=== PATIENT | female | born 1950 | race Caucasian/White ===

== ENCOUNTER 2022-02-25 18:58 | Emergency (ER) | payer OTHER, SELFPAY ==
[2022-02-25 19:16] VITALS: BP 139/72; PULSE 149; RESP 18; TEMP 38.4; O2SAT 94; BMI 23.4
--- NOTE | 2022-02-25 19:26 | ED.GENADULT ---
HPI - General Adult General Time Seen by Provider: 19:26 Date Seen: 02/25/22 Chief complaint: Unspecified Complaint, Adult Stated complaint: HIGH HEART RATE, COVID+ Time Seen by Provider: 02/25/22 19:17 Source: patient, RN notes reviewed and old records reviewed Mode of arrival: ambulatory Limitations: no limitations History of Present Illness HPI narrative: This 72-year-old [facility] rate in setting of COVID. She was essentially asymptomatic but her Apple watch alerted her to her elevated heart rate. She has a known history of atrial fibrillation and is anticoagulated with 20 mg daily of Xarelto. She did have a complex atrial ablation on 12/26/2019 per her records which I have reviewed. This was done at [facility]. Her current symptoms are in the setting of COVID. She really did not feel well on Monday thought maybe her allergy symptoms were starting. By she with is having more congestion and tested positive for COVID night. Today she started developing fevers. She has been coughing. She is getting sharp shooting head pains. She has not taken any recent Tylenol and she does have a notable fever of 101.1? F on arrival. She did call the clinic and speak to 1 of our clinic physicians, did get started on Paxlovid, took her 1st dose at 5:00 p.m. [facility]. She has no current kidney functions that I can see in the chart. She was reportedly told to take her Xarelto every other day while on this. Per [place] Covid interaction receiving checker, this is considered contraindicated in the elderly. There have been some model studies but nothing conclusive as for the potential for increased risk of bleeding while on this medicine. In the model study, they did talk about going down to 10 mg of Xarelto daily while on the antiviral and for 3 days after cessation of the antiviral in the nose with normal renal function. However, they do site that they still recommend to not coadminister these 2 medicines in the elderly. She is not short of breath, no loss of taste or smell, no chest pain. Her throat is a little sore from coughing. She has diminished appetite but no nausea vomiting, no diarrhea, no abdominal pain. Related Data Home Medications Medication Instructions Recorded Confirmed xocjmlcqmm-dtksxualxwual-zkhhpjrn 2 cap PO Q4-6H PRN 02/25/22 50 mg-300 mg-40 mg capsule (Fioricet) calcium carb,cit 300 mg-D3 200 tab PO DAILY 02/25/22 unit-min no.34-genistein 13.5 mg tablet (Citracal Plus Bone Density Builder) cyclobenzaprine 5 mg tablet 5 mg PO QHS PRN 02/25/22 fluticasone propionate 50 2 spray intranasal QDAY 02/25/22 02/25/22 mcg/actuation nasal spray,suspension lisinopril 5 mg tablet 5 mg PO QDAY 02/25/22 02/25/22 loratadine 10 mg tablet (Claritin) 10 mg PO QDAY 02/25/22 02/25/22 mesalamine 800 mg tablet,delayed 800 mg PO BID 02/25/22 02/25/22 release (Asacol HD) metoprolol tartrate 50 mg tablet 50 mg PO BID 02/25/22 02/25/22 multivitamin (Daily Multi-Vitamin 1 tab PO DAILY 02/25/22 02/25/22 tablet) omeprazole 20 mg capsule,delayed 20 mg PO QDAY 02/25/22 02/25/22 release pravastatin 10 mg tablet 10 mg PO QHS 02/25/22 02/25/22 risankizumab-rzaa 75 mg/0.83 mL 150 mg subcut Q12W 02/25/22 02/25/22 subcutaneous syringe (Skyrizi) rivaroxaban 20 mg tablet (Xarelto) 20 mg PO QDAY 02/25/22 02/25/22 Previous Rx's Medication Instructions Recorded nirmatrelvir 300 mg (150 mg See Rx Instructions PO .COMPLEX 02/25/22 x2)-ritonavir 100 mg tablet,dose #30 ea pack(EUA) (Paxlovid) Allergies Allergy/AdvReac Type Severity Reaction Status Date / Time Sulfa (Sulfonamide Allergy Severe larygnospas Verified 02/25/22 19:23 Antibiotics) m Quinolones Allergy Unknown Verified 02/25/22 19:23 simvastatin Allergy Unknown Verified 02/25/22 19:23 tolterodine Allergy Unknown Verified 02/25/22 19:23 atorvastatin AdvReac Unknown Verified 02/25/22 19:23 Review of Systems Status of ROS: Reports: 10 or more systems reviewed and unremarkable except as noted in History and below [facility] Medical History (Updated 02/25/22 @ 21:19 by Lorie Delcid MD) Chest pain, unspecified Diverticulitis Essential (primary) hypertension Hyperlipidemia, unspecified YOLI (obstructive sleep apnea) Paroxysmal atrial fibrillation Surgical History (Updated 02/25/22 @ 19:28 by Cinthya Garcias RN) H/O colectomy History of appendectomy Social History Smoking Status: Never smoker Do you use any of these nicotine containing products: None How often do you have a drink containing alcohol: never How often do you have six or more drinks on one occasion: Never AUDIT-C Alcohol total score: 0 Non-prescribed substance use: denies use Exam Const: Vital Signs, click to edit/add: Vital Signs - 24 hr 02/25/22 19:16 02/25/22 21:05 Temperature 101.1 F H 99.3 F Pulse Rate [Left P ulse Oximeter] 149 H 88 Respiratory Rate 18 22 Blood Pressure [Ri ght Upper Arm] 139/72 119/65 Pulse Oximetry 94 92 Oxygen Delivery Me thod Room Air Room Air Documenting provider has reviewed patient's vital signs: yes Common normals: no apparent distress, average body habitus, oriented x3, no limitations, healthy appearing and alert General appearance: other (Looks like she is not feeling the best but certainly not in any distress) Orientation/consciousness: Yes awake HENMT: Common normals: normocephalic, head/scalp atraumatic and hearing grossly normal bilaterally Head and scalp: normocephalic and atraumatic Eye: Common normals: PERRL, EOMs intact bilaterally, conjunctivae normal and no scleral icterus Conjunctiva: conjunctiva(e) normal Pupil: PERRL Neck & C-Spine: Common normals: full ROM, no lymphadenopathy, supple, no meningeal signs, no JVD and thyroid normal Thyroid: thyroid normal Resp: Common normals: normal respiratory effort, no retractions, no use of accessory muscles and clear to auscultation bilaterally Auscultation: clear to auscultation bilaterally Other: Reviewed pulse oximetry while I was in with her, not hypoxic. Cardio: Common normals: no JVD, S1 normal heart sound and S2 normal heart sound Rate: tachycardic Rhythm: other (She mostly sounds regular but she is tachycardic about 140s ) Heart sounds: S1 normal and S2 normal GI: Common normals: Normal to inspection, nondistended, normoactive bowel sounds present, soft to palpation, non-tender, no hepatosplenomegaly and no masses Palpation: soft and no hepatosplenomegaly Extremity: Common normals: no calf tenderness and no pedal edema Neuro: Common normals: oriented x3 Sensorium/orientation: awake and alert Meningeal signs: no meningeal signs Speech: speech normal Course Course Hospital Course: Patient has known atrial fibrillation and is on chronic anticoagulation. She baseline and is on metoprolol XL 25 mg daily. The COVID-19 and fever could be feeling her rhythm. She has bounced back into sinus rhythm in the upper 90s and have captured EKGs full doing this. She bounces back into atrial fibrillation with RVR. She is essentially asymptomatic and would not have known about this unless her watch alerted her. We are going to treat her fever with 1000 mg Tylenol she has not taken anything recently, give her 500 mL fluid bolus. We will check labs including a troponin and obtain portable chest x-ray. I have discussed with her that I do not think that she should take the antiviral for COVID (paxlovid). We did discuss alternate treatment with remdesivir. Unfortunately if she does go home this would be outpatient in outpatient treatment and she would have to clarify with her insurance whether it is covered. Seen that this is a weekend and she is Medicare, it has been my prior experience that this is been extremely difficult to wait through. Her symptoms probably started on Monday and she is only about 48 hours into her illness. If we cannot reasonably controller capture rate control of atrial fibrillation, we will need to consider hospitalization. I would talk to the hospitalists before starting remdesivir in that setting as well as she is not hypoxic. Reevaluation(s) Reevaluation #1: On telemetry, patient is in sinus rhythm in 90s right now. Time: 20:23 Reevaluation #2: On cardiac monitoring, patient is in sinus rhythm in the 80s right now. Have reviewed her labs, chest x-ray. We discussed further use of the Paxlovid, did review the 10 mg dosing in the model study. She at this time thinks she is going to stop it. It is a difficult situation as you really want to try to treat her so to minimize the complications of COVID but it may be in her best interest to stop this medicine. I did discuss with her remdesantonio but I have no way whatsoever to see if her insurance would cover this for early treatment. It is no longer EUA. Time: 21:12 Vital Signs Vital signs: Initial Vital Signs Temperature 101.1 F H 02/25/22 19:16 Temperature Source Temporal Artery Scan 02/25/22 19:16 Pulse Rate 149 H 02/25/22 19:16 Pulse Rhythm 02/25/22 19:16 Respiratory Rate 18 02/25/22 19:16 Blood Pressure 139/72 02/25/22 19:16 Blood Pressure Mean 94 02/25/22 19:16 Blood Pressure Position Sitting 02/25/22 19:16 Pulse Oximetry 94 02/25/22 19:16 Oxygen Delivery Method 02/25/22 19:16 Vital Signs Temperature 101.1 F H 02/25/22 19:16 Pulse Rate 149 H 02/25/22 19:16 Respiratory Rate 18 02/25/22 19:16 Blood Pressure 139/72 02/25/22 19:16 Pulse Oximetry 94 02/25/22 19:16 Oxygen Delivery Method 02/25/22 19:16 Temperature 99.3 F 02/25/22 21:05 Pulse Rate 88 02/25/22 21:05 Respiratory Rate 22 02/25/22 21:05 Blood Pressure 119/65 02/25/22 21:05 Pulse Oximetry 92 02/25/22 21:05 Oxygen Delivery Method 02/25/22 21:05 Medical Decision Making Lab Data Lab results reviewed: Yes I reviewed the patient's lab results Labs: Lab Results 02/25/22 02/25/22 Range/Units 19:30 19:30 WBC 6.83 (4.50-11.00) K/uL RBC 4.10 (4.00-5.20) m/uL Hgb 12.5 (12.0-16.0) gm/dL Hct 37.3 (33.0-51.0) % MCV 91 (80-100) fL MCH 31 (26-34) pg MCHC 34 (32-36) gm/dL RDW Coeff of Pan 12.1 (11.5-15.5) % Plt Count 213 (140-440) K/uL Neut % (Auto) 85.2 H (42.0-72.0) % Lymph % (Auto) 7.3 L (20-44) % [place] % (Auto) 7.0 (0.0-11.0) % Eos % (Auto) 0.1 (0.0-7.0) % Baso % (Auto) 0.3 (0.0-3.0) % Neut # (Auto) 5.80 (1.7-7.0) K/uL Lymph # (Auto) 0.50 L (0.90-2.90) K/uL [place] # (Auto) 0.50 (0.00-0.90) K/UL Eos # (Auto) 0.01 (0.00-0.50) K/uL Baso # (Auto) 0.02 (0.00-0.30) K/uL Abs Immat Gran (auto) 0.01 (0.00-0.30) K/uL Sodium 137 (135-149) mmol/L Potassium 3.6 (3.6-5.1) mmol/L Chloride 103 (96-114) mmol/L Carbon Dioxide 23 (20-32) mmol/L BUN 15 (7-30) mg/dL Creatinine 0.7 (0.5-1.5) mg/dL Estimated Creat Clear 46.90 Estimated GFR 91 ml/min Glucose 130 H (60-115) mg/dL Calcium 9.2 (8.4-10.6) mg/dL Total Bilirubin 0.4 (0.1-1.5) mg/dL AST 33 (12-35) U/L ALT 33 (4-35) U/L Alkaline Phosphatase 83 (40-150) U/L Troponin I < 0.01 L (0.01-0.04) ng/mL C-Reactive Protein 5.6 H (0.5-1.0) mg/dL Total Protein 7.7 (6.0-8.3) g/dL Albumin 4.6 (3.3-5.0) g/dL Imaging Data Chest x-ray: Attestation: I have reviewed the pertinent imaging results. My impression: No acute pathology on my preliminary read. Radiologist's impression: Patient: CELINE VALENZUELA Facility:[facility] Patient ID:?[id number] Site Patient ID:?[id number]. Site :?[id number] Study:?XRay Chest PORTABLE-02/25/2022 8:02:48 PM Ordering Physician:Sonya Melo Final Report: INDICATION: AFib with RVR, COVID.. TECHNIQUE: Chest 1 view. COMPARISON: February 28, 2020. FINDINGS: Cardiovascular and mediastinum: Cardiomediastinal silhouette is within normal limits. Lungs and pleural spaces: Lungs are clear. No evidence of pleural effusion. No pneumothorax identified. Bones and soft tissues: Unremarkable. IMPRESSION: No acute cardiopulmonary process identified. No significant interval change. Dictated by Anjelica Jeronimo MD @ 02/25/2022 8:08:59 PM (Electronic Signature) ECG Data Attestation: I personally reviewed and interpreted this ECG as follows: (Two EKGs done by nursing staff as they were capturing 2 different rhythms on arrival. First 1 showed sinus rhythm 99 beats per minute, no ischemic change, QT corrected 428 milliseconds. Subsequent EKG showed atrial fibrillation with rapid ventricular response, 138 beats per minute. ) Prior ECG tracings: not available for review Critical Care Time Critical Care Time Critical Care Time: No Discharge Plan Discharge Clinical Impression: COVID-19, Paroxysmal atrial fibrillation with rapid ventricular response Condition: Stable Instructions: A-fib (Atrial Fibrillation) (ED), COVID-19 (Coronavirus Disease 2019) (ED), COVID-19: Slow the Coronavirus Spread (ED) Additional Instructions: Alfredo current medications, do recommend cessation of the Paxlovid. You can try to contact your insurance company over the weekend and see if you have any success getting remdesivir for early treatment prior authorized. The dosing would be 200 mg day 1, 100 mg days 2 and 3. If you are successful in getting this done, can contact the ER and we can assist in getting this treatment arranged for you. We do not have any monoclonal antibody to treat this and unfortunately I have absolutely no idea where this can be obtained at this time. Should you develop increased heart rate due to atrial fibrillation again, have chest pain, have difficulty breathing or shortness of breath, return back to the ER for further evaluation. Otherwise, once you are feeling better and recovered from COVID, please schedule a follow-up clinic appointment with Dr. Gee. Make sure you are staying hydrated and drinking plenty of fluids through this illness. Tylenol 1000 mg up to 4 times a day for fever control is recommended through this illness. Staying hydrated, controlling her fever should help control recurrent atrial fibrillation. Activity Level: Activity as Tolerated Prescriptions: No Action multivitamin [Daily Multi-Vitamin] Tablet 1 tab PO DAILY Citracal Plus Bone Density 300-200-13.5 mg-unit-mg tablet PO DAILY mesalamine [Asacol HD] 800 mg tablet,delayed release (DR/EC) 800 mg PO BID omeprazole 20 mg capsule,delayed release(DR/EC) 20 mg PO QDAY pravastatin 10 mg tablet 10 mg PO QHS Xarelto 20 mg tablet 20 mg PO QDAY Rx Instructions: must administer with evening meal cyclobenzaprine 5 mg tablet 5 mg PO QHS PRN loratadine [Claritin] 10 mg tablet 10 mg PO QDAY fluticasone propionate 50 mcg/actuation spray,suspension 2 spray intranasal QDAY Rx Instructions: administer into each nostril auaudhkmzr-fzdodoywosmcg-jfkr [Fioricet] 50-300-40 mg capsule 2 cap PO Q4-6H PRN Rx Instructions: do not exceed 6 caps per day metoprolol tartrate 50 mg tablet 50 mg PO BID Skyrizi 75 mg/0.83 mL syringe 150 mg subcut Q12W lisinopril 5 mg tablet 5 mg PO QDAY Paxlovid (EUA) 300 mg (150 mg x 2)-100 mg tablets,dose pack See Rx Instructions PO .COMPLEX Qty: 30 0RF Rx Instructions: take TWO 150 mg tablets of nirmatrelvir with ONE 100 mg tablet of ritonavir twice daily for 5 days PO Follow Up/Referrals: Candy Gee MD [Primary Care Provider] - Stand Alone Forms: [facility] Info Instructions
--- NOTE | 2022-02-25 19:35 | CRLHL7_ITS ---
For Patients: As a result of the Cures Act, medical imaging exams and procedure reports are released immediately into your electronic medical record. You may view this report before your referring provider. If you have questions, please contact your health care provider. INDICATION: AFib with RVR, COVID.. TECHNIQUE: Chest 1 view. COMPARISON: February 28, 2020. FINDINGS: Cardiovascular and mediastinum: Cardiomediastinal silhouette is within normal limits. Lungs and pleural spaces: Lungs are clear. No evidence of pleural effusion. No pneumothorax identified. Bones and soft tissues: Unremarkable. IMPRESSION: No acute cardiopulmonary process identified. No significant interval change. Dictated by Anjelica Jeronimo MD @ 02/25/2022 8:08:59 PM (Electronically Signed)
--- OUTSIDE RECORDS SUMMARY | 2022-02-25 19:46 | XMS_ITS | Encounter Summary ---
:1950 Author Organization [facility] Address [address] [address] Care Team Providers Name Role Phone Candy Gee MD Primary Care Provider Encounter Details Date Type Department Care Team Description 04/08/2020 Orders Only [facility] [address] Evans MD Rheumatology [address] [place] [address] [place] [address] [phone] Social History Tobacco Use Types Packs/Day Years Used Date Smoking Tobacco: Former Sex Assigned at Date Recorded Not on file documented as of this encounter Plan of Treatment Upcoming Encounters Date Type Specialty Care Team Description 03/17/2022 Appointment Rheumatology Lemuel Evans MD [address] [facility] N [id number] (Wo rk) documented as of this encounter Visit Diagnoses Not on filedocumented in this encounter Care Teams Pulper Relationship Specialty Start Date End Date Candy Gee MD PCP - General Internal Medicine 03/05/[address] [place] [address] documented as of this encounter
--- OUTSIDE RECORDS SUMMARY | 2022-02-25 19:46 | XMS_ITS | Encounter Summary ---
:1950 Author [facility] [address] [address] Care Team Providers Name Role Phone Candy Gee MD Primary Care Provider Reason for Referral Procedure/Equipment (Routine) - Incomplete Specialty Diagnoses / Procedures Referred By Contact Refer red To Contact Diagnoses Arthralgia, unspecified joint Psoriasis Humaira Evans MD Procedures XR Feet 1 View Bilat Arthritis [address] [place], [place] [address] Referral ID Status Reason Start Date Expiration Date Visits V isits Requested Authorized [id number] Incomplete 03/25/2020 06/24/2021 1 1 Reason for Visit Reason Comments Follow-up Encounter Details Date Type Department Care Team Description 03/25/2020 Office Visit Humaira Zaragoza Arthralgi a, unspecified joint (Primary Dx); Rheumatology MD [place] Psoriasis [id number] [facility] [address] [place] [address] [facility] [phone] [place] [address] (Wo rk) Social History Tobacco Use Types Packs/Day Years Used Date Smoking Tobacco: Former Sex Assigned at Date Recorded Not on file documented as of this encounter Last Filed Vital Signs Vital Sign Reading Time Taken Comments Blood Pressure 145/49 03/25/2020 2:50 PM CDT Pulse 63 03/25/2020 2:50 PM CDT Temperature 36.1 ??C (97 ??F) 03/25/2020 2:50 PM CDT Respiratory Rate - - Oxygen Saturation - - Inhaled Oxygen Concentration - - Weight - - Height - - Body Mass Index - - documented in this encounter Patient Instructions Patient InstructionsHumaira Evans MD - 03/25/2020 3:00 PM CDT 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 staff Definition Psoriatic arthritis is a form of arthritis that affects some people who have psoriasis, a serious skin condition. Most people develop psoriasis first and are later diagnosed with psoriatic arthritis, but arthritis can sometimes develop before skin lesions appear. Joint pain, stiffness and swelling are the main symptoms of psoriatic arthritis. They can affect anypart of your body, including your fingertips and spine, and can range from relatively mild to severe. In both psoriasis and psoriatic arthritis, disease flares may alternate with periods of remission. No cure for psoriatic arthritis exists, so the focus is on controlling symptoms and preventing damage to your joints. Without treatment -- and regular exercise -- psoriatic arthritis may be disabling. Symptoms Both psoriatic arthritis and psoriasis are chronic diseases that get worse over time, but you may have periods when your symptoms improve or go into remission alternating with times when symptoms become worse. Often, skin and joint problems appear and disappear at the same time. General signs and symptoms of psoriatic arthritis include: ??? Pain in affected joints ??? Swollen joints ??? Joints that are warm to the touch Patterns of joint pain in psoriatic arthritis Doctors have identified five types of psoriatic arthritis, and you may experience several of them over time. They include: ??? Pain in joints on one side of your body. The mildest form of psoriatic arthritis, called asymmetric psoriatic arthritis, usually affects joints on only one side of your body or different joints on each side -- including those in your hip, knee, ankle or wrist. Fewer than five joints are generally involved, and they're often tender and red. When asymmetric arthritis occurs in your hands and feet, swelling and inflammation in the tendons can cause your fingers and toes to resemble small sausages (dactylitis). ??? Pain in joints on both sides of your body. Symmetric psoriatic arthritis usually affects five ormore of the same joints on both sides of your body. More women than men have symmetric psoriatic arthritis, and psoriasis associated with this condition tends to be severe. ??? Pain in your finger joints. Distal interphalangeal (DIP) joint predominant psoriatic arthritis is rare and occurs mostly in men. This type of arthritis affects the small joints closest to the nails(distal joints) in the fingers and toes. The nails, too, often show classic signs of psoriasis, including thickening, pitting and discoloration. ??? Pain in your spine. This form of psoriatic arthritis, called spondylitis, can cause inflammationin your spine as well as stiffness and inflammation in your neck, lower back or sacroiliac joints. Inflammation can also occur where ligaments and tendons attach to your spine. As the disease progresses, movement tends to become increasingly painful and difficult. ??? Destructive arthritis. A small percentage of people with psoriatic arthritis have arthritis mutilans -- a severe, painful and disabling form of the disease. Over time, arthritis mutilans destroys the small bones in your hands, especially the fingers, leading to permanent deformity and disability. When to see a doctor If you have psoriasis, be sure to tell your doctor if you develop joint pain. Psoriatic arthritis can come on suddenly or develop slowly, but in either case it can severely damage your joints if left untreated. Causes Psoriasis is a skin condition marked by a rapid buildup of rough, dry, skin cells that form thick scales. Arthritis causes pain and stiffness in your joints. Both are autoimmune problems -- disorders that occur when your body's immune system, which normally fights harmful organisms such as viruses and bacteria, begins to attack healthy cells and tissue. The abnormal immune response causes inflammation in your joints as well as the overproduction of skin cells. Genes and environment It's not entirely clear why the immune system turns on healthy tissue, but it seems likely that bothgenetic and environmental factors play a role. Many people with psoriatic arthritis have a close relative, such as a parent or sibling, with the disease, and researchers have discovered certain geneticmarkers that appear to be associated with psoriatic arthritis. Having a family member with psoriatic arthritis doesn't necessarily mean you'll develop the disease,but it does mean you have a greater tendency to do so. Physical trauma or something in the environment -- such as a viral or bacterial infection -- may trigger psoriatic arthritis in people with an inherited tendency. The role of TNF In addition, a substance called tumor necrosis factor (TNF), which causes inflammation in rheumatoidarthritis, appears to play a large role in psoriatic arthritis as well. People with psoriatic arthritis have high levels of TNF in both their joints and skin. Risk factors Several factors can increase your risk of psoriatic arthritis, including: ??? Psoriasis. Having psoriasis is the single greatest risk factor for psoriatic arthritis. People who have psoriasis lesions on their nails are especially likely to develop psoriatic arthritis. ??? Your family history. Many people with psoriatic arthritis have a close relative with the disease. ??? Your age. Although anyone can develop psoriatic arthritis, it occurs most often in adults between the ages of 30 and 50. ??? Your sex. In general, psoriatic arthritis affects men and women equally, but DIP arthritis and spondylitis are more likely to affect men, whereas symmetric arthritis occurs more often in women. Complications Psoriatic arthritis can be painful and debilitating, and can damage your joints, even with treatment. Some types of psoriatic arthritis can cause additional difficulties, including: ??? Swollen fingers and toes (dactylitis). Psoriatic arthritis can cause a painful, sausage-like swelling of your fingers and toes. Swollen toes are a particular problem because they can make it hard to find shoes that fit properly. A cipher expert -- a doctor who specializes in the feet -- may be able to provide help if you have psoriatic arthritis in your toes or ankles. You may also develop swelling in your hands and feet that isn't limited to your joints and that may develop before joint symptoms do. ??? Foot pain. Another condition associated with psoriatic arthritis is enthesopathy, which causes pain at the point where tendons and ligaments attach to your bones -- especially at the back of your heel (Achilles tendinitis) or in the sole of your foot (plantar fasciitis). ??? Back and neck pain. Some people develop a condition called spondylitis as a result of psoriatic arthritis. Spondylitis mainly causes inflammation of the joints between the vertebrae of your spine and the joints between your spine and pelvis. Tests and diagnosis No single test can confirm a diagnosis of psoriatic arthritis. Your doctor will assess your signs and symptoms and work to rule out other causes of joint pain, such as osteoarthritis and rheumatoid arthritis. Tests that help to distinguish psoriatic arthritis from other conditions include: ??? X-rays. These can help pinpoint changes in the joints that occur in psoriatic arthritis but not in other arthritic conditions. ??? Joint fluid test. In this test, your doctor removes a small sample of fluid from one of your joints -- often the knee -- for analysis in a laboratory. Uric acid crystals in your joint fluid may indicate that you have gout, rather than psoriatic arthritis. ??? Sed rate. This blood test checks your erythrocyte sedimentation rate (ESR), commonly known as the sed rate, by measuring how far from the top of a glass tube your red blood cells fall in a given time. Generally, the blood cells fall faster and farther -- that is, the sed rate increases -- when inflammation is present. But because many conditions can cause inflammation in the body, including many forms of arthritis and other rheumatic diseases, an elevated sed rate alone can't confirm the presence of psoriatic arthritis. ??? Rheumatoid factor (RF). RF is an antibody -- a protein made by the immune system -- that's oftenpresent in the blood of people with rheumatoid arthritis, but not in the blood of people with psoriatic arthritis. For that reason, this test can help your doctor distinguish between the two conditions. Treatments and drugs No cure exists for psoriatic arthritis, so treatment focuses on controlling inflammation in your affected joints to prevent joint pain and disability. Often, a multidisciplinary approach is used to treat both skin and joint symptoms. Medications Medications commonly used to treat psoriatic arthritis include: ??? Nonsteroidal anti-inflammatory drugs (NSAIDs). Drugs such as aspirin and ibuprofen (Advil, Motrin, others) may help control pain, swelling and morning stiffness, and they're usually the first treatment tried for psoriatic arthritis. Prescription NSAIDs provide higher potencies than do ejph-qgf-qwjubny drugs. But all NSAIDs can irritate your stomach and intestine, and long-term use can lead to ulcers and gastrointestinal bleeding. Other potential side effects include damage to your kidneys, fluid retention and heart failure. In addition, NSAIDs may worsen skin problems. Still, these medications may be a good option for people with minor joint pain and stiffness. ??? Corticosteroids. If you have mild psoriatic arthritis, your doctor might recommend corticosteroids to control infrequent joint pain flares. Corticosteroids can be taken orally, or they can be injected directly into aching joints. Corticosteroid injections provide almost immediate relief and improve range of motion -- sometimes for months. But because injected steroids can cause damage, their use is usually limited. ??? Disease-modifying antirheumatic drugs (DMARDs). Rather than just reducing pain and inflammation,this class of drugs helps limit the amount of joint damage that occurs in psoriatic arthritis. But because DMARDs act slowly, you may not notice the effects for weeks or even months. For that reason, your doctor may prescribe a pain reliever, such as aspirin, in addition to a DMARD. Examples of DMARDsinclude sulfasalazine (Azulfidine) and methotrexate. The latter, particularly, has potentially serious side effects, including lung disease and liver problems. Taking folic acid with methotrexate can relieve certain side effects such as a sore mouth and an upset stomach. ??? Immunosuppressant medications. These medications act to suppress your immune system, which normally protects your body from harmful organisms, but which attacks healthy tissue in people with psoriatic arthritis. Commonly used immunosuppressants include azathioprine (Imuran), cyclosporine (Sandimmune, Neoral) and leflunomide (Arava). Immunosuppressants can have potentially dangerous side effects and usually are used in only the mostsevere cases of psoriatic arthritis. Because they suppress the immune system, all such drugs can lead to anemia and an increased risk of serious infection. And many of them can cause liver and kidney problems. ??? TNF-alpha inhibitors. Your doctor may recommend tumor necrosis factor-alpha (TNF-alpha) inhibitors if you have severe psoriatic arthritis. These drugs block the protein that causes inflammation in some types of arthritis. Drugs in this category include etanercept (Enbrel), adalimumab (Humira) and infliximab (Remicade). TNF-alpha inhibitors can improve signs and symptoms of psoriasis, as well. Allcarry a risk of serious side effects, however, including some that can be life-threatening. Be sure to discuss with your doctor whether the benefits you'll receive from these medications outweigh the risks. Keep in mind that these treatments, which must be injected, are very expensive, often costing th ousands of dollars per treatment. If you and your doctor decide to use TNF inhibitors, check with your insurance company about coverage. Surgery Although surgery is rarely performed for psoriatic arthritis, your doctor may recommend some form ofjoint operation when other treatments fail to relieve your symptoms. Surgeons use various proceduresto ease pain and restore mobility. Because these operations pose some risks, be sure you thoroughly discuss your options with your doctor. documented in this encounter Progress Notes Humaira Evans MD - 03/25/2020 3:00 PM CDT RHEUMATOLOGY FOLLOW-UP CC: follow up positive MARLON, purpuric rash, palmar plantar psoriasis with arthralgias Encounter date: 03/25/2020 Date of last office visit: 03/11/2020, initial consultation Rheumatologic history: The patient is a 70 y.o. female with medical history of psoriasis, ulcerative colitis, migraine headache, osteoporosis, seasonal allergies, hyperlipidemia, obstructive sleep apnea, and atrial fibrillation on anticoagulation with recent ablation presenting to our clinic initially in February 2020 for evaluation of a positive MARLON in the setting of arthralgias, lymphadenopathy, and new rash. Work up doneincluding SUNSHINE panel, ANCA, cryoglobulin, complement, dsDNA, UA with urine protein:cr ratio, HLA B27,ASO, HIV, CBC, BMP, all of which were unremarkable. CT done of the nexk and chest due to complaints of neck and axillary lymphadenopathy which did not show concerning lymph nodes. X-ray of the hands done showing mild to moderate OA changes with bony demineralization. MARLON could be positive in the setting of her known inflammatory bowel disease. 1:10, speckled pattern. 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 Interim history: Ms. Maldonado states that she is actually doing better since our last visit. She notes improvement in theswelling in her axillary region and along her chest was bilaterally. From an arthritis standpoint, she continues to have stiffness in the hands for approximately 1 hour in the morning. She denies any overt swelling of the hands or feet joints. She has not noticed any worsening of her joint symptoms with the change in weather. No dactylitis. She reports improvement of her lower extremity rash when stopping clobetasol on her purpuric lesions. She reports that her plantar psoriasis has remained unchanged. She denies any new rashes or other new joint pain today. She does note that she had a recent follo w-up with dermatology and discussed our visit with them as well-they recommend starting Skyrizi for treatment of her psoriasis and the patient thinks they have started the process of prior authorization and pre biologic lab testing as well. ROS: Review of systems form filled out the the patient for today's visit was reviewed, and is as noted above. PMH: Updated in EMR Outpatient Encounter Medications as of 03/25/2020 Medication Sig Dispense Refill ??? artificial tears (HYPOTEARS) 1-1 % eye drop solution 4 times daily as needed. ??? Vqqqcrwaae-DOGI-Pkxevtwj 50-300-40 MG CAPS TK 1 TO 2 CS PO Q 4 H NEEDED. MAX 6 C PER DAY ??? Calcium Citrate-Vitamin D (CITRACAL + D OR) ??? clobetasol (TEMOVATE) 0.05 % ointment Apply topically two times a day. ??? cyclobenzaprine (FLEXERIL) 5 MG tablet TK 1 T PO TID PRF MUSCLE SPASM ??? erythromycin (ERYGEL) 2 % gel JONATHON EXT AA BID ??? fluocinonide (LIDEX) 0.05 % ointment Apply topically two times a day. ??? fluticasone propionate (FLONASE) 50 MCG/ACT nasal solution Place 2 Sprays into both nostrils daily. ??? ketoconazole (NIZORAL) 2 % cream Apply topically daily. ??? lisinopril (ZESTRIL) 5 MG tablet Take 5 mg by mouth daily. ??? MESALAMINE OR ??? metoprolol succinate (TOPROL XL) 50 MG 24 hour release tablet Take 50 mg by mouth daily. ??? Multiple Vitamin (MULTI-VITAMIN DAILY OR) ??? omeprazole (PRILOSEC) 20 MG capsule TK 1 C PO D ??? ondansetron (ZOFRAN) 4 MG tablet Take 4 mg by mouth every 8 hours as needed for Nausea. ??? pantoprazole (PROTONIX) 20 MG tablet Take 20 mg by mouth daily. ??? pravastatin (PRAVACHOL) 10 MG tablet TK 1 T PO HS ??? XARELTO 20 MG tablet TK 1 T PO D WITH MEAL No facility-administered encounter medications on file as of 03/25/2020. ALLERGIES: Updated in EMR Social History Tobacco Use Smoking Status Former Smoker Social History Substance and Sexual Activity Alcohol Use Not on file MEDS: Reviewed and updated in the computerized record. Physical exam: There were no vitals taken for this visit. General: Alert, no distress, appears comfortable Eyes: anicteric, no erythema, EOMI ENT: Mask in place today Resp: breathing comfortably on room air. CTAB, no wheezing or crackles. CV: RRR, no m/r/g Abd: soft, NT/ND, normal bowel sounds Skin: Postinflammatory hyperpigmentation of the dorsal aspect of the feet bilaterally extending up to the ankles though this is improved from previous exam, she continues to have significant erythema peeling, and scabbing of the sole of the feet bilaterally with pustular and hyperkeratotic regions. There are small erythematous plaques on the palms of the hands bilaterally with some overlying scale. These appear unchanged from her prior visit. She continues to have pitting and ridging of the nails bilaterally most notable of the left thumb as well as the right 4th digit Neuro: normal gait. Grossly normal strength. MSK: A focused joint exam was performed involving shoulders, elbows, hands, ankles, feet. 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 No evidence of synovitis on today's exam. She does have some posterior fullness of the heels and Achilles bilaterally though this could be secondary to her plantar rash as she denies tenderness to palpation of the Achilles tendon or of the heel. No pain on MTP squeeze bilaterally no evidence of synovitis of the feet Labs: Lab Results Component Value Date WBC 6.5 03/11/2020 RBC 4.37 03/11/2020 Hemoglobin 13.3 03/11/2020 HCT 41.6 03/11/2020 MCV 95.2 03/11/2020 RDW 13.1 03/11/2020 Platelets 318 03/11/2020 Lab Results Component Value Date AST (SGOT) 23 03/11/2020 , Lab Results Component Value Date ALT (SGPT) 37 03/11/2020 Lab Results Component Value Date Creatinine 0.70 03/11/2020 Lab Results Component Value Date Sedimentation Rate 10 03/11/2020 , Lab Results Component Value Date C-Reactive Protein <0.5 03/11/2020 [facility] MARLON: 1:80, speckled 02/2020: SUNSHINE panel negative dsDNA negative Complement normal Cryoglobulin negative HLA B27 negative HIV negative ANCA negative Imaging: CT chest 03/18/2020: IMPRESSION: 1. No thoracic adenopathy by size criteria. 2. A 4 mm nodule within the left lower lobe. See guidelines. ?? PN Consensus Recommendation for a single solid nodule less than 6 mm (excludes patients younger than35 years, immunocompromised patients and patients with cancer): ?? Low risk patients: No routine follow-up. ?? High risk patients (older age, smoking history, emphysema, fibrosis): Optional lung nodule CT at [address] neck soft tissue w/ IV contrast 03/18/2020: IMPRESSION: 1. No evidence of cervical lymphadenopathy. 2. 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 X-ray hands 03/11/2020: FINDINGS: Single PA arthritis view of the bilateral hands. No acute bony abnormalities are erosive changes throughout the hands. Mild to moderate osteoarthritis at the bilateral DIP joints, thumb IP joints, ST-T joints, and first CMC joints. Bones are mildly demineralized. ASSESSMENT/PLAN: # arthralgias # palmar plantar psorasis # history of IBD # low titer MARLON Ms. Matos is a very pleasant 70 y.o. female with medical history of psoriasis, ulcerative colitis, migraine headache, osteoporosis, seasonal allergies, hyperlipidemia, obstructive sleep apnea, and atrial fibrillation on anticoagulation with recent ablation presenting to our clinic for follow up. Additional autoimmune work up has been unrevealing, suspect MARLON low titer positive in the setting of her IBD history but also can be seen without underlying etiology in healthy females. Her additional work upfor underlying connective disease is unremarkable. Reassuringly her CT scan of the neck and axilla did not show any lymphadenopathy, so her symptoms may have been reactive 2/2 to her recent URI. Additionally her LE rash biopsy did not show evidence of vasculitis. Given her work up I think the main issue we can address now is her arthralgias in the setting of her palmar plantar psoriasis. Appreciate her evaluation by her Dermatology team. She just had a recent visit in notes they suggested scar your easy as treatment for her palmar plantar psoriasis. Though she does not have evidence of inflammatoryarthritis on today's visit there is the possibility that she has underlying psoriatic arthritis in the setting of her skin disease, so agree with recommendation to escalate her therapy. Agree with targeting IL-23 as this should not interfere with her known inflammatory bowel disease as well. 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 I will obtain imaging of the feet today for baseline x-rays. Patient is that she recently had testing do ne there Dermatology office as well that she thinks was pre biologic testing so will not repeat these today. Will plan on follow-up in 4 months or sooner if needed. Patient given handout on Skyrizi today as well as psoriatic arthritis. The him to PLAN: - xrays bilateral feet today - will touch base with patient's sawmill moulder operator regarding biologic plan - handout given on Skyrizi and PsA at today's visit - follow up in 4 months RTC in 4 months for follow-up. Patient advised to call clinic if symptoms change or worsen. All questions answered to the best of my ability. MD Darcy Eisenberg Rheumatology documented in this encounter Plan of Treatment Upcoming Encounters Date Type Specialty Care Team Description 03/17/2022 Appointment Rheumatology Lemuel Evans [facility] [address] [facility] [id number] (Wo rk) documented as of this encounter Results XR Feet 1 View Bilat Arthritis (03/25/2020 3:40 PM CDT) Anatomical Region Laterality Modality Lower Extremity, Foot Digital Radiograph y Specimen (Source) Anatomical Collection Method Collection Time Re ceived Time Location / / Volume Laterality 03/25/2020 3:34 PM CDT Impressions 03/25/2020 3:54 PM CDT COMPARISON: ??None. FINDINGS: ??There is mild degenerative a rthritis in the first MTP joints bilaterally. Remainder the visualized joints are unremarkable. No erosive change or periostitis. No fracture. Procedure Note Leon Salazar MD - 03/25/2020 IMPRESSION COMPARISON: None. FINDINGS: There is mild degenerative art hritis in the first MTP joints bilaterally. Remainder the visualized joints are unremarkable. No erosive change or periostitis. No fracture. Humaira Evans MD RAD GD documented in this encounter Visit Diagnoses Diagnosis Arthralgia, unspecified joint - Primary Psoriasis Other psoriasis Arthralgia, unspecified joint Psoriasis Other psoriasis documented in this encounter Care Teams Cis Coordinator Relationship Specialty Start Date End Date Candy Gee MD PCP - General Internal Medicine 03/05/201999 [place] [address] documented as of this encounter
--- OUTSIDE RECORDS SUMMARY | 2022-02-25 19:46 | XMS_ITS | Encounter Summary ---
:1950 [address] [address] Address [address] [place] [address] Care Team Providers Name Role Phone Candy Gee MD Primary Care Provider Encounter Details Date Type Department Care Team Description 07/29/2020 Lab Visit [facility]soriasis; [id number] [address] Arthralgia, unspecified join t [place], [place] [id number] Social History Tobacco Use Types Packs/Day Years Used Date Smoking Tobacco: Former Sex Assigned at Date Recorded Not on file documented as of this encounter Plan of Treatment Upcoming Encounters Date Type Specialty Care Team Description 03/17/2022 Appointment Rheumatology Lemuel Evans MD [address] [facility] [place] [id number] (Wo rk) documented as of this encounter Procedures Procedure Name Priority Date/Time Associated Diagnosis Comme nts C-REACTIVE PROTEIN Routine 07/29/2020 11:17 AM Psoriasis Results for this JEWELRY SALES COORDINATOR Arthralgia, procedure are i n unspecified joint the result s section. CK, TOTAL Routine 07/29/2020 11:17 AM Psoriasis Results for this JEWELRY SALES COORDINATOR Arthralgia, procedure are i n unspecified joint the result s section. ESR Routine 07/29/2020 11:17 AM Psoriasis Results for this JEWELRY SALES COORDINATOR Arthralgia, procedure are i n unspecified joint the result s section. documented in this encounter Results CPK - CK Total (07/29/2020 11:17 AM JEWELRY SALES COORDINATOR) P athologist Signature CK, Total 59 29 - 168 07/29/2020 [facility] U/L 12:33 PM JEWELRY SALES COORDINATOR LABORATORY Specimen Anatomical Collection Method / Collection Time Recei brittanie Time (Source) Location / Volume Laterality Blood Venipuncture / 07/29/2020 11:17 1 Unknown AM JEWELRY SALES COORDINATOR 11:17 AM JEWELRY SALES COORDINATOR Humaira Evans MD LAB_1 Performing Organization Address [facility] Phon e Number [facility] [address] [place] [address] CRP - C Reactive Protein (07/29/2020 11:17 AM JEWELRY SALES COORDINATOR) P athologist Signature C-Reactive 0.6 0.0 - 0.7 07/29/2020 [facility] Protein mg/dL 12:33 PM JEWELRY SALES COORDINATOR LABORATORY Specimen Anatomical Collection Method / Collection Time Recei brittanie Time (Source) Location / Volume Laterality Blood Venipuncture / 07/29/2020 11:17 1 Unknown AM JEWELRY SALES COORDINATOR 11:17 AM JEWELRY SALES COORDINATOR Humaira Evans MD LAB_1 Performing Organization Address [facility] Phon e Number [facility] [address] [place] [address] ESR - Sedimentation Rate (07/29/2020 11:17 AM JEWELRY SALES COORDINATOR) Patholo gist Method Time Signature Sedimentation Rate 11 0 - 20 07/29/2020 [facility] mm/hr 11:53 AM JEWELRY SALES COORDINATOR LABORATORY Specimen Anatomical Collection Method / Collection Time Recei brittanie Time (Source) Location / Volume Laterality Blood Venipuncture / 07/29/2020 11:17 1 Unknown AM JEWELRY SALES COORDINATOR 11:17 AM JEWELRY SALES COORDINATOR Humaira Evans MD LAB_1 Performing Organization Address [facility] Phon e Number [facility] [address] [place] [address] documented in this encounter Visit Diagnoses Diagnosis Psoriasis Other psoriasis Arthralgia, unspecified joint documented in this encounter Care Teams Enforcement Officer Relationship Specialty Start Date End Date Candy Gee MD PCP - General Internal Medicine 03/05/201999 [place] [address] (work) documented as of this encounter
--- OUTSIDE RECORDS SUMMARY | 2022-02-25 19:46 | XMS_ITS | Encounter Summary ---
:1950 Author Organization [facility] Address [address] [address] Care Team Providers Name Role Phone Candy Gee MD Primary Care Provider Reason for Visit Reason Comments Paperwork Encounter Details Date Type Department Care Team Description 03/10/2020 Notes/Orders [place] [address] [place] [address] [place] [address] [phone] (Wo rk) Social History Tobacco Use Types Packs/Day Years Used Date Smoking Tobacco: Never Assessed Sex Assigned at Date Recorded Not on file documented as of this encounter Progress Notes Marina Crowe LPN - 03/10/2020 9:47 AM CDT lft message for pt to please have outside records fax'd. Upon review of her demographics I found herprevious provider in [place] and will have them fax recent visit and lab notes documented in this encounter Plan of Treatment Upcoming Encounters Date Type Specialty Care Team Description 03/17/2022 Appointment Rheumatology Lemuel Evans MD [address] [facility] [address] [address] (Wo rk) documented as of this encounter Visit Diagnoses Not on filedocumented in this encounter Care Teams Composite Assembler Relationship Specialty Start Date End Date Candy Gee MD PCP - General Internal Medicine 03/05/201[address] [place] [address] documented as of this encounter
--- OUTSIDE RECORDS SUMMARY | 2022-02-25 19:46 | XMS_ITS | Encounter Summary ---
:1950 Author Organization [facility] Address [address], [place] [address] Care Team Providers Name Role Phone Candy Gee MD Primary Care Provider Reason for Visit Procedure/Equipment (Routine) - Closed Specialty Diagnoses / Procedures Referred By Contact Refer red To Contact Diagnoses Lymphadenopathy Positive MARLON (antinuclear antibody) Humaira Evans MD Procedures CT Neck Soft Tissue W IV Cont [address] [place], [place] [address] Referral ID Status Reason Start Date Expiration Date Visits Requ ested Visits Authorized [id number] Closed 03/18/2020 04/17/2020 1 1 Encounter Details Date Type Department Care Team Description 03/18/[address] [place] [address] Scan Humaira Evans Lymphadenopathy; Procedure [id number] Antonella Jamil MD Positive MARLON (antinuclear antibody) [facility] [address] [facility] [address] [place], [place] [phone] [id number] Social History Tobacco Use Types Packs/Day Years Used Date Smoking Tobacco: Former Sex Assigned at Date Recorded Not on file documented as of this encounter Plan of Treatment Upcoming Encounters Date Type Specialty Care Team Description 03/17/2022 Appointment [facility]umatology Lemuel Evans [facility] [address] [facility] [phone] (Wo rk) documented as of this encounter Procedures Procedure Name Priority Date/Time Associated Diagnosis Comme nts CT NECK SOFT TISSUE Routine 03/18/2020 10:07 AM Lymphade nopathy Results for this W IV CONT CDT Positive MARLON procedure are i n (antinuclear the results antibody) section. documented in this encounter Results CT Neck Soft Tissue W IV Cont (03/18/2020 10:07 AM CDT) Anatomical Region Laterality Modality Neck, C-Spine, Spine, Vascular Computed Tomography Specimen (Source) Anatomical Collection Method Collection Time Re ceived Time Location / / Volume Laterality 03/18/2020 9:32 AM CDT Impressions 03/18/2020 1:07 PM CDT INDICATION: Lymphadenopathy, neck TECHNIQUE: Axial CT of the neck with IV contrast with 2D coronal and sagittal reformatting,75 mL IOPAMIDOL 61 % IV SOLN. COMPARISON: ??None. FINDINGS: Orbits, paranasal sinuses, and skull bas e: Normal. Nasopharynx: Normal. Suprahyoid neck: Normal oropharynx, oral cavity, parapharyngeal space, and retropharyngeal space. Infrahyoid neck: Normal larynx, hypophar ynx, and supraglottis. Thyroid: Normal. Thoracic inlet: Normal lung apices and b rachial plexus. Lymph nodes: Normal. No lymphadenopathy. Vascular structures: Normal. Other findings: Disc degeneration with d isc space narrowing and osteophytic ridging at C5-6 and C6-7. IMPRESSION: ?? 1. No evidence of cervical lymphadenopat hy. 2. 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 Procedure Note Jason Beltre MD - 03/18/2020Format ting of this note might be different from the original. IMPRESSION INDICATION: Lymphadenopathy, neck TECHNIQUE: Axial CT of the neck with IV contrast with 2D coronal and sagittal reformatting,75 mL IOPAMIDOL 61 % IV SOLN. COMPARISON: None. FINDINGS: Orbits, paranasal sinuses, and skull bas e: Normal. Nasopharynx: Normal. Suprahyoid neck: Normal oropharynx, oral cavity, parapharyngeal space, and retropharyngeal space. Infrahyoid neck: Normal larynx, hypophar ynx, and supraglottis. Thyroid: Normal. Thoracic inlet: Normal lung apices and b rachial plexus. Lymph nodes: Normal. No lymphadenopathy. Vascular structures: Normal. Other findings: Disc degeneration with d isc space narrowing and osteophytic ridging at C5-6 and C6-7. IMPRESSION: 1. No evidence of cervical lymphadenopat hy. 2. 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 Humaira Evans MD RAD CT documented in this encounter Visit Diagnoses Diagnosis Lymphadenopathy Enlargement of lymph nodes Positive MARLON (antinuclear antibody) Other and unspecified nonspecific immuno logical findings documented in this encounter Administered Medications Inactive Administered Medications - up to 3 most recent administrations Medication Order MAR Action Action Date Dose Rate Site 0.9% sodium chloride bolus 100 mL Started 03/18/2020 10:06 AM CDT 100 mL 100 mL, Intravenous, Administer over 1 Hours, ONCE, On Mon03/18/20 at 1030, For 1 dose iopamidol (ISOVUE-300) 61 % injection 75 mL Given 03/18/2020 10:06 AM CDT 75 mL 75 mL, Intravenous, ONCE, On Mon03/18/20 at 1030, For 1 dose sodium chloride 0.9% injection 10 mL Given 03/18/2020 10:06 AM CDT 10 mL 10 mL, Intravenous, ONCE, On Mon03/18/20 at 1030, For 1 dose documented in this encounter Care Teams Console Assembler Relationship Specialty Start Date End Date Candy Gee MD PCP - General Internal Medicine 03/05/[address] [place] [address] documented as of this encounter
--- OUTSIDE RECORDS SUMMARY | 2022-02-25 19:46 | XMS_ITS | Encounter Summary ---
:1950 Author Organization [employer] Address [address] [address] Care Team Providers Name Role Phone Candy Gee MD Primary Care Provider Reason for Visit Reason Comments Follow-up Encounter Details Date Type Department Care Team Description 09/09/2021 Office Visit Humaira Zaragoza Osteoarth ritis of both hands, unspecified osteoarthritis type (Primary Dx); Rheumatology MD Loulou Myofascial muscle pain; [id number] [employer] [address] [facility] Psoriasis; [place] [address] Blvd High risk medication use; [phone] [place], [place] Plantar fa sciitis [id number] Social History Tobacco Use Types Packs/Day Years Used Date Smoking Tobacco: Former Smokeless Tobacco: Never Sex Assigned at Date Recorded Not on file documented as of this encounter Last Filed Vital Signs Vital Sign Reading Time Taken Comments Blood Pressure 126/68 09/09/2021 9:22 AM CDT Pulse 60 09/09/2021 9:22 AM CDT Temperature 35.2 ??C (95.3 ??F) 09/09/2021 9:22 AM CDT Respiratory Rate - - Oxygen Saturation - - Inhaled Oxygen Concentration - - Weight - - Height - - Body Mass Index - - documented in this encounter Patient Instructions Patient InstructionsHumaira Evans MD - 09/09/2021 9:40 AM CDT Images from the original note were not included. Prednisone taper on hand for the plantar fascitis symptoms Continue the rowing Stretches for plantar fascitis For muscle symptoms continue flexeril 1 tablet at bedtime if needed Continue tylenol as needed Follow up in 6 months or sooner if needed Plantar fasciitis By [facility] staff Definition Plantar fasciitis (PLAN-tur fas-e-I-tis) is one of the most common causes of heel pain. It involves pain and inflammation of a thick band of tissue, called the plantar fascia, which runs across the bottom of your foot -- connecting your heel bone to your toes. Plantar fasciitis causes stabbing pain that usually occurs with your very first steps in the morning. Once your foot limbers up, the pain of plantar fasciitis normally decreases, but it may return after long periods of standing or after getting up from a seated position. Plantar fasciitis is particularly common in runners. People who are overweight, women who are and those who wear shoes with inadequate support are at a higher risk of plantar fasciitis. Symptoms In most cases, the pain associated with plantar fasciitis: Develops gradually Affects just one foot, although it can occur in both feet simultaneously Is worst with the first few steps after awakening, although it also can be triggered by long periodsof standing or getting up from a seated position Feels like a sharp pain in the heel of your foot Causes Under normal circumstances, your plantar fascia acts like a shock-absorbing bowstring, supporting the arch in your foot. But, if tension on that bowstring becomes too great, it can create small tears in the fascia. Repetitive stretching and tearing can cause the fascia to become irritated or inflamed. Risk factors Factors that may increase your risk of developing plantar fasciitis include: Age. Plantar fasciitis is most common between the ages of 40 and 60. Sex. Women are more likely than men to develop plantar fasciitis. Certain types of exercise. Activities that place a lot of stress on your heel and attached tissue --such as long-distance running, ballet dancing and dance aerobics -- can contribute to an earlier onset of plantar fasciitis. Faulty foot mechanics. Being flat-footed, having a high arch or even having an abnormal pattern of walking can adversely affect the way weight is distributed when you're standing, putting added stress on the plantar fascia. Obesity. Excess pounds put extra stress on your plantar fascia. Occupations that keep you on your feet. People with occupations that require a lot of walking or standing on hard surfaces -- such as factory workers, teachers and waitresses -- can damage their plantar fascia. Improper shoes. Shoes that are thin soled, loose, or lack arch support or the ability to absorb shock don't protect your feet. If you regularly wear shoes with high heels, your Achilles tendon -- whichis attached to your heel -- can contract and shorten, causing strain on the tissue around your heel. Complications Ignoring plantar fasciitis may result in a chronic condition that hinders your regular activities. You may also develop foot, knee, hip or back problems because of the way plantar fasciitis changes your walking motion. Tests and diagnosis Your doctor may suggest an X-ray or magnetic resonance imaging (MRI) to make sure your pain isn't being caused by another problem, such as a stress fracture or pinched nerve. Sometimes, an X-ray shows a spur of bone projecting forward from the heel bone. In the past, these bone spurs were often blamed for heel pain and removed surgically. But many people who have bone spurson their heels have no heel pain. Treatments and drugs About 90 percent of the people who have plantar fasciitis recover with conservative treatments in just a few months. Medications Nonsteroidal anti-inflammatory drugs (NSAIDs). NSAIDs, such as ibuprofen (Advil, Motrin, others) andnaproxen (Aleve), may ease pain and inflammation, although they won't treat the underlying problem. Corticosteroids. This type of medication may be delivered through a process called iontophoresis, inwhich a corticosteroid solution is applied to the skin over the painful area and the medication is absorbed with the aid of a nonpainful electric current. Another delivery method is injection. Multiple injections aren't recommended because they can weaken your plantar fascia and possibly cause it to rupture, as well as shrink the fat pad covering your heel bone. Ultrasound guidance is sometimes used for more accurate placement of the corticosteroid injection. Therapies Physical therapy. A physical therapist can instruct you in a series of exercises to stretch the plantar fascia and Achilles tendon and to strengthen lower leg muscles, which stabilize your ankle and heel. A therapist may also teach you to apply athletic taping to support the bottom of your foot. Night splints. Your doctor may recommend wearing a splint fitted to your calf and foot while you sleep. This holds the plantar fascia and Achilles tendon in a lengthened position overnight so that theycan be stretched more effectively. Orthotics. Your doctor may prescribe nkx-eof-kysib or custom-fitted arch supports (orthotics) to help distribute pressure to your feet more evenly. Surgical or other procedures Extracorporeal shock wave therapy. In this procedure, sound waves are directed at the area of heel pain to stimulate healing. It's usually used for chronic plantar fasciitis that hasn't responded to more-conservative treatments. This procedure may cause bruises, swelling, pain, numbness or tingling, and has not been shown to be consistently effective. Surgery. Only a small percentage of people need surgery to detach the plantar fascia from the heel bone. It's generally an option only when the pain is severe and all else fails. Side effects include aweakening of the arch in your foot. Alternative medicine Although some lvxi-wss-stcjfti arch supports contain magnets, no reliable evidence indicates that arch supports with magnets relieve heel pain any better than arch supports without magnets. Lifestyle and home remedies Put your feet up. Stay off your feet for several days when the pain is severe. Apply ice. Hold a cloth-covered ice pack over the area of pain for 15 to 20 minutes three or four times a day or after activity. Or try ice massage. Freeze a water-filled paper cup and roll it over thesite of discomfort for about five to seven minutes. Regular ice massage can help reduce pain and inflammation. Decrease your miles. You probably won't have to permanently retire your running or walking shoes, but it's a good idea to cover shorter distances until pain subsides. Take up a no- or low-impact exercise. Swap swimming or bicycling in place of walking or jogging. You'll likely be able to return to your regular activities as heel pain gradually improves or disappears. However, some people find that the only way to avoid a recurring problem is to permanently modify their aerobic activities. Add arch supports to your shoes. Inexpensive ixvy-ewi-snmkfec arch supports take the tension off theplantar fascia and help absorb shock. Stretch your arches. Simple exercises using household objects can stretch your plantar fascia, Achilles tendon and calf muscles. Prevention You can take some simple steps now to prevent painful steps later: Maintain a healthy weight. This minimizes the stress on your plantar fascia. Choose supportive shoes. Avoid high heels. Buy shoes with a low to moderate heel, good arch support and shock absorbency. Don't go barefoot, especially on hard surfaces. Don't wear worn-out athletic shoes. Replace your old athletic shoes before they stop supporting and cushioning your feet. If you're a runner, buy new shoes after about 500 miles of use. documented in this encounter Progress Notes Humaira Evans MD - 09/09/2021 9:30 AM CDT RHEUMATOLOGY FOLLOW-UP CC: follow up positive MARLON, palmar plantar psoriasis with arthralgias, osteoarthritis, myofascial pain Encounter date: 09/09/2021 Date of last office visit: 06/10/2021 Rheumatologic history: The patient is a 71 y.o. female with medical history of psoriasis, [...] which were unremarkable. CT done of the neck and chest due to complaints of neck and axillary lymphadenopathy which did not show concerning lymph nodes. X-ray of the hands done showing mild to moderate OA changes with bony demineralization. MARLON could be positive in the setting of her known inflammatory bowel disease. 1:80, speckled pattern. 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 HLA B27 negative. She was started on Skirizi in April 2020 by dermatology. Interim history: She had a horrible winter. Her has pulmonary fibrosis and has not been doing well. Because this inability to travel they had to sell their house in [place] this was very stressful because she had to do a lot of the moving herself. Her mother also . Overall this winter has been very hard on her. She has had to be much more active than she usually would with a lot of heavy lifting and packing. She thinks that this has affected her joints. She has been doing so much and lifting and putting boxes from their move. She feels sore for at least an hour. She feels like she has some swelling in the leg and hands. She is not having to take tylenol every day. She feels like her skin has been doing very well. She is using topicals for dryness. Noopen lesions. No new lesions. No other new rashes. No recent illness. No cough or shortness of breath. She takes the muscle relaxant and finds this helpful. She saw her PCP for her plantar fascitis and she was referred to physical therapy and she feels likethis has been helpful. She feels the prednisone taper was beneficial for the muscle pain and her plantar fascitis. ROS: Review of systems today's visit was reviewed, and is as noted above. PMH: Updated in EMR Outpatient Encounter Medications as of 09/09/2021 Medication Sig Dispense Refill ??? artificial tears (HYPOTEARS) 1-1 % eye drop solution 4 times daily as needed. ??? Wxckenvhky-EDLR-Aeeafvre 50-300-40 MG CAPS TK 1 TO 2 CS PO Q 4 H NEEDED. MAX 6 C PER DAY ??? Calcium Citrate-Vitamin D (CITRACAL + D OR) ??? erythromycin (ERYGEL) 2 % gel JONATHON EXT AA BID ??? fluocinonide (LIDEX) 0.05 % ointment Apply topically two times a day. ??? fluticasone propionate (FLONASE) 50 MCG/ACT nasal solution Place 2 Sprays into both nostrils daily. ??? lisinopril (ZESTRIL) 5 MG tablet Take 5 mg by mouth daily. ??? MESALAMINE OR ??? methylPREDNISolone (MEDROL 21 TABLET DOSEPACK) 4 MG tablet Follow package directions (Patient not taking: Reported on 09/09/2021) 21 Tablet 0 ??? metoprolol tartrate (LOPRESSOR) 25 MG tablet ??? Multiple Vitamin (MULTI-VITAMIN DAILY OR) ??? omeprazole (PRILOSEC) 20 MG capsule TK 1 C PO D ??? pravastatin (PRAVACHOL) 10 MG tablet TK 1 T PO HS ??? Risankizumab-rzaa (SKYRIZI TN) ??? XARELTO 20 MG tablet TK 1 T PO D WITH MEAL No facility-administered encounter medications on file as of 09/09/2021. ALLERGIES: Updated in EMR Social History Tobacco Use Smoking Status Former Smoker Smokeless Tobacco Never Used Social History Substance and Sexual Activity Alcohol Use None MEDS: Reviewed and updated in the computerized record. Physical exam: Blood pressure 126/68, pulse 60, temperature (!) 95.3 ??F (35.2 ??C), temperature source Skin. General: Alert, no distress, appears comfortable Eyes: anicteric, no erythema, EOMI ENT: Mask in place today Resp: breathing comfortably on room air. CV: Not examined Abd: Not examined Skin: significant improvement in erythema and peeling of the soles of the feet b/l with basically complete resolution of previously noted scabbing and erythema of the bilateral soles of the feet. She does have some xerosis of the skin with some skin peeling. No evidence other erythematous plaques on the palms or other visible skin. Continues to have ridging of the nails which is unchanged Neuro: normal gait. Grossly normal strength. MSK: A focused joint exam was performed involving shoulders, elbows, hands, ankles, feet. 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 No evidence of synovitis on today's exam. She is not tender today on palpation of the hand joints, wrists. She has had improvement in previously noted soft tissue tender points. There is no evidence of synovitis of the MTP joints with no tenderness to palpation of the feet on today's exam. No tenderness to palpation of the plantar fascia or heels at today's visit. No evidence of swelling or fullness of the Achilles. Labs: Lab Results Component Value Date WBC 5.3 06/10/2021 RBC 4.49 06/10/2021 Hemoglobin 13.5 06/10/2021 HCT 42.1 06/10/2021 MCV 93.8 06/10/2021 RDW 12.5 06/10/2021 Platelets 311 06/10/2021 Lab Results Component Value Date AST (SGOT) 20 06/10/2021 , Lab Results Component Value Date ALT (SGPT) 28 06/10/2021 Lab Results Component Value Date Creatinine 0.70 06/10/2021 Lab Results Component Value Date Sedimentation Rate 10 06/10/2021 , Lab Results Component Value Date C-Reactive Protein 0.5 06/10/2021 [facility] MARLON: 1:80, speckled 02/2020: SUNSHINE panel negative [...] joints. Bones are mildly demineralized. ASSESSMENT/PLAN: # arthralgia/myalgia, likely OA and myofascial pain, improving # palmar plantar psoriasis # osteoarthritis of the hands # high risk medication use # history of IBD # low titer MARLON Ms. Matos is a very pleasant 71 y.o. female with medical history of psoriasis, ulcerative colitis, migraine headache, osteoporosis, seasonal allergies, hyperlipidemia, obstructive sleep apnea, and atrial fibrillation on anticoagulation with ablation presenting to our clinic for follow up in regards to her arthralgias in the setting of her palmar plantar psoriasis. No overt signs of psoriatic arthritison today's exam. She has had significant improvement in her palmar plantar psoriasis since starting Skyrizi. She continues to be doing well from a cutaneous standpoint. Currently her clinical picture appears most consistent with osteoarthritis of multiple sites. No evidence of active dactylitis, swelling, tender joints on today's exam. We reviewed the use of Tylenol Arthritis as needed for joint symptoms as well as the importance of gentle exercise and range of motion stretches. Advised to continue scab greasy as per Dermatology. She notes that she is going to have monitoring blood work done by herdermatologist in January 2022. For her myofascial pain, this appears significantly improved on today's exam. She notes that overall she is feeling much better. She has found Flexeril as needed very helpful so I refilled this today. We reviewed inflammatory arthritis symptoms to watch for. Encouraged to continue physical therapy for her plantar fasciitis and consider injections in the future she continues to have symptoms. We reviewed that podiatry would be a specialty that would do plantar fascia injections. Will plan on follow-up in 6 months or sooner if needed should symptoms flare worsen. PLAN: - prednisone taper on hand for plantar fasciitis symptoms, given by [employer] consultant - continue Tylenol as needed - continue current exercise routine - continue Flexeril 5 mg q.h.s. as needed, refilled today - stretches and exercises for plantar fasciitis, continue physical therapy, consider injections in the future if needed - continue Skyrizi as per dermatology - follow up in 6 months or sooner if needed Patient advised to call clinic if symptoms change or worsen. All questions answered to the best of my ability. Billing based on: Complexity MD Darcy Eisenberg Rheumatology documented in this encounter Plan of Treatment Upcoming Encounters Date Type Specialty Care Team Description 03/17/2022 Appointment Rheumatology Lemuel Evans MD [address] [facility] [address] [id number] (Wo rk) documented as of this encounter Visit Diagnoses Diagnosis Osteoarthritis of both hands, unspecifie d osteoarthritis type - Primary Myofascial muscle pain Mylagia and myositis, unspecified Psoriasis Other psoriasis High risk medication use Encounter for long-term (current) use of other medications Plantar fasciitis Plantar fascial fibromatosis documented in this encounter Care Teams Batchmaker Relationship Specialty Start Date End Date Candy Gee MD PCP - General Internal Medicine 03/05/[address] [place] [address] documented as of this encounter
--- OUTSIDE RECORDS SUMMARY | 2022-02-25 19:46 | XMS_ITS | Clinical Summary ---
:1950 Author Organization [facility] Address [address] [place] [address] Care Team Providers Name Role Phone Candy Gee MD Primary Care Provider Source Comments You are receiving this document as you are listed as the primary care provider,follow-up provider, or the patient has been referred to you for consultation.This is in compliance with the Medicare and Medicaid EHR Incentive Program,which states Providers who transition their patient to another setting of careor provider of care or refers their patient to another provider of care shouldprovide summarycare record for each transition of care or referral. [employer] Allergies Active Allergy Reactions Severity Noted Date Comments Atorvastatin Medium 03/10/2020 Quinolones Medium 03/10/2020 Simvastatin Low 03/10/2020 Sulfa Antibiotics High 03/10/2020 Tolterodine Medium 03/10/2020 Medications Medication Sig Dispensed Refills Start Date End Date Status omeprazole (PRILOSEC) 20 TK 1 C PO D 0 02/04/2020 Active MG capsule erythromycin (ERYGEL) 2 JONATHON EXT AA BID 0 01/09/2020 Active % gel pravastatin (PRAVACHOL) TK 1 T PO HS 0 02/06/2020 Active 10 MG tablet fluticasone propionate Place 2 Sprays 0 Active (FLONASE) 50 MCG/ACT into both nasal solution nostrils daily. lisinopril (ZESTRIL) 5 Take 5 mg by 0 Active MG tablet mouth daily. MESALAMINE OR 0 Active XARELTO 20 MG tablet TK 1 T PO D WITH 0 02/14/2020 Active MEAL Avwhjrnuvw-PGRS-Abxjkysh TK 1 TO 2 CS PO 0 0 Active 50-300-40 MG CAPS Q 4 H NEEDED. MAX 6 C PER DAY fluocinonide (LIDEX) Apply topically 0 Active 0.05 % ointment two times a day. Calcium Citrate-Vitamin 0 Active D (CITRACAL + D OR) artificial tears 4 times daily as 0 Active (HYPOTEARS) 1-1 % eye needed. drop solution Multiple Vitamin 0 Act daniele (MULTI-VITAMIN DAILY OR) metoprolol tartrate 0 02/21/2021 Active (LOPRESSOR) 25 MG tablet Risankizumab-rzaa 0 Ac tive (SKYRIZI SC) methylPREDNISolone Follow package 21 Tablet 0 03/10/2021 Active (MEDROL 21 TABLET directions DOSEPACK) 4 MG tablet Additional Information Patient not taking. Reported on 09/09/2021 Immunizations Name Administration Dates Next Due Flu Vac (3+ yrs) 03/19/2014, 02/18/2009 Flu Vac Preserv Free (3+yrs) 03/15/2010 Influenza (Fluad) 03/05/2019 Influenza [id number] 04/21/2009 Influenza IIV3 (Trivalent) Fluzone 01/18/2020, 04/29/2016, 1 06/10/2014 Highdose, 65+ Yrs (13115) Influenza IIV4 (Quadrivalent) 0.5mL 03/12/2018 (50753) Influenza IIV4 (Quadrivalent) Fluzone, 01/18/2020 65+ Yrs Influenza, Unspecified Formulation 01/18/2020 Influenza, Whole 04/17/2011 Moderna (Spikevax) COVID-19, 12+ Yrs 02/11/2021, 08/12/2020, 07/15/2020 PCV13 (Prevnar) 01/19/2016 PPSV23 (Pneumovax) 11/18/2009 Tdap 01/19/2016, 12/10/2004 Zoster (Zostavax) 11/18/2009 Zoster RZV (Shingrix) 06/18/2020, 01/18/2020 Social History Tobacco Use Types Packs/Day Years Used Date Smoking Tobacco: Former Smokeless Tobacco: Never Sex Assigned at Date Recorded Not on file Last Filed Vital Signs Vital Sign Reading Time Taken Comments Blood Pressure 126/68 09/09/2021 9:22 AM CDT Pulse 60 09/09/2021 9:22 AM CDT Temperature 35.2 ??C (95.3 ??F) 09/09/2021 9:22 AM CDT Respiratory Rate - - Oxygen Saturation - - Inhaled Oxygen Concentration - - Weight 68 kg (150 lb) 06/10/2021 9:31 AM TRAY FILLER Height 167.6 cm (5' 6) 03/11/2020 8:52 AM CDT Body Mass Index 24.21 03/11/2020 8:52 AM CDT Plan of Treatment Upcoming Encounters Date Type Specialty Care Team Description 03/17/2022 Appointment Rheumatology Lemuel Evans MD [address] [facility] [address] [id number] (Wo rk) Health Maintenance Due Date Last Done Comments Colon Cancer Screening Plan 1950 Due Hep C Screening (Preventive 1950 Services) Medicare Welcome Visit 1950 Mammogram 1950 Cholesterol 1994 Dexa 2014 Pneumococcal 65+ Yrs (3) 01/18/2017 01/19/2016, 11/18/2009 COVID-19 Vaccine (4 - 04/08/2021 02/11/2021, 08/12/2020, Booster for Moderna series) 07/15/2020 Influenza (#1) 2022 02/11/2021, 01/18/2020, 01/18/2020, Additional history exists DTaP/Tdap/Td (3 - Tdap) 01/18/2026 01/19/2016, 12/10/2004 Zoster/Shingles Completed 06/18/2020, 01/18/2020, 11/18/2009 HepA Aged Out No longer eligib le based on patient 's age to complete this topic HepB Aged Out No longer eligib le based on patient 's age to complete this topic Hib Aged Out No longer eligib le based on patient 's age to complete this topic IPV (Polio) Aged Out No longer eligib le based on patient 's age to complete this topic MCV4 Aged Out No longer eligib le based on patient 's age to complete this topic Insurance Payer Benefit Plan / Subscriber ID Effective Phone Address T ype Group Dates [employer] [id number] 2021-Prese [phone] Medicare ADVANTAGE nt 79 Care Teams Head Of Science Relationship Specialty Start Date End Date Candy Gee MD PCP - General Internal Medicine 03/05/201999 [place] [address]
--- OUTSIDE RECORDS SUMMARY | 2022-02-25 19:46 | XMS_ITS | Encounter Summary ---
:1950 Author Organization [employer] Address [address], [place] [address] Care Team Providers Name Role Phone Candy Gee MD Primary Care Provider Reason for Visit Reason Comments Prior Authorization For Imaging Encounter Details Date Type Department Care Team Description 03/20/2020 Telephone Humaira Zaragoza Prior Aut horization For Rheumatology MD [facility] [address] [place] [address] [address] [phone] [place], [place] [phone] (Wo rk) Social History Tobacco Use Types Packs/Day Years Used Date Smoking Tobacco: Former Sex Assigned at Date Recorded Not on file documented as of this encounter Nursing Notes Edita Estrada LPN - 04/01/2020 3:12 PM CST Form arrived. In your in box at [facility]. 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 Humaira Evans MD You 3 hours ago (12:25 PM) Contacted to set up [id number]. Is there anything else to do? Patient already has had these scans done. Humaira Evans MD Message text Raina Galindo 03/20/2020 9:46 AM CDT The prior authorization was denied for [address] CT SOFT TISSUE NECK W/DYE scheduled on 03/18/20 due to DUE TO NO ULTRASOUND OR CHEST XRAY. If this service is medically necessary, a ysvw-gz-uukb needs to be completed. Action needed if completing the wkgo-eq-skja: 1. Call insurance Payor/Insurance:[employer] Phone #:[phone] Reference/Denial #:[id number] 2. If authorization is obtained: 1. Document authorization # 2. Obtain Effective Dates (mm/dd/yyyy-mm/dd/yyyy) 3. Route back to Authorization Cert Team ([id number]) pool 3. If peer to peer or written appeal is denied: 1. Determine appropriate next steps and communicate to patient 2. Routing back to ACT Team is not needed Raina Galindo - 03/20/2020 9:35 AM CDT The prior authorization was denied [place] [address] CT THORAX W/DYE scheduled on 03/18/20 due to DUE TO NO ULTRASOUND OR CHEST XRAY. If this service is medically necessary, a errt-wv-xrov needs to be completed. Action needed if completing the vmfu-ka-rfjb: 1. Call insurance Payor/Insurance: [employer] Phone #:[phone] Reference/Denial #:[id number] 2. If authorization is obtained: 1. Document authorization # 2. Obtain Effective Dates (mm/dd/yyyy-mm/dd/yyyy) 3. Route back to Authorization Cert Team ([id number]) pool 3. If peer to peer or written appeal is denied: 1. Determine appropriate next steps and communicate to patient 2. Routing back to ACT Team is not needed documented in this encounter Plan of Treatment Upcoming Encounters Date Type Specialty Care Team Description 03/17/2022 Appointment Rheumatology Lemuel Evans MD [address] [facility] [place] [address] [id number] (Wo rk) documented as of this encounter Visit Diagnoses Not on filedocumented in this encounter Care Teams Liquor Inspector Relationship Specialty Start Date End Date Candy Gee MD PCP - General Internal Medicine [address] [place] [address] documented as of this encounter
--- OUTSIDE RECORDS SUMMARY | 2022-02-25 19:46 | XMS_ITS | Encounter Summary ---
:1950 [facility] Address [address] [address] Care Team Providers Name Role Phone Candy Gee MD Primary Care Provider Reason for Visit Procedure/Equipment (Routine) - Incomplete Specialty Diagnoses / Procedures Referred By Contact Refer red To Contact Diagnoses Arthralgia, unspecified joint Psoriasis Humaira Evans MD Procedures XR Feet 1 View Bilat Arthritis [address] [place], [place] [address] Referral ID Status Reason Start Date Expiration Date Visits V isits Requested Authorized [id number] Incomplete 03/25/2020 06/24/2021 1 1 Encounter Details Date Type Department Care Team Description 03/25/2020 Ancillary [place] Humaira Evans Arthralgi a, unspecified joint; Procedure Radiology MD [facility] [address] [place] [id number] Social History Tobacco Use Types Packs/Day Years Used Date Smoking Tobacco: Former Sex Assigned at Date Recorded Not on file documented as of this encounter Plan of Treatment Upcoming Encounters Date Type Specialty Care Team Description 03/17/2022 Appointment Rheumatology Lemuel Evans MD [address] [facility] N [phone] (Wo rk) documented as of this encounter Procedures Procedure Name Priority Date/Time Associated Diagnosis Comme nts XR FEET 1 VIEW Routine 03/25/2020 3:40 PM Arthralgia, Results for this BILAT ARTHRITIS CDT unspecified join t procedure are in Psoriasis the results section. documented in this encounter Results XR Feet 1 View [...] encounter Visit Diagnoses Diagnosis Arthralgia, unspecified joint Psoriasis Other psoriasis documented in this encounter Care Teams Planer Setter Relationship Specialty Start Date End Date Candy Gee MD PCP - General Internal Medicine [address] [place] [address] documented as of this encounter
--- OUTSIDE RECORDS SUMMARY | 2022-02-25 19:46 | XMS_ITS | Encounter Summary ---
:1950 Author Organization [employer] Address [address] [address] Care Team Providers Name Role Phone Candy Gee MD Primary Care Provider Reason for Visit Reason Comments Follow-up Encounter Details Date Type Department Care Team Description 03/10/2021 Office Visit Humaira Zaragoza Arthralgi a, unspecified joint (Primary Dx); Rheumatology MD [facility]; [address] [place] [address] Osteoarthritis of both hands , unspecified osteoarthritis type; [place] [address] Blvd Positive MARLON (antinuclear antibody); [phone] [place], [place] High risk medication use [id number] Social History Tobacco Use Types Packs/Day Years Used Date Smoking Tobacco: Former Sex Assigned at Date Recorded Not on file documented as of this encounter Last Filed Vital Signs Vital Sign Reading Time Taken Comments Blood Pressure 136/75 03/10/2021 3:35 PM CDT Pulse 65 03/10/2021 3:35 PM CDT Temperature 36.6 ??C (97.8 ??F) 03/10/2021 3:35 PM CDT Respiratory Rate - - Oxygen Saturation - - Inhaled Oxygen Concentration - - Weight 65.3 kg (144 lb) 03/10/2021 3:35 PM CDT Height - - Body Mass Index 23.24 03/11/2020 8:52 AM CDT documented in this encounter Patient Instructions Patient InstructionsHumaira Evans MD - 03/10/2021 3:30 PM CDT Try medrol dospak Tylenol 1000 mg twice a day for a week after the medrol dospak Continue follow up with with dermatology Renetta Bill Blood work today Follow up in 3 months If you are doing well can follow up as needed documented in this encounter Progress Notes Humaira Evans MD - 03/10/2021 3:30 PM CDT RHEUMATOLOGY FOLLOW-UP CC: follow up positive MARLON, palmar plantar psoriasis with arthralgias, osteoarthritis Encounter date: 03/10/2021 Date of last office visit: 07/29/2020 Rheumatologic history: The patient is a 71 [...] in April 2020 by dermatology. Interim history: Patient notes that she is doing quite well. She is extremely happy with scattered greasy and notes her palmar plantar psoriasis has significantly improved since our last visit in July. She has been having some pain in her hands up into her shoulders. Describes it as very achy. It is also from the knees down. This started around November 2020. It takes about 1-1.5 hours to go away. She notes that Once she gets doing things she feels better. Comes back at night but only in the legs and hands. She has some swelling of the hands and feet. They feel cold. Not warm or red. She tried voltarengel but this only helps a bit. Tylenol is helpful. She has been taking this at night. She had a zio patch for her heart rate and was told she has tachycardia and atrial fibrillation but she had a ablation for this. She had gallbladder removal in September 2020. ROS: Review of systems today's visit was reviewed, and is as noted above. PMH: Updated in EMR Outpatient Encounter Medications as of 03/10/2021 Medication Sig Dispense Refill ??? artificial tears (HYPOTEARS) 1-1 % eye drop solution 4 times daily as needed. ??? Csewtzqjpx-DZJG-Brkeutnj 50-300-40 MG CAPS TK 1 TO 2 [...] DOSEPACK) 4 MG tablet Follow package directions 21 Tablet 0 ??? metoprolol tartrate (LOPRESSOR) 25 MG tablet ??? Multiple Vitamin (MULTI-VITAMIN DAILY OR) ??? omeprazole (PRILOSEC) 20 MG capsule TK 1 C PO D ??? ondansetron (ZOFRAN) 4 MG tablet Take 4 mg by mouth every 8 hours as needed for Nausea. ??? pravastatin (PRAVACHOL) 10 MG tablet TK 1 T PO HS ??? Risankizumab-rzaa (SKYRIZI SC) ??? XARELTO 20 MG tablet TK 1 T PO D WITH MEAL No facility-administered encounter medications on file as of 03/10/2021. ALLERGIES: Updated in EMR Social History Tobacco Use Smoking Status Former Smoker Smokeless Tobacco Not on file Social History Substance and Sexual Activity Alcohol Use Not on file MEDS: Reviewed and updated in the computerized record. Physical exam: Blood pressure 136/75, pulse 65, temperature 97.8 ??F (36.6 ??C), temperature source Skin, weight 144 lb (65.3 kg). General: Alert, no distress, appears comfortable Eyes: anicteric, no erythema, EOMI ENT: Mask in place today Resp: breathing comfortably on room air. CV: Not examined Abd: Not examined Skin: significant improvement in erythema and peeling of the soles of the feet b/l with almost complete resolution of previously noted scabbing, cirrhosis, thickening of the skin. The skin is now soft.Does not appear as acutely red as prior. Hand lesions appear to have resolved. Neuro: normal gait. Grossly normal strength. MSK: [...] on palpation of the hand joints, wrists. No soft tissue tender points today. There is no evidence of synovitis of the MTP joints with no tenderness to palpation of the feet on today's exam. Labs: Lab Results Component Value Date WBC 6.5 03/11/2020 RBC 4.37 03/11/2020 Hemoglobin 13.3 03/11/2020 HCT 41.6 03/11/2020 MCV 95.2 03/11/2020 RDW 13.1 03/11/2020 Platelets 318 03/11/2020 Lab Results Component Value Date AST (SGOT) 23 03/11/2020 , Lab Results Component Value Date ALT (SGPT) 37 03/11/2020 Lab Results Component Value Date Creatinine 0.70 03/11/2020 Lab Results Component Value Date Sedimentation Rate 11 07/29/2020 , Lab Results Component Value Date C-Reactive Protein 0.6 07/29/2020 [facility] MARLON: 1:80, speckled 02/2020: SUNSHINE panel [...] Bones are mildly demineralized. ASSESSMENT/PLAN: # arthralgia/myalgia, unclear etiology # palmar plantar psoriasis # osteoarthritis of [...] palmar plantar psoriasis since starting Skyrizi. She notes today that overall she is feeling quite well. Biggest complaint is that since November2020 she started getting more stiffness in her arms and legs when she gets up in the morning. She describes this as a soreness that last for about an hour to an hour and half in the morning involving the hands, arms, feet, legs improves throughout the day. She notes that when she gets ready to go to bed at night these symptoms come back. She endorses some tightness feeling in the hands in the morningthough on today's exam I do not see any evidence of peripheral inflammatory arthritis. She denies any tenderness to palpation of soft tissue tender points today or the shoulders, elbows, hands, knees, ankles, feet. We discussed today that her symptoms do not appear overtly inflammatory in nature though I am unsure of the etiology of her symptoms. Possible muscle cramping versus myofascial pain. Will check some additional blood work today. I do think it is reassuring that she does not have evidence of peripheral synovitis on her exam. Recommend trial of a medrol dospak to see if this helps her symptoms should this be a postviral reaction. If this is not helpful, I recommend that she try addition ofa magnesium supplement to see if this helps with her symptoms. She did additionally try taking Tylenol extra-strength 2 tablets twice daily for her symptoms. We discussed that we will schedule follow-up for 3 months though if her symptoms improved and she is doing well we can plan on follow-up as needed. Patient is agreeable with this plan. Advised to continue scheduled follow-up with Dermatology. PLAN: - blood work today - trial of medrol dospak - if dospak does not work try tylenol ES 1000 mg BID - can also try addition of a magnesium supplement - continue Skyrizi as per dermatology - follow up in 3 months if needed Patient advised to call clinic if symptoms change or worsen. All questions answered to the best of my ability. TT spent 30 minutes. MD Jemal Eisenberg Rheumatology documented in this encounter Plan of Treatment Upcoming Encounters Date Type Specialty Care Team Description 03/17/2022 Appointment Rheumatology Lemuel Evans MD [address] [facility] JEMAL N [address] (Wo rk) documented as of this encounter Results CPK - CK Total (03/10/2021 4:22 PM CDT) athologist Signature CK, Total 82 29 - 168 03/10/2021 [facility] U/L 5:03 PM CDT LABORATORY Specimen Anatomical Collection Method / Collection Time Recei brittanie Time (Source) Location / Volume Laterality Blood Venipuncture / 03/10/2021 4:22 03/10/2021 4:22 Unknown PM CDT PM CDT Humaira Evans MD LAB_1 Performing Organization Address City/State/ZIP Code Phon e Number [facility] [address] [place] [address] ESR - Sedimentation Rate (03/10/2021 4:22 PM CDT) Patholo gist Method Time Signature Sedimentation Rate 11 0 - 20 03/10/2021 [facility] mm/hr 5:01 PM CDT LABORATORY Specimen Anatomical Collection Method / Collection Time Recei brittanie Time (Source) Location / Volume Laterality Blood Venipuncture / 03/10/2021 4:22 03/10/2021 4:22 Unknown PM CDT PM CDT Humaira Evans MD LAB_1 Performing Organization Address City/[facility]/ZIP Code Phon e Number [facility] [address] [place], [place] [phone] CRP - C Reactive Protein (03/10/2021 4:22 PM CDT) P athologist Signature C-Reactive 0.5 0.0 - 0.7 03/10/2021 [place] Protein mg/dL 5:03 PM CDT LABORATORY Specimen Anatomical Collection Method / Collection Time Recei brittanie Time (Source) Location / Volume Laterality Blood Venipuncture / 03/10/2021 4:22 03/10/2021 4:22 Unknown PM CDT PM CDT Humaira Evans MD LAB_1 Performing Organization Address [facility]/ZIP Code Phon e Number [facility] [address] [place] [address] RHF - Rheumatoid Factor (03/10/2021 4:22 PM CDT) Analysis Performed At Patho logist Time Signature Rheumatoid <15 <=30 IU/mL 03/10/2021 [facility], 9:31 PM CDT LABORATORY Quantitative Specimen Anatomical Collection Method / Collection Time Recei brittanie Time (Source) Location / Volume Laterality Blood Venipuncture / 03/10/2021 4:22 03/10/2021 4:22 Unknown PM CDT PM CDT Humaira Evans MD LAB_1 Performing Organization Address City/[facility]/ZIP Code Phon e Number [facility] [address] [place] [address] CCPIG - Cyclic Citrullinated Peptide AB (03/10/2021 4:22 PM CDT) [facility] gist Method Time Signature Anti-CCP Antibody <1 <7 U/mL 03/11/2021 [facility] ERS 1:24 PM CDT CENTRAL LAB Anti-CCP Antibody Negative Negative 03/11/2021 [facility] ERS Interpretation 1:24 PM CDT CENTRAL LAB Specimen Anatomical Collection Method / Collection Time Recei brittanie Time (Source) Location / Volume Laterality Blood Venipuncture / 03/10/2021 4:22 03/10/2021 4:22 Unknown PM CDT PM CDT Humaira Evans MD LAB_1 Performing Organization Address City/State/ZIP Code Phon e Number [facility] [address] [address] documented in this encounter Visit Diagnoses Diagnosis Arthralgia, unspecified joint - Primary Psoriasis Other psoriasis Osteoarthritis of both hands, unspecifie d osteoarthritis type Positive MARLON (antinuclear antibody) Other and unspecified nonspecific immuno logical findings High risk medication use Encounter for long-term (current) use of other medications documented in this encounter Care Teams Milk Pickup Truck Driver Relationship Specialty Start Date End Date Candy Gee MD PCP - General Internal Medicine [address] [place] [address] documented as of this encounter
--- OUTSIDE RECORDS SUMMARY | 2022-02-25 19:46 | XMS_ITS | Encounter Summary ---
:1950 Author [facility] Address [address], [place] [address] Care Team Providers Name Role Phone Candy Gee MD Primary Care Provider Reason for Visit Reason Comments APPOINTMENT REQUEST Encounter Details Date Type Department Care Team Description 03/16/2020 Telephone [facility] [address] Humaira Evans, APPOINTMENT REQUEST Rheumatology [address] [facility] [place] [phone] (Wo rk) Social History Tobacco Use Types Packs/Day Years Used Date Smoking Tobacco: Former Sex Assigned at Date Recorded Not on file documented as of this encounter Nursing Notes Breanna Walters LPN - 03/16/2020 9:49 AM CDT Contacted pt. Gave radiology scheduling number, Know your cost number, CPT code and ICD-10 code and encourage pt to contact her insurance to check on coverage. Pt will contact radiology to schedule tomorrow. Breanna Walters LPN - 03/16/2020 9:45 AM CDT ----- Message from Humaira Evans MD sent at 03/16/2020 9:37 AM CDT ----- Regarding: CT needs scheduled Hi! This pt has CT orders that need scheduled-thank you Humaira Evans MD documented in this encounter Plan of Treatment Upcoming Encounters Date Type Specialty Care Team Description 03/17/2022 Appointment Rheumatology Lemuel Evans MD [address] [facility] [address] [place]QU[place] N [address] (Wo rk) documented as of this encounter Visit Diagnoses Not on filedocumented in this encounter Care Teams Assembler For Puller Over Machine Relationship Specialty Start Date End Date Candy Gee MD PCP - General Internal Medicine [address] [place] [address] documented as of this encounter
--- OUTSIDE RECORDS SUMMARY | 2022-02-25 19:46 | XMS_ITS | Encounter Summary ---
:1950 Author Organization [employer] Address [address], [place] [address] Care Team Providers Name Role Phone Candy Gee MD Primary Care Provider Reason for Visit Reason Comments Follow-up Encounter Details Date Type Department Care Team Description 06/10/2021 Office Visit Humaira Zaragoza Myofascia l muscle pain (Primary Dx); Rheumatology MD [place] High risk medication use; [address] [place] [address] Psoriasis; [place] [address] [address]vd Osteoarthritis of both hands, unspecifie d osteoarthritis type; [phone] [place], [place] Positive A NA (antinuclear antibody) [address] Social History Tobacco Use Types Packs/Day Years Used Date Smoking Tobacco: Former Smokeless Tobacco: Never Sex Assigned at Date Recorded Not on file documented as of this encounter Last Filed Vital Signs Vital Sign Reading Time Taken Comments Blood Pressure 129/74 06/10/2021 9:31 AM CHEMICAL TECHNICIAN Pulse 72 06/10/2021 9:31 AM CHEMICAL TECHNICIAN Temperature 36.7 ??C (98 ??F) 06/10/2021 9:31 AM CHEMICAL TECHNICIAN Respiratory Rate - - Oxygen Saturation - - Inhaled Oxygen Concentration - - Weight 68 kg (150 lb) 06/10/2021 9:31 AM CHEMICAL TECHNICIAN Height - - Body Mass Index 24.21 03/11/2020 8:52 AM CDT documented in this encounter Patient Instructions Patient InstructionsHumaira Evans MD - 06/10/2021 9:30 AM CST Images from the original note were not included. Prednisone taper for the plantar fascitis symptoms Increase gentle exercise, start 5 minutes daily Stretches for plantar fascitis, try rolling a frozen water bottle For muscle symptoms try flexeril 1 tablet at bedtime if needed Continue tylenol as needed Blood work today Follow up in 12 weeks Plantar fasciitis By [facility] staff Definition Plantar fasciitis (PLAN-tur fas-e-I-tis) is [...] cases, the pain associated with plantar fasciitis: ??? Develops gradually ??? Affects just one foot, although it can occur in both feet simultaneously ??? Is worst with the first few steps after awakening, although it also can be triggered by long periods of standing or getting up from a seated position ??? Feels like a sharp pain in the [...] your risk of developing plantar fasciitis include: ??? Age. Plantar fasciitis is most common between the ages of 40 and 60. ??? Sex. Women are more likely than men to develop plantar fasciitis. ??? Certain types of exercise. Activities that place a lot of stress on your heel and attached tissue -- such as long-distance running, ballet dancing and dance aerobics -- can contribute to an earlieronset of plantar fasciitis. ??? Faulty foot mechanics. Being flat-footed, having a high arch or even having an abnormal pattern of walking can adversely affect the way weight is distributed when you're standing, putting added stress on the plantar fascia. ??? Obesity. Excess pounds put extra stress on your plantar fascia. ??? Occupations that keep you on your feet. People with occupations that require a lot of walking orstanding on hard surfaces -- such as factory workers, teachers and waitresses -- can damage their plantar fascia. ??? Improper shoes. Shoes that are thin soled, loose, or lack arch support or the ability to absorb shock don't protect your feet. If you regularly wear shoes with high heels, your Achilles tendon -- which is attached to your heel -- can contract [...] treatments in just a few months. Medications ??? Nonsteroidal anti-inflammatory drugs (NSAIDs). NSAIDs, such as ibuprofen (Advil, Motrin, others)and naproxen (Aleve), may ease pain and inflammation, although they won't treat the underlying problem. ??? Corticosteroids. This type of medication may be delivered through a process called iontophoresis, in which a corticosteroid solution is applied to the [...] accurate placement of the corticosteroid injection. Therapies ??? Physical therapy. A physical therapist can instruct you in a series of exercises to stretch the plantar fascia and Achilles tendon and to strengthen lower leg muscles, which stabilize your ankle and heel. A therapist may also teach you to apply athletic taping to support the bottom of your foot. ??? Night splints. Your doctor may recommend wearing a splint fitted to your calf and foot while yousleep. This holds the plantar fascia and Achilles tendon in a lengthened position overnight so that they can be stretched more effectively. ??? Orthotics. Your doctor may prescribe acr-bjk-zutvt or custom-fitted arch supports (orthotics) tohelp distribute pressure to your feet more evenly. Surgical or other procedures ??? Extracorporeal shock wave therapy. In this procedure, sound waves are directed at the area of heel pain to stimulate healing. It's usually used for chronic plantar fasciitis that hasn't responded to more-conservative treatments. This procedure may cause bruises, swelling, pain, numbness or tingling, and has not been shown to be consistently effective. ??? Surgery. Only a small percentage of people need surgery to detach the plantar fascia from the heel bone. It's generally an option only when the pain is severe and all else fails. Side effects include a weakening of the arch in your foot. Alternative medicine Although some vunn-arm-xadzpfv arch supports contain magnets, no reliable evidence indicates that arch supports with magnets relieve heel pain any better than arch supports without magnets. Lifestyle and home remedies ??? Put your feet up. Stay off your feet for several days when the pain is severe. ??? Apply ice. Hold a cloth-covered ice pack over the area of pain for 15 to 20 minutes three or four times a day or after activity. Or try ice massage. Freeze a water-filled paper cup and roll it overthe site of discomfort for about five to seven minutes. Regular ice massage can help reduce pain andinflammation. ??? Decrease your miles. You probably won't have to permanently retire your running or walking shoes, but it's a good idea to cover shorter distances until pain subsides. ??? Take up a no- or low-impact exercise. Swap swimming or bicycling in place of walking or jogging.You'll likely be able to return to your regular activities as heel pain gradually improves or disappears. However, some people find that the only way to avoid a recurring problem is to permanently modify their aerobic activities. ??? Add arch supports to your shoes. Inexpensive ziup-ocy-ioaqsyw arch supports take the tension offthe plantar fascia and help absorb shock. ??? Stretch your arches. Simple exercises using household objects can stretch your plantar fascia, Achilles tendon and calf muscles. Prevention You can take some simple steps now to prevent painful steps later: ??? Maintain a healthy weight. This minimizes the stress on your plantar fascia. ??? Choose supportive shoes. Avoid high heels. Buy shoes with a low to moderate heel, good arch support and shock absorbency. Don't go barefoot, especially on hard surfaces. ??? Don't wear worn-out athletic shoes. Replace your old athletic shoes before they stop supporting and cushioning your feet. If you're a runner, buy new shoes after about 500 miles of use. ICAL TECHNICIAN documented in this encounter Progress Notes Humaira Evans MD - 06/10/2021 9:30 AM CST RHEUMATOLOGY FOLLOW-UP CC: follow up positive MARLON, palmar plantar psoriasis with arthralgias, osteoarthritis Encounter date: 06/10/2021 Date of last office visit: 03/10/2021 Rheumatologic history: The patient is a 71 [...] history: Patient notes that she is doing well. She used the prednisone taper and this was very helpful. She notes that the pain significantly improved up until about 3-4 weeks ago. She endorses pain in the AM when she gets up in the joints. She notes about 1 hour of stiffness in the morning. Today is a good day for her. The heels have been very painful for her and has pain and stiffness all day. She is taking tylenol daily. She notes that her skin has been great on the Skyrizi but she does have some dry skin. She denies recent illness or other rashes. She is tolerating the Skyrizi well. ROS: Review of systems today's visit was reviewed, and is as noted above. PMH: Updated in EMR Outpatient Encounter Medications as of 06/10/2021 Medication Sig Dispense Refill ??? artificial tears (HYPOTEARS) 1-1 % eye drop solution 4 times daily as needed. ??? Mqyymvufyq-CPIA-Zyppghor 50-300-40 MG CAPS TK 1 TO 2 [...] TK 1 T PO D WITH MEAL ??? [DISCONTINUED] ondansetron (ZOFRAN) 4 MG tablet Take 4 mg by mouth every 8 hours as needed for Nausea. (Patient not taking: Reported on 06/10/2021) No facility-administered encounter medications on file as of 06/10/2021. ALLERGIES: Updated in EMR Social History Tobacco Use Smoking Status Former Smoker Smokeless Tobacco Never Used Social History Substance and Sexual Activity Alcohol Use None MEDS: Reviewed and updated in the computerized record. Physical exam: Blood pressure 129/74, pulse 72, temperature 98 ??F (36.7 ??C), temperature source Skin, weight 150 lb (68 kg). General: Alert, no distress, appears comfortable Eyes: anicteric, no erythema, EOMI ENT: Mask in place today Resp: breathing comfortably on room air. No exercise noted CV: Regular rate and rhythm Abd: Normal bowel Skin: significant improvement in erythema and peeling of the soles of the feet b/l with almost complete resolution of previously noted scabbing, xerosis, thickening of the skin. She does continue to have some flaking on today's exam. No evidence of new skin involvement Neuro: normal gait. Grossly normal strength. MSK: [...] on palpation of the hand joints, wrists. Mild soft tissue tender points today of the upper back/trapezius region hand the anterior thighs with straight leg raise. There is no evidence of synovitis of the MTP joints withno tenderness to palpation of the feet on [...] Results Component Value Date Sedimentation Rate 11 03/10/2021 , Lab Results Component Value Date C-Reactive Protein 0.5 03/10/2021 [facility] MARLON: 1:80, speckled 02/2020: SUNSHINE panel [...] her palmar plantar psoriasis since starting Skyrizi. At our last visit in February I did give her a trial of a prednisone taper which she noted was very helpful for her overall joint symptoms. She has significant benefit for approximately 2 monthsafter completing the Medrol Dosepak. She notes that over the past 3-4 weeks she has had return of stiffness and aching in multiple areas most notable of the upper back and shoulders, bilateral upper legs. On today's exam she does not have any evidence suggestive of an active inflammatory arthritis/dactylitis. She does have some soft tissue tender points of the upper back and thighs. Reviewed today that the majority of her symptoms seem related to osteoarthritis/myofascial pain. She has not been exercising so I do recommend she reintroduced gentle exercise into her daily routine and will also do a tr ial of Flexeril 5 mg q.h.s. as needed for muscle pain. Can continue Tylenol as needed. In addition to her myalgias, she has evidence of plantar fasciitis of the bilateral heels. We reviewed this likelyetiology today and will give a short prednisone taper to help with the symptoms. We reviewed stretches and exercises to help prevent this from returning. If no improvement will consider referral to Podiatry for possible injections. 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 PLAN: - blood work today - prednisone taper for plantar fasciitis symptoms - continue Tylenol as needed - increase exercise for myofascial pain symptoms - trial of Flexeril 5 mg q.h.s. as needed - stretches and exercises for plantar fasciitis reviewed at today's visit, handout given as well - continue Skyrizi as per dermatology - follow up in 3 months Patient advised to call clinic if symptoms change or worsen. All questions answered to the best of my ability. Billing based on: time Total time for the visit was 30 minutes including, but not limited to, kwn-orbo-uk-face time spent reviewing records, counseling, and coordination of care. MD Jemal Eisenberget Rheumatology ICAL TECHNICIAN documented in this encounter Plan of Treatment Upcoming Encounters Date Type Specialty Care Team Description 03/17/2022 Appointment Rheumatology Lemuel Evans MD [address] [facility] [place] [id number] (Wo rk) documented as of this encounter Results ESR - Sedimentation Rate (06/10/2021 10:09 AM CHEMICAL TECHNICIAN) [facility] Method Time Signature Sedimentation Rate 10 0 - 20 06/10/2021 [place] mm/hr 11:28 AM CHEMICAL TECHNICIAN LABORATORY Specimen Anatomical Collection Method / Collection Time Recei brittanie Time (Source) Location / Volume Laterality Blood Venipuncture / 06/10/2021 10:09 2 Unknown AM CHEMICAL TECHNICIAN 10:09 AM CHEMICAL TECHNICIAN Humaira Evans MD LAB_1 Performing Organization Address [facility]/ZIP Code Phon e An [facility] [address] [place] [address] [id number] CRP - C Reactive Protein (06/10/2021 10:09 AM CHEMICAL TECHNICIAN) P athologist Signature C-Reactive 0.5 0.0 - 0.7 06/10/2021 [employer] Protein mg/dL 11:25 AM CHEMICAL TECHNICIAN LABORATORY Specimen Anatomical Collection Method / Collection Time Recei brittanie Time (Source) Location / Volume Laterality Blood Venipuncture / 06/10/2021 10:09 2 Unknown AM CHEMICAL TECHNICIAN 10:09 AM CHEMICAL TECHNICIAN Humaira Evans MD LAB_1 Performing Organization Address City/[facility] e Number [facility] [address] [place] [address] 5713 Basic Metabolic Panel (06/10/2021 10:09 AM CHEMICAL TECHNICIAN) athologist Signature Sodium 141 136 - 145 06/10/2021 [employer] mmol/L 11:25 AM CHEMICAL TECHNICIAN LABORATORY Potassium 4.5 3.5 - 5.1 06/10/2021 [employer] mmol/L 11:25 AM CHEMICAL TECHNICIAN LABORATORY Chloride 106 98 - 109 06/10/2021 [employer] mmol/L 11:25 AM CHEMICAL TECHNICIAN LABORATORY CO2 27 20 - 29 06/10/2021 [employer] mmol/L 11:25 AM CHEMICAL TECHNICIAN LABORATORY Anion Gap 8 7 - 16 06/10/2021 [employer] mmol/L 11:25 AM CHEMICAL TECHNICIAN LABORATORY Calcium 9.6 8.4 - 10.4 06/10/2021 [employer] mg/dL 11:25 AM CHEMICAL TECHNICIAN LABORATORY BUN 22 7 - 26 06/10/2021 [employer] mg/dL 11:25 AM CHEMICAL TECHNICIAN LABORATORY Creatinine 0.70 0.55 - 06/10/2021 [employer] 1.02 mg/dL 11:25 AM CHEMICAL TECHNICIAN LABORATORY GFR, Estimated >60 >60 06/10/2021 [employer] mL/min/1.7 11:25 AM CHEMICAL TECHNICIAN LABORATORY 3m2 Glucose 96 70 - 100 06/10/2021 [employer] mg/dL 11:25 AM CHEMICAL TECHNICIAN LABORATORY Comment: The given reference range is fo r the fasting state. Non-fasting reference range for glucose is 70 - 180 mg/dL. Hours Fasting 15 06/10/2021 11:25 AM CHEMICAL TECHNICIAN [facility] Specimen Anatomical Collection Method / Collection Time Recei brittanie Time (Source) Location / Volume Laterality Blood Venipuncture / 06/10/2021 10:09 2 Unknown AM CHEMICAL TECHNICIAN 10:09 AM CHEMICAL TECHNICIAN Humaira Evans MD LAB_1 Performing Organization Address [facility] Code Phon e Number [facility] [employer] [facility] [address] [place] [address] Liver Panel(Hepatic Function Panel) (06/10/2021 10:09 AM CHEMICAL TECHNICIAN) athologist Signature Alkaline 78 40 - 150 06/10/2021 [employer] Phosphatase U/L 11:25 AM CHEMICAL TECHNICIAN LABORATORY Bilirubin, Total 0.5 0.2 - 1.2 06/10/2021 [employer] mg/dL 11:25 AM CHEMICAL TECHNICIAN LABORATORY Bilirubin, 0.2 0.0 - 0.5 06/10/2021 [employer] Direct mg/dL 11:25 AM CHEMICAL TECHNICIAN LABORATORY AST (SGOT) 20 10 - 40 06/10/2021 [employer] U/L 11:25 AM CHEMICAL TECHNICIAN LABORATORY ALT (SGPT) 28 0 - 55 U/L 06/10/2021 [employer] 11:25 AM CHEMICAL TECHNICIAN LABORATORY Protein, Total 7.7 6.4 - 8.3 06/10/2021 [employer] g/dL 11:25 AM CHEMICAL TECHNICIAN LABORATORY Albumin 4.4 3.5 - 5.0 06/10/2021 [employer] g/dL 11:25 AM CHEMICAL TECHNICIAN LABORATORY Specimen Anatomical Collection Method / Collection Time Recei brittanie Time (Source) Location / Volume Laterality Blood Venipuncture / 06/10/2021 10:09 2 Unknown AM CHEMICAL TECHNICIAN 10:09 AM CHEMICAL TECHNICIAN Humaira Evans MD LAB_1 Performing Organization Address City/[facility]/ZIP Code Phon e Number [facility] [employer] [facility] [address] [place] [address] documented in this encounter Visit Diagnoses Diagnosis Myofascial muscle pain - Primary Mylagia and myositis, unspecified High risk medication use Encounter for long-term (current) use of other medications Psoriasis Other psoriasis Osteoarthritis of both hands, unspecifie d osteoarthritis type Positive MARLON (antinuclear antibody) Other and unspecified nonspecific immuno logical findings documented in this encounter Care Teams Hand Plate Stacker Relationship Specialty Start Date End Date Candy Gee MD PCP - General Internal Medicine 03/05/[address] [place] [address] documented as of this encounter
--- OUTSIDE RECORDS SUMMARY | 2022-02-25 19:46 | XMS_ITS | Encounter Summary ---
:1950 Author Organization [facility] Address [address], [place] [address] Care Team Providers Name Role Phone Candy Gee MD Primary Care Provider Reason for Visit Reason Comments Follow-up Encounter Details Date Type Department Care Team Description 07/29/2020 Office Visit Humaira Zaragoza Psoriasis (Primary Dx); Rheumatology MD Leanna Arthralgia, unspecified joint; [address] [facility] Myofascial muscle pain; [place] [address] Blvd Osteoarthritis of both hands, unspecifie d osteoarthritis type [phone] [place] [address] Social History Tobacco Use Types Packs/Day Years Used Date Smoking Tobacco: Former Sex Assigned at Date Recorded Not on file documented as of this encounter Last Filed Vital Signs Vital Sign Reading Time Taken Comments Blood Pressure 147/65 07/29/2020 10:30 AM [employer] Pulse 65 07/29/2020 10:30 AM [employer] Temperature 37.1 ??C (98.8 ??F) 07/29/2020 10:30 AM [employer] Respiratory Rate - - Oxygen Saturation - - Inhaled Oxygen Concentration - - Weight 67.1 kg (148 lb) 07/29/2020 10:30 AM [employer] Height - - Body Mass Index 23.89 03/11/2020 8:52 AM CDT documented in this encounter Patient Instructions Patient InstructionsHumaira Evans MD - 07/29/2020 10:30 AM CST Images from the original note were not included. ANUP gel as needed for the hand pain ANNAMARIA RAMOS to the left armpit area Talk with cardiology about cyclobenzaprine as we could consider trying this follow up in 6 months OSTEOARTHRITIS Causes Osteoarthritis is the most common type of arthritis. If we live long enough, all of us develop osteoarthritis to some degree. It is commonly referred to as ???wear and tear?? arthritis or degenerativearthritis. In reality, it is caused by changes within the joint that lead to cartilage breakdown. Cartilage is the smooth, shock-absorbing surface of bones. In addition, extra bone production occurs usually about the margins of the joint, causing spurs and bony enlargement. With time, the joint surface roughens. In more advanced situations, the cartilage completely thins out and bone may rub against bone as movement occurs at the joint. There is often a genetic component to osteoarthritis, particularly hand osteoarthritis. Other factors, such as being overweight and female can predispose to osteoarthritis in the weight-bearing joints such as the hips, knees, ankles, and feet. One of the most important aspects of osteoarthritis is that it is NOT caused by inflammation. In contrast to many other forms of arthritis, there is little in the way of redness or warmth, but swellingmay still occur. These features serve as the hallmarks of an inflammatory joint process. Clinical signs of inflammation often are associated with specific abnormalities in blood samples, x-rays, or biopsy specimens. In osteoarthritis, the clinical and laboratory findings of inflammation are absent. There may be visible swelling for osteoarthritis, however, but this is from bony enlargement at the joint, not from fluid in the joint. Non-medication based therapies Unfortunately, there is currently no cure for osteoarthritis. The main emphasis of treatment, therefore, is on pain reduction and maximizing function. Our first goal is to address any factors that might be contributing to continued stresses in the joint. Weight loss, even modest amounts, may spare weight- bearing joints like the knees and hips from significant damage. Exercises may be very helpful in improving the mechanics of motion and strengthening muscles and tendons that support the joint. Particularly for knee osteoarthritis, strengthening of the quadriceps musculature and also muscles around the hips helps decrease knee pain and decrease the likelihood of the knee ???buckling?? under pressure. Another treatment for knee osteoarthritis is putting a ???wedge?? in shoes at the heel that can help correct some of the mechanical factors increasing pain. Frequently, a physical therapist can help with fitting and obtaining a wedge. For hand osteoarthritis, contrast baths can decrease stiffness in the morning. Fill up two buckets, one with warm tap water and one with cold tap water. Dip your hands into the hot water for 2 minutes,then the cold for 1 minute and repeat for about 15 minutes. Another treatment is using paraffin baths. Paraffin has a high heat capacity and can deliver heat directly to sore hand joints. Paraffin baths can be purchased at a modest guzman ($50-250) and you can try them out at our hand physical therapy center in the [facility]. There are some hand braces that can be fabricated by a hand therapist or purchased over the counter that can help with base of the thumb arthritis. For certain types of knee osteoarthritis, an unloaderknee brace may be used. Traditional Korean acupuncture has been shown in some studies to decrease pain from osteoarthritis of the knee. If you have osteoarthritis of the big toe or foot, you might benefit from a Spring Plate insert available from [employer] or purchasing a shoe with a rocker bottom type sole. If you have osteoarthritis of the ankle, you might benefit from purchasing an Lashae brace. Neutraceuticals Some supplements such as glucosamine/chondroitin (500 mg/400 mg) taken 3 times a day or extra strength (750 mg/600mg) 2 times daily or super-strength 1500 mg/1200 mg once daily may help with osteoarthritis of the knees, hips, and less so with the hands and spine. Generally, it is worth trying these unless you have a severe shellfish allergy. If after 2-3 months of taking the supplement you have seen no improvement, it probably is not worth continuing. It should be pointed out that several large trials have suggested no definite benefit from glucosamine/chondroitin, while other smaller trials have shown benefit. This has made glucosamine controversial, but given its relative lack of side effects, it still may be worth a try. Other supplements including MSM and S-adenosyl methionine (600 mg twice a day) may also be helpful. One study showed that S-adenosyl methionine (SAMe) was as effective for relieving knee pain as Celebrex after 2 months. Another agent is diacerin, which seems to reduce cartilage degradation at a dose of 50 mg twice daily and may reduce pain levels about 1 point on a 10 point pain scale. Curcumin (partof Tumeric), Boswellia, and maco may have some benefits on pain and inflammation in osteoarthritis. The combination of curcumin with boswellia and maco can be purchased online and should contain 500 mg of curcumin. Curcumin may have mild blood thinning effects. Drugs that slow osteoarthritis We wish this section were longer. Glucosamine/chondroitin may slow the progression of osteoarthritisand help with pain, particularly in the knees and hips. One study has shown that taking glucosamine/chondroitin decreased the need to replacing hip and knee joints. An antibiotic called doxycycline mayhelp slow progression in knee osteoarthritis and is under further study. Medications Medications play an important role in lessening the pain. Tylenol (acetaminophen) is the initial recommended medication for osteoarthritis pain. Tylenol extra strength (500 mg tabs) or Tylenol arthritis (650 mg tabs) or generic equivalent are usually recommended for arthritis pain. Take 2 tabs up to 3times per day. When this is not adequate, anti-inflammatory medications (NSAIDs) like ibuprofen (or numerous other prescription cousins including but no limited to meloxicam, piroxicam, sulindac, naproxen, diclofenac, nabutetone, etc) can be added. These medications carry a low but definite risk of stomach irritation or kidney problems. These risks are small in young people, but increase in patients over age 65. Another potential treatment to consider is a gel that contains a medication like ibuprofen, called diclofenac (Voltaren gel 1%) or ketoprofen gel 20%. Such topicals are sometimes prescribed when takingthe anti-inflammatories by mouth is not tolerated. They are made by a compounding pharmacist and require prescription. Aspercreme is a similar over the counter product in which a topical version of aspirin is applied. Another cream is Capsaicin (Zostrix). Capsaicin cream is a rubbed on the skin of an affected joint to relieve the pain of osteoarthritis. It works by depleting nerves of the substances they use to trigger a pain response. Capsaicin cream is made from the active ingredient of hot chile peppers. Some people prefer to wear rubber gloves while applying the cream. If you don???t, be sure to wash your hands very thoroughly with soap and water after using the cream. Be very careful not to get the cream near your eyes, as it will burn and sting. If you do get some in your eyes, flush them thoroughly with cool water. In general, few people tolerate this well enough for it to be a useful treatment. Cymbalta is an antidepressant with increases serotonin and norepinephrine, two transmitters in the brain, and can reduce pain for some patients. Its expensive, but may be covered after a few generic options have been tried. In more severe cases, stronger analgesics like tramadol (ultram), or tramadol plus Tylenol (Ultracet), or low dose narcotic pain medications can be helpful (i.e., Tylenol with codeine, hydrocodone (vicodin), etc). Sometimes using lower doses of several medications can be effective. For example, there are no interactions between Tylenol, ibuprofen, and ultram, and all 3 can be taken together if necessary. Injections At times, corticosteroid joint injections may be helpful. Corticosteroids decrease pain and act as anti-inflammatory agents. Injections pose very little risk and may provide good relief for up to several months. They may be repeated up to every 3 months if necessary. While almost any joint can have a cortisone injection, these are most commonly performed for the knees. Another type of injection available for osteoarthritis of the knee is viscosupplements. These usually require a series of 3-5 injections (once weekly) and replace some of the lubricating type fluid in the joint. Viscosupplementation is used to postpone the need for total knee replacement or in patients who are not deemed good candidates for surgery. Several brand names of this material include Synvisc, Hyalgan, Supartz, Orthovisc, Euflexxa. No brand is definitely superior. SyniviscOne is a preparation in which the equivalent of 3 doses of Synvisc can be given in one injection, preventing the need to come back for 3 injections. Surgery In some situations, the osteoarthritis process progresses to the point where the joint has completely deteriorated. Medical treatments may not be able to control the pain. When it does occur, however, total or partial joint replacement surgery may be a desirable option. Surgery frequently reduces painsignificantly and can improve function, if function has been limited by pain. There are obvious drawbacks to surgery, including the need for hospitalization, the associated risks, and the post surgicalrehabilitation that is required. Even still, it may prove to be a very reasonable choice if other treatments fail. Surgery provides a good option for end stage osteoarthritis of the hip, shoulder, knee, and base of the thumb. [employer] documented in this encounter Progress Notes Humaira Evans MD - 07/29/2020 10:30 AM CST RHEUMATOLOGY FOLLOW-UP CC: follow up positive MARLON, purpuric rash, palmar plantar psoriasis with arthralgias Encounter date: 07/29/2020 Date of last office visit: 03/25/2020 Rheumatologic history: The patient is a 70 [...] in April 2020 by dermatology. Interim history: Ms. Matos states she is doing okay. She describes a swelling/aching pain in the armpits and chest wall that goes into the hands. It takes her about an hour to 1.5 hours Tylenol is helpful for the pain. She takes 2 extra strength tablets before bed. Has not tried topicals. Her psoriasis has gotten much better. She is very happy with how it is currently doing. Pain in the feet has improved significantly. She states she can walk without pain now. She states she has been gaining weight since February. Thinks it is due to increased appetite and portion sizes. She is baking more in quarantine. No fevers. Chills, night sweats. No new rashes. No issues with her Skyrizi. She has follow up with dermatology in 2 weeks. ROS: Review of systems form filled out the the patient for today's visit was reviewed, and is as noted above. PMH: Updated in EMR Outpatient Encounter Medications as of 07/29/2020 Medication Sig Dispense Refill ??? artificial tears (HYPOTEARS) 1-1 % eye drop solution 4 times daily as needed. ??? Nnhdfgbmip-HKJE-Lqmajhng 50-300-40 MG CAPS TK 1 TO 2 [...] facility-administered encounter medications on file as of 07/29/2020. ALLERGIES: Updated in EMR Social History Tobacco Use Smoking Status Former Smoker Social History Substance and Sexual Activity Alcohol Use Not on file MEDS: Reviewed and updated in the computerized record. Physical exam: Blood pressure (!) 147/65, pulse 65, temperature 98.8 ??F (37.1 ??C), temperature source Temporal Artery, weight 148 lb (67.1 kg). General: Alert, no distress, appears comfortable Eyes: anicteric, no erythema, EOMI ENT: Mask in place today Resp: breathing comfortably on room air. CTAB, no wheezing or crackles. CV: RRR, no m/r/g Abd: soft, NT/ND, normal bowel sounds Skin: significant improvement in erythema and peeling of the soles of the feet b/l, less pain with palpation and less scab. Does not appear as acutely red as prior. Hand lesions have improved significantly. Neuro: normal gait. Grossly normal strength. MSK: A focused joint exam was performed involving shoulders, elbows, hands, ankles, feet. 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 No evidence of synovitis on today's exam. She has muscular pain on palpation of theside of her left chest wall. She feels her hands are swollen today but do not appear puffy or withsynovitis. No TTP of the hand joints. Labs: Lab Results Component Value Date WBC [...] Component Value Date C-Reactive Protein <0.5 03/11/2020 [facility] MARLON: 1:80, speckled 02/2020: SUNSHINE panel [...] Bones are mildly demineralized. ASSESSMENT/PLAN: # arthralgia/myalgia, possible muscle strain of left chest wall # palmar plantar psoriasis # high risk medication use # history [...] overt signs of psoriatic arthritison today's exam. Currently her left muscle/chest wall pain when she sleeps at night appears to be more muscular in nature rather than truly articular. She is unable to take NSAIDs. 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 We also discussed some topical therapies totry for her chest wall including tiger balm. She does have OA changes of her hands and suspect her current hand symptoms are more consistent with degenerative arthritis rather than active inflammatory arthritis in relation to her psoriasis. We discussed that Skyrizi is used for both psoriasis and PsA so this should benefit her joint symptoms if this was 2/2 to inflammatory arthritis. Given her symptoms have not improved, that is why I feel the etiology may be more degenerative in nature versus myofas cial. Recommend trial of topical voltaren gel to the hands as needed. Hand out given on OA. Will plan on repeating inflammation markers and CK today. Follow up in 6 months or sooner if needed. PLAN: - blood work today - trial of topical diclofenac for hands - trial of tiger balm to chest wall - discuss cyclobenzaprine with cardiology - okay to continue tylenol as needed for pain - hand out on OA given today - continue Skyrizi as per dermatology - follow up in 6 months Patient advised to call clinic if symptoms change or worsen. All questions answered to the best of my ability. MD Jemal Eisenberg Rheumatology [employer] documented in this encounter Plan of Treatment Upcoming Encounters Date Type Specialty Care Team Description 03/17/2022 Appointment Rheumatology Lemuel Evans MD [address] [facility] [address] [id number] (Wo rk) documented as of this encounter Results CPK - CK Total (07/29/2020 11:17 AM [employer]YOR) athologist Signature CK, Total 59 29 - 168 07/29/2020 [place] U/L 12:33 PM [facility] [employer] [facility] LABORATORY Specimen Anatomical Collection Method / Collection Time Recei brittanie Time (Source) Location / Volume Laterality Blood Venipuncture / 07/29/2020 11:17 1 Unknown AM [employer]YOR 11:17 AM [employer] SUR[employer]YOR Humaira Evans MD LAB_1 Performing Organization Address City/State/[facility] Phon e Number [facility] [address] [place] [phone] CRP - C Reactive Protein (07/29/2020 11:17 AM [employer] SURVEYOR) athologist Signature C-Reactive 0.6 0.0 - 0.7 07/29/2020 [place] Protein mg/dL 12:33 PM [facility] [employer] [facility] LABORATORY Specimen Anatomical Collection Method / Collection Time Recei brittanie Time (Source) Location / Volume Laterality Blood Venipuncture / 07/29/2020 11:17 1 Unknown AM [employer] SUR[employer]YOR 11:17 AM [employer]INE [employer] SURVEYOR Humaira Evans MD LAB_1 Performing Organization Address City/State/ZIP Code Phon leanna Nolan [facility] [address] [place] [address] ESR - Sedimentation Rate (07/29/2020 11:17 AM [employer] SURVEYOR) [facility] gist Method Time Signature Sedimentation Rate 11 0 - 20 07/29/2020 [place] mm/hr 11:53 AM [facility] [employer] [facility] LABORATORY Specimen Anatomical Collection Method / Collection Time Recei brittanie Time (Source) Location / Volume Laterality Blood Venipuncture / 07/29/2020 11:17 Unknown AM [employer]YOR 11:17 AM [employer] SURVEYOR Humaira Evans MD LAB_1 Performing Organization Address [facility]/ZIP Code Miriam Nolan [facility] [address] [place] [address] documented in this encounter Visit Diagnoses Diagnosis Psoriasis - Primary Other psoriasis Arthralgia, unspecified joint Myofascial muscle pain Mylagia and myositis, unspecified Osteoarthritis of both hands, unspecifie d osteoarthritis type documented in this encounter Care Teams General Assembler Relationship Specialty Start Date End Date Candy Gee MD PCP - General Internal Medicine 03/05/201999 [place] [address] documented as of this encounter
--- OUTSIDE RECORDS SUMMARY | 2022-02-25 19:46 | XMS_ITS | Encounter Summary ---
:1950 [facility] [address] [address] Care Team Providers Name Role Phone Candy Gee MD Primary Care Provider Reason for Referral Procedure/Equipment (Routine) - Closed Specialty Diagnoses / Procedures Referred By Contact Refer red To Contact Diagnoses Lymphadenopathy Positive MARLON (antinuclear antibody) Humaira Evans MD Procedures CT Neck Soft Tissue W IV Cont [address] [place], [place] [address] Referral ID Status Reason Start Date Expiration Date Visits Requ ested Visits Authorized [id number] Closed 03/18/2020 04/17/2020 1 1 Procedure/Equipment (Routine) - Closed Specialty Diagnoses / Procedures Referred By Contact Refer red To Contact Diagnoses Lymphadenopathy Positive MARLON (antinuclear antibody) Humaira Evans MD Procedures CT Chest W IV Cont [address] [place], [place] [address] Referral ID Status Reason Start Date Expiration Date Visits Requ ested Visits Authorized Closed 03/18/2020 04/17/2020 1 1 Procedure/Equipment (Routine) - Incomplete Specialty Diagnoses / Procedures Referred By Contact Refer red To Contact Diagnoses Arthralgia, unspecified joint Lymphadenopathy Humaira Evans MD Procedures XR Hands 1 View Bilat Arthritis [address] [facility], [place] [address] Referral ID Status Reason Start Date Expiration Date Visits V isits Requested Authorized [id number] Incomplete 03/11/2020 06/10/2021 1 1 Reason for Visit Reason Comments CONSULT Encounter Details Date Type Department Care Team Description 03/11/2020 Office Visit Humaira Zaragoza Lymphaden opathy (Primary Dx); Rheumatology MD [place] Psoriasis; [address] [place] [address] Arthral david, unspecified joint; [address] Palpable purpura ([facility]); [place], [place] Positive MARLON (antinuclear antibody); [id number] Pruritus, unspecified [phone] Social History Tobacco Use Types Packs/Day Years Used Date Smoking Tobacco: Former Sex Assigned at Date Recorded Not on file documented as of this encounter Last Filed Vital Signs Vital Sign Reading Time Taken Comments Blood Pressure 151/70 03/11/2020 8:52 AM CDT Pulse 58 03/11/2020 8:52 AM CDT Temperature 36.7 ??C (98 ??F) 03/11/2020 8:52 AM CDT Respiratory Rate - - Oxygen Saturation - - Inhaled Oxygen Concentration - - Weight 61.7 kg (136 lb) 03/11/2020 8:52 AM CDT Height 167.6 cm (5' 6) 03/11/2020 8:52 AM CDT Body Mass Index 21.95 03/11/2020 8:52 AM CDT documented in this encounter Patient Instructions Patient InstructionsHumaira Evans MD - 03/11/2020 9:00 AM CDT Will check additional blood work today to look for causes of your positive MARLON test as well as the other issues including the swelling of your lymph nodes and your rash on your legs Please call me if the rash worsens on your legs and please let me know what the biopsy shows Will call the radiologist to see what type of imaging would be best to look at your lymph nodes Return to clinic in 2 weeks for follow up MARLON = Antinuclear antibody This is an antibody in the blood which tends to bind proteins within the nucleus of cells. It is often referred to as the ???Lupus Test?? because 99% of people with lupus do have a positive test. However, perhaps only 1/10 to 1/50 of people randomly screened and found to have a positive MARLON actually have lupus. In other words, all people with lupus have a positive MARLON but not all people with a positive MARLON have lupus. It is therefore a sensitive test, but not a specific one. In practice, it often has greater utility if it is negative, since a negative test almost always (99% of the time) rules out Lupus as the causeof the underlying symptoms. The MARLON may be positive in with lots of conditions besides Lupus. Other autoimmune diseases like rheumatoid arthritis, Sjogren???s Syndrome, scleroderma can cause a positive. Autoimmune disease which don???t fall into the Rheumatology category like thyroid disease and liver disease can cause a positive MARLON. Other reasons for a positive MARLON include some kinds of infections (even viral infections like colds) and certain medications (minocycline, procainamide, hydralazine, some antiseizure drugs). Up to 1 in 20 normal people can have a positive MARLON (usually low positive) which has no consequence at all. The stronger positive the MARLON, the more likely it is to mean something significant. MARLON is reported in a titer, with higher numbers being a stronger positive: Negative 1:40 (weak positive) 1:80 1:160 1:320 1:640 1:1280 1:2560 (strong positive) Often value above 1:320 are significant. Thankfully, there are some additional blood tests which can help determine if a positive MARLON is a ???true positive?? or ???false positive?? , so these may be ordered. The most important thing, however, is what symptoms the patient has. A positive MARLON is just one piece of information used to diagnose disease like lupus. Diagnosing diseases like lupus requires the presence of certain signs and symptoms. documented in this encounter Progress Notes Humaira Evans MD - 03/11/2020 9:00 AM CDT Rheumatology New Patient/Consult Note Encounter Date: 03/11/2020 Referral: Candy Gee MD [address] [place] [address] Reason for consult: Positive MARLON HPI: The patient is a 70 y.o. female with medical history of psoriasis, ulcerative colitis, migraineheadache, osteoporosis, seasonal allergies, hyperlipidemia, obstructive sleep apnea, and atrial fibrillation on anticoagulation with recent ablation presenting to our clinic today for evaluation of positive MARLON. Outside records reviewed. She was recently seen in the [place] urgent care in January 2020 with possible upper respiratory infection in lymphadenopathy she was treated as acute bacterial rhinosinusitis with amoxicillin-patient was offered COVID testing at that time but declined. Recent labs done on 02/20/2020 shows a normal CBC with differential, negative hepatitis-C antibody, negative hep B surface antigen, normal BMP with normal renal function, normal albumin, normal AST andALT, negative QuantiFERON gold, negative hep B core total. She had a MARLON hep-2 IgG done which was detected, speckled pattern. Titer noted to be 1:80. Appears these labs were done after visit with Dermatology for evaluation of hair loss and psoriasis. Ms. Matos states that she has had multiple new issues over the past couple months. What is most concerning to her is that since her upper respiratory tract infection in January, she has had pain in swelling in bilateral axillary regions. She has never had similar swelling in this area in the past. Has not noticed any swelling of her neck. She did have a mammogram done yesterday but does not have theresults of this yet. She denies fevers, chills, night sweats, weight loss or weight gain. She personally has no known history of malignancy and denies any history of malignancy in her family. The next issue she has been dealing with is worsening of her palmar plantar psoriasis. She states she has had this since she was 34 years old, but has always been managed with topical steroids. She hasbeen following with a new bowling ball patcher over the past 4 months but notes that her psoriasis has continued to worsen, endorses pain in burning in the bottom of her feet or her rash is at its worse. She notes she has only had her psoriasis on the palms of her hands and on the soles of her feet, does notget psoriatic plaques elsewhere. She does have ridging in some pitting in her nails. During her visit with Dermatology in December 2019 she endorsed new hair loss as she was having larger clumps of hair f alling out in the shower and with brushing. She has not noticed any large patchy areas of hair loss or rashes. She was given clobetasol and ketoconazole shampoo for treatment. Another new issue is that a couple weeks ago she developed a raised red rash on her ankles and dorsum of the feet bilaterally. This is after her upper respiratory infection in treatment with amoxicillin in January 2020. The rash is not itchy or painful, though it was biopsied by Dermatology couple days ago and we have not yet received those results. She denies any abdominal pain or cramping, any blood in the stool or dark stools, blood in the urine or pain with urination, other recent GI or illnesses besides her URI in January. She has never had a similar rash in the past. Additionally, she has developed new joint pain over the past couple weeks. She endorses pain in her neck, as well as the wrists bilaterally, and sometimes in the ankles. She has not noticed any overt swelling of the joints. She does feel stiff in these areas but this only lasts for a couple minutes inthe morning and improves throughout the day. She has not had issues with joint pain or swelling in the past. She denies any known family history of autoimmune diseases. She herself does have a history of ulcerative colitis, though has not had any recent change in her therapy or in her GI symptoms. Sheis currently on mesalamine and feels that she has been well controlled on this. She gets colonoscopies once every 2 years. In regards to additional rheumatologic review of systems, she denies sicca symptoms, denies Raynaud's, no history of serositis, no new chest pain shortness of breath or cough, no photosensitivity. No history of oral, nasal, genital ulcers. 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 She has been blind in the right eye since , but denies any history of eye inflammation in the past, in no recent changes in her vision or hearing. She denies overt muscle weakness. She denies any numbness or tingling in any extremity. No history of blood clots. Had 1 though no other issues. No history of miscarriages. ROS: Comprehensive review of systems form filled out by the patient for today's visit was reviewed, sent to [place], and is as noted above. Past Medical History: No past medical history on file. There are no active problems to display for this patient. Paroxysmal atrial fibrillation Psoriasis Osteoporosis, not on treatment Recurring sinusitis Ulcerative colitis Diverticulitis Acid reflux Past Surgical History: No past surgical history on file. Appendectomy 07/2004 Finger surgery 11/2004 Cataract removal 2013 Sigmoid colectomy 2019 Cardiac ablation December 2019 Family and Social History: No family history on file. Social History Substance and Sexual Activity Alcohol Use Not on file Social History Tobacco Use Smoking Status Not on file Lives at home with her . She has 4 children. Current Medications: Outpatient Medications Prior to Visit Medication Sig ??? artificial tears (HYPOTEARS) 1-1 % eye drop solution 4 times daily as needed. ??? Bjmytwkkwm-BXZY-Npvcxrac 50-300-40 MG CAPS TK 1 TO 2 [...] T PO D WITH MEAL No facility-administered medications prior to visit. Please see most updated medications in EMR. These have been reviewed. Adverse Drug Reactions: Sulfa antibiotics, Atorvastatin, Quinolones, Tolterodine, and Simvastatin Physical Examination: There were no vitals taken for this visit. General: Comfortable appearing, well developed, well nourished. HEENT: anicteric, noninjected sclerae, EOMI, she does have a slight lateral deviation the right eye;no oral ulcers, erythema or exudates. Normal salivary pool. Lymph: Fullness noted of the axillary region bilaterally with tenderness to palpation, right greaterthan left. She does have a small supraclavicular lymph node on the right side which is nontender to palpation CV: regular rate and rhythm today; normal heart sounds; no murmur, rubs, gallops. Resp: clear to auscultation bilaterally; no wheezing, rales, or rhonchi Abd: soft, non-tender, non-distended, normal bowel sounds Skin: Erythematous plaques noted on the palms of the hands bilaterally largest being on the right radial aspect of palm with overlying scale. She has significant erythema, peeling, scabbing of the soles of the feet bilaterally with some regions that look pustular and hyperkeratotic. She has diffuse nail ridging with some pitting of the hands bilaterally. Yellowing of the toenails bilaterally. She hassmall punctate palpable purpura of the bilateral anterior ankles and dorsum of the feet that are nontender, non ulcerating. Do not extend up the legs or into the abdomen. No perigungual erythema, digital ulcerations. Neuro: alert, normal muscle bulk and tone, normal gait. Muscle strength 5/5 proximal and distal, upper and lower extremities. Outpatient Interviewing Clerk 5/5. Psych: Normal affect, normal speech. MSK: A full joint exam was performed. 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, no synovitis bilat, does have tenderness to palpation the left 5th digit which is the digit that was reattached the past, evidence Herderns nodes, noother bony deformity Hip: FROM bilat, neg VIJAY Back: neg percussion pain, no pain on palpation SI joints Knees: FROM bilat, no synovitis bilat Ankles: FROM, no synovitis bilat Feet: FROM, no synovitis bilat, negative MTP squeeze go feet are painful due to extensive rash Other: no obvious tender points suggestive of FMS Prior Labs and/or Imaging Reviewed: As above in HPI[facility] notable for a positive MARLON titer 1:80, speckled pattern LFTs, CBC, BMP unremarkable No additional labs within our system Report of a chest x-ray from February 2020 showing an enlarged cardiac silhouette, mild vascular calcifications, no infiltrate or edema, no effusion or pneumothorax, discogenic spurring. Today's Labs and/or Imaging pending: Please see attached labs and imaging Assessment: #lymphadenopathy #positive MARLON #palpable purpura #psorasis #arthralgia Ms. Maldonado is a very pleasant 70-year-old female with medical history of psoriasis, ulcerative colitis, migraine headache, osteoporosis, seasonal allergies, hyperlipidemia, obstructive sleep apnea, and atrial fibrillation on anticoagulation with recent ablation presenting to our clinic today for evaluati on of positive MARLON. At today's visit she has multiple issues to address: First would be the reason for her referral-positive MARLON. She has additional signs and symptoms suggestive of possible underlying connective tissue disease versus lymphoproliferative disorder/malignancy. Most concerning is persistent lymphadenopathy of the axilla as well as the right supraclavicular region 1st noticed in January 2020. She has also had recent complaints of hair loss, arthralgias, newrashes which I will discuss below. She has no previously known history of serositis, Raynaud's, sicca, clotting disorders. We did discuss her positive MARLON and that will obtain further workup for her constellation of symptoms, though MARLON may be positive in the setting of her known history of inflammatory bowel disease as well as psoriasis. Next issue, is her new rash on her ankles and dorsum of her feet bilaterally. This rash appears consistent with palpable purpura. It does not extend beyond the ankle joint. She denies any GI symptoms including cramping, blood in the stool, dark stools. No urinary symptoms. This was recently biopsied by Dermatology, awaiting these results. Unclear if this rash is related to her additional symptoms versus her recent upper respiratory infection versus drug. Given the rash is mild and limited to the ankles and dorsum of the feet will avoid systemic glucocorticoids for now given her active psoriasis, though will adjust plan as needed if symptoms change or worsen or if pending workup is suggestive of anautoimmune cause beyond LCV from possible infection or drug. Another issue to discuss is her worsening psoriasis in the setting of new joint pain. As discussed above is unclear if her symptoms are related to a more systemic connective tissue disease versus a possible lymphoproliferative disorder in the setting of her lymphadenopathy versus her having a separateissue of possible psoriatic arthritis. We did discuss that based on the pending workup and imaging if this is largely negative we could consider escalating her treatment of her psoriasis which may helpwith her IBD and joint pain with a biologic therapy such as anti TNF inhibitors. Will plan on discussing this further based on her pending workup the do feel that the etiology of her symptoms remains unknown at this time. Plan: -additional labs and imaging to be done for further evaluation including CT neck and chest an x-ray of the hands -advised to call clinic the rash on her lower extremities changes or worsens or if she develops any GI symptoms or changes in her urine, additionally she will contact us when she gets the results from her skin biopsy -will plan on close follow-up in 2 weeks to review pending labs and imaging as well as treatment plan moving forward Advised to call if symptoms worsen or fail to improve or if new concerns arise. Plan discussed with the patient in detail. Verbalized understanding and agreement with plan. All questions answered. Humaira Evans MD Rheumatology [facility] TT 60 minutes, with more than 50% spent of time spent in education and counseling. This note was dictated using voice recognition software. There may be sound- alike and/or punctuationerrors. Copy to Candy Gee MD [address] [place] [address] documented in this encounter Plan of Treatment Upcoming Encounters Date Type Specialty Care Team Description 03/17/2022 Appointment Rheumatology Lemuel Evans MD [address] [facility] [address] [id number] (Wo rk) documented as of this encounter Results CT Chest W IV Cont (03/18/2020 10:07 AM CDT) Anatomical Region Laterality Modality Chest, Lung Computed Tomography Specimen (Source) Anatomical Collection Method Collection Time Re ceived Time Location / / Volume Laterality 03/18/2020 9:32 AM CDT Impressions 03/18/2020 12:28 PM CDT COMPARISON: None. TECHNIQUE: Images were obtained through the chest following the administration of ??75 mL IOPAMIDOL 61 % IV SOLN contrast. FINDINGS: CHEST WALL AND LOWER NECK: Unremarkable. LYMPHADENOPATHY: No mediastinal, hilar o r axillary adenopathy by size criteria. Specifically, visualized axillary lymph nodes are subcentimeter short axis with thin cortex and preserved fatty hilum. No enlarged supraventricular lymph nodes wh ere seen. CARDIOMEDIASTINUM: Unremarkable. VISUALIZED UPPER ABDOMEN: Small splenule . Otherwise unremarkable where seen. PLEURA/ PLEURAL EFFUSION: Unremarkable. No pleural effusion. BONES: Unremarkable. LUNG AND LARGE AIRWAYS: A 4 mm solid nod ule within the left lower lobe laterally (series 3 image 67). Lungs otherwise clear. Large airways are patent. IMPRESSION: 1. No thoracic adenopathy by size criter ia. 2. A 4 mm nodule within the left lower l obe. See guidelines. PN Consensus Recommendation for a single solid nodule less than 6 mm (excludes patients younger than 35 years, immunocompromised patients and patients with cancer): Low risk patients: No routine follow-up. High risk patients (older age, smoking h istory, emphysema, fibrosis): Optional lung nodule CT at 12 months. Procedure Note Jason Temple MD - 03/18/2020Formatt ing of this note might be different from the original. IMPRESSION COMPARISON: None. TECHNIQUE: Images were obtained through the chest following the administration of 75 mL IOPAMIDOL 61 % IV SOLN contrast. FINDINGS: CHEST WALL AND LOWER NECK: Unremarkable. LYMPHADENOPATHY: No mediastinal, hilar o r axillary adenopathy by size criteria. Specifically, visualized axillary lymph nodes are subcentimeter short axis with thin cortex and preserved fatty hilum. No enlarged supraventricular lymph nodes where seen. CARDIOMEDIASTINUM: Unremarkable. VISUALIZED UPPER ABDOMEN: Small splenule . Otherwise unremarkable where seen. PLEURA/ PLEURAL EFFUSION: Unremarkable. No pleural effusion. BONES: Unremarkable. LUNG AND LARGE AIRWAYS: A 4 mm solid nod ule within the left lower lobe laterally (series 3 image 67). Lungs otherwise clear. Large airways are patent. IMPRESSION: 1. No thoracic adenopathy by size criter ia. 2. A 4 mm nodule within the left lower l obe. See guidelines. PN Consensus Recommendation for a single solid nodule less than 6 mm (excludes patients younger than 35 years, immunocompromised patients and patients with cancer): Low risk patients: No routine follow-up. High risk patients (older age, smoking h istory, emphysema, fibrosis): Optional lung nodule CT at 12 months. Humaira Evans MD RAD CT CT Neck Soft Tissue W IV Cont [...] and C6-7. Humaira Evans MD RAD CT XR Hands 1 View Bilat Arthritis (03/11/2020 10:40 AM CDT) Anatomical Region Laterality Modality Upper Extremity, Hand Digital Radiograph y Specimen (Source) Anatomical Collection Method Collection Time Re ceived Time Location / / Volume Laterality 03/11/2020 10:35 AM CDT Impressions 03/11/2020 12:23 PM CDT COMPARISON: ??None. FINDINGS: Single PA arthritis view of th e bilateral hands. No acute bony abnormalities are erosive changes throughout the hands. Mild to moderate osteoarthritis at the bilateral DIP joints, thumb IP dg nts, ST-T joints, and first CMC joints. Bones are mildly demineralized. Procedure Note Konrad Morse MD - 03/11/2020 IMPRESSION COMPARISON: None. FINDINGS: Single PA arthritis view of th e bilateral hands. No acute bony abnormalities are erosive changes throughout the hands. Mild to moderate osteoarthritis at the bilateral DIP joints, thumb IP joints, ST-T joints, and first CMC joints. Bones are mildly d emineralized. Humaira Evans MD RAD GD FRT4 - Free T4 (03/11/2020 10:22 AM CDT) P athologist Signature T4, Free 0.9 0.7 - 1.5 03/11/2020 [facility] ng/dL 4:53 PM CDT LABORATORY Specimen Anatomical Collection Method / Collection Time Recei brittanie Time (Source) Location / Volume Laterality Blood Venipuncture / 03/11/2020 10:22 0 Unknown AM CDT 10:22 AM CDT Humaira Evans MD LAB_1 Performing Organization Address [facility] Phon e Number [facility] [address] [place] [address] TSH (03/11/2020 10:22 AM CDT) athologist Signature TSH, Sensitive 1.17 0.30 - 03/11/2020 [facility] 4.50 4:53 PM CDT LABORATORY uIU/mL Specimen Anatomical Collection Method / Collection Time Recei brittanie Time (Source) Location / Volume Laterality Blood Venipuncture / 03/11/2020 10:22 0 Unknown AM CDT 10:22 AM CDT Humaira Evans MD LAB_1 Performing Organization Address [facility] Phon e Number [facility] [address] [place] [address] Immunoglobulins (G,A,M) (03/11/2020 10:22 AM CDT) athologist Signature IgA, Serum 253 69 - 517 03/11/2020 [facility] mg/dL 4:35 PM CDT LABORATORY IgG, Serum 1,127 552-1,631 03/11/2020 [facility] mg/dL 4:35 PM CDT LABORATORY IgM, Serum 192 33 - 293 03/11/2020 [facility] mg/dL 4:35 PM CDT LABORATORY Specimen Anatomical Collection Method / Collection Time Recei brittanie Time (Source) Location / Volume Laterality Blood Venipuncture / 03/11/2020 10:22 0 Unknown AM CDT 10:22 AM CDT Humaira Evans MD LAB_1 Performing Organization Address [facility] Phon e Number [facility] [address] [place] [id number] CRYGB - Cryoglobulin, Qualitative (03/11/2020 10:22 AM CDT) [facility] gist Method Time Signature Cryoglobulin NEG NEG 03/17/2020 [facility] Qual 72Hour 72Hour 6:15 PM CDT LABORATORIES Comment: Test developed and characteristics deter mined by [facility]. See Compliance Statement B : [employer] Performed By: [facility] [address] [place] [address] Rubbing Bed Operator: Alicia Solo MD Specimen Anatomical Collection Method / Collection Time Recei brittanie Time (Source) Location / Volume Laterality Blood Venipuncture / 03/11/2020 10:22 0 Unknown AM CDT 10:22 AM CDT Humaira Evans MD LAB_1 Performing Organization Address City/[facility] Phon e Number [facility] [address] [place], [place] [phone] [id number] by Maxx Assay (03/11/2020 10:22 AM CDT) P athologist Signature Anti-dsDNA Ab <8.0 <8.0 IU/mL 03/16/2020 [facility] (Maxx Assay) 11:06 PM CDT INTERFACED Specimen Anatomical Collection Method / Collection Time Recei brittanie Time (Source) Location / Volume Laterality Blood Venipuncture / 03/11/2020 10:22 0 Unknown AM CDT 10:22 AM CDT Narrative [facility] INTERFACED - 03/16/2020 11:06 PM CDT Test(s) [id number] Ab by Maxx(RDL) was developed and its performance charac teristics determined by [facility]. It has not been cleared or a pproved by the Food and Drug Administration. Performed at: ??01 - [facility] [address] [place] [address], A ??[phone] Welder Operator: Anmol Ascencio MD, Phone : ??[phone] Humaira Evans MD LAB_1 Performing Organization Address City/[facility] Code Phon e Number [facility] INTERFACED [address] [address] [place] [address] Basic Metabolic Panel (03/11/2020 10:22 AM CDT) P athologist Signature Sodium 139 136 - 145 03/11/2020 [place] mmol/L 11:32 AM CDT LABORATORY Potassium 4.2 3.5 - 5.1 03/11/2020 [facility] mmol/L 11:32 AM CDT LABORATORY Chloride 103 98 - 109 03/11/2020 [facility] mmol/L 11:32 AM CDT LABORATORY CO2 28 20 - 29 03/11/2020 [facility] mmol/L 11:32 AM CDT LABORATORY Anion Gap 8 7 - 16 03/11/2020 [facility] mmol/L 11:32 AM CDT LABORATORY Calcium 9.2 8.4 - 10.4 03/11/2020 [facility] mg/dL 11:32 AM CDT LABORATORY BUN 11 7 - 26 03/11/2020 [facility] mg/dL 11:32 AM CDT LABORATORY Creatinine 0.70 0.55 - 03/11/2020 [facility] 1.02 mg/dL 11:32 AM CDT LABORATORY GFR, Estimated >60 >60 03/11/2020 [facility] mL/min/1.7 11:32 AM CDT LABORATORY 3m2 Glucose 97 70 - 100 03/11/2020 [facility] mg/dL 11:32 AM CDT LABORATORY Comment: The given reference range is fo r the fasting state. Non-fasting reference range for glucose is 70 - 180 mg/dL. Hours Fasting 12 03/11/2020 11:32 AM CDT [facility] LABORATORY Specimen Anatomical Collection Method / Collection Time Recei brittanie Time (Source) Location / Volume Laterality Blood Venipuncture / 03/11/2020 10:22 0 Unknown AM CDT 10:22 AM CDT Humaira Evans MD LAB_1 Performing Organization Address City/State/ZIP Code Phon e Number [facility] [address] [place] [address] Liver Panel(Hepatic Function Panel) (03/11/2020 10:22 AM CDT) P athologist Signature Alkaline 78 40 - 150 03/11/2020 [facility] Phosphatase U/L 11:32 AM CDT LABORATORY Bilirubin, Total 0.4 0.2 - 1.2 03/11/2020 [facility] mg/dL 11:32 AM CDT LABORATORY Bilirubin, 0.2 0.0 - 0.5 03/11/2020 [facility] Direct mg/dL 11:32 AM CDT LABORATORY AST (SGOT) 23 10 - 40 03/11/2020 [facility] U/L 11:32 AM CDT LABORATORY ALT (SGPT) 37 0 - 55 U/L 03/11/2020 [facility] 11:32 AM CDT LABORATORY Protein, Total 7.9 6.4 - 8.3 03/11/2020 [facility] g/dL 11:32 AM CDT LABORATORY Albumin 4.6 3.5 - 5.0 03/11/2020 [facility] g/dL 11:32 AM CDT LABORATORY Specimen Anatomical Collection Method / Collection Time Recei brittanie Time (Source) Location / Volume Laterality Blood Venipuncture / 03/11/2020 10:22 0 Unknown AM CDT 10:22 AM CDT Humaira Evans MD LAB_1 Performing Organization Address City/[facility] Phon e Number [facility] [address] [place] [address] - Complement, Total Activity (03/11/2020 10:22 AM CDT) [facility] Method Time Signature Complement 72.1 38.7 - 03/13/2020 [facility] Activity, Total 89.9 U/mL 3:37 PM CDT LABORATORIES Turbidimetric Comment: REFERENCE INTERVAL: Complement Activity Total, (CH50) ? 38.6 U/mL or less ..........Low ? 38.7-89.9 U/mL .............Genesis l ? 90.0 U/mL or greater .......High Performed By: [facility] [address] [place] [address] Rubbing Bed Operator: Alicia Solo MD Specimen Anatomical Collection Method / Collection Time Recei brittanie Time (Source) Location / Volume Laterality Blood Venipuncture / 03/11/2020 10:22 0 Unknown AM CDT 10:22 AM CDT Humaira Evans MD LAB_1 Performing Organization Address City/[facility] Phon e Number [facility] [address] [place], [place] [phone] MPO/CA-3 (ANCA) Antibodies (03/11/2020 10:22 AM CDT) [facility] Method Time Signature Neutrophilic <1:20 <1:20 03/14/2020 [facility] Cytoplasmic Ab 6:08 PM CDT LABORATORIES IgG Comment: The ANCA IFA is <1:20; therefore, no fur ther testing will be performed. INTERPRETIVE INFORMATION: Anti-Neutrophi l Cyto Ab, IgG Neutrophil Cytoplasmic Antibodies (C-ANC A = granular cytoplasmic staining, P-ANCA = perinuclear staining) are found in the serum of over 90 percent of patients with certain necrotizing systemic vasculitides, and usually in less than 5 percent of patients with collagen vascular disease or arthritis. Performed By: [facility] [address] [place] [address] Rubbing Bed Operator: Alicia Solo MD Specimen Anatomical Collection Method / Collection Time Recei brittanie Time (Source) Location / Volume Laterality Blood Venipuncture / 03/11/2020 10:22 0 Unknown AM CDT 10:22 AM CDT Humaira Evans MD LAB_1 Performing Organization Address [facility] Phon e Number [facility] [address] [place] [phone] ASO - Antistreptolysin Screen (03/11/2020 10:22 AM CDT) [facility] Method Time Signature Streptolysin O 72 0 - 330 03/13/2020 [facility] Antibody (ASO) IU/mL 5:34 AM CDT LABORATORIES Comment: REFERENCE INTERVAL: Streptolysin O Antib keyon Access complete set of age- and/or gende r-specific reference intervals for this test in the [facility] Labo ratory Test Directory ([employer]). Performed By: [facility] [address] [place] [address] Rubbing Bed Operator: Alicia Solo MD Specimen Anatomical Collection Method / Collection Time Recei brittanie Time (Source) Location / Volume Laterality Blood Venipuncture / 03/11/2020 10:22 0 Unknown AM CDT 10:22 AM CDT Humaira Evans MD LAB_1 Performing Organization Address [facility] Phon e Number [facility] [address] [place] [phone] TP/Crea Ratio, Urine (03/11/2020 10:22 AM CDT) P athologist Signature Total Protein, 6 0 - 14 03/11/2020 [facility] Urine, Random mg/dL 4:15 PM CDT LABORATORY Creatinine, 65 >20 mg/dL 03/11/2020 [facility] Urine, Random 4:15 PM CDT LABORATORY TP/Creat 0.09 0.00 - 03/11/2020 [facility] Ratio, Urine 0.20 4:15 PM CDT LABORATORY Random Specimen Anatomical Collection Method Collection Time Receive d Time (Source) Location / / Volume Laterality Urine Non-blood 03/11/2020 10:22 03/11/2020 Collection / AM CDT 10:22 AM CDT Unknown Narrative [facility] - 03/11/2020 4:15 P M CDT Low urine creatinine values coupled with low urine protein values can artifactually increase the urine protein/creatinine re sults. Correlate results of ratio with creatinine results. Humaira Evans MD LAB_1 Performing Organization Address City/State/ZIP Code Phon e Number [facility] [address] [place] [address] UR - Urinalysis Routine(Micro If Pos) (03/11/2020 10:22 AM CDT) [facility] gist Method Time Signature Urine Color Straw Straw-Yellow 03/11/2020 [facility] 11:32 AM LABORATORY CDT Urine Clarity Clear Clear 03/11/2020 [facility] 11:32 AM LABORATORY CDT Specific 1.015 1.005 - 03/11/2020 [facility] [place]tt, 1.030 11:32 AM LABORATORY Urine CDT PH Urine 6.0 5.0 - 8.0 03/11/2020 [facility] 11:32 AM LABORATORY CDT Protein, Negative Neg/Trace 03/11/2020 [facility] Urine Qual 11:32 AM LABORATORY (mg/dL) CDT Glucose Urine Negative Negative 03/11/2020 [facility] Qual (mg/dL) 11:32 AM LABORATORY CDT Ketones, Negative Negative 03/11/2020 [facility] Urine (mg/dL) 11:32 AM LABORATORY CDT Urobilinogen, 0.2 <2.0 03/11/2020 [facility] Urine (EU/dL) 11:32 AM LABORATORY CDT Bilirubin Negative Negative 03/11/2020 [facility] Urine 11:32 AM LABORATORY CDT Blood, Urine Trace Neg/Trace 03/11/2020 [facility] 11:32 AM LABORATORY CDT Nitrite Urine Negative Negative 03/11/2020 [facility] 11:32 AM LABORATORY CDT Leukocyte Negative Negative 03/11/2020 [facility] Est. 11:32 AM LABORATORY CDT Urine Source Clean Catch 03/11/2020 [facility] 11:32 AM LABORATORY CDT Specimen Anatomical Collection Method Collection Time Receive d Time (Source) Location / / Volume Laterality Urine URINE SPECIMEN Non-blood 03/11/2020 10:22 0 COLLECTION, CLEAN Collection / AM CDT 10:22 AM C DT CATCH / Unknown Unknown Humaira Evans MD LAB_1 Performing Organization Address City/[facility]/ZIP Code Phon e Number [facility] [address] [place], [place] [phone] HIV 1/2 Ag/Ab 4th Generation (03/11/2020 10:22 AM CDT) [facility] [employer] [facility] Method Time Signature HIV 1/2 Negative Negative 03/11/2020 [facility] Antigen/Antib (Non (Non 4:39 PM CDT LABORATORY keyon (4th Reactive) Reactive) generation) Comment: HIV-1 p24 Antigen and HIV-1/HIV -2 Antibody not detected Specimen Anatomical Collection Method / Collection Time Recei brittanie Time (Source) Location / Volume Laterality Blood Venipuncture / 03/11/2020 10:22 0 Unknown AM CDT 10:22 AM CDT Humaira Evans MD LAB_1 Performing Organization Address City/State/ZIP Code Phon e Number [facility] [address] [place] [address] ESR - Sedimentation Rate (03/11/2020 10:22 AM CDT) [facility] [employer] [facility] Method Time Signature Sedimentation Rate 10 0 - 20 03/11/2020 [facility] mm/hr 12:07 PM CDT LABORATORY Specimen Anatomical Collection Method / Collection Time Recei brittanie Time (Source) Location / Volume Laterality Blood Venipuncture / 03/11/2020 10:22 0 Unknown AM CDT 10:22 AM CDT Humaira Evans MD LAB_1 Performing Organization Address City/State/ZIP Code Phon e Number [facility] [address] [place] [address] ELCP - Electrophoresis Gaston To GENIE,Serum (03/11/2020 10:22 AM CDT) Component Value Ref Test Analysis Performed At [facility] gist Range Method Time Signature Total Protein 7.6 6.4 - 03/12/2020 [facility] 8.3 3:16 PM CENTRAL LAB g/dL CDT Albumin 4.7 3.4 - 03/12/2020 [facility] 4.8 3:16 PM CENTRAL LAB g/dL CDT Alpha 1 0.3 0.2 - 03/12/2020 [facility] 0.5 3:16 PM CENTRAL LAB g/dL CDT Alpha 2 0.7 0.5 - 03/12/2020 [facility] 1.1 3:16 PM CENTRAL LAB g/dL CDT Beta 0.8 0.6 - 03/12/2020 [facility] 1.1 3:16 PM CENTRAL LAB g/dL CDT Gamma 1.1 0.7 - 03/12/2020 [facility] 1.6 3:16 PM CENTRAL LAB g/dL CDT Monoclonal Ho 0.0 <=0.0 03/12/2020 [facility] g/dL 3:16 PM CENTRAL LAB CDT Interpretation No monoclonal 03/12/2020 [facility] protein is 3:16 PM CENTRAL LAB detected in the CDT serum. Additional Not indicated. 03[facility]2020 [facility] 3[facility]16 PM [facility] LAB CDT Signed Out By Critical access hospital 03/12/2020 [facility] Central 3:16 PM CENTRAL LAB Laboratory CDT Specimen Anatomical Collection Method / Collection Time Recei brittanie Time (Source) Location / Volume Laterality Blood Venipuncture / 03/11/2020 10:22 0 Unknown AM CDT 10:22 AM CDT Humaira Evans MD LAB_1 Performing Organization Address City/State/ZIP Code Phon e Number [facility] CENTRAL LAB [address] [address] CRP - C Reactive Protein (03/11/2020 10:22 AM CDT) athologist Signature C-Reactive <0.5 0.0 - 0.7 03/11/2020 [facility] Protein mg/dL 11:32 AM CDT LABORATORY Specimen Anatomical Collection Method / Collection Time Recei brittanie Time (Source) Location / Volume Laterality Blood Venipuncture / 03/11/2020 10:22 0 Unknown AM CDT 10:22 AM CDT Humaira Evans MD LAB_1 Performing Organization Address [facility] Phon e Number [facility] [address] [place], [place] [address] C3 - C3 Complement (03/11/2020 10:22 AM CDT) athologist Signature C3 Complement 142 83 - 193 03/11/2020 [facility] mg/dL 4:35 PM CDT LABORATORY Specimen Anatomical Collection Method / Collection Time Recei brittanie Time (Source) Location / Volume Laterality Blood Venipuncture / 03/11/2020 10:22 0 Unknown AM CDT 10:22 AM CDT Humaiar Evans MD LAB_1 Performing Organization Address [facility] Phon e Number [facility] [address] [place] [address] C4 - C4 Complement (03/11/2020 10:22 AM CDT) athologist Signature C4 Complement 27.0 15.0 - 03/11/2020 [facility] 57.0 mg/dL 4:35 PM CDT LABORATORY Specimen Anatomical Collection Method / Collection Time Recei brittanie Time (Source) Location / Volume Laterality Blood Venipuncture / 03/11/2020 10:22 0 Unknown AM CDT 10:22 AM CDT Humaira Evans MD LAB_1 Performing Organization Address [facility] Phon e Number [facility] [address] [place] [address] Extractable Nuclear Antigen Antibodies (03/11/2020 10:22 AM CDT) athologist Signature GARCIAS/SENIOR ELECTRICAL CONTROLS ENGINEER 3 0 - 40 03/13/2020 [facility] ([place]) Ab, IGG AU/mL 6:06 AM CDT LABORATORIES Comment: INTERPRETIVE INFORMATION: Garcias/SENIOR ELECTRICAL CONTROLS ENGINEER (S[place]INE ) Antibody, IgG ??29 AU/mL or Less ............. Negati ve ??30 - 40 AU/mL ................ Equivo penny ??41 AU/mL or Greater .......... Positi ve Garcias/SENIOR ELECTRICAL CONTROLS ENGINEER antibodies are frequently seen in patients with mixed connective tissue disease (MCTD) and are also associated with other systemic autoimmune rheumatic dise ases (SARDs) such as systemic lupus erythematosus (SLE), syst emic sclerosis, and myositis. Antibodies targeting the Garcias /SENIOR ELECTRICAL CONTROLS ENGINEER antigenic complex also recognize Garcias antigens, therefore , the Garcias antibody response must be considered when interpr eting these results. Performed By: [facility] [address] [place] [id number] Rubbing Bed Operator: Alicia Solo MD SUNSHINE To Garcias (Sm) 1 0 - 40 AU/mL 03/13/2020 6:06 AM CDT [facility] Antibody Comment: INTERPRETIVE INFORMATION: Garcias ([place]) An tibody, IgG ??29 AU/mL or Less ............. Negati ve ??30 - 40 AU/mL ................ Equivo penny ??41 AU/mL or Greater .......... Positi ve Garcias antibody is highly specific (great er than 90 percent) for systemic lupus erythematosus (SLE) but o nly occurs in 30-35 percent of SLE cases. The presence of an tibodies to Garcias has variable associations with SLE clinical manifestations. SSA -52 (RO52) ANTIBODY, 1 0 - 40 AU/mL 0 6:06 AM T [facility] ([place]) Comment: INTERPRETIVE INFORMATION: SSA-52 (Ro52) (S[place]) Antibody, IgG ??29 AU/mL or Less ............. Negati ve ??30 - 40 AU/mL ................ Equivo penny ??41 AU/mL or Greater .......... Positi ve SSA-52 (Ro52) and/or SSA-60 (Ro60) antib odies are associated with a diagnosis of Sjogren syndrome, systemi c lupus erythematosus (SLE), and systemic sclerosis. SSA-52 an tibody overlaps significantly with the major SSc-related antibodies. SSA-52 (Ro52) antibody occurs frequently in patients w ith inflammatory myopathies, often in the presence of int erstitial lung disease. SSB ([place]) Antibody, IgG 0 0 - 40 AU/mL 03/13/2020 6:0 6 AM CDT [facility] ([place]) Comment: INTERPRETIVE INFORMATION: SSB ([place]) (S[facility]INE) Ab, IgG ??29 AU/mL or Less ............. Negati ve ??30 - 40 AU/mL ................ Equivo penny ??41 AU/mL or Greater .......... Positi ve SSB ([place]) antibody is seen in 50-60% of S jogren syndrome cases and is specific if it is the only SUNSHINE antibo dy present. 15-25% of patients with systemic lupus erythematos us (SLE) and 5-10% of patients with progressive systemic scler osis (PSS) also have this antibody. SSA-60 (RO60) ANTIBODY, 0 0 - 40 AU/mL 03/13/2020 6:06 AM CDT [facility] ([place]) Comment: REFERENCE INTERVAL: SSA-60 (Ro60) ([facility]) Antibody, IgG ??29 AU/mL or Less ............. Negati ve ??30 - 40 AU/mL ................ Equivo penny ??41 AU/mL or Greater .......... Positi ve Specimen Anatomical Collection Method / Collection Time Recei brittanie Time (Source) Location / Volume Laterality Blood Venipuncture / 03/11/2020 10:22 0 Unknown AM CDT 10:22 AM CDT Humaira Evans MD LAB_1 Performing Organization Address City/State/ZIP Code Phon e Number [facility] [address] [place] [phone] HLA B27 (03/11/2020 10:22 AM CDT) P athologist Signature HLA B27 Negative Negative 03/12/2020 [facility] 3:25 PM CDT HOSPITAL Specimen Anatomical Collection Method / Collection Time Recei brittanie Time (Source) Location / Volume Laterality Blood Venipuncture / 03/11/2020 10:22 0 Unknown AM CDT 10:22 AM CDT Narrative [facility] - 03/12/2020 3:25 PM CD T This test was developed and the performance characteristics were determined by [facility]. It has not been cleared or approved by dago montez [place]. Food and Drug Administration. The FDA vargas s determined that such clearance or approv al is not necessary. Humaira Evans MD LAB_1 Performing Organization Address City/State/ZIP Code Phon e Number [facility] [address] [place] [address] documented in this encounter Visit Diagnoses Diagnosis Lymphadenopathy - Primary Enlargement of lymph nodes Psoriasis Other psoriasis Arthralgia, unspecified joint Palpable purpura (HRC) Positive MARLON (antinuclear antibody) Other and unspecified nonspecific immuno logical findings Pruritus, unspecified Arthralgia, unspecified joint Lymphadenopathy Enlargement of lymph nodes Lymphadenopathy Enlargement of lymph nodes Positive MARLON (antinuclear antibody) Other and unspecified nonspecific immuno logical findings Lymphadenopathy Enlargement of lymph nodes Positive MARLON (antinuclear antibody) Other and unspecified nonspecific immuno logical findings documented in this encounter Care Teams Desizing Machine Operator Relationship Specialty Start Date End Date Candy Gee MD PCP - General Internal Medicine 03/05/[address] [place] [address] documented as of this encounter
--- OUTSIDE RECORDS SUMMARY | 2022-02-25 19:46 | XMS_ITS | Encounter Summary ---
:1950 Author Organization [facility] Address [address] [place] [address] Care Team Providers Name Role Phone Candy Gee MD Primary Care Provider Encounter Details Date Type Department Care Team Description 03/11/2020 Lab Visit [facility] P[facility]iasis; [id number] [address] [employer] Arthralgia, unspecified join t; [place] [address] Palpable purpura (HRC); [phone] Lymphadenopathy ; Positive MARLON (a ntinuclear antibody); Pruritus, unspe cified Social History Tobacco Use Types Packs/Day Years Used Date Smoking Tobacco: Former Sex Assigned at Date Recorded Not on file documented as of this encounter Plan of Treatment Upcoming Encounters Date Type Specialty Care Team Description 03/17/2022 Appointment Rheumatology Lemuel Evans MD [address] [facility] N [id number] (Wo rk) documented as of this encounter Procedures Procedure Name Priority Date/Time Associated Comments Diagnosis EXTRACTABLE NUCLEAR Routine 03/11/2020 10:22 Psoriasis Results for this ANTIGEN ANTIBODIES AM CDT Arthralgia, procedure are in unspecified join t the results Palpable purpura section. (HRC) Lymphadenopathy Positive MARLON (antinuclear antibody) CBC AND DIFFERENTIAL Routine 03/11/2020 10:22 Psoriasis Results for this PANEL AM CDT Arthralgia, procedure are i n unspecified join t the results Palpable purpura section. (HRC) Lymphadenopathy Positive MARLON (antinuclear antibody) NEUTROPHIL CYTOPLASM AB Routine 03/11/2020 10:22 Psorias is Results for this W/REFLEX AM CDT Arthralgia, procedure are i n unspecified join t the results Palpable purpura section. (HRC) Lymphadenopathy Positive MARLON (antinuclear antibody) CRYOGLOBULIN, Routine 03/11/2020 10:22 Psoriasis Results for this QUALITATIVE (12 HOUR AM CDT Arthralgia, procedu re are in FAST REQUIRED) unspecified join t the results Palpable purpura section. (HRC) Lymphadenopathy Positive MARLON (antinuclear antibody) COMPLEMENT, TOTAL Routine 03/11/2020 10:22 Psoriasis Results for this ACTIVITY AM CDT Arthralgia, procedure are i n unspecified join t the results Palpable purpura section. (HRC) Lymphadenopathy Positive MARLON (antinuclear antibody) HIV 1/2 AG/AB 4TH GEN Routine 03/11/2020 10:22 Psoriasis Results for this AM CDT Arthralgia, procedure are i n unspecified join t the results Palpable purpura section. (HRC) Lymphadenopathy Positive MARLON (antinuclear antibody) ANTI-DS DNA ANTIBODY Routine 03/11/2020 10:22 Psoriasis Results for this (MICHAEL ASSAY) AM CDT Arthralgia, procedure are i n unspecified join t the results Palpable purpura section. (HRC) Lymphadenopathy Positive MARLON (antinuclear antibody) COMPLETE BLOOD Routine 03/11/2020 10:22 Psoriasis Results for this COUNT-W/DIFF AM CDT Arthralgia, procedure are i n unspecified join t the results Palpable purpura section. (HRC) Lymphadenopathy Positive MARLON (antinuclear antibody) LIVER PANEL(HEPATIC Routine 03/11/2020 10:22 Psoriasis Results for this FUNCTION PANEL) AM CDT Arthralgia, procedure ar e in unspecified join t the results Palpable purpura section. (HRC) Lymphadenopathy Positive MARLON (antinuclear antibody) TSH, SENSITIVE Routine 03/11/2020 10:22 Pruritus, Results f or this AM CDT unspecified procedure are in Arthralgia, the results unspecified join t section. Lymphadenopathy ELP, CASCADE, SERUM Routine 03/11/2020 10:22 Psoriasis Results for this AM CDT Arthralgia, procedure are i n unspecified join t the results Palpable purpura section. (HRC) Lymphadenopathy Positive MARLON (antinuclear antibody) BASIC METABOLIC PANEL Routine 03/11/2020 10:22 Psoriasis Results for this AM CDT Arthralgia, procedure are i n unspecified join t the results Palpable purpura section. (HRC) Lymphadenopathy Positive MARLON (antinuclear antibody) FREE T4 Routine 03/11/2020 10:22 Arthralgia, Results for this AM CDT unspecified join t procedure are in Lymphadenopathy the results section. UA MICRO IF Routine 03/11/2020 10:22 Psoriasis Results for this AM CDT Arthralgia, procedure are i n unspecified join t the results Palpable purpura section. (HRC) Lymphadenopathy Positive MARLON (antinuclear antibody) TP/CREA RATIO, URINE Routine 03/11/2020 10:22 Psoriasis Results for this AM CDT Arthralgia, procedure are i n unspecified join t the results Palpable purpura section. (HRC) Lymphadenopathy Positive MARLON (antinuclear antibody) IMMUNOGLOBULINS (G,A,M) Routine 03/11/2020 10:22 Psorias is Results for this AM CDT Arthralgia, procedure are i n unspecified join t the results Palpable purpura section. (HRC) Lymphadenopathy Positive MARLON (antinuclear antibody) HLA B27 Routine 03/11/2020 10:22 Psoriasis Results for this AM CDT Arthralgia, procedure are i n unspecified join t the results Palpable purpura section. (HRC) Lymphadenopathy Positive MARLON (antinuclear antibody) C4 COMPLEMENT Routine 03/11/2020 10:22 Psoriasis Results for this AM CDT Arthralgia, procedure are i n unspecified join t the results Palpable purpura section. (HRC) Lymphadenopathy Positive MARLON (antinuclear antibody) C3 COMPLEMENT Routine 03/11/2020 10:22 Psoriasis Results for this AM CDT Arthralgia, procedure are i n unspecified join t the results Palpable purpura section. (HRC) Lymphadenopathy Positive MARLON (antinuclear antibody) C-REACTIVE PROTEIN Routine 03/11/2020 10:22 Psoriasis Results for this AM CDT Arthralgia, procedure are i n unspecified join t the results Palpable purpura section. (HRC) Lymphadenopathy Positive MARLON (antinuclear antibody) ANTI-STREPTOLYSIN O Routine 03/11/2020 10:22 Psoriasis Results for this AM CDT Arthralgia, procedure are i n unspecified join t the results Palpable purpura section. (HRC) Lymphadenopathy Positive MARLON (antinuclear antibody) ESR Routine 03/11/2020 10:22 Psoriasis Results for this AM CDT Arthralgia, procedure are i n unspecified join t the results Palpable purpura section. (HRC) Lymphadenopathy Positive MARLON (antinuclear antibody) documented in this encounter Results Complete Blood Count-W/Diff (03/11/2020 10:22 AM CDT) P athologist Signature WBC 6.5 3.5 - 10.5 03/11/2020 [facility] x10(9)/L 10:58 AM CDT LABORATORY RBC 4.37 3.90 - 03/11/2020 [facility] 5.03 10:58 AM CDT LABORATORY x10(12)/L Hemoglobin 13.3 12.0 - 03/11/2020 [facility] 15.5 g/dL 10:58 AM CDT LABORATORY HCT 41.6 34.9 - 03/11/2020 [facility] 44.5 % 10:58 AM CDT LABORATORY MCV 95.2 80.0 - 03/11/2020 [facility] 100.0 fL 10:58 AM CDT LABORATORY MCH 30.4 27.6 - 03/11/2020 [facility] 33.3 pg 10:58 AM CDT LABORATORY MCHC 32.0 31.5 - 03/11/2020 [facility] 35.2 g/dL 10:58 AM CDT LABORATORY RDW 13.1 11.9 - 03/11/2020 [facility] 15.5 % 10:58 AM CDT LABORATORY Platelets 318 150 - 450 03/11/2020 [facility] x10(9)/L 10:58 AM CDT LABORATORY Automated NRBC 0 <=0 /100 03/11/2020 [facility] WBC 10:58 AM CDT LABORATORY Neutrophil 4.0 1.7 - 7.0 03/11/2020 [facility] Absolute 10(9)/L 10:58 AM CDT LABORATORY Lymphocyte 2.0 1.0 - 4.8 03/11/2020 [facility] Absolute 10(9)/L 10:58 AM CDT LABORATORY Monocytes 0.4 0.2 - 0.9 03/11/2020 [facility] Absolute 10(9)/L 10:58 AM CDT LABORATORY Eosinophil 0.1 0.0 - 0.5 03/11/2020 [facility] Absolute 10(9)/L 10:58 AM CDT LABORATORY Basophil 0.0 0.0 - 0.3 03/11/2020 [facility] Absolute 10(9)/L 10:58 AM CDT LABORATORY Immature Gran % 0.2 0.0 - 0.5 03/11/2020 [facility] % 10:58 AM CDT LABORATORY Specimen Anatomical Collection Method / Collection Time Recei brittanie Time (Source) Location / Volume Laterality Blood Venipuncture / 03/11/2020 10:22 0 Unknown AM CDT 10:22 AM CDT Humaira Evans MD LAB_1 Performing Organization Address [facility] Code Phon e Number [facility] [address] [place] [address] FRT4 - Free T4 (03/11/2020 10:22 AM CDT) athologist Signature T4, Free 0.9 0.7 - 1.5 03/11/2020 [facility] ng/dL 4:53 PM CDT LABORATORY Specimen Anatomical Collection Method / Collection Time Recei brittanie Time (Source) Location / Volume Laterality Blood Venipuncture / 03/11/2020 10:22 0 Unknown AM CDT 10:22 AM CDT Humaira Evans MD LAB_1 Performing Organization Address [facility] Phon e Number [facility] [address] [place] [address] TSH (03/11/2020 10:22 AM CDT) athologist Signature TSH, Sensitive 1.17 0.30 - 03/11/2020 [facility] 4.50 4:53 PM CDT LABORATORY uIU/mL Specimen Anatomical Collection Method / Collection Time Recei brittanie Time (Source) Location / Volume Laterality Blood Venipuncture / 03/11/2020 10:22 0 Unknown AM CDT 10:22 AM CDT Humaira Evans MD LAB_1 Performing Organization Address [facility] Phon e Number [facility] [address] [place] [address] Immunoglobulins (G,A,M) (03/11/2020 10:22 AM CDT) athologist Signature IgA, Serum 253 69 - 517 03/11/2020 [facility] mg/dL 4:35 PM CDT LABORATORY IgG, Serum 1,127 552-1,631 03/11/2020 [facility] mg/dL 4:35 PM CDT LABORATORY IgM, Serum 192 33 - 293 03/11/2020 [facility] mg/dL 4:35 PM CDT LABORATORY Specimen Anatomical Collection Method / Collection Time Recei brittanie Time (Source) Location / Volume Laterality Blood Venipuncture / 03/11/2020 10:22 0 Unknown AM CDT 10:22 AM CDT Humaira Evans MD LAB_1 Performing Organization Address City/[facility]/ZIP Code Phon e Number [facility] [address] [place] [address] CRYGB - Cryoglobulin, Qualitative (03/11/2020 10:22 AM CDT) Patholo gist Method Time Signature Cryoglobulin NEG NEG 03/17/2020 [facility] Qual 72Hour 72Hour 6:15 PM CDT LABORATORIES Comment: Test developed and characteristics deter mined by [employer]. See Compliance Statement B : [employer]Nu[employer]/CS Performed By: [employer] [address] [place] [address] Cloth Colorer: Alicia Solo MD Specimen Anatomical Collection Method / Collection Time Recei brittanie Time (Source) Location / Volume Laterality Blood Venipuncture / 03/11/2020 10:22 0 Unknown AM CDT 10:22 AM CDT Humaira Evans MD LAB_1 Performing Organization Address [facility] Phon e Number [facility] [address] [place] [address] [phone] [id number] by Michael Assay (03/11/2020 10:22 AM CDT) P athologist Signature Anti-dsDNA Ab <8.0 <8.0 IU/mL 03/16/2020 [facility] (Michael Assay) 11:06 PM CDT INTERFACED Specimen Anatomical Collection Method / Collection Time Recei brittanie Time (Source) Location / Volume Laterality Blood Venipuncture / 03/11/2020 10:22 0 Unknown AM CDT 10:22 AM CDT Narrative [facility] INTERFACED - 03/16/2020 11:06 PM CDT Test(s) [id number] Ab by Michael(RDL) was developed and its performance charac teristics determined by [facility]. It has not been cleared or a pproved by the Food and Drug Administration. Performed at: ??01 - [employer] [address] [place] [address], A ??[id number] Application Penetration Tester: Anmol Ascencio MD, Phone : ??[phone] Humaira Evans MD LAB_1 Performing Organization Address City/[facility]/ZIP [facility] Phon e Number [facility] INTERFACED [address] [address] [place] [address] Basic Metabolic Panel (03/11/2020 10:22 AM CDT) P athologist Signature Sodium 139 136 - 145 03/11/2020 [facility] mmol/L 11:32 AM CDT LABORATORY Potassium 4.2 3.5 - 5.1 03/11/2020 [facility] mmol/L 11:32 AM CDT LABORATORY Chloride 103 98 - 109 03/11/2020 [facility] mmol/L 11:32 AM CDT LABORATORY CO2 28 20 - 29 03/11/2020 [facility] mmol/L 11:32 AM CDT LABORATORY Anion Gap 8 7 - 16 03/11/2020 [facility] mmol/L 11:32 AM CDT LABORATORY Calcium 9.2 8.4 - 10.4 03/11/2020 [facility] mg/dL 11:32 AM CDT LABORATORY BUN 11 7 - 26 03/11/2020 [facility] mg/dL 11:32 AM CDT LABORATORY Creatinine 0.70 0.55 - 03/11/2020 [facility] 1.02 mg/dL 11:32 AM CDT LABORATORY GFR, Estimated >60 >60 03/11/2020 [facility] mL/min/1.7 11:32 AM CDT LABORATORY 3m2 Glucose 97 70 - 100 03/11/2020 [facility] mg/dL 11:32 AM CDT LABORATORY Comment: The given reference range is fo r the fasting state. Non-fasting reference range for glucose is 70 - 180 mg/dL. Hours Fasting 12 03/11/2020 11:32 AM CDT [facility] Specimen Anatomical Collection Method / Collection Time Recei brittanie Time (Source) Location / Volume Laterality Blood Venipuncture / 03/11/2020 10:22 0 Unknown AM CDT 10:22 AM CDT Humaira Evans MD LAB_1 Performing Organization Address City/State/ZIP Code Phon e Number [facility] [address] [place], [place] [phone] Liver Panel(Hepatic Function Panel) (03/11/2020 10:22 AM CDT) P athologist Signature Alkaline 78 40 - 150 03/11/2020 [facility] Phosphatase U/L 11:32 AM CDT LABORATORY Bilirubin, Total 0.4 0.2 - 1.2 03/11/2020 [facility] mg/dL 11:32 AM CDT LABORATORY Bilirubin, 0.2 0.0 - 0.5 03/11/2020 [facility] Direct mg/dL 11:32 AM CDT LABORATORY AST (SGOT) 23 10 - 40 03/11/2020 [facility] U/L 11:32 AM CDT LABORATORY ALT (SGPT) 37 0 - 55 U/L 03/11/2020 [facility] 11:32 AM CDT LABORATORY Protein, Total 7.9 6.4 - 8.3 03/11/2020 [facility] g/dL 11:32 AM CDT LABORATORY Albumin 4.6 3.5 - 5.0 03/11/2020 [facility] g/dL 11:32 AM CDT LABORATORY Specimen Anatomical Collection Method / Collection Time Recei brittanie Time (Source) Location / Volume Laterality Blood Venipuncture / 03/11/2020 10:22 0 Unknown AM CDT 10:22 AM CDT Humaira Evans MD LAB_1 Performing Organization Address [facility]/ZIP Code Phon e Number [facility] [address] [place], [place] [phone] - Complement, Total Activity (03/11/2020 10:22 AM CDT) Patholo gist Method Time Signature Complement 72.1 38.7 - 03/13/2020 [facility] Activity, Total 89.9 U/mL 3:37 PM CDT LABORATORIES Turbidimetric Comment: REFERENCE INTERVAL: Complement Activity Total, (CH50) ? 38.6 U/mL or less ..........Low ? 38.7-89.9 U/mL .............Genesis l ? 90.0 U/mL or greater .......High Performed By: [employer] [address] [place] [id number] Cloth Colorer: Alicia Solo MD Specimen Anatomical Collection Method / Collection Time Recei brittanie Time (Source) Location / Volume Laterality Blood Venipuncture / 03/11/2020 10:22 0 Unknown AM CDT 10:22 AM CDT Humaira Evans MD LAB_1 Performing Organization Address [facility] e Number [address] [address] MPO/OK-3 (ANCA) Antibodies (03/11/2020 10:22 AM CDT) [facility] Method Time Signature Neutrophilic <1:20 <1:20 [...] collagen vascular disease or arthritis. Performed By: [employer] [address] [place] [address] Cloth Colorer: Alicia Solo MD Specimen Anatomical Collection Method / Collection Time Recei brittanie Time (Source) Location / Volume Laterality Blood Venipuncture / 03/11/2020 10:22 0 Unknown AM CDT 10:22 AM CDT Humaira Evans MD LAB_1 Performing Organization Address [facility] Phon e Number [address] [phone] ASO - Antistreptolysin Screen (03/11/2020 10:22 AM CDT) [facility] Method Time Signature Streptolysin O 72 0 - 330 03/13/2020 [facility] Antibody (ASO) IU/mL 5:34 AM CDT LABORATORIES Comment: REFERENCE INTERVAL: Streptolysin O Antib keyon Access complete set of age- and/or gende r-specific reference intervals for this test in the [employer] Test Directory ([employer]). Performed By: [employer] [address] [place] [address] Cloth Colorer: Alicia Solo MD Specimen Anatomical Collection Method / Collection Time Recei brittanie Time (Source) Location / Volume Laterality Blood Venipuncture / 03/11/2020 10:22 0 Unknown AM CDT 10:22 AM CDT Humaira Evans MD LAB_1 Performing Organization Address [facility] Phon e Number [facility] [address] [place], [place] [phone] TP/Crea Ratio, Urine (03/11/2020 10:22 AM CDT) athologist Signature Total Protein, 6 0 - 14 03/11/2020 [facility] Urine, Random mg/dL 4:15 PM CDT LABORATORY Creatinine, 65 >20 mg/dL 03/11/2020 [facility] Urine, Random 4:15 PM CDT LABORATORY TP/Creat 0.09 0.00 - 03/11/2020 [facility] Ratio, Urine 0.20 4:15 PM CDT LABORATORY Random Specimen Anatomical Collection Method Collection Time Receive d Time (Source) Location / / Volume Laterality Urine Non-blood 03/11/2020 10:22 03/11/2020 Collection / AM CDT 10:22 AM CDT Unknown Narrative [facility] - 03/11/2020 4:15 P M CDT Low urine creatinine values coupled with low urine protein values can artifactually increase the urine protein/creatinine re sults. Correlate results of ratio with creatinine results. Humaira Evans MD LAB_1 Performing Organization Address City/[facility] Phon e Number [facility] [address] [place] [address] UR - Urinalysis Routine(Micro If Pos) (03/11/2020 10:22 AM CDT) [facility] Method Time Signature Urine Color Straw Straw-Yellow 03/11/2020 [place] 11:32 AM LABORATORY CDT Urine Clarity Clear Clear 03/11/2020 [facility] 11:32 AM LABORATORY CDT Specific 1.015 1.005 - 03/11/2020 [facility] [place], 1.030 11:32 AM LABORATORY Urine CDT PH Urine 6.0 5.0 - 8.0 03/11/2020 [facility] 11:32 AM LABORATORY CDT Protein, Negative Neg/Trace 03/11/2020 [facility] Urine Qual 11:32 AM LABORATORY (mg/dL) CDT Glucose Urine Negative Negative 03/11/2020 [facility] Qual (mg/dL) 11:32 AM LABORATORY CDT Ketones, Negative Negative 03/11/2020 [facility] Urine (mg/dL) 11:32 AM LABORATORY CDT Urobilinogen, 0.2 <2.0 03/11/2020 [facility] Urine (EU/dL) 11:32 AM LABORATORY CDT Bilirubin Negative Negative 03/11/2020 [facility] Urine 11:32 AM LABORATORY CDT Blood, Urine Trace Neg/Trace 03/11/2020 [facility] 11:32 AM LABORATORY CDT Nitrite Urine Negative Negative 03/11/2020 [facility] 11:32 AM LABORATORY CDT Leukocyte Negative Negative 03/11/2020 [facility] Est. 11:32 AM LABORATORY CDT Urine Source Clean Catch 03/11/2020 [facility] 11:32 AM LABORATORY CDT Specimen Anatomical Collection Method Collection Time Receive d Time (Source) Location / / Volume Laterality Urine URINE SPECIMEN Non-blood 03/11/2020 10:22 0 COLLECTION, CLEAN Collection / AM CDT 10:22 AM C DT CATCH / Unknown Unknown Humaira Evans MD LAB_1 Performing Organization Address City/State/ZIP Code Phon e Number [facility] [address] [place] [phone] HIV 1/2 Ag/Ab 4th Generation (03/11/2020 10:22 AM CDT) [facility] gist Method Time Signature HIV 1/2 Negative Negative 03/11/2020 [facility] Antigen/Antib (Non (Non 4:39 PM CDT LABORATORY keyon (4th Reactive) Reactive) generation) Comment: HIV-1 p24 Antigen and HIV-1/HIV -2 Antibody not detected Specimen Anatomical Collection Method / Collection Time Recei brittanie Time (Source) Location / Volume Laterality Blood Venipuncture / 03/11/2020 10:22 10/14/202 0 Unknown AM CDT 10:22 AM CDT Humaira Evans MD LAB_1 Performing Organization Address City/State/ZIP Code Phon e Number [facility] [address] [place] [address] ESR - Sedimentation Rate (03/11/2020 10:22 AM CDT) [facility] Method Time Signature Sedimentation Rate 10 0 - 20 03/11/2020 [facility] mm/hr 12:07 PM CDT LABORATORY Specimen Anatomical Collection Method / Collection Time Recei brittanie Time (Source) Location / Volume Laterality Blood Venipuncture / 03/11/2020 10:22 0 Unknown AM CDT 10:22 AM CDT Humaira Evans MD LAB_1 Performing Organization Address City/[facility]/ZIP Code Phon e Number [facility] [address] [place] [address] ELCP - Electrophoresis [place] To GENIE,Serum (03/11/2020 10:22 AM CDT) Component Value Ref Test Analysis Performed At [facility] Range Method Time Signature Total Protein 7.6 6.4 - 03/12/2020 [facility] 8.3 3:16 PM CENTRAL LAB g/dL CDT Albumin 4.7 3.4 - 03/12/2020 [facility] 4.8 3:16 PM [facility]ENTRAL LAB g/dL CDT Alpha 1 0.3 0.2 - 03/12/2020 [facility] 0.5 3:16 PM [facility]ENTRAL LAB g/dL CDT Alpha 2 0.7 0.5 - 03/12/2020 [facility] 1.1 3:16 PM [facility]ENTRAL LAB g/dL CDT Beta 0.8 0.6 - 03/12/2020 [facility] 1.1 3:16 PM [facility]ENTRAL LAB g/dL CDT Gamma 1.1 0.7 - 03/12/2020 [facility] 1.6 3:16 PM [facility]AL LAB g/dL CDT Monoclonal Ho 0.0 <=0.0 03/12/2020 [facility] g/dL 3:16 PM [facility] LAB CDT Interpretation No monoclonal 03/12/2020 [facility] protein is 3:16 PM CENTRAL LAB detected in the CDT serum. Additional Not indicated. 03/12/2020 [facility] Testing 3:16 PM [facility]ENTRAL LAB CDT Signed Out By [facility] 03/12/2020 [facility] Central 3:16 PM CENTRAL LAB Laboratory CDT Specimen Anatomical Collection Method / Collection Time Recei brittanie Time (Source) Location / Volume Laterality Blood Venipuncture / 03/11/2020 10:22 0 Unknown AM CDT 10:22 AM CDT Humaira Evans MD LAB_1 Performing Organization Address City/[facility]/ZIP Code Phon e Number [facility] [address] [address] CRP - C Reactive Protein (03/11/2020 10:22 AM CDT) athologist Signature C-Reactive <0.5 0.0 - 0.7 03/11/2020 [facility] Protein mg/dL 11:32 AM CDT LABORATORY Specimen Anatomical Collection Method / Collection Time Recei brittanie Time (Source) Location / Volume Laterality Blood Venipuncture / 03/11/2020 10:22 0 Unknown AM CDT 10:22 AM CDT Humaira Evans MD LAB_1 Performing Organization Address City/State/ZIP Code Phon e Number [facility] [address] [place] [address] C3 - C3 Complement (03/11/2020 10:22 AM CDT) athologist Signature C3 Complement 142 83 - 193 03/11/2020 [facility] mg/dL 4:35 PM CDT LABORATORY Specimen Anatomical Collection Method / Collection Time Recei brittanie Time (Source) Location / Volume Laterality Blood Venipuncture / 03/11/2020 10:22 0 Unknown AM CDT 10:22 AM CDT Humaira Evans MD LAB_1 Performing Organization Address City/[facility]/ZIP Code Phon e Number [facility] [address] [place] [address] C4 - C4 Complement (03/11/2020 10:22 AM CDT) athologist Signature C4 Complement 27.0 15.0 - 03/11/2020 [facility] 57.0 mg/dL 4:35 PM CDT LABORATORY Specimen Anatomical Collection Method / Collection Time Recei brittanie Time (Source) Location / Volume Laterality Blood Venipuncture / 03/11/2020 10:22 0 Unknown AM CDT 10:22 AM CDT Humaira Evans MD LAB_1 Performing Organization Address City/State/ZIP Code Phon e Number [facility] [address] [place] [address] Extractable Nuclear Antigen Antibodies (03/11/2020 10:22 AM CDT) athologist Signature GARCIAS/TRANSCRIPTION MANAGER 3 0 - 40 03/13/2020 [facility] ([facility]) Ab, IGG AU/mL 6:06 AM CDT LABORATORIES Comment: INTERPRETIVE INFORMATION: Garcias/TRANSCRIPTION MANAGER ([facility]SHINE ) Antibody, IgG ??29 AU/mL or Less ............. Negati ve ??30 - 40 AU/mL ................ Equivo penny ??41 AU/mL or Greater .......... Positi ve Garcias/TRANSCRIPTION MANAGER antibodies are frequently seen in patients with mixed connective tissue disease (MCTD) and are also associated with other systemic autoimmune rheumatic dise ases (SARDs) such as systemic lupus erythematosus (SLE), syst emic sclerosis, and myositis. Antibodies targeting the Garcias /TRANSCRIPTION MANAGER antigenic complex also recognize Garcias antigens, therefore , the Garcias antibody response must be considered when interpr eting these results. Performed By: [employer] [address] [place] [address] Cloth Colorer: Alicia Solo MD [facility] To Garcias (Sm) 1 0 - 40 AU/mL 03/13/2020 6:06 AM CDT [facility] Antibody Comment: INTERPRETIVE INFORMATION: Garcias (SUNSHINE) An [...] 0 - 40 AU/mL 0 6:06 AM CDT [facility] IGG (S[facility]SHINE) Comment: INTERPRETIVE INFORMATION: SSA-52 (Ro52) [...] 40 AU/mL 03/13/2020 6:0 6 AM CDT [facility] (SUNSHINE) Comment: INTERPRETIVE INFORMATION: SSB (La) (SUNSHINE) [...] - 40 AU/mL 03/13/2020 6:06 AM CDT [facility] IGG (SUNSHINE) Comment: REFERENCE INTERVAL: SSA-60 (Ro60) [...] Organization Address City/State/ZIP Code Phon e Number [place] [phone] HLA B27 (03/11/2020 10:22 AM CDT) P athologist Signature HLA B27 Negative Negative 03/12/2020 [facility] 3:25 PM CDT HOSPITAL Specimen Anatomical Collection Method / Collection Time Recei brittanie Time (Source) Location / Volume Laterality Blood Venipuncture / 03/11/2020 10:22 0 Unknown AM CDT 10:22 AM CDT Narrative [facility] - 03/12/2020 3:25 PM CD T This test was developed and the performance characteristics were determined by [facility]. It has not been cleared or approved by dago U.S. Food and Drug Administration. The FDA vargas s determined that such clearance or approv al is not necessary. Humaira Evans MD LAB_1 Performing Organization Address City/[facility]/ZIP Code Phon e Number [address] [address] documented in this encounter Visit Diagnoses Diagnosis Psoriasis Other psoriasis Arthralgia, unspecified joint Palpable purpura (HRC) Lymphadenopathy Enlargement of lymph nodes Positive MARLON (antinuclear antibody) Other and unspecified nonspecific immuno logical findings Pruritus, unspecified documented in this encounter Care Teams Strategic Debriefing Specialist Relationship Specialty Start Date End Date Candy Gee MD PCP - General Internal Medicine 03/05/[address] [place] [address] documented as of this encounter
--- OUTSIDE RECORDS SUMMARY | 2022-02-25 19:46 | XMS_ITS | Encounter Summary ---
:1950 Author Organization [facility] Address [address] [address] Care Team Providers Name Role Phone Candy Gee MD Primary Care Provider Reason for Visit Procedure/Equipment (Routine) - Closed Specialty Diagnoses / Procedures Referred By Contact Refer red To Contact Diagnoses Lymphadenopathy Positive MARLON (antinuclear antibody) Humaira Evans MD Procedures CT Chest W IV Cont [address] [place], [place] [address] Referral ID Status Reason Start Date Expiration Date Visits Requ ested Visits Authorized [id number] Closed 03/18/2020 04/17/2020 1 1 Encounter Details Date Type Department Care Team Description 03/18/[address] [place] [address] Scan Humaira Evans Lymphadenopathy; Procedure [id number] Antonella Jamil MD Positive MARLON (antinuclear antibody) Drive [address] [place], [place] [address] [address] [place], [place] [phone] [id number] Social History Tobacco Use Types Packs/Day Years Used Date Smoking Tobacco: Former Sex Assigned at Date Recorded Not on file documented as of this encounter Plan of Treatment Upcoming Encounters Date Type Specialty Care Team Description 03/17/2022 Appointment Rheumatology Lemuel Evans MD [address] [facility] N [id number] (Wo rk) documented as of this encounter Procedures Procedure Name Priority Date/Time Associated Diagnosis Comme nts CT CHEST W IV CONT Routine 03/18/2020 10:07 AM Lymphaden opathy Results for this CDT Positive MARLON procedure are i n (antinuclear the results antibody) section. documented in this encounter Results CT Chest W IV [...] 12 months. Humaira Evans MD RAD CT documented in this encounter Visit Diagnoses Diagnosis Lymphadenopathy Enlargement of lymph nodes Positive MARLON (antinuclear antibody) Other and unspecified nonspecific immuno logical findings documented in this encounter Care Teams Procedure Analyst Relationship Specialty Start Date End Date Candy Gee MD PCP - General Internal Medicine 03/05/[address] [place] [address] documented as of this encounter
--- OUTSIDE RECORDS SUMMARY | 2022-02-25 19:46 | XMS_ITS | Encounter Summary ---
:1950 Author Organization [facility] Address [address], [place] [address] Care Team Providers Name Role Phone Candy Gee MD Primary Care Provider Reason for Visit Procedure/Equipment (Routine) - Incomplete Specialty Diagnoses / Procedures Referred By Contact Refer red To Contact Diagnoses Arthralgia, unspecified joint Lymphadenopathy Humaira Evans MD Procedures XR Hands 1 View Bilat Arthritis [address] [place] [phone] Referral ID Status Reason Start Date Expiration Date Visits V isits Requested Authorized [id number] Incomplete 03/11/2020 06/10/2021 1 1 Encounter Details Date Type Department Care Team Description 03/11/2020 Ancillary [facility] Thottam, Arthralgia, uns pecified joint; Procedure Radiology Humaira Jamil MD Lymphadenopathy [address] [phone] [id number] Social History Tobacco Use Types Packs/Day Years Used Date Smoking Tobacco: Former Sex Assigned at Date Recorded Not on file documented as of this encounter Plan of Treatment Upcoming Encounters Date Type Specialty Care Team Description 03/17/2022 Appointment Rheumatology Lemuel Evans MD [address] [facility] N [id number] (Wo rk) documented as of this encounter Procedures Procedure Name Priority Date/Time Associated Diagnosis Comme nts XR HANDS 1 VIEW Routine 03/11/2020 10:40 AM Arthralgia, Resul ts for this BILAT ARTHRITIS CDT unspecified join t procedure are in Lymphadenopathy the results section. documented in this encounter Results XR Hands 1 View Bilat Arthritis (03/11/2020 [...] d emineralized. Humaira Evans MD RAD GD documented in this encounter Visit Diagnoses Diagnosis Arthralgia, unspecified joint Lymphadenopathy Enlargement of lymph nodes documented in this encounter Care Teams Electric Serviceman Relationship Specialty Start Date End Date Candy Gee MD PCP - General Internal Medicine 03/05/[address] [place] [address] documented as of this encounter
--- OUTSIDE RECORDS SUMMARY | 2022-02-25 19:46 | XMS_ITS | Encounter Summary ---
:1950 Author Organization [facility] Address [address], [place] [address] Care Team Providers Name Role Phone Candy Gee MD Primary Care Provider Encounter Details Date Type Department Care Team Description 03/10/2021 Lab Visit [facility] Arthralgia, unspecified [address] [facility] [place], [place] [address] Social History Tobacco Use Types Packs/Day Years Used Date Smoking Tobacco: Former Sex Assigned at Date Recorded Not on file documented as of this encounter Plan of Treatment Upcoming Encounters Date Type Specialty Care Team Description 03/17/2022 Appointment Rheumatology Lemuel Evans MD [address] [facility] N [id number] (Wo rk) documented as of this encounter Procedures Procedure Name Priority Date/Time Associated Diagnosis Comme nts ANTI-CCP AB Routine 03/10/2021 4:22 PM Arthralgia, Results f or this CDT unspecified joint procedure are in the results section. RHEUMATOID FACTOR, Routine 03/10/2021 4:22 PM Arthralgia, Res ults for this QUANT CDT unspecified joint procedure are in the results section. C-REACTIVE PROTEIN Routine 03/10/2021 4:22 PM Arthralgia, Res ults for this CDT unspecified joint procedure are in the results section. CK, TOTAL Routine 03/10/2021 4:22 PM Arthralgia, Results f or this CDT unspecified joint procedure are in the results section. ESR Routine 03/10/2021 4:22 PM Arthralgia, Results f or this CDT unspecified joint procedure are in the results section. documented in this encounter Results CPK - CK Total (03/10/2021 4:22 PM CDT) athologist Signature CK, Total 82 29 - 168 03/10/2021 [facility] 5:03 PM CDT LABORATORY Specimen Anatomical Collection Method / Collection Time Recei brittanie Time (Source) Location / Volume Laterality Blood Venipuncture / 03/10/2021 4:22 03/10/2021 4:22 Unknown PM CDT PM CDT Hmuaira Evans MD LAB_1 Performing Organization Address City/[facility]/ZIP Code Phon e Number [facility] [address] [place] [address] ESR - Sedimentation Rate (03/10/2021 4:22 PM CDT) [facility] Method Time Signature Sedimentation Rate 11 0 - 20 03/10/2021 [facility] mm/hr 5:01 PM CDT LABORATORY Specimen Anatomical Collection Method / Collection Time Recei brittanie Time (Source) Location / Volume Laterality Blood Venipuncture / 03/10/2021 4:22 03/10/2021 4:22 Unknown PM CDT PM CDT Humaira Evans MD LAB_1 Performing Organization Address City/[facility]/ZIP Code Phon e Number [facility] [address] [place], [place] [phone] CRP - C Reactive Protein (03/10/2021 4:22 PM CDT) athologist [facility] C-Reactive 0.5 0.0 - 0.7 03/10/2021 [facility] Protein mg/dL 5:03 PM CDT LABORATORY Specimen Anatomical Collection Method / Collection Time Recei brittanie Time (Source) Location / Volume Laterality Blood Venipuncture / 03/10/2021 4:22 03/10/2021 4:22 Unknown PM CDT PM CDT Humaira Evans MD LAB_1 Performing Organization Address City/[facility]/ZIP Code Phon e Number [facility] [address] [place], [place] [phone] RHF - Rheumatoid Factor (03/10/2021 4:22 PM CDT) Analysis Performed At Patho logist Time Signature Rheumatoid <15 <=30 IU/mL 03/10/2021 [facility] Factor, 9:31 PM CDT LABORATORY Quantitative Specimen Anatomical Collection Method / Collection Time Recei brittanie Time (Source) Location / Volume Laterality Blood Venipuncture / 03/10/2021 4:22 03/10/2021 4:22 Unknown PM CDT PM CDT Humaira Evans MD LAB_1 Performing Organization Address City/[facility] Phon e Number [facility] [address] [place] [address] CCPIG - Cyclic Citrullinated Peptide AB (03/10/2021 4:22 PM CDT) Patholo gist Method Time Signature Anti-CCP Antibody <1 <7 U/mL 03/11/2021 [facility] 1:24 PM CDT [facility] Anti-CCP Antibody Negative Negative 03/11/2021 [facility] Interpretation 1:24 PM CDT C[facility]AL LAB Specimen Anatomical Collection Method / Collection Time Recei brittanie Time (Source) Location / Volume Laterality Blood Venipuncture / 03/10/2021 4:22 03/10/2021 4:22 Unknown PM CDT PM CDT Humaira Evans MD LAB_1 Performing Organization Address [facility] Phon e Number [facility] [address] [address] documented in this encounter Visit Diagnoses Diagnosis Arthralgia, unspecified joint documented in this encounter Care Teams Fisher Sponge Hooking Relationship Specialty Start Date End Date Candy Gee MD PCP - General Internal Medicine 03/05/[address] [place] [address] documented as of this encounter
--- OUTSIDE RECORDS SUMMARY | 2022-02-25 19:46 | XMS_ITS | Encounter Summary ---
:1950 Author Organization [email or web address] Address [address], [place] [address] Care Team Providers Name Role Phone Candy Gee MD Primary Care Provider Encounter Details Date Type Department Care Team Description 06/10/2021 Lab Visit [facility] High risk medication use [address] [place] [address] Social History Tobacco Use Types Packs/Day Years Used Date Smoking Tobacco: Former Smokeless Tobacco: Never Sex Assigned at Date Recorded Not on file documented as of this encounter Plan of Treatment Upcoming Encounters Date Type Specialty Care Team Description 03/17/2022 Appointment Rheumatology Lemuel Evans MD [address] [facility] N [id number] (Wo rk) documented as of this encounter Procedures Procedure Name Priority Date/Time Associated Comments Diagnosis CBC AND DIFFERENTIAL Routine 06/10/2021 10:09 High risk Res ults for this PANEL AM PURCHASING MANAGER/SALES medication use procedure are in the results section. COMPLETE BLOOD Routine 06/10/2021 10:09 High risk Results f or this COUNT-W/DIFF AM PURCHASING MANAGER/SALES medication use procedure are in the results section. LIVER PANEL(HEPATIC Routine 06/10/2021 10:09 High risk Resu lts for this FUNCTION PANEL) AM PURCHASING MANAGER/SALES medication use procedure are in the results section. BASIC METABOLIC PANEL Routine 06/10/2021 10:09 High risk Re sults for this AM PURCHASING MANAGER/SALES medication use procedure are in the results section. C-REACTIVE PROTEIN Routine 06/10/2021 10:09 High risk Resul ts for this AM PURCHASING MANAGER/SALES medication use procedure are in the results section. ESR Routine 06/10/2021 10:09 High risk Results for this AM PURCHASING MANAGER/SALES medication use procedure are in the results section. documented in this encounter Results Complete Blood Count-W/Diff (06/10/2021 10:09 AM PURCHASING MANAGER/SALES) P athologist Signature WBC 5.3 3.5 - 10.5 06/10/2021 [facility] x10(9)/L 10:34 AM PURCHASING MANAGER/SALES LABORATORY RBC 4.49 3.90 - 06/10/2021 [facility] 5.03 10:34 AM PURCHASING MANAGER/SALES LABORATORY x10(12)/L Hemoglobin 13.5 12.0 - 06/10/2021 [facility] 15.5 g/dL 10:34 AM PURCHASING MANAGER/SALES LABORATORY HCT 42.1 34.9 - 06/10/2021 [facility] 44.5 % 10:34 AM PURCHASING MANAGER/SALES LABORATORY MCV 93.8 80.0 - 06/10/2021 [facility] 100.0 fL 10:34 AM PURCHASING MANAGER/SALES LABORATORY MCH 30.1 27.6 - 06/10/2021 [facility] 33.3 pg 10:34 AM PURCHASING MANAGER/SALES LABORATORY MCHC 32.1 31.5 - 06/10/2021 [facility] 35.2 g/dL 10:34 AM PURCHASING MANAGER/SALES LABORATORY RDW 12.5 11.9 - 06/10/2021 [facility] 15.5 % 10:34 AM PURCHASING MANAGER/SALES LABORATORY Platelets 311 150 - 450 06/10/2021 [facility] x10(9)/L 10:34 AM PURCHASING MANAGER/SALES LABORATORY Automated NRBC 0 <=0 /100 06/10/2021 [facility] WBC 10:34 AM PURCHASING MANAGER/SALES LABORATORY Neutrophil 2.7 1.7 - 7.0 06/10/2021 [facility] Absolute 10(9)/L 10:34 AM PURCHASING MANAGER/SALES LABORATORY Lymphocyte 2.0 1.0 - 4.8 06/10/2021 [facility] Absolute 10(9)/L 10:34 AM PURCHASING MANAGER/SALES LABORATORY Monocytes 0.4 0.2 - 0.9 06/10/2021 [facility] Absolute 10(9)/L 10:34 AM PURCHASING MANAGER/SALES LABORATORY Eosinophil 0.1 0.0 - 0.5 06/10/2021 [facility] Absolute 10(9)/L 10:34 AM PURCHASING MANAGER/SALES LABORATORY Basophil 0.0 0.0 - 0.3 06/10/2021 [facility] Absolute 10(9)/L 10:34 AM PURCHASING MANAGER/SALES LABORATORY Immature Gran % 0.2 0.0 - 0.5 06/10/2021 [place] % 10:34 AM PURCHASING MANAGER/SALES LABORATORY Specimen Anatomical Collection Method / Collection Time Recei brittanie Time (Source) Location / Volume Laterality Blood Venipuncture / 06/10/2021 10:09 2 Unknown AM PURCHASING MANAGER/SALES 10:09 AM PURCHASING MANAGER/SALES Humaira Evans MD LAB_1 Performing Organization Address [facility] Phon e Number [facility] [address] [place] [address] ESR - Sedimentation Rate (06/10/2021 10:09 AM PURCHASING MANAGER/SALES) Patholo gist Method Time Signature Sedimentation Rate 10 0 - 20 06/10/2021 [facility] mm/hr 11:28 AM PURCHASING MANAGER/SALES LABORATORY Specimen Anatomical Collection Method / Collection Time Recei brittanie Time (Source) Location / Volume Laterality Blood Venipuncture / 06/10/2021 10:09 2 Unknown AM PURCHASING MANAGER/SALES 10:09 AM PURCHASING MANAGER/SALES Humaira Evans MD LAB_1 Performing Organization Address [facility] Phon e Number [facility] [address] [place] [address] CRP - C Reactive Protein (06/10/2021 10:09 AM PURCHASING MANAGER/SALES) P athologist Signature C-Reactive 0.5 0.0 - 0.7 06/10/2021 [facility] Protein mg/dL 11:25 AM PURCHASING MANAGER/SALES LABORATORY Specimen Anatomical Collection Method / Collection Time Recei brittanie Time (Source) Location / Volume Laterality Blood Venipuncture / 06/10/2021 10:09 2 Unknown AM PURCHASING MANAGER/SALES 10:09 AM PURCHASING MANAGER/SALES Humaira Evans MD LAB_1 Performing Organization Address [facility] Phon e Number [facility] [address] [place] [address] Basic Metabolic Panel (06/10/2021 10:09 AM PURCHASING MANAGER/SALES) P athologist Signature Sodium 141 136 - 145 06/10/2021 [facility] mmol/L 11:25 AM PURCHASING MANAGER/SALES LABORATORY Potassium 4.5 3.5 - 5.1 06/10/2021 [facility] mmol/L 11:25 AM PURCHASING MANAGER/SALES LABORATORY Chloride 106 98 - 109 06/10/2021 [facility] mmol/L 11:25 AM PURCHASING MANAGER/SALES LABORATORY CO2 27 20 - 29 06/10/2021 [facility] mmol/L 11:25 AM PURCHASING MANAGER/SALES LABORATORY Anion Gap 8 7 - 16 06/10/2021 [facility] mmol/L 11:25 AM PURCHASING MANAGER/SALES LABORATORY Calcium 9.6 8.4 - 10.4 06/10/2021 [facility] mg/dL 11:25 AM PURCHASING MANAGER/SALES LABORATORY BUN 22 7 - 26 06/10/2021 [facility] mg/dL 11:25 AM PURCHASING MANAGER/SALES LABORATORY Creatinine 0.70 0.55 - 06/10/2021 [facility] 1.02 mg/dL 11:25 AM PURCHASING MANAGER/SALES LABORATORY GFR, Estimated >60 >60 06/10/2021 [facility] mL/min/1.7 11:25 AM PURCHASING MANAGER/SALES LABORATORY 3m2 Glucose 96 70 - 100 06/10/2021 [facility] mg/dL 11:25 AM PURCHASING MANAGER/SALES LABORATORY Comment: The given reference range is fo r the fasting state. Non-fasting reference range for glucose is 70 - 180 mg/dL. Hours Fasting 15 06/10/2021 11:25 AM PURCHASING MANAGER/SALES [facility] Specimen Anatomical Collection Method / Collection Time Recei brittanie Time (Source) Location / Volume Laterality Blood Venipuncture / 06/10/2021 10:09 2 Unknown AM PURCHASING MANAGER/SALES 10:09 AM PURCHASING MANAGER/SALES Humaira Evans MD LAB_1 Performing Organization Address City/State/ZIP Code Phon e Number [facility] [address] [place] [address] Liver Panel(Hepatic Function Panel) (06/10/2021 10:09 AM PURCHASING MANAGER/SALES) P athologist Signature Alkaline 78 40 - 150 06/10/2021 [facility] Phosphatase U/L 11:25 AM PURCHASING MANAGER/SALES LABORATORY Bilirubin, Total 0.5 0.2 - 1.2 06/10/2021 [facility] mg/dL 11:25 AM PURCHASING MANAGER/SALES LABORATORY Bilirubin, 0.2 0.0 - 0.5 06/10/2021 [facility] Direct mg/dL 11:25 AM PURCHASING MANAGER/SALES LABORATORY AST (SGOT) 20 10 - 40 06/10/2021 [facility] U/L 11:25 AM PURCHASING MANAGER/SALES LABORATORY ALT (SGPT) 28 0 - 55 U/L 06/10/2021 [facility] 11:25 AM PURCHASING MANAGER/SALES LABORATORY Protein, Total 7.7 6.4 - 8.3 06/10/2021 [facility] g/dL 11:25 AM PURCHASING MANAGER/SALES LABORATORY Albumin 4.4 3.5 - 5.0 06/10/2021 [facility] g/dL 11:25 AM PURCHASING MANAGER/SALES LABORATORY Specimen Anatomical Collection Method / Collection Time Recei brittanie Time (Source) Location / Volume Laterality Blood Venipuncture / 06/10/2021 10:09 2 Unknown AM PURCHASING MANAGER/SALES 10:09 AM PURCHASING MANAGER/SALES Humaira Evans MD LAB_1 Performing Organization Address City/State/ZIP Code Phon e Number [facility] [address] [place] [address] documented in this encounter Visit Diagnoses Diagnosis High risk medication use Encounter for long-term (current) use of other medications documented in this encounter Care Teams Blade Groover Relationship Specialty Start Date End Date Candy Gee MD PCP - General Internal Medicine 03/05/[address] [place] [address] documented as of this encounter
--- OUTSIDE RECORDS SUMMARY | 2022-02-25 19:46 | XMS_ITS | Clinical Summary ---
:1950 Author Organization [facility] [place] [address] Care Team Providers Name Role Phone Candy Gee MD Primary Care Provider Allergies Active Allergy Reactions Severity Noted Date Comments Atorvastatin Arthralgia Medium 12/15/2018 Quinolones Edema Medium 12/15/2018 Simvastatin Arthralgia Low 12/15/2018 Sulfa (Sulfonamide Antibiotics) Laryngospasm High 9 Tolterodine *Unknown Medium 12/15/2018 Medications Medication Sig Dispensed Refills Start Date End Date Status fluticasone (50 mcg Inhale 1 Rex in 0 07/27/2018 Active per actuation) nasal the nostril(s) solution (FLONASE) once daily. Mesalamine (ASACOL) Take 1 tablet by 0 05/17/2018 Active 800 mg TbEC mouth 2 times Delayed-Release tablet daily. omeprazole (PRILOSEC) Take 20 mg by 0 Active 20 mg Delayed-Release mouth once daily capsule before a meal. pravastatin Take 1 tablet by 0 10/28/2018 Active (PRAVACHOL) 10 mg mouth once daily. tablet multivitamin (MVI) Take 1 tablet by 0 04/16/2019 Active tablet mouth once daily. Calcium Cmb 2-D3-Min Take by mouth. 0 04/16/2019 Active [id number] (CITRACAL + Two tablets daily BONE DENSITY) 300-200-13.5 mg-unit-mg tab risankizumab-rzaa Inject 0 09/29/2020 A ctive (Skyrizi) subcutaneous. 150mg/1.66mL(75 Every 3 Months. mg/0.83 mL x2) sykt rivaroxaban (Xarelto) Take 1 Tablet (20 90 Tablet 3 09/29/2020 Active 20 mg mg) by mouth once tabletIndications: daily with Paroxysmal atrial evening meal. fibrillation (HC) lisinopriL (PRINIVIL; Take 1 Tablet (5 90 Tablet 2 02/12/2021 Active ZESTRIL) 5 mg mg) by mouth once tabletIndications: daily. Hypertension metoprolol tartrate Take 1 Tablet (25 180 Tablet 0 11/09/2021 Active (LOPRESSOR) 25 mg mg) by mouth in tabletIndications: the morning and 1 Paroxysmal atrial Tablet (25 mg) in fibrillation (HC) the evening. Active Problems Patient Care Coordination Note Formatting of this note might be differe nt from the original. HF/Structural Research Eligibility Revie w Date: 05/16/19 The patient did not qualify for any curr ently enrolling studies at the time of this review. Vesalius: no lipids to review Problem Noted Date Chest pain 08/22/2020 Paroxysmal atrial fibrillation 08/22/2020 Hyperlipidemia 08/22/2020 HTN (hypertension) 08/22/2020 Family History Medical History Relation Name Comments Hypertension Brother Heart attack Father Cancer Mother bladder Diabetes Mother Relation Name Status Comments Brother Father Mother Social History Tobacco Use Types Packs/Day Years Used Date Former Smoker 0.5 40 Quit: 2004 Smokeless Tobacco: Never Used Tobacco Cessation: Counseling Given: Yes Alcohol Use Standard Drinks/Week Comments Not Currently 0 (1 standard drink = 0.6 oz pure alcoho l) Alcohol Habits Answer Date Recorded How often do you have a drink containing alcohol? Never 04/11/2019 How many drinks containing alcohol do you have on a typical Not asked day when you are drinking? How often do you have six or more drinks on one occasion? No t asked Comment: Not asked Sex Assigned at Date Recorded Not on file Obstetrics History Last Filed Vital Signs Vital Sign Reading Time Taken Comments Blood Pressure 135/74 05/11/2021 9:04 AM RETAIL EXPERIENCE SPECIALIST Pulse 62 05/11/2021 9:04 AM RETAIL EXPERIENCE SPECIALIST Temperature 36.9 ??C (98.5 ??F) 08/23/2020 8:23 AM CDT Respiratory Rate 16 08/23/2020 8:23 AM CDT Oxygen Saturation 96% 05/11/2021 9:04 AM RETAIL EXPERIENCE SPECIALIST Inhaled Oxygen Concentration - - Weight 67.9 kg (149 lb 12.8 oz) 05/11/2021 9:04 AM RETAIL EXPERIENCE SPECIALIST Height 167.6 cm (5' 6) 09/29/2020 9:33 AM CDT Body Mass Index 24.18 09/29/2020 9:33 AM CDT Plan of Treatment Health Maintenance Due Date Last Done Comments Tdap 01/05/1960 Depression screening for age 12+ 1961 Hepatitis C screening for age 0801/04/1967 18-79 Tetanus booster 1969 Colonoscopy through age 75 1994 Mammogram for age 45-75 1994 Zoster (shingles) series for age 0801/04/1999 50+ (1 of 2) DEXA/DXA scan for age 65+ 2014 Medicare Wellness for age 65+ 2014 Pneumococcal series for age 65+ (1 2014 - PCV) COVID-19 vaccine series (4 - 04/08/2021 02/11/2021, 021, Booster for Moderna series) 07/15/2020 BMI (ht and wt on same day) for 09/29/2021 09/29/2020, 11/0 07/2019, age 18+ 03/27/2020, Additional history exists Influenza for age 65+ 01/27/2022 Lipids for age 45-75 08/23/2025 08/23/2020 Results Not on filefrom Last 3 Months Insurance Payer Benefit Plan / Subscriber ID Effective Dates Phone Addre ss Type Group MEDICARE PART A MEDICARE PART A [id number] 2013-Present ATTN: CLAIMS - HB USE ONLY HB ONLY [address] [place] [address] [employer] [place] [employer] CHOICE [id number] 2019-Present [address] [address] [place] [address] Advance Directives Latest Code Status on File Code Status Date Activated Date Inactivated Comments Full Code 08/23/2020 10:20 AM 08/23/2020 1:57 PM Code Status Discussion: Discussed Full Code 12/26/2019 3:38 PM 12/27/2019 1:20 PM Care Teams Aerosol Supervisor Relationship Specialty Start Date End Date Candy Gee MD PCP - General Internal Medicine 03/01/191999 [place] [address]
--- OUTSIDE RECORDS SUMMARY | 2022-02-25 19:46 | XMS_ITS | Encounter Summary ---
:1950 [facility] Address [address] [address] Care Team Providers Name Role Phone Candy Gee MD Primary Care Provider Encounter Details Date Type Department Care Team Description 03/31/2020 Notes/Orders [facility] [address] Evans MD Rheumatology [address] [place] [address] [place] [address] [phone] Social History Tobacco Use Types Packs/Day Years Used Date Smoking Tobacco: Former Sex Assigned at Date Recorded Not on file documented as of this encounter Progress Notes Humaira Evasn MD - 03/31/2020 2:40 PM CST FYI- Called patient's dermatology office ([facility]) to see if Skyrizi paperwork had been started. Spoke with pharmacy staff and they will send paperwork to patient for completion as per her die inspector's recommendation to start this medication. Agree with therapy plan. Humaira Evans MD [employer] CONS[employer]ANT documented in this encounter Plan of Treatment Upcoming Encounters Date Type Specialty Care Team Description 03/17/2022 Appointment Rheumatology Lemuel Evans MD [address] [facility] N [id number] (Wo rk) documented as of this encounter Visit Diagnoses Not on filedocumented in this encounter Care Teams Supervisor Drying And Winding Relationship Specialty Start Date End Date Candy Gee MD PCP - General Internal Medicine 03/05/201999 [place] [address] documented as of this encounter
[2022-02-25] MEDS: 0.9 % SODIUM CHLORIDE 500 ML 500 ML IV (19:55)
[2022-02-25 19:57] LABS: Basophils Absolute Auto 0.02 K/uL (0.00-0.30); Basophils Percent Auto 0.3 % (0.0-3.0); Eosinophils Absolute Auto 0.01 K/uL (0.00-0.50); Eosinophils Percent Auto 0.1 % (0.0-7.0); Hematocrit 37.3 % (33.0-51.0); Hemoglobin* 12.5 gm/dL (12.0-16.0); Immature Granulocytes Abs Auto 0.01 K/uL (0.00-0.30); Lymphocytes Percent Auto 7.3 % (20-44); Mean Corpuscular HGB Conc 34 gm/dL (32-36); Mean Corpuscular Hemoglobin 31 pg (26-34); Mean Corpuscular Volume 91 fL (80-100); Neutrophils Percent Auto 85.2 % (42.0-72.0); Platelet Count* 213 K/uL (140-440); RDW Coefficient of Variation % 12.1 % (11.5-15.5); White Blood Count* 6.83 K/uL (4.50-11.00)
[2022-02-25 19:59] LABS: Slide Review Reflex No
[2022-02-25 20:08] LABS: Albumin* 4.6 g/dL (3.3-5.0); Chloride* 103 mmol/L (96-114); Sodium* 137 mmol/L (135-149)
[2022-02-25 20:09] LABS: Potassium* 3.6 mmol/L (3.6-5.1)
[2022-02-25 20:11] LABS: Alkaline Phosphatase* 83 U/L (40-150); Aspartate Amino Transferase* 33 U/L (12-35); Bilirubin Total* 0.4 mg/dL (0.1-1.5); Blood Urea Nitrogen* 15 mg/dL (7-30); Carbon Dioxide* 23 mmol/L (20-32); Creatinine* 0.7 mg/dL (0.5-1.5); Estimated Glomerular Filt Rate 91 ml/min; Total Protein* 7.7 g/dL (6.0-8.3)
[2022-02-25 20:12] LABS: Alanine Aminotransferase* 33 U/L (4-35); Calcium* 9.2 mg/dL (8.4-10.6); Glucose* 130 mg/dL (60-115)
[2022-02-25 20:14] LABS: C Reactive Protein* 5.6 mg/dL (0.5-1.0)
[2022-02-25] MEDS: ACETAMINOPHEN 500 MG TABLET 1000 MG PO (20:24)
[2022-02-25 20:25] LABS: Troponin I* < 0.01 ng/mL (0.01-0.04)
[2022-02-25 21:05] VITALS: BP 119/65; PULSE 88; RESP 22; TEMP 37.4; O2SAT 92
== END 2022-02-25 21:45 | disposition home or self-care (01) ==
PROVIDERS: Emergency Provider Family Medicine; PCP Internal Medicine
DX: U07.1 COVID-19 (principal); I48.20 Chronic atrial fibrillation, unspecified
CPT/HCPCS: 36415; 71045; 80053; 84484; 85025; 86140; 93005; 94761; 99284; 99285; A9270; J7120

== ENCOUNTER 2022-05-16 13:21 | Outpatient (CLI) | payer OTHER, SELFPAY ==
--- NOTE | 2022-05-16 13:40 | CRLHL7_ITS ---
For Patients: As a result of the Century Cures Act, medical imaging exams and procedure reports are released immediately into your electronic medical record. You may view this report before your referring provider. If you have questions, please contact your health care provider. BILATERAL SCREENING MAMMOGRAM WITH COMPUTER-AIDED DETECTION AND TOMOSYNTHESIS TECHNIQUE: CC and MLO views were obtained. These mammographic images have been obtained using full-field digital technique. These mammographic images were interpreted with the benefit of computer-aided detection. Breast Tomosynthesis was used in this interpretation. COMPARISON FILM: 04/12/21, 03/10/20, 10/02/18. FINDINGS: There are scattered areas of fibroglandular density IMPRESSION: There is no radiographic evidence for malignancy. ASSESSMENT: BI-RADS Category 1: Negative RECOMMENDATION: Routine screening mammogram in 1 year. A lay language report of this examination will be provided to the patient. Bakari Vazquez M.D. Diagnostic Radiologist [email or web address] AFTAB/Dictated by: Bakari Vazquez MD @ 05/17/2022 12:08:00 PM (Electronically Signed)
== END 2022-05-16 13:22 | disposition home or self-care (01) ==
LOC: MAMMO 13:22
PROVIDERS: PCP Internal Medicine; Visit Provider Internal Medicine
DX: Z12.31 Encounter for screening mammogram for malignant neoplasm of breast (principal)
CPT/HCPCS: 77063; 77067

== ENCOUNTER 2022-12-13 08:00 | Outpatient (CLI) | payer OTHER, SELFPAY | END 2022-12-13 08:01 | disposition home or self-care (01) | LOC: NFLDREF 12-14 08:49 | PROVIDERS: PCP Internal Medicine; Referring Provider Internal Medicine; Visit Provider Internal Medicine | DX: E78.5 Hyperlipidemia, unspecified (principal); I10 Essential (primary) hypertension | CPT/HCPCS: 80048; 80061 ==

== ENCOUNTER 2022-12-29 14:10 | Outpatient (CLI) | payer OTHER, SELFPAY ==
--- NOTE | 2022-12-29 14:30 | CRLHL7_ITS ---
For Patients: As a result of the Century Cures Act, medical imaging exams and procedure reports are released immediately into your electronic medical record. You may view this report before your referring provider. If you have questions, please contact your health care provider. DXA BONE MINERAL DENSITY STUDY Reason for exam: Osteoporosis. Current height (in): 66. Weight (lb): 153. Menopause age: 54. Ethnicity: White. 1. Have you had a previous hip or vertebral fracture? No. 2. Have you had any fractures during your adult life which did not result from significant trauma (e.g., auto accident)? No. 3. Did either of your parents have a hip fracture? No. 4. Do you smoke? No. 5. Have you ever taken Glucocorticoids? No. 6. Do you have rheumatoid arthritis? No. 7. Do you have secondary osteoporosis? No. 8. Do you drink 3 or more alcoholic drinks per day? No. 9. Are you being treated for osteoporosis? No. 10. Have you ever taken any of the following medications: Actonel, Evista, Fosamax, Miacalcin, Reclast, Boniva, Forteo, HRT (i.e. estrogen/hormone therapy), Protelos, Prolia, Vitamin D, Calcium, other ??? please specify. ANSWER: Vitamin D, calcium. 11. Do you have any of the following medical conditions: Anorexia or bulimia, asthma or emphysema, end stage renal disease, hyperparathyroidism, any seizure disorders, cancer, inflammatory bowel diseases, hysterectomy, other ??? please specify. ANSWER: Yes, inflammatory bowel disease. 12. What was your maximum height (inches)? 66. 13. Do you perform weight bearing exercise regularly? Yes. 14. Do you regularly consume dairy products? Yes. 15. Do you drink caffeinated beverages? Yes. 16. At what age did your period start? 11. 17. Are you premenopausal? No. 18. How many full term pregnancies have you had? 4. 19. Have you ever missed your period for more than 6 months in a row (not including or menopause)? No. TECHNIQUE: Bone mineral density study was performed using the [employer]. FINDINGS: The results of the study expressed as bone mineral density (BMD) are as follows: Lumbar spine L1 to L4: BMD: 0.834 g/cm2. T-score: -1.9. Z-score: 0.4. Neck Left: BMD: 0.475 g/cm2. T-score: -3.4. Z-score: -1.3. Right: BMD: 0.522 g/cm2. T-score: -2.9. Z-score: -0.9. Total Left: BMD: 0.685 g/cm2. T-score: -2.1. Z-score: -0.4. Right: BMD: 0.667 g/cm2. T-score: -2.3. Z-score: -0.5. IMPRESSION: Osteoporosis. *Comparison exams done prior to 10/2019 were performed on different unit, [facility]. COMPARISON: Compared with scan of 08/23/2012, the bone mineral density has decreased by 8.0 percent at the spine and increased by 5.1 percent at the hip. Bakari Vazquez M.D. Diagnostic Radiologist [email or web address] AFTAB/Dictated by: Bakari Vazquez MD @ 12/30/2022 10:12:00 AM (Electronically Signed)
== END 2022-12-29 14:11 | disposition home or self-care (01) ==
PROVIDERS: PCP Internal Medicine; Visit Provider Internal Medicine
DX: M81.0 Age-related osteoporosis without current pathological fracture (principal)
CPT/HCPCS: 77080

== ENCOUNTER 2023-02-07 08:45 | Outpatient (RCR) | payer OTHER, SELFPAY ==
--- NOTE | 2023-01-09 09:37 | PT.OPEX ---
PT [place] [facility] Eval INITAL EVAL REQUIRES SIG PT [place] [facility] Eval Start: 01/09/23 07:32 Freq: Status: Active Protocol: Document 01/09/23 07:33 RONY (Rec: 01/09/23 09:36 RONY [id number]) E-signed By Arnaldo Valentin DPT Physical Therapy Outpatient Evaluation Insurance Information Recert Due Date 04/04/23 Insurance Name [employer],Medicare B Medical Diagnosis RC tendinopathy Treating Diagnosis lt shoulder pain muscle weakness Referring MD Candy Gee Subjective Subjective Keyona comes into clinic dealing with L shoulder/arm pain. States this has been bothering her for about a month and a half. States she thinks it started with her moving recently so she was carrying and lifting alot of boxes. She has most her pain when reaching behind her back. She does notice some limits with reaching away from her body and in extended positions . Has been using some OTC to help control the pain Pain Comments 12/05 with reach behind back or extended Current Work Status Retired Precautions Treatment Precautions/Contraindications hx cataracts , amputation of finger, afib , htn, osteoporosis Objective Other/Pertinent Objective SHOULDER AROM Flexion: WNL R L 135 Abduction: WNL R L 130 Internal Rotation: WNL on R on L can reach same spot but increased pain- T8 External Rotation: WNL on R L can reach end range but increased pain. NECK/SHOULDER MMT: WNL on R Shoulder shrug: L 5/5 Shoulder flexion: L4 /5 Shoulder abduction: L 4/5 Shoulder External Rotation: L 4/5 Shoulder Internal Rotation: L 5/5 Elbow flexion: L 5/5 Elbow extension L 5/5 SPECIAL TEST Shoulder impingement HawkinsPauliney Test: - Neer Test: - Lalo Test: - Horizontal Adduction Test:- Painful arc 60-120 scaption:- Rotator cuff tendonitis Speeds test(biceps): - Empty can(Supra): - Lift off test (subscap):- JOINT MOBILITY/PALPATION increased long head biceps tendon irritation with palpation increased AC joint tenderness with palpation TX: wand IR x 15 shoulder alphabet x 26 red tb er x 12 red tb bicep curl x 15 with eccentric focus STM upper trap SCJ mobs inferior grade 2-3 Assessment Assessment/Impression .assess Pt is a 73 yr old female who presents with concerns of Lt shoulder/arm pain . Signs and symptoms likely indicating / consistent with ac joint pain and biceps tendinopathy . Patient also has notable objective findings including limited ROM decreased strength also likely contributing to the problem. Patient is a good candidate for skilled therapy to target deficits described above. Skilled PT intervention is necessary for use of therapeutic exercise manual therapy, neuromuscular re- education, and therapeutic activity. Functional impairments include difficulty with: lifting, reaching. See appropriate sections of PT eval for complete list of goals and POC. D/C plan and criteria is for pt to achieve the goals as listed below or until max rehab potential is met. 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 Pt will be independent with HEP within 6 weeks to allow for independence and continued improvement past formal therapy Coordination/Communication With Referral Source Treatment Plan/Direct Interventions Joint Mobilization,Manual Therapy,Neuromuscular Re-ed, Self-Care/Home Management, Therapeutic Activities, Therapeutic Exercises Frequency/Duration 1 visits a week for 6-8 weeks Patient Will Be Discharged From Therapy Completion of LTG(s), Independent w/HEP, Independently Progressing Evaluation Billing Untimed Code Treatment Minutes 15 Complexity Moderate Certification Information Physician Comment/Change : Physician NPI Number #
== END 2023-05-03 14:44 | disposition home or self-care (01) ==
PROVIDERS: PCP Internal Medicine; Visit Provider Internal Medicine
DX: M67.912 Unspecified disorder of synovium and tendon, left shoulder (principal); M25.519 Pain in unspecified shoulder; M62.81 Muscle weakness (generalized); Z51.89 Encounter for other specified aftercare
CPT/HCPCS: 97110; 97140; 97162

== ENCOUNTER 2023-06-18 15:27 | Emergency (ER) | payer OTHER, SELFPAY ==
[2023-06-18] VITALS (13 sets, daily range): BP systolic 152–193; BP diastolic 71–81; PULSE 58–67; RESP 16; TEMP 36.9; O2SAT 95–98; BMI 24.5
--- NOTE | 2023-06-18 16:01 | ED_ITS ---
HPI - Chest Pain General Chief Complaint: Chest Pain Stated Complaint: high blood pressure, chest pain and headache Time Seen by Provider: 06/18/23 15:49 History of Present Illness HPI narrative: This 73-year-old female comes in reporting some chest discomfort and concern about elevated blood pressure. She states that she awoke yesterday morning and felt some chest discomfort which was more like pressure and not really pain. These symptoms went away before long. Again today in mid afternoon she developed some similar pain that has persisted. She does not report any nausea, vomiting, lightheadedness, shortness of breath, or diaphoresis. These chest pains occurred without any strenuous activity or exertion. She does not report any exercise intolerance. She states that the discomfort is not reproducible with deep breath, certain movements, or palpating in her sternal area where the symptoms are located. Related Data Home Medications Medication Instructions Recorded Confirmed calcium carb,cit 300 mg-D3 200 tab PO DAILY 02/25/22 06/08/23 unit-min no.34-genistein 13.5 mg tablet (Citracal Plus Bone Density Builder) cyclobenzaprine 5 mg tablet 5 mg PO QHS PRN 02/25/22 06/18/23 fluticasone propionate 50 2 spray intranasal QDAY 02/25/22 06/18/23 mcg/actuation nasal spray,suspension risankizumab-rzaa 75 mg/0.83 mL 150 mg subcut Q12W 02/25/22 06/18/23 subcutaneous syringe (Skyrizi) rivaroxaban 20 mg tablet (Xarelto) 20 mg PO QDAY 02/25/22 06/18/23 lisinopril 5 mg tablet 5 mg PO BID 06/08/23 06/18/23 metoprolol tartrate 25 mg tablet 25 mg PO BID 06/08/23 06/18/23 triamcinolone acetonide 0.1 % applic topical 06/08/23 06/08/23 topical cream Previous Rx's Medication Instructions Recorded pravastatin 10 mg tablet 10 mg PO QHS #90 tabs 12/15/22 zolmitriptan 5 mg tablet (Zomig) See Rx Instructions feeding tube 12/15/22 .COMPLEX #10 tabs mesalamine 800 mg tablet,delayed 800 mg PO BID #180 tabs 02/28/23 release omeprazole 20 mg capsule,delayed 20 mg PO DAILY #90 caps 05/08/23 release Allergies Allergy/AdvReac Type Severity Reaction Status Date / Time Sulfa (Sulfonamide Allergy Severe larygnospas Verified 06/18/23 15:38 Antibiotics) m atorvastatin Allergy Intermediate Verified 06/18/23 15:38 Quinolones Allergy Intermediate swelling Verified 06/18/23 15:38 tolterodine Allergy Intermediate Verified 06/18/23 15:38 simvastatin Allergy Mild Verified 06/18/23 15:38 nirmatrelvir Allergy Afib Verified 06/18/23 15:38 [From Paxlovid (EUA)] ritonavir Allergy Afib Verified 06/18/23 15:38 [From Paxlovid (EUA)] Review of Systems Status of ROS Reports: 10 or more systems reviewed and unremarkable except as noted in History and below Narrative Constitutional: No fevers, no weight gain or loss. Eyes: No discharge. No vision changes. HENT: No congestion, no sore throat, no ear pain. Cardiovascular: No palpitations. Respiratory: No shortness of breath, no wheezes, no cough. Gastrointestinal: No abdominal pain, no vomiting, no diarrhea. Genitourinary: No dysuria, no hematuria. Musculoskeletal: Normal range of motion. Skin: No rashes, no pruritis. Neurological: No dizziness, weakness, sensory change, speech change. Endo/Heme/Allergies: No bruising or bleeding. No polydipsia. Pysch: no suicidality, no anxiety, no insomnia. All other systems reviewed and are negative. [facility] Surgical History (Updated 12/10/22 @ 11:55 by Christiano Thayer) Status post blepharoplasty of both eyes ?Z98.890 - Other specified postprocedural states (ICD-10) History of colonoscopy (2018) ?Z98.890 - Other specified postprocedural states (ICD-10) History of bilateral cataract extraction ?Z98.41 - Cataract extraction status, right eye (ICD-10) ?Z98.42 - Cataract extraction status, left eye (ICD-10) 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, initial encounter (ICD-10) History of cataract surgery ?Z98.49 - Cataract extraction status, unspecified eye (ICD-10) Status post laparoscopic-assisted sigmoidectomy ?Z90.49 - Acquired absence of other specified parts of digestive tract (ICD- 10) History of laparoscopic cholecystectomy ?Z90.49 - Acquired absence of other specified parts of digestive tract (ICD- 10) History of appendectomy ?Z90.49 - Acquired absence of other specified parts of digestive tract (ICD- 10) Social History (Updated 12/15/22 @ 15:25 by Ruth Barksdale ~ [facility]) What is your current living situation?: I presently have a place to live In the past 12 months, utilities in danger of being shut off: no In past 12 months, lack of transportation kept you from medical appts, meetings, work, or getting things needed for daily living: no In the past 12 mos, have been you worried that your food would run out before you had money to buy more?: never true In the past 12 mos, the food you bought just didn't last and you didn't have money to buy more?: never true Smoking Status: Former smoker Do you use any of these nicotine containing products: None Second hand tobacco smoke exposure: No How often do you have a drink containing alcohol: never How often do you have six or more drinks on one occasion: Never AUDIT-C Alcohol total score: 0 Non-prescribed substance use: denies use How often does anyone, including family, friends and others, physically hurt you : never How often does anyone, including family, friends and others, insult or talk down to you: never How often does anyone, including family, friends and others, threaten you with harm: never How often does anyone, including family, friends and others, scream or curse at you: never Little interest or pleasure in doing things: not at all Feeling down, depressed, or hopeless: several days Exam Narrative Exam Narrative: Constitutional: Well-developed, well-nourished, no acute distress. HEENT: Normocephalic, atraumatic. Neck: Normal range of motion. Nontender. Supple. Heart: Regular. No murmurs. Normal rate. Intact distal pulses. Lungs: Clear to auscultation. No chest discomfort. No wheezes, rhonchi, or rales. Abdomen: Normal bowel sounds. Nontender. No rebound tenderness. Genitalia: Deferred. Back: No midline tenderness. Normal range of motion. Extremities: Normal range of motion. No injury. Skin: Intact. No rash. Warm. No erythema or pallor. Neurologic: No altered sensation. No weakness. Alert and oriented. Psychiatric: No suicidality. No anxiety or depression. No insomnia. Nursing notes and vitals signs are reviewed. Const Vital Signs, click to edit/add: Vital Signs - 24 hr 06/18/23 15:33 06/18/23 15:51 06/18/23 16:00 Temperature 98.4 F Pulse Rate 66 64 Pulse Rate [Pulse Oximeter] 67 Respiratory Rate 16 Blood Pressure Blood Pressure [Right Upper Arm] 193/73 H Pulse Oximetry 97 98 97 Oxygen Delivery Method Room Air Room Air 06/18/23 16:02 06/18/23 16:05 06/18/23 16:30 Temperature Pulse Rate 64 60 Pulse Rate [Pulse Oximeter] Respiratory Rate Blood Pressure 168/76 H Blood Pressure [Right Upper Arm] Pulse Oximetry 98 97 95 Oxygen Delivery Method 06/18/23 16:32 06/18/23 17:00 06/18/23 17:02 Temperature Pulse Rate 62 60 58 L Pulse Rate [Pulse Oximeter] Respiratory Rate Blood Pressure 158/73 H 152/71 H Blood Pressure [Right Upper Arm] Pulse Oximetry 95 95 96 Oxygen Delivery Method 06/18/23 17:30 06/18/23 17:32 06/18/23 18:00 Temperature Pulse Rate 59 L 60 62 Pulse Rate [Pulse Oximeter] Respiratory Rate Blood Pressure 155/81 H Blood Pressure [Right Upper Arm] Pulse Oximetry 97 96 97 Oxygen Delivery Method 06/18/23 18:02 Temperature Pulse Rate 59 L Pulse Rate [Pulse Oximeter] Respiratory Rate Blood Pressure 152/80 H Blood Pressure [Right Upper Arm] Pulse Oximetry 96 Oxygen Delivery Method Course Vital Signs Vital signs: Initial Vital Signs Temperature 98.4 F 06/18/23 15:33 Temperature Source Temporal Artery Scan 06/18/23 15:33 Pulse Rate 67 06/18/23 15:33 Respiratory Rate 16 06/18/23 15:33 Blood Pressure 193/73 H 06/18/23 15:33 Blood Pressure Mean 113 H 06/18/23 15:33 Blood Pressure Position Sitting 06/18/23 15:33 Pulse Oximetry 97 06/18/23 15:33 Oxygen Delivery Method Room Air 06/18/23 15:33 Vital Signs Temperature 98.4 F 06/18/23 15:33 Pulse Rate 67 06/18/23 15:33 Respiratory Rate 16 06/18/23 15:33 Blood Pressure 193/73 H 06/18/23 15:33 Pulse Oximetry 97 06/18/23 15:33 Oxygen Delivery Method Room Air 06/18/23 15:33 Temperature 98.4 F 06/18/23 15:33 Pulse Rate 59 L 06/18/23 18:02 Respiratory Rate 16 06/18/23 15:33 Blood Pressure 152/80 H 06/18/23 18:02 Pulse Oximetry 96 06/18/23 18:02 Oxygen Delivery Method Room Air 06/18/23 15:51 MDM - Chest Pain MDM Narrative Medical decision making narrative: This patient comes in reporting some chest discomfort as described above. She does not have any exercise intolerance and did not have any associated symptoms such as nausea, vomiting, lightheadedness, shortness of breath, or diaphoresis. Today her EKG shows normal sinus rhythm and no sign of ST or T-wave abnormalities. Additionally lab results returned with reassuring findings. In particular her troponin returns in normal range. The patient does see a video tape editor because of atrial fibrillation. She did have a ablation and currently is in normal sinus rhythm. She states that she had her blood pressure medicine increased recently and did show me a record of her blood pressures that she is kept at home. These are a bit elevated in general compared to goals for blood pressure management. I advised her to follow-up with her primary doctor or her video tape editor regarding this for ongoing management. Lab Data Labs: Lab Results 06/18/23 Range/Units 17:26 WBC 5.51 (4.50-11.00) K/uL RBC 4.55 (4.00-5.20) m/uL Hgb 13.7 (12.0-16.0) gm/dL Hct 41.6 (33.0-51.0) % MCV 91 (80-100) fL MCH 30 (26-34) pg MCHC 33 (32-36) gm/dL RDW Coeff of Pan 12.2 (11.5-15.5) % Plt Count 240 (140-440) K/uL Neut % (Auto) 66.8 (42.0-72.0) % Lymph % (Auto) 25.8 (20-44) % Hood % (Auto) 6.5 (0.0-11.0) % Eos % (Auto) 0.7 (0.0-7.0) % Baso % (Auto) 0.2 (0.0-3.0) % Neut # (Auto) 3.68 (1.7-7.0) K/uL Lymph # (Auto) 1.42 (0.90-2.90) K/uL Hood # (Auto) 0.40 (0.00-0.90) K/UL Eos # (Auto) 0.04 (0.00-0.50) K/uL Baso # (Auto) 0.01 (0.00-0.30) K/uL Abs Immat Gran (auto) 0.00 (0.00-0.30) K/uL Imm/Tot Granulo (auto) 0.0 % Sodium 140 (135-149) mmol/L Potassium 3.7 (3.6-5.1) mmol/L Chloride 107 (96-114) mmol/L Carbon Dioxide 25 (20-32) mmol/L Anion Gap 8 (7-15) mEq/L BUN 14 (7-30) mg/dL Creatinine 0.7 (0.5-1.5) mg/dL Estimated Creat Clear 46.20 Estimated GFR 91 ml/min Glucose 107 (60-115) mg/dL Calcium 8.9 (8.4-10.6) mg/dL POC Troponin I 0.00 L (0.01-0.04) ng/ml ECG Data Attestation: I personally reviewed and interpreted this ECG as follows: Interpretation: Normal sinus rhythm. Rate is 66 beats per minute. There are no ST or T-wave abnormalities. Discharge Plan Discharge Clinical Impression: Atypical chest pain Patient Disposition: Home, Self-Care Condition: Stable Additional Instructions: Continue current plans. Follow up with primary physician or video tape editor to review blood pressure management. Return if worsening. Prescriptions: No Action pravastatin 10 mg tablet 10 mg PO QHS Qty: 90 3RF zolmitriptan [Zomig] 5 mg tablet See Rx Instructions feeding tube .COMPLEX Qty: 10 1RF Rx Instructions: take 1 tab at onset of headache; if no relief, may repeat 1 tab after at least 2 hrs; max = 2 tabs/24 hrs feeding tube triamcinolone acetonide 0.1 % cream topical lisinopril 5 mg tablet 5 mg PO BID metoprolol tartrate 25 mg tablet 25 mg PO BID Citracal Plus Bone Density 300-200-13.5 mg-unit-mg tablet PO DAILY Xarelto 20 mg tablet 20 mg PO QDAY Rx Instructions: must administer with evening meal cyclobenzaprine 5 mg tablet 5 mg PO QHS PRN fluticasone propionate 50 mcg/actuation spray,suspension 2 spray intranasal QDAY Rx Instructions: administer into each nostril Skyrizi 75 mg/0.83 mL syringe 150 mg subcut Q12W mesalamine 800 mg tablet,delayed release (DR/EC) 800 mg PO BID Qty: 180 2RF omeprazole 20 mg capsule,delayed release(DR/EC) 20 mg PO DAILY Qty: 90 1RF Follow Up/Referrals: Candy Gee MD [Primary Care Provider] - Stand Alone Forms: [facility] Info Instructions
[2023-06-18 17:34] LABS: Basophils Absolute Auto 0.01 K/uL (0.00-0.30); Basophils Percent Auto 0.2 % (0.0-3.0); Eosinophils Absolute Auto 0.04 K/uL (0.00-0.50); Eosinophils Percent Auto 0.7 % (0.0-7.0); Hematocrit 41.6 % (33.0-51.0); Hemoglobin* 13.7 gm/dL (12.0-16.0); Lymphocytes Absolute Auto 1.42 K/uL (0.90-2.90); Lymphocytes Percent Auto 25.8 % (20-44); Mean Corpuscular HGB Conc 33 gm/dL (32-36); Mean Corpuscular Hemoglobin 30 pg (26-34); Mean Corpuscular Volume 91 fL (80-100); Monocytes Percent Auto 6.5 % (0.0-11.0); Neutrophils Absolute Auto 3.68 K/uL (1.7-7.0); Neutrophils Percent Auto 66.8 % (42.0-72.0); Platelet Count* 240 K/uL (140-440); RDW Coefficient of Variation % 12.2 % (11.5-15.5); Red Blood Count 4.55 m/uL (4.00-5.20); White Blood Count* 5.51 K/uL (4.50-11.00)
[2023-06-18 17:37] LABS: Slide Review Reflex No
[2023-06-18 17:46] LABS: Chloride* 107 mmol/L (96-114); Potassium* 3.7 mmol/L (3.6-5.1); Sodium* 140 mmol/L (135-149)
[2023-06-18 17:49] LABS: Anion Gap 8 mEq/L (7-15); Carbon Dioxide* 25 mmol/L (20-32); Creatinine* 0.7 mg/dL (0.5-1.5); Estimated Glomerular Filt Rate 91 ml/min
[2023-06-18 17:50] LABS: Blood Urea Nitrogen* 14 mg/dL (7-30); Calcium* 8.9 mg/dL (8.4-10.6); Glucose* 107 mg/dL (60-115)
== END 2023-06-18 18:31 | disposition home or self-care (01) ==
PROVIDERS: Emergency Provider Emergency Medicine Emergency Medical Services; PCP Internal Medicine
DX: R07.89 Other chest pain (principal)
CPT/HCPCS: 36415; 80048; 84484; 85025; 93005; 94761; 99284

== ENCOUNTER 2023-12-11 08:25 | Outpatient (CLI) | payer OTHER, SELFPAY | END 2023-12-11 08:26 | disposition home or self-care (01) | LOC: NFLDREF 13:14 | PROVIDERS: PCP Internal Medicine; Referring Provider Internal Medicine; Visit Provider Internal Medicine | DX: E78.5 Hyperlipidemia, unspecified (principal); I10 Essential (primary) hypertension | CPT/HCPCS: 80048; 80061 ==

== ENCOUNTER 2023-12-22 15:06 | Outpatient (CLI) | payer OTHER, SELFPAY ==
--- OUTSIDE RECORDS SUMMARY | 2023-12-22 15:09 | XMS_ITS | Data Portability ---
Author Organization [place] - [facility], [facility], [facility] Address [address] [place] [address] Care Team Providers Care Health Safety And Environment Manager Name Role Phone CARLTON FIELDS Referring Provider Assessment No assessment recorded. Plan of Treatment Reminders Order Date Submit Date Provider Last Modified By Organization Details Last Modified Time Details Appointments None recorded. Lab urinalysis , dipstick, auto 2015 016 [email or web address] 8 In-Office Order, Internal Use Only DO Not Attach Compendium DO Not Attach Compendium, Do Not Delete/merge, [id number] 6 12:08:47 culture, urine 2015 016 [facility], [address] [place], [address], 7 05:00:56 Referral None recorded. Procedures None recorded. Surgeries None recorded. Imaging None recorded. Medication Orders Pyridium 100 mg tablet 2015 016 [email or web address] 8 [facility], [address] [place], [address], 6 12:08:47 Macrobid 100 mg capsule 2015 016 [email or web address] 8 [facility], [address] [place], [address], 6 12:08:47 Patient TargetsNo targets recorded. Patient InstructionsNo instructions recorded. Reason for Referral None Reported. Results Created Date Observation Date Name Description Value Unit Range Abnormal Flag LastModifiedBy Organization Detail LastModifiedTime 08/05/2015 urina lysis , dipst ick, auto leukocytes small negati ve Not Available In-Office Order Internal Use Only DO Not Attach Compendium DO Not Attach Compendium, Do Not Delete/merge, 08/05/2015 11:46:46 08/05/2015 urina lysis , dipst ick, auto nitrite neg negati ve Not Available In-Office Order Internal Use Only DO Not Attach Compendium DO Not Attach Compendium, Do Not Delete/merge, 08/05/2015 11:46:46 08/05/2015 urina lysis , dipst ick, auto urobilinogen .2 0.2 Not Available In- Office Order Internal Use Only DO Not Attach Compendium DO Not Attach Compendium, Do Not Delete/merge, 08/05/2015 11:46:46 08/05/2015 urina lysis , dipst ick, auto protein neg negati ve Not Available In-Office Order Internal Use Only DO Not Attach Compendium DO Not Attach Compendium, Do Not Delete/merge, 08/05/2015 11:46:46 08/05/2015 urina lysis , dipst ick, auto pH 5.0 5.0-7. 0 Not Available In-Office Order Internal Use Only DO Not Attach Compendium DO Not Attach Compendium, Do Not Delete/merge, [id number] 08/05/2015 11:46:46 08/05/2015 urina lysis , dipst ick, auto blood trace negati ve Not Available In-Office Order Internal Use Only DO Not Attach Compendium DO Not Attach Compendium, Do Not Delete/merge, 08/05/2015 11:46:46 08/05/2015 urina lysis , dipst ick, auto specific gravity 1.020 1.020- 1.035 Not Available In-Office Order Internal Use Only DO Not Attach Compendium DO Not Attach Compendium, Do Not Delete/merge, 08/05/2015 11:46:46 08/05/2015 urina lysis , dipst ick, auto ketone neg negati ve Not Available In-Office Order Internal Use Only DO Not Attach Compendium DO Not Attach Compendium, Do Not Delete/merge, [id number] 08/05/2015 11:46:46 08/05/2015 urina lysis , dipst ick, auto bilirubin neg negati ve Not Available In-Office Order Internal Use Only DO Not Attach Compendium DO Not Attach Compendium, Do Not Delete/merge, [id number] 08/05/2015 11:46:46 08/05/2015 urina lysis , dipst ick, auto glucose neg negati ve Not Available In-Office Order Internal Use Only DO Not Attach Compendium DO Not Attach Compendium, Do Not Delete/merge, [id number] 08/05/2015 11:46:46 Result Notes None recorded. Problems Name Status Onset Date Resolution Date Notes Provider Name and Address Organization Details Recorded Time Colitis Active Karine Valenzuela, [facility] [address] [address], [place], [address], [facility], [facility] 08/05/2015 12:04:30 Problem Notes None recorded. Procedures Surgical History Date Name Laterality Status Provider Name and Address Organization Details Recorded Time 5 Colonoscopy completed Lucianamarvin Brewer [facility], [facility] 08/05/2015 11:19:42 5 Other completed Luciana Osman [facility], [facility] 08/05/2015 11:19:42 5 Appendectomy completed Lucianamarvin Brewer [facility], [facility] 08/05/2015 11:19:42 Imaging Results None recorded. Procedure Notes None recorded. Medical Equipment None Reported. Allergies Allergen ID Allergen Name Allergen Category Reaction Reaction Severity Criticality Documentation Date Start Date Code Code System Note Provider Name and Address Organization Details Recorded Time 547909 Medicinal product containin g quinolone and acting as antibacte rial agent (product) medicatio n edema Not available Not available 08/05/2015 83029 008 SNOMED Luciana Brewer [facility], [facility] 6 11:19:43 169663 simvastat in medicatio n arthralgi a (joint pain) Not available Not available 08/05/2015 03998 RxNorm Luciana Brewer [facility], [facility] 6 11:19:43 834147 Substance with sulfonami de structure and antibacte rial mechanism of action (substanc e) medicatio n anaphylax is Not available Not available 08/05/2015 28962 8003 SNOMED Luciana Brewer [facility] 6 11:19:43 407550 tolterodi ne medicatio n rash Not available Not available 08/05/2015 59554 5 RxNorm Lucianalilia Brewer [facility] 6 11:19:43 Medications Name Sig Start Date Stop Date Status Note LastModified by Organization Details LastModified Time Pyridium 100 mg tablet Take 1 tablet 3 times a day by oral route for 2 days. 016 active Not Available Not Available Not Avai lable Macrobid 100 mg capsule Take 1 capsule every 12 hours by oral route for 7 days. 016 active Not Available Not Available Not Avai lable omeprazole 20 mg capsule,jeb yed release Take 1 capsule every day by oral route. active Not Available Not Available No t Available Centrum Silver active Not Available Not Available Not Available Eddie Aspirin active Not Available Not Available Not Available Asacol HD 800 mg tablet,delay ed release Take 2 tablets 3 times a day by oral route. active Not Available Not Available No t Available Citracal-D3 Gummies active Not Available Not Available Not Available Vitals Date Recorded Respiratory rate Provider Name a nd Address Organization Details Last Updated DateTime 08/05/2015 16 /min Luciana Brewer [facility] 08/05/2015 11:19:43 Date Recorded Body height Body temperature Body mass index (BMI) Heart rate Body weight Oxygen saturation Oxygen saturation in Arterial blood by Pulse oximetry Systolic blood pressure Diastolic blood pressure Provider Name and Address Organization Details Last Updated DateTime 6 165.1 cm 99.8 [degF] 22.7 kg/m2 83 /min 65675.7 65204 g 96 % 96 % 128 mm[Hg] 70 mm[Hg] Torey Quispe [facility] 6 11:46:46 Social History Question Answer Notes LastModified by Organizat ion Details LastModified Time Tobacco Smoking Status Former Smoker CHASITY [facility] - [facility], [facility] 08/05/2015 11:19:42 What Is Your Level Of Alcohol Consumption? None [email or web address] Information not available 08/05/2015 How Much Tobacco Do You Chew? None [email or web address] Information not available 08/05/2015 Which Illicit Or Recreational Drugs Have You Used? None [email or web address] Information not available 08/05/2015 What Is Your Occupation? Retired [email or web address] Information not available 08/05/2015 Alcohol Use No Information n ot available 08/05/2015 Year Quit Tobacco Use 2004 [email or web address] Information not available 08/05/2015 Marital Status Informatio n not available 08/05/2015 Sex: Unknown Functional Status Question Answer Note LastModified by Organizat ion Details LastModified Time What is your exercise level? Moderate Walking [email or web address] Information not available 08/05/2015 Mental Status None recorded. Family History Relationship Description Onset Age of this Age Resolved Age Notes Mother Alive Father Heart disease 91 Medical History Condition Response Cancer (location) N Other N Gout Y Thyroid Disease N Kidney Stones N Emphysema/COPD N Measles/Mumps N Sexually Transmitted Disease N Depression N Prostate Problems N Vascular Disease N Rash/Skin Condition N Amputation (location) N Parkinson's N Paralysis N Cardiac Pacemaker/defibrillator N Headaches/Migraines Y Nerve Damage / Neuropathy N Arthritis N Sleep disorder/Insomnia N Heart disease / Heart Attack N Crohn's Disease N HIV/AIDS N Stroke/TIA N Colon Problems N High Cholesterol N Serious Injuries N Kidney Disease N Memory Loss/Alzheimer's N High blood pressure N Gallbladder disease N Congestive heart failure N Falls N Hormone Replacement N Blood Thinner Treatment N Alcohol Overuse N Nervous Breakdown N Bolaños's Esophagus N Anemia N Urinary Problems N Colon Polyps Y Gastritis N Hospitalizations (other than operations) N Diabetes N Back pain N Rheumatic Fever N Bleeding Disorder N Cardiac Arrhythmias /irregular heart rat e N Osteopenia/Osteoporosis N Anxiety/Stress N Vision Problems N Asthma N Erectile / Sexual Dysfunction N Ostomies (location) N Seizures N Sleep Apnea N Jaundice N Hepatitis N Cirrhosis N GERD/Ulcer N Chicken Pox N Allergies (other than meds) Y Gynecological History Statement/Question Response 4 Para 4 Obstetrics History GPAL:G 0 P 0 0 0 0 Immunizations Vaccine Type Date Status Provider Name and Address Organization Details Recorded Time influenza, unspecified formulation 03/29/2015 completed Luciana figueroa [facility], [facility] 08/05/2015 11:19:42 Past Encounters Encounter ID Performer Location Encounter Start Date Encounter Closed Date Diagnosis/Indication Diagnosis SNOMED-CT Code [id number] MYCHAL Devine [facility] [address] [place] [address] [facility] [place] [address] 08/05/2015 10:45:11 08/05/2015 12:14:21 Urinary tract infectious disease [id number] Health Concerns Section Related Observation LastModified by Organization Detai ls LastModified Time None Recorded Concern Status LastModified by Organization Details LastModified Time None Recorded Advance Directives Directive None Recorded Payers Encounter Date Sequence Insurance Name Policy Number Policy Guzmán Covered Member ID Guzmán Member ID Guarantor Name 08/05/2015 1 [place] Keyona Matos [id number] Keyona Matos Notes Date Note Type Note Provider Name and Address Organization Details Recorded Time 08/05/2015 text/html HPI Notes: patient reports urinary burning and frequency for 2 days. MYCHAL Devine [address] [facility] [address], [place], [address], [facility] - [facility], [facility] 08/05/2015 12:09:59 OBGyn Episode No OBEpisode recorded.
--- OUTSIDE RECORDS SUMMARY | 2023-12-22 15:09 | XMS_ITS | Clinical Summary ---
Author Organization [facility] Address [address] [place] [address] Care Team Providers Care High School Principal Name Role Phone Candy Gee MD Primary Care Provider [phone] Source Comments You are receiving this document as you are listed as the primary care provider,follow-up provider, or the patient has been referred to you for consultation.This is in compliance with the Medicare andMedicaid EHR Incentive Program,which states Providers who transition their patient to another setting of careor provider of care or refers their patient to another provider of care shouldprovide summary care record for each transition of care or referral. [place] Allergies Active Allergy Reactions Criticality Noted Date Comments Atorvastatin Medium 03/10/2020 Quinolones Medium 03/10/2020 Simvastatin Low 03/10/2020 Sulfa Antibiotics High 03/10/2020 Tolterodine Medium 03/10/2020 Medications Medication Sig Dispensed Refills Start Date End Date Status omeprazole (PRILOSEC) 20 MG capsule TK 1 C PO D 02/04/2020 Active erythromycin (ERYGEL) 2 % gel JONATHON EXT AA BID 01/09/2020 Active pravastatin (PRAVACHOL) 10 MG tablet TK 1 T PO HS 02/06/2020 Active fluticasone propionate (FLONASE) 50 MCG/ACT nasal solution Place 2 Sprays into both nostrils daily. Active lisinopril (ZESTRIL) 5 MG tablet Take 1 Tablet (5 mg) by mouth daily. Active MESALAMINE OR Active XARELTO 20 MG tablet TK 1 T PO D WITH MEAL 02/14/2020 Active Thxyjssrfm-BLCE-Tfvsy ine 50-300-40 MG CAPS TK 1 TO 2 CS PO Q 4 H NEEDED. MAX 6 C PER DAY 12/02/2019 Active fluocinonide (LIDEX) 0.05 % ointment Apply topically two times a day. Active Calcium Citrate-Vitamin D (CITRACAL + D OR) Active artificial tears (HYPOTEARS) 1-1 % eye drop solution 4 times daily as needed. Active Multiple Vitamin (MULTI-VITAMIN DAILY OR) Active metoprolol tartrate (LOPRESSOR) 25 MG tablet 02/21/2021 Active Risankizumab-rzaa (SKYRIZI SC) Active triamcinolone acetonide (KENALOG) 0.1 % cream Apply topically two times a day. 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 03/29/2023 Immunizations Name Administration Dates Next Due Flu Vac (3+ yrs) 03/19/2014,02/18/2009 Flu Vac Preserv Free (3+yrs) 03/15/2010 Influenza (Fluad) 03/05/2019 Influenza P6H8-32 04/21/2009 Influenza IIV3 (Trivalent) F luzone Highdose, 65+ Yrs (19152) 01/18/2020,04/29/2016,04/10/2015 Influenza IIV4 (Quadrivalent) 0.5mL (24399) 02/26 Influenza IIV4 (Quadrivalent ) Fluzone, 65+ Yrs 02/27/2023,03/10/2022,01/18/2020 Influenza, Unspecified Formulation 01/18/2020 Influenza, Whole 04/17/2011 Moderna 12+ 02/27/2023 Moderna Monovalent 12+ 02/11/2021,08/12/2020, PCV13 (Prevnar) 01/19/2016 PPSV23 (Pneumovax) 11/18/2009 RSV Arexvy 03/15/2023 Tdap 01/19/2016,12/10/2004 Zoster (Zostavax) 11/18/2009 Zoster RZV (Shingrix) 06/18/2020,01/18/2020 Social History Tobacco Use Types Packs/Day Years Used Date Smoking Tobacco: Former Smokeless Tobacco: Never Sex and Gender Information Value Date Recorded Sex Assigned at Not on file Gender Identity Not on file Sexual Orientation Not on file Last Filed Vital Signs Vital Sign Reading Time Taken Comments Blood Pressure 147/78 03/29/2023 9:35 AM CDT Pulse 59 03/29/2023 9:35 AM CDT Temperature 36.7 ??C (98.1 ??F) 09/23/2022 8:59 AM CD T Respiratory Rate - - Oxygen Saturation - - Inhaled Oxygen Concentration - - Weight 71.3 kg (157 lb 3.2 oz) 03/29/2023 9:32 A M CDT Height 167.6 cm (5' 6) 03/11/2020 8:52 AM CDT Body Mass Index 25.37 03/11/2020 8:52 AM CDT Plan of Treatment Upcoming Encounters Date Type Department Care Team (Late st Contact Info) Description 04/03/2024 9:30 AM OUTCOME ANALYST Appointment [facility] [address] [place] [address] Humaira Evans MD [address] [place] [address] [phone] Health Maintenance Due Date Last Done Comments Colon Cancer Screening Plan Due 1950 Hep C Screening (Preventive Services) 1950 Medicare Welcome Visit 1950 Mammogram 1950 Cholesterol 1994 Dexa 2014 Pneumococcal 65+ Yrs (3 - PPSV23 or PCV20) 01/18/2021 01/19/2016, 11/18/2009 COVID-19 Vaccine ( season) 2023 02/27/2023, 04/29/2022, 09/16/2021, Additional history exists Influenza (#1) 2024 02/27/2023, 02/26, 02/11/2021, Additional history exists DTaP/Tdap/Td (3 - Tdap) 01/18/2026 01/19/2016, 12/10 Zoster/Shingles Completed 06/18/2020, 12/28, 11/18/2009 HepA Aged Out No longer eligi ble based on patient's age to complete this topic HepB Aged Out No longer eligi ble based on patient's age to complete this topic Hib Aged Out No longer eligi ble based on patient's age to complete this topic IPV (Polio) Aged Out No longer eligi ble based on patient's age to complete this topic MCV4 Aged Out No longer eligi ble based on patient's age to complete this topic Care Teams High School Principal Relationship Specialty Start Date End Date Candy Gee MD [address] [place] [address] PCP - General Internal Medicine 03/05/20
--- OUTSIDE RECORDS SUMMARY | 2023-12-22 15:09 | XMS_ITS | Clinical Summary ---
Author Organization [facility] Address [place], [place] [address] Care Team Providers Care Firewood Cutter Name Role Phone Cnady Gee MD Primary Care Provider [phone]- [phone] Allergies Active Allergy Reactions Criticality Noted Date Comments Atorvastatin Arthralgia Medium 12/15/2018 Nirmatrelvir-Ritonavir Tachycardia 05/13/2022 Quinolones Edema Medium 12/15/2018 Simvastatin Arthralgia Low 12/15/2018 Sulfa (Sulfonamide Antibiotics) Laryngospasm High Tolterodine *Unknown Medium 12/15/2018 Medications Medication Sig Dispensed Refills Start Date End Date Status fluticasone (50 mcg per actuation) nasal solution (FLONASE) Inhale 1 [place] in the nostril(s) once daily. 9 Active Mesalamine (ASACOL) 800 mg TbEC Delayed-Release tablet Take 1 tablet by mouth 2 times daily. 8 Active omeprazole (PRILOSEC) 20 mg Delayed-Release capsule Take 20 mg by mouth once daily before a meal. Active Calcium Cmb 2-D3-Min Anv16-Hxg (CITRACAL + BONE DENSITY) 300-200-13.5 mg-unit-mg tab Take by mouth. Two tablets daily 0 9 Active risankizumab-rzaa (Skyrizi) 150mg/1.66mL(75 mg/0.83 mL x2) sykt Inject subcutaneous. Every 3 Months. 0 1 Active amoxicillin-clavula isabell 875-125 mg tablet (AUGMENTIN) Take 1 Tablet by mouth two times daily with meals. 3 Active metoprolol tartrate (LOPRESSOR) 25 mg tabletIndications:P aroxysmal atrial fibrillation (HC) Take 1 Tablet (25 mg) by mouth two times daily. 180 Tablet 3 3 Active pravastatin (PRAVACHOL) 10 mg tabletIndications:M ixed hyperlipidemia Take 1 Tablet (10 mg) by mouth once daily. 90 Tablet 3 3 Active rivaroxaban (Xarelto) 20 mg tabletIndications:P aroxysmal atrial fibrillation (HC) Take 1 Tablet (20 mg) by mouth once daily with evening meal. 90 Tablet 3 3 Active lisinopriL (PRINIVIL; ZESTRIL) 10 mg tabletIndications:H ypertension Take 1 Tablet (10 mg) by mouth two times daily. Due for cardiology appt April 2025. 180 Tablet 3 4 Active lisinopriL (PRINIVIL; ZESTRIL) 10 mg tabletIndications:H ypertension Take 1 Tablet (10 mg) by mouth two times daily. 180 Tablet 1 4 12/18/19 24 Discontinued Active Problems Patient Care Coordination No te Formatting of this note migh t be different from the original. HF/Structural Research Eligibility Review Date: 05/16/19 The patient did not qualify for any currently enrolling studies at the time of this review. Vesalius: no lipids to review Problem Noted Date Diagnosed Date Chest pain 08/22/2020 Paroxysmal atrial fibrillation 08/22/2020 Hyperlipidemia 08/22/2020 HTN (hypertension) 08/22/2020 Encounters Date Type Department Care Team Description 12/17/2023 Refill [facility] [address] [place] [address] [address] [place] [address] Jason Kitchen MD Refill Request (Lisinopril) from Last 3 Months Family History Medical History Relation Name Comments Hypertension Brother Heart attack Father Cancer Mother bladder Diabetes Mother Relation Name Status Comments Brother Father Mother Social History Tobacco Use Types Packs/Day Years Used Date Smoking Tobacco: Former Cigarettes 0.5 40 1 965 - 2005 Smokeless Tobacco: Never Tobacco Cessation:Counseling Given: Yes Alcohol Use Standard Drinks/Week Comments Not Currently 0 (1 standard drink = 0.6 oz pur e alcohol) Social Connections Answer Date Recorded Frequency of Communication with Friends and Fami ly Not on file 05/29/2021 Financial Resource Strain Answer Date R ecorded Difficulty of Paying Living Expenses Not on file 05/29/2021 Difficulty of Paying Living Expenses Not on file 05/29/2021 Sex and Gender Information Value Date Recorded Sex Assigned at Not on file Gender Identity Not on file Sexual Orientation Not on file Obstetrics History Last Filed Vital Signs Vital Sign Reading Time Taken Comments Blood Pressure 177/80 05/19/2023 10:19 AM DRIVER EXAMINER Pulse 60 05/19/2023 10:19 AM DRIVER EXAMINER Temperature 36.9 ??C (98.5 ??F) 08/23/2020 8:23 AM CD T Respiratory Rate 16 08/23/2020 8:23 AM CDT Oxygen Saturation 95% 05/19/2023 10:19 AM DRIVER EXAMINER Inhaled Oxygen Concentration - - Weight 71.8 kg (158 lb 3.2 oz) 05/19/2023 10:19 AM DRIVER EXAMINER Height 167.6 cm (5' 6) 09/29/2020 9:33 AM CDT Body Mass Index 25.53 09/29/2020 9:33 AM CDT Plan of Treatment Health Maintenance Due Date Last Done Comments Tdap 01/05/1960 Depression screening for age 12+ 1961 Hepatitis C screening for ag e 18-79 1967 Tetanus booster 1969 Colonoscopy through age 75 1994 Mammogram for age 45-75 1994 Zoster (shingles) series for age 50+ (1 of 2) 1999 DEXA/DXA scan for age 65+ 2014 Medicare Wellness for age 65+ 2014 Pneumococcal series for age 65+ (1 of 1 - PCV) 2014 BMI (ht and wt on same day) for age 18+ 09/29/2021 09/29/2020, 03/31/2020, 03/27/2020, Additional history exists COVID-19 vaccine series (2022- season) 2023 02/27/2023, 04/29/2022, 09/16/2021, Additional history exists Influenza for age 65+ 01/28/2024 Lipids for age 45-75 08/23/2025 08/23/2020 Procedures Procedure Name Priority Date/Time Associated Diagnosis Comments LIPID PANEL Early AM 08/23/2020 5:47 AM CDT from Last 3 Months or Most Recently Relevant to Health Maintenance Results * (ABNORMAL) Lipid Panel AM (08/23/2020 5:47 AM CDT) CHOLESTEROL,TOTAL 169 100 - 199 mg/dL 08/23/2020 6:13 AM CDT [facility] TRIGLYCERIDES 168(H) <150 mg/dL 08/23/2020 6:13 AM CDT [facility] [employer] HDL CHOLESTEROL 37(L) >40 mg/dL 6:13 AM CDT [facility] NON-HDL CHOLESTEROL 132 <145 mg/dl 08/23/2020 6:13 AM CDT [facility] [employer] CHOL/HDL RATIO 4.57(H) <4.50 08/23/2020 6:13 AM CDT [facility] [employer] [facility] LDL CHOLESTEROL 98 <=130 mg/dL 08/23/2020 6:13 AM CDT [facility] [employer] [facility] PROVIDER ORDERED STATUS RANDOM 08/23/2020 6:13 AM CDT [facility] Blood BLOOD SPECIMEN / Unknown Venipuncture / Unknown 08/23/2020 5:47 AM CDT 08/23/2020 5:52 AM CDT Eryn Benavides MD [facility] [address] [place] [address], [place] from Last 3 Months or Most Recently Relevant to Health Maintenance Advance Directives * Full Code (Latest Code Status on File) Date Activated Date Inactivated Comments 08/23/2020 10:20 AM 08/23/2020 1:57 PM Question Answer Comments Code Status Discussion: Discussed * Full Code Date Activated Date Inactivated Comments 12/26/2019 3:38 PM 12/27/2019 1:20 PM Care Teams Firewood Cutter Relationship Specialty Start Date End Date Candy Gee MD [address] [place] [address] PCP - General Internal Medicine 03/01/19
--- OUTSIDE RECORDS SUMMARY | 2023-12-22 15:09 | XMS_ITS | Continuity of Care Document ---
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 Phone Shae Mcrae CRNA Unavailable Unavai lable Allergies, Adverse Reactions, Alerts Substance Reaction Status Criticality Sulfa (Sulfonamide Antibiotics) Laryngispasm Active No Information Quinolones swelling Active No Information simvastatin muscle pain Active No Information levofloxacin Active No Information TOLTERODINE TARTRATE Active No Info rmation trimethoprim throat closes up Active No Informat ion sulfamethoxazole throat closes up Active No Info rmation Medications Medication Instructions Dosage Effective Dates (start - stop) Status Comments cyclobenzaprine 5 mg tablet take 0.5 Tablet by oral route every week as needed 2.5 MG - Active triamcinolone acetonide 0.1 % topical cream apply by topical route 2 times every day a thin layer to the affected area(s) 0.00 - Active Skyrizi 150 mg/mL subcutaneous pen injector inject (150MG) by subcutaneous route every 12 weeks 150 MG - Active Xarelto 20 mg tablet take 1 tablet by oral route every day with the evening meal 20 MG - Active lisinopril 5 mg tablet take 1 tablet by oral route every day 5 MG - Active metoprolol tartrate 25 mg tablet take 1 tablet by oral route 2 times every day 25 MG - Active Flonase Allergy Relief 50 mcg/actuation nasal spray,suspension inhale 2 spray by intranasal route every day in each nostril 100 MCG - Active omeprazole 20 mg capsule,delayed release take 1 capsule by oral route every day before a meal 20 MG - Active pravastatin 10 mg tablet take 1 tablet by oral route every day 10 MG - Active Asacol 400 mg Tab as directed - Active Calcium 600 600 mg (1,500 mg) Tab take 2 by Oral route every day 2.00 - Active Fiorinal 50 mg-325 mg-40 mg Cap as needed - No Longer Active Procedures Procedure Date Colonoscopy Flex; W/bx 1/mx Level Iv-surg Path Gross/micro 23 Colonoscopy Flex; W/remov Les- 21 Colonoscopy Flex; W/bx 1/mx Level Iv-surg Path Gross/micro 21 Colonoscopy Flex; W/bx 1/mx Level Iv-surg Path Gross/micro 18 Colonoscopy Flex; W/bx 1/mx Level Iv-surg Path Gross/micro 15 Colonoscopy Flex; W/remov Les- 13 Colonoscopy Flex; W/bx 1/mx Level Iv-surg Path Gross/micro 13 Colonoscopy Flex; W/remov Les- 11 Colonoscopy Flex; W/bx 1/mx Level Iv-surg Path Gross/micro 11 Special Stains; Grp I Microorg 11 Offic/outpt E&m New Mod-hi [id number] Advance Directives Directive Yes / No Effective Date File Name No Information Encounters Encounter Description Practice Location Reason(s) For Visit Diagnoses Date Provider Providers Copied on Encounter [facility] [address] [address], [place], [id number], [place] tel:[phone] Chris [facility] No Information 3 Clementina Kaufman. [address] [facility], [facility] [address], [place], [id number], [place]. tel:[phone] Referring Provider: Xander Alba, [address] [place] [address], [address]. tel:[phone] [facility], [address] [address], [place], [id number], [place] tel:[phone] [facility] GI Symptoms or Concerns (chief complaint) Ulcerative (chronic) pancolitis without complications Encounter for screening for malignant neoplasm of colonUlcerati ve (chronic) pancolitis without complications 3 Abbi Terrell. [address], [id number], [place]. tel:[phone] Referring Provider: Referral Self, USE FOR SELF REFERRALS. [facility], [address] [address], [place], [id number], [place] tel:[phone] [facility] No Information 3 Abbi Terrell. [address] [facility], [facility] [address] [place], [place], [id number], [place]. tel:[phone] [facility], [address] [address], [place], [id number], [place] tel:[phone] [facility] GI Symptoms or Concerns (chief complaint) Ulcerative (chronic) pancolitis without complications Polyp of colon, unspecified part of colon, unspecified typeEncounter for screening for malignant neoplasm of colonPolyp of colonUlcerati ve (chronic) pancolitis without complications 1 Abbi Terrell. [address] [place] [address], [address], [id number], [place]. tel:[phone] Referring Provider: Candy Jamil, [address] [place] [address], [address]. tel:[phone] [facility], [address] [address], [place], [id number], [place] tel:[phone] [facility] No Information 1 Vanessa Bucio. [address] [facility], [address], [id number], [place]. tel:[phone] [facility], [address] [address], [place], [id number], [place] tel:[phone] [facility] Ulcerative (chronic) pancolitis without complications Diverticulosi s of colon without diverticuliti sPersonal history of colonic polypsEncount er for screening for malignant neoplasm of colonUlcerati ve (chronic) pancolitis without complications Personal history of colonic polyps 8 Matt Borjas. [address] [facility], [address], [id number], [place]. tel:[phone] Referring Provider: Muriel Morris [facility], [address] [place] [address], [address]. tel:[phone] [facility], [address] [address], [place], [id number], [place] tel:[phone] [facility] Diverticulosi s Of ColonUlcerati ve PancolitisCol on Cancer ScreeningUlce rative PancolitisDiv erticulosis Of ColonUlcerati ve (chronic) pancolitis without complications Diverticulosi s of large intestine without perforation or abscess without bleedingEncou nter for screening for malignant neoplasm of colon 5 Abbi Terrell. [address] [facility], [facility] [address], [place], [id number], [place]. tel:[phone] Referring Provider: Referral Self, USE FOR SELF REFERRALS. [facility] [place], [address] [address], [place], [id number], [place] tel:[phone] [facility] Diverticulosi s Of ColonUlcerati ve PancolitisPer basia History Colon PolypsUlcerat daniele PancolitisPer basia History Colon PolypsDiverti culosis Of ColonBenign Neoplasm Colon 3 Abbi Terrell. [address] [facility], [facility] [address], [place], [place], [id number], [place]. [phone] [facility], [address] [address], [place], [id number], [place] tel:[phone] [facility] Ulcerative Pancolitis 1 Abbi Terrell. [address] [facility], [facility] [address], [place], [id number], [place]. tel:[phone] [facility], [address] [address], [place], [place], [id number], [place] tel:[phone] [facility] Ulcerative PancolitisDiv erticulitis Of ColonUlcerati ve PancolitisBen ign Neoplasm Lg BowelDivertic ulitis Of Colon 1 Abbi Terrell. [address] [facility], [facility] [address], [place], [id number], [place]. tel:[phone] Referring Provider: Jayce Alba, [address] [place], [address]. tel:[phone] Offic/outpt E&m [facility], [address] [address], [place], [place], [id number], [place] tel:[phone] [facility] Diverticuliti s (chief complaint)Ulc erative Colitis (chief complaint) Ulcerative PancolitisDiv erticulitis Of Colon 0 Abbi Terrell. [address] [facility], [facility] [address], [place], [id number], [place]. tel:[phone] Referring Provider: Jayce Alba, [facility] [place], [address]. tel:[phone] [facility], [address] [address], [place], [place], [id number], [place] tel:[phone] [facility] No Information 4 Eleazar Adler. [address] [facility], [facility] [address], [place], [place], [id number], . tel:[phone] Family History Family Member Type Diagnosis Age At Onset Sister Problem (finding) Alive and well Mother Problem (finding) Irritable bowel syndrom e Daughter Problem (finding) Colon polyps First degree family history Problem (finding) Cholelithasis Son Problem (finding) Alive and well Mother Problem (finding) Colon polyps Mother Problem (finding) ulcerative colitis First degree family history Problem (finding) Irritable bowel disease Sister Problem (finding) GERD Brother Problem (finding) Colon polyps First degree family history Problem (finding) Colon Polyps First degree family history Problem (finding) No history of Cancer, colon Brother Problem (finding) gallbladder disease First degree family history Problem (finding) peptic ulceration Mother Problem (finding) Thyroid disorder Mother Problem (finding) GERD Sister Problem (finding) Colon polyps Father Problem (finding) Mother Problem (finding) gallbladder disease First degree family history Problem (finding) No history of Crohn's Daughter Problem (finding) Alive and well First degree family history Problem (finding) No history of Ulcerative Colitis First degree family history Problem (finding) Thyroid Disorder Mother Problem (finding) malignant neop lasm of urinary bladder Immunizations Vaccine Date Status Comments Respiratory syncytial virus (RSV), vaccine, recombinant, protein subunit RSV prefusion F, adjuvant reconstituted, 0.5 mL, preservative free administered Note: [facility] bi-direct ional interface ; Source: Other Registry SARS-COV-2 (COVID-19) vaccin e, mRNA, spike protein, LNP, preservative free, 50 mcg/0.5 mL dose administered Note: [facility] bi-direct ional interface ; Source: Other Registry influenza, high-dose seasona l, quadrivalent, 0.7mL dose, preservative free administered Note: [facility] bi-direct ional interface ; Source: Other Registry SARS-COV-2 (COVID-19) vaccin e, mRNA, spike protein, LNP, bivalent, preservative free, 50 mcg/0.5 mL or 25 mcg/0.25 mL dose administered Note: [facility] bi-direct ional interface ; Source: Other Registry influenza, high-dose seasona l, quadrivalent, 0.7mL dose, preservative free administered Note: [facility] bi-direct ional interface ; Source: Other Registry SARS-COV-2 (COVID-19) vaccin e, mRNA, spike protein, LNP, preservative free, 100 mcg/0.5mL dose or 50 mcg/0.25mL dose administered Note: [facility] bi -directional interface ; Source: Other Registry Afluria Qd administered Note: [facility] bi-directional interface ; Source: Other Registry SARS-COV-2 (COVID-19) vaccin e, mRNA, spike protein, LNP, preservative free, 100 mcg/0.5mL dose or 50 mcg/0.25mL dose administered Note: [facility] bi -directional interface ; Source: Other Registry SARS-COV-2 (COVID-19) vaccin e, mRNA, spike protein, LNP, preservative free, 100 mcg/0.5mL dose administered Note: [facility] bi-direct ional interface ; Source: Other Registry SARS-COV-2 (COVID-19) vaccin e, mRNA, spike protein, LNP, preservative free, 100 mcg/0.5mL dose or 50 mcg/0.25mL dose administered Note: [facility] bi -directional interface ; Source: Other Registry SARS-COV-2 (COVID-19) vaccin e, mRNA, spike protein, LNP, preservative free, 100 mcg/0.5mL dose administered Note: [facility] bi-direct ional interface ; Source: Other Registry SARS-COV-2 (COVID-19) vaccin e, mRNA, spike protein, LNP, preservative free, 100 mcg/0.5mL dose or 50 mcg/0.25mL dose administered Note: [facility] bi -directional interface ; Source: Other Registry SARS-COV-2 (COVID-19) vaccin e, mRNA, spike protein, LNP, preservative free, 100 mcg/0.5mL dose administered Note: [facility] bi-direct ional interface ; Source: Other Registry zoster vaccine recombinant administered N ote: [facility] bi-directional interface ; Source: Other Registry influenza, high-dose seasona l, quadrivalent, 0.7mL dose, preservative free administered Note: [facility] bi-direct ional interface ; Source: Other Registry influenza, high-dose seasona l, quadrivalent, .7mL dose, preservative free administered Note: [facility] bi-direct ional interface ; Source: Other Registry zoster vaccine recombinant administered N ote: [facility] bi-directional interface ; Source: Other Registry Seasonal trivalent influenza vaccine, adjuvanted, preservative free administered Note: [facility] bi-direct ional interface ; Source: Other Registry Afluria Qd administered Note: [facility] bi-directional interface ; Source: Other Registry influenza, high dose seasona l, preservative-free administered Note: [facility] bi-direct ional interface ; Source: Other Registry tetanus toxoid, reduced diphtheria toxoid, and acellular pertussis vaccine, adsorbed administered Note: [facility] b i-directional interface ; Source: Other Registry Prevnar 13 administered Note: [facility] bi-d irectional interface ; Source: Other Registry influenza, high dose seasona l, preservative-free administered Note: [facility] bi-direct ional interface ; Source: Other Registry Influenza, seasonal, injectable administe red Note: [facility] bi- directional interface ; Source: Other Registry influenza virus vaccine, who le virus administered Note: [facility] bi-direct ional interface ; Source: Other Registry Influenza, seasonal, injecta ble, preservative free administered Note: [facility] bi-direct ional interface ; Source: Other Registry zoster vaccine, live administered Note: [facility] bi-directional interface ; Source: Other Registry Pneumovax administered Note: [facility] bi-d irectional interface ; Source: Other Registry Novel [id number], injectable administered Note: [facility] bi-direct ional interface ; Source: Other Registry Influenza, seasonal, injectable administe red Note: [facility] bi- directional interface ; Source: Other Registry tetanus toxoid, reduced diphtheria toxoid, and acellular pertussis vaccine, adsorbed administered Note: [facility] b i-directional interface ; Source: Other Registry Payers Payer name Insurance type Covered constitution party ID Ele khalil(s) [employer] Advantage [id number] Social History Type Description Quantity Date Captured Comments Sex Female Smoking Status No Information Chief Complaint And Reason For Visit No Information Reason For Referral Reason For Referral No Information Plan Of Treatment Date Type Action Status Referral Ordered: Colonoscopy Appointment date/timeframe: 09/12/2017 ordered History Of Present Illness Encounter Date Complaint History Of Prese nt Illness GI Symptoms or Concerns GI Symptoms or Concerns Functional Status Date Functional Assessmen t No Information Instructions Date Instruction Additional Infor mation Colon Cancer Prevention Related to Ulcerative (chronic) pancolitis without complications Colon Cancer Prevention Related to Polyp of colon, unspecified part of colon, unspecified type Colon Polyps Related to Polyp of colon, unspecified part of colon, unspecified type Diverticulosis/Diverticulitis Re lated to Diverticulosis Of Colon High Fiber Diet Related to Diver ticulosis Of Colon Colon Cancer Prevention Related to Diverticulosis Of Colon Assessments Type Assessment Date No Information Patient Care Teams Name Effective Dates (start - stop) Status Members No Information
--- NOTE | 2023-12-22 15:20 | CRLHL7_ITS ---
For Patients: As a result of the Century Cures Act, medical imaging exams and procedure reports are released immediately into your electronic medical record. You may view this report before your referring provider. If you have questions, please contact your health care provider. BILATERAL SCREENING MAMMOGRAM WITH COMPUTER-AIDED DETECTION AND TOMOSYNTHESIS TECHNIQUE: CC and MLO views were obtained. These mammographic images have been obtained using full-field digital technique. These mammographic images were interpreted with the benefit of computer-aided detection. Breast Tomosynthesis was used in this interpretation. COMPARISON FILM: 05/16/22, 04/12/21, 03/10/20. FINDINGS: There are scattered areas of fibroglandular density IMPRESSION: There is no radiographic evidence for malignancy. ASSESSMENT: BI-RADS Category 1: Negative RECOMMENDATION: Routine screening mammogram in 1 year. A lay language report of this examination will be provided to the patient. Bakari Vazquez M.D. Diagnostic Radiologist [email or web address] AFTAB/Dictated by: Bakari Vazquez MD @ 12/22/2023 3:36:00 PM (Electronically Signed)
== END 2023-12-22 15:07 | disposition home or self-care (01) ==
LOC: MAMMO 15:07
PROVIDERS: PCP Internal Medicine; Visit Provider Internal Medicine
DX: Z12.31 Encounter for screening mammogram for malignant neoplasm of breast (principal)
CPT/HCPCS: 77063; 77067

== ENCOUNTER 2024-04-16 07:58 | Outpatient (CLI) | payer OTHER, SELFPAY ==
--- OUTSIDE RECORDS SUMMARY | 2024-04-16 08:00 | XMS_ITS | Clinical Summary ---
Author Organization [facility] Address [address] [place] [address] Care Team Providers Care Design Technician Name Role Phone Candy Gee MD Primary Care Provider +1- [phone] Source Comments You are receiving this document [...] for each transition of care or referral. [facility] Allergies Active Allergy Reactions Criticality Noted Date Comments Atorvastatin Medium 03/10/2020 Quinolones Medium 03/10/2020 Simvastatin Low 03/10/2020 Sulfa Antibiotics High 03/10/2020 Tolterodine Medium 03/10/2020 Medications Medication Sig Dispensed Refills Start Date End Date Status omeprazole (PRILOSEC) 20 MG capsule TK 1 C PO D 02/04/2020 Active erythromycin (ERYGEL) 2 % gel JONATHON EXT AA BID 01/09/2020 Acti ve pravastatin (PRAVACHOL) 10 MG tablet TK 1 T PO HS 02/06/2020 Active fluticasone propionate (FLONASE) 50 MCG/ACT nasal solution Place 2 Sprays into both nostrils daily. Active lisinopril (ZESTRIL) 5 MG tablet Take 1 Tablet (5 mg) by mouth daily. Active MESALAMINE OR Active XARELTO 20 MG tablet TK 1 T PO D WITH MEAL 02/14/2020 Active Calcium Citrate-Vitamin D (CITRACAL + D OR) Active artificial tears (HYPOTEARS) 1-1 % eye drop solution 4 times daily as needed. Active metoprolol tartrate (LOPRESSOR) 25 MG tablet 02/21/2021 Active Risankizumab-rzaa (SKYRIZI SC) Active triamcinolone acetonide (KENALOG) 0.1 % cream Apply topically two times a day. Active lisinopril (ZESTRIL) 10 MG tablet Take 1 Tablet (10 mg) by mouth two times a day. 05/20/2023 Active Wqfkgutzck-NZLY-H affeine 50-300-40 MG CAPS TK 1 TO 2 CS PO Q 4 H NEEDED. MAX 6 C PER DAY 12/02/2019 04/03/2024 Discontinued fluocinonide (LIDEX) 0.05 % ointment Apply topically two times a day. 04/03/2024 Discontinue d Multiple Vitamin (MULTI-VITAMIN DAILY OR) 04/03/2024 Discontinued Active Problems Problem Noted Date Diagnosed Date Immunosuppression due to drug therapy 03/29/2023 Osteoarthritis of multiple joints 03/29/2023 Ulcerative (chronic) pancolitis without complica tions Encounters Date Type Department Care Team Description 04/05/2024 Telephone Rheumatology at [place] [address] Building [facility] [place] [address] Humaira Evans MD Fax 04/03/2024 10:40 AM MANAGER OF REVENUE Ancillary Procedure [facility] [address] [place] [address] Humaira Evans MD Osteoarthritis of multiple joints, unspecified osteoarthritis type 04/03/2024 10:35 AM MANAGER OF REVENUE Ancillary Procedure [facility] [address] [place] [address] Humaira Evans MD Osteoarthritis of multiple joints, unspecified osteoarthritis type 04/03/2024 10:30 AM MANAGER OF REVENUE Ancillary Procedure [facility] [address] [place] [address] Humaira Evans MD Osteoarthritis of multiple joints, unspecified osteoarthritis type 04/03/2024 10:25 AM MANAGER OF REVENUE Ancillary Procedure [facility] [address] [place] [address] Humaira Evans MD Osteoarthritis of multiple joints, unspecified osteoarthritis type 04/03/2024 10:20 AM MANAGER OF REVENUE Ancillary Procedure [facility] [address] [place] [address] Humaira Evans MD Osteoarthritis of multiple joints, unspecified osteoarthritis type 04/03/2024 9:50 AM MANAGER OF REVENUE Lab Visit [facility] [address] [place] [address] Osteoarthritis of multiple joints, unspecified osteoarthritis type 04/03/2024 9:30 AM MANAGER OF REVENUE Office Visit Rheumatology at [facility] [address] [address] Humaira Evans MD Osteoarthritis of multiple joints, unspecified osteoarthritis type (Primary Dx); Psoriasis; 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); Osteoporosis, unspecified osteoporosis type, unspecified pathological fracture presence (HRC) from Last 3 Months Immunizations Name Administration Dates Next Due Flu Vac (3+ yrs) 03/19/2014,02/18/2009 Flu Vac Preserv Free (3+yrs) 03/15/2010 Influenza Q8A3-01 04/21/2009 Influenza IIV3 (Trivalent) F luzone Highdose, 65+ Yrs (88135) 01/18/2020,04/29/2016,04/10/2015 Influenza IIV4 (Quadrivalent) 0.5mL (97491) 02/26 Influenza IIV4 (Quadrivalent ) Fluzone, 65+ Yrs 02/27/2023,03/10/2022,01/18/2020 Influenza aIIV3 65+ Years (Fluad) 03/05/2019 Influenza, Unspecified Formulation 01/18/2020 Influenza, Whole 04/17/2011 Moderna COVID-19 12+ 02/27/2023 Moderna Monovalent 12+ 02/11/2021,08/12/2020, PCV13 [...] Sign Reading Time Taken Comments Blood Pressure 181/83 04/03/2024 9:31 AM MANAGER OF REVENUE Pulse 57 04/03/2024 9:31 AM MANAGER OF REVENUE Temperature 36.7 C (98.1 F) 09/23/2022 8:59 AM CDT Respiratory Rate - - Oxygen Saturation - - Inhaled Oxygen Concentration - - Weight 71.2 kg (157 lb) 04/03/2024 9:31 AM MANAGER OF REVENUE Height 167.6 cm (5' 6) 03/11/2020 8:52 AM CDT Body Mass Index 25.34 03/11/2020 8:52 AM CDT Plan of Treatment Upcoming Encounters Date Type Department Care Team (Late st Contact Info) Description 10/02/2024 10:00 AM CDT Appointment Rheumatology at [facility] [address] [id number] Humaira Evans MD [address] [place], [place] [address] Health Maintenance Due Date Last Done Comments Colon Cancer Screening Plan Due 1950 Hep C Screening (Preventive Services) 1950 Medicare Welcome Visit 1950 Mammogram 1950 Dexa 2014 Pneumococcal 65+ Yrs (3 - PPSV23 or PCV20) 01/18/2021 01/19/2016, 11/18/2009 DTaP/Tdap/Td (3 - Tdap) 01/18/2026 01/19/2016, 12/10 Zoster/Shingles Completed 06/18/2020, 12/28, 11/18/2009 RSV Completed 03/15/2023 COVID-19 Vaccine Completed 03/06/2024, , 02/27/2023, Additional history exists Influenza Completed 03/06/2024, 06/2022, 03/10/2022, Additional history exists HepA Aged Out No longer eligi ble based on patient's age to complete this topic HepB Aged Out No longer eligi ble based on patient's age to complete this topic Hib Aged Out No longer eligi ble based on patient's age to complete this topic IPV (Polio) Aged Out No longer eligi ble based on patient's age to complete this topic Infant RSV Aged Out No longer eligi ble based on patient's age to complete this topic MCV4 Aged Out No longer eligi ble based on patient's age to complete this topic Procedures Procedure Name Priority Date/Time Associated Diagnosis Comments XR KNEE BILAT 3 VIEWS Routine 04/03/2024 10:42 AM MANAGER OF REVENUE Osteoarthritis of multiple joints, unspecified osteoarthritis type XR HAND RT 3+ VIEWS Routine 04/03/2024 1 0:42 AM MANAGER OF REVENUE Osteoarthritis of multiple joints, unspecified osteoarthritis type XR HAND LT 3+ VIEWS Routine 04/03/2024 1 0:42 AM MANAGER OF REVENUE Osteoarthritis of multiple joints, unspecified osteoarthritis type XR FOOT RT 3+ VIEWS Routine 04/03/2024 1 0:42 AM MANAGER OF REVENUE Osteoarthritis of multiple joints, unspecified osteoarthritis type XR FOOT LT 3+ VIEWS Routine 04/03/2024 1 0:41 AM MANAGER OF REVENUE Osteoarthritis of multiple joints, unspecified osteoarthritis type SEDIMENTATION RATE (ESR) Routine 04/03/2024 10:13 AM MANAGER OF REVENUE Osteoarthritis of multiple joints, unspecified osteoarthritis type C-REACTIVE PROTEIN Routine 04/03/2024 10 :13 AM MANAGER OF REVENUE Osteoarthritis of multiple joints, unspecified osteoarthritis type from Last 3 Months Results * XR Knee Bilat 3 Views (04/03/2024 10:42 AM MANAGER OF REVENUE) Anatomical Region Laterality Modality Lower Extremity, Knee Digital Ra diography 04/03/2024 10:1 7 AM MANAGER OF REVENUE Narrative 04/03/2024 11:18 AM MANAGER OF REVENUE COMPARISON: None. FINDINGS: No acute or significant bone or joint abnormality of either knee is identified. Alignment is unremarkable. Procedure Note Dg Bravo MD - 04/03/2024 COMPARISON: None. FINDINGS: No acute or significant bone or joint abnormality of eitherknee is identified. Alignment is unremarkable. Humaira Evans MD RAD GD * XR Hand Rt 3+ Views (04/03/2024 10:42 AM MANAGER OF REVENUE) Anatomical Region Laterality Modality Upper Extremity, Hand Digital Ra diography 04/03/2024 10:1 7 AM MANAGER OF REVENUE Addenda Addendum by Dg Bravo MD on 04/03/2024 12:02 PM MANAGER OF REVENUE Correction: No evidence of inflammatory or erosive arthropathy in either hand. Narrative 04/03/2024 11:18 AM MANAGER OF REVENUE COMPARISON: 03/11/2020 FINDINGS: Left hand: Mild osteoarthritis in multiple IP joints. Inflammatory or erosive arthropathy. Right hand: Mild osteoarthritis in multiple IP joints. Inflammatory or erosive arthropathy. Procedure Note Dg Bravo MD - 04/03/2024 COMPARISON: 03/11/2020 FINDINGS: Left hand: Mild osteoarthritis in multiple IP joints.Inflammatory or erosive arthropathy. Right hand: Mild osteoarthritis in multiple IP joints. Inflammatory orerosive arthropathy. Humaira Evans MD RAD GD * XR Hand Lt 3+ Views (04/03/2024 10:42 AM MANAGER OF REVENUE) Anatomical Region Laterality Modality Upper Extremity, Hand Digital Ra diography 04/03/2024 10:1 7 AM MANAGER OF REVENUE Addenda Addendum by Dg Bravo MD on 04/03/2024 12:02 PM MANAGER OF REVENUE Correction: No evidence of inflammatory or erosive arthropathy in either hand. Narrative 04/03/2024 11:18 AM MANAGER OF REVENUE COMPARISON: 03/11/2020 FINDINGS: Left hand: Mild osteoarthritis in multiple IP joints. Inflammatory or erosive arthropathy. Right hand: Mild osteoarthritis in multiple IP joints. Inflammatory or erosive arthropathy. Procedure Note Dg Bravo MD - 04/03/2024 COMPARISON: 03/11/2020 FINDINGS: Left hand: Mild osteoarthritis in multiple IP joints.Inflammatory or erosive arthropathy. Right hand: Mild osteoarthritis in multiple IP joints. Inflammatory orerosive arthropathy. Humaira Evans MD RAD GD * XR Foot Rt 3+ Views (04/03/2024 10:42 AM MANAGER OF REVENUE) Anatomical Region Laterality Modality Lower Extremity, Foot Digital Ra diography 04/03/2024 10:1 7 AM MANAGER OF REVENUE Narrative 04/03/2024 11:15 AM MANAGER OF REVENUE COMPARISON: 03/25/2020 FINDINGS: Left foot: Mild stable osteoarthritis in the first MTP joint. No evidence of erosive or inflammatory arthropathy. No acute bone or joint abnormalities. Right foot: Mild stable osteoarthritis in the first MTP joint. No evidence of erosive or inflammatory arthropathy. No acute bone or joint abnormalities. Procedure Note Dg Bravo MD - 04/03/2024 COMPARISON: 03/25/2020 FINDINGS: Left foot: Mild stable osteoarthritis in the first MTP joint.No evidence of erosive or inflammatory arthropathy. No acute bone or jointabnormalities. Right foot: Mild stable osteoarthritis in the first MTP joint. No evidenceof erosive or inflammatory arthropathy. No acute bone or jointabnormalities. Humaira Evans MD RAD GD * XR Foot Lt 3+ Views (04/03/2024 10:41 AM MANAGER OF REVENUE) Anatomical Region Laterality Modality Lower Extremity, Foot Digital Ra diography 04/03/2024 10:1 7 AM MANAGER OF REVENUE Narrative 04/03/2024 11:15 AM MANAGER OF REVENUE COMPARISON: 03/25/2020 FINDINGS: Left foot: Mild stable osteoarthritis in the first MTP joint. No evidence of erosive or inflammatory arthropathy. No acute bone or joint abnormalities. Right foot: Mild stable osteoarthritis in the first MTP joint. No evidence of erosive or inflammatory arthropathy. No acute bone or joint abnormalities. Procedure Note Dg Bravo MD - 04/03/2024 COMPARISON: 03/25/2020 FINDINGS: Left foot: Mild stable osteoarthritis in the first MTP joint.No evidence of erosive or inflammatory arthropathy. No acute bone or jointabnormalities. Right foot: Mild stable osteoarthritis in the first MTP joint. No evidenceof erosive or inflammatory arthropathy. No acute bone or jointabnormalities. Humaira Evans MD RAD GD * C-Reactive Protein (04/03/2024 10:13 AM MANAGER OF REVENUE) C-Reactive Protein 0.5 0.0 - 0.5 mg/dL 04/03/2024 6:10 PM MANAGER OF REVENUE [facility] Blood Venipuncture / Unknown 04/03/2024 10:13 AM MANAGER OF REVENUE 04/03/2024 10:13 AM MANAGER OF REVENUE Humaira Evans MD LAB_1 Performing Organization Address [facility] Co de Phone Number [facility] [address] * Sedimentation Rate (ESR) (04/03/2024 10:13 AM MANAGER OF REVENUE) Sedimentation Rate 8 0 - 20 mm/hr 04/03/2024 11:05 AM [facility] Blood Venipuncture / Unknown 04/03/2024 10:13 AM MANAGER OF REVENUE 04/03/2024 10:13 AM MANAGER OF REVENUE Humaira Evans MD LAB_1 [facility] [address] from Last 3 Months Care Teams Design Technician Relationship Specialty Start Date End Date Candy Gee MD [address] [address] PCP - General Internal Medicine 03/05/20
--- OUTSIDE RECORDS SUMMARY | 2024-04-16 08:00 | XMS_ITS | Clinical Summary ---
Author Organization [facility] Address [place], [place] [address] Care Team Providers Care Law Firm Administrator Name Role Phone Candy Gee MD Primary Care Provider +1- [phone] Allergies Active Allergy Reactions Criticality Noted Date Comments Atorvastatin Arthralgia Medium 12/15/2018 Nirmatrelvir-Ritonavir Tachycardia 05/13/2022 Quinolones Edema Medium 12/15/2018 Simvastatin Arthralgia Low 12/15/2018 Sulfa (Sulfonamide Antibiotics) Laryngospasm High Tolterodine *Unknown Medium 12/15/2018 Medications Medication Sig Dispensed Refills Start Date End Date Status fluticasone (50 mcg per actuation) nasal solution (FLONASE) Inhale 1 [place] in the nostril(s) once daily. 07/27/2018 Active Mesalamine (ASACOL) 800 mg TbEC Delayed-Release tablet Take 1 tablet by mouth 2 times daily. 05/17/2018 Active omeprazole (PRILOSEC) 20 mg Delayed-Release capsule Take 20 mg by mouth once daily before a meal. Active Calcium Cmb 2-D3-Min Hre16-Ctm (CITRACAL + BONE DENSITY) 300-200-13.5 mg-unit-mg tab Take by mouth. Two tablets daily 0 04/16/2019 Active risankizumab-rzaa (Skyrizi) 150mg/1.66mL(75 mg/0.83 mL x2) sykt Inject subcutaneous. Every 3 Months. 0 09/29/2020 Active amoxicillin-clavulana te 875-125 mg tablet (AUGMENTIN) Take 1 Tablet by mouth two times daily with meals. 05/16/2023 Active metoprolol tartrate (LOPRESSOR) 25 mg tabletIndications:Par oxysmal atrial fibrillation (HC) Take 1 Tablet (25 mg) by mouth two times daily. 180 Tablet 3 05/19/2023 Active pravastatin (PRAVACHOL) 10 mg tabletIndications:Mix ed hyperlipidemia Take 1 Tablet (10 mg) by mouth once daily. 90 Tablet 3 05/19/2023 Active rivaroxaban (Xarelto) 20 mg tabletIndications:Par oxysmal atrial fibrillation (HC) Take 1 Tablet (20 mg) by mouth once daily with evening meal. 90 Tablet 3 05/19/2023 Active lisinopriL (PRINIVIL; ZESTRIL) 10 mg tabletIndications:Hyp ertension Take 1 Tablet (10 mg) by mouth two times daily. Due for cardiology appt April 2025. 180 Tablet 3 12/18/2023 Active Active Problems Patient Care Coordination No te [...] Comments Blood Pressure 177/80 05/19/2023 10:19 AM HONING MACHINE SET UP OPERATOR TOOL Pulse 60 05/19/2023 10:19 AM HONING MACHINE SET UP OPERATOR TOOL Temperature 36.9 C (98.5 F) 08/23/2020 8:23 AM CDT Respiratory Rate 16 08/23/2020 8:23 AM CDT Oxygen Saturation 95% 05/19/2023 10:19 AM HONING MACHINE SET UP OPERATOR TOOL Inhaled Oxygen Concentration - - Weight 71.8 kg (158 lb 3.2 oz) 05/19/2023 10:19 AM HONING MACHINE SET UP OPERATOR TOOL Height 167.6 cm (5' 6) 09/29/2020 9:33 AM CDT Body Mass Index 25.53 09/29/2020 9:33 AM CDT Plan of Treatment Health Maintenance Due Date Last Done Comments Tdap 01/05/1960 Depression screening for age 12+ 1961 Hepatitis C screening for ag e 18-79 1967 Zoster (shingles) series for age 50+ (1 of 2) 01/05/1968 Tetanus booster 1969 Colonoscopy through age 75 1994 DEXA/DXA scan for age 65+ 2014 Medicare Wellness for age 65+ 2014 Pneumococcal series for age 65+ (1 of 1 - PCV) 2014 BMI (ht and wt on same day) for age 18+ 09/29/2021 09/29/2020, 03/31/2020, 03/27/2020, Additional history exists RSV vaccine for adults or (1 - 1-dose 75+ series) 01/05/2024 COVID-19 vaccine series ( season) 2024 02/27/2023, 04/29/2022, 09/16/2021, Additional history exists Influenza [...] - 199 mg/dL 08/23/2020 6:13 AM CDT [facility] TRIGLYCERIDES 168(H) <150 mg/dL 08/23/2020 6:13 AM CDT [facility] HDL CHOLESTEROL 37(L) >40 mg/dL 6:13 AM CDT [facility] NON-HDL CHOLESTEROL 132 <145 mg/dl 08/23/2020 6:13 AM CDT [facility] CHOL/HDL RATIO 4.57(H) <4.50 08/23/2020 6:13 AM CDT [facility] LDL CHOLESTEROL 98 <=130 mg/dL 08/23/2020 6:13 AM CDT [facility] PROVIDER ORDERED STATUS RANDOM 08/23/2020 6:13 AM CDT [facility] Blood BLOOD SPECIMEN / Unknown Venipuncture / Unknown 08/23/2020 5:47 AM CDT 08/23/2020 5:52 AM CDT Eryn Benavides MD CHEMISTRY [facility] [address] [place] [address], [place] from Last 3 Months or Most Recently Relevant to Health Maintenance Advance Directives * Full Code (Latest Code Status on File) Date Activated Date Inactivated Comments 08/23/2020 10:20 AM 08/23/2020 1:57 PM Question Answer Comments Code Status Discussion: Discussed * Full Code Date Activated Date Inactivated Comments 12/26/2019 3:38 PM 12/27/2019 1:20 PM Care Teams Law Firm Administrator Relationship Specialty Start Date End Date Candy Gee MD [address] [place] [id number] PCP - General Internal Medicine 03/01/19
--- OUTSIDE RECORDS SUMMARY | 2024-04-16 08:01 | XMS_ITS | Encounter Summary ---
Author Organization [facility] Address [address] [place] [address] Care Team Providers Care Flatware Maker Name Role Phone Candy Gee MD Primary Care Provider +1- [phone] Reason for Visit * Reason Comments Fax Encounter Details Date Type Department Care Team (Late st Contact Info) Description 04/05/2024 Telephone Rheumatology at [address] [place], [place] [id number] Humaira Evans MD [address] [place] [phone] Fax Social History Tobacco Use Types Packs/Day Years Used Date Smoking Tobacco: Former Smokeless Tobacco: Never Sex and Gender Information Value Date Recorded Sex Assigned at Not on file Gender Identity Not on file Sexual Orientation Not on file documented as of this encounter Nursing Notes * Jaspal Tan RN - 04/05/2024 3:39 PM CST Pt's most recent chart note from 04/03/24 printed and faxed today to [facility] at [phone]. ADVISOR * Kaye Vizcaino RN - 04/05/2024 11:47 AM CST [facility] is going to be the patients Physical therapy. They state that they have the order but they are requesting that the last chart note be sent to them Please advise. Fax number: [phone] ADVISOR documented in this encounter Plan of Treatment Upcoming Encounters Date Type Department Care Team (Late st Contact Info) Description 10/02/2024 10:00 AM CDT Appointment Rheumatology at [facility] [address] [id number] Humaira Evans MD [address] [place], [place] [phone] documented as of this encounter Visit Diagnoses Not on filedocumented in this encounter Care Teams Flatware Maker Relationship Specialty Start Date End Date Candy Gee MD [address] [place] [address] PCP - General Internal Medicine 03/05/20 documented as of this encounter
--- OUTSIDE RECORDS SUMMARY | 2024-04-16 08:01 | XMS_ITS | Encounter Summary ---
Author Organization [facility] Address [address] [place] [address] Care Team Providers Care Reimbursement Spec Name Role Phone Candy Gee MD Primary Care Provider +1- [phone] Reason for Visit * Procedure/Equipment (Routine) - Incomplete Specialty Diagnoses / Procedures Referred By Trino t Referred To Contact Diagnoses Osteoarthritis of multiple joints, unspecified osteoarthritis type Procedures XR Foot Rt 3+ Views Humaira Evans MD [address] [place] [address] Referral ID Status Reason Start Date Expiration Date V isits Requested Visits Authorized [id number] Incomplete 04/03/2024 07/03/2025 1 1 Encounter Details Date Type Department Care Team (Late st Contact Info) Description 04/03/2024 10:25 AM DIE CUTTER APPRENTICE Ancillary Procedure [facility] [address] [place] [address] Humaira Evans MD [address] [place] [address] Osteoarthritis of multiple joints, unspecified osteoarthritis type Social History Tobacco Use Types Packs/Day Years [...] 10/02/2024 10:00 AM CDT Appointment Rheumatology at [facility] [place] [address] [address] [address] [place] [address] Humaira Evans MD [address] [place] [address] documented as of this encounter Procedures Procedure Name Priority Date/Time Associated Diagnosis Comments XR FOOT RT 3+ VIEWS Routine 04/03/2024 10:42 AM DIE CUTTER APPRENTICE Osteoarthritis of multiple joints, unspecified osteoarthritis type documented in this encounter Results * XR Foot Rt 3+ Views (04/03/2024 10:42 AM DIE CUTTER APPRENTICE) Anatomical Region Laterality Modality Lower Extremity, Foot Digital Ra diography 04/03/2024 10:1 7 AM DIE CUTTER APPRENTICE Narrative 04/03/2024 11:15 AM DIE CUTTER APPRENTICE COMPARISON: 03/25/2020 FINDINGS: Left foot: Mild stable [...] Foot Lt 3+ Views (04/03/2024 10:41 AM DIE CUTTER APPRENTICE) Anatomical Region Laterality Modality Lower Extremity, Foot Digital Ra diography 04/03/2024 10:1 7 AM DIE CUTTER APPRENTICE Narrative 04/03/2024 11:15 AM DIE CUTTER APPRENTICE COMPARISON: 03/25/2020 FINDINGS: Left foot: Mild stable [...] or jointabnormalities. Humaira Evans MD RAD GD documented in this encounter Visit Diagnoses Diagnosis Osteoarthritis of multiple joints, unspecified osteoarthritis type Osteoarthritis of multiple joints, unspecified osteoarthritis type documented in this encounter Care Teams Reimbursement Spec Relationship Specialty Start Date End Date Candy Gee MD [address] [place] [address] PCP - General Internal Medicine 03/05/20 documented as of this encounter
--- OUTSIDE RECORDS SUMMARY | 2024-04-16 08:01 | XMS_ITS | Encounter Summary ---
Author Organization [facility] Address [address] [place] [address] Care Team Providers Care Automotive Fleet Supervisor Name Role Phone Candy Gee MD Primary Care Provider [phone]- [phone] Reason for Visit * Procedure/Equipment (Routine) - Incomplete Specialty Diagnoses / Procedures Referred By Trino t Referred To Contact Diagnoses Osteoarthritis of multiple joints, unspecified osteoarthritis type Procedures XR Knee Bilat 3 Views Humaira Evans MD [address] [place] [address] Referral ID Status Reason Start Date Expiration Date V isits Requested Visits Authorized [id number] Incomplete 04/03/2024 07/03/2025 1 1 Encounter Details Date Type Department Care Team (Late st Contact Info) Description 04/03/2024 10:40 AM TEXTILE TECHNICAL OFFICER Ancillary Procedure [facility] [address] [place] [address] Humaira Evans MD [address] [place] [address] Osteoarthritis of multiple joints, unspecified osteoarthritis type [...] 10/02/2024 10:00 AM CDT Appointment Rheumatology at [facility] [address] [address] [place] [address] Humaira Evans MD [address] [place] [address] documented as of this encounter Procedures Procedure Name Priority Date/Time Associated Diagnosis Comments XR KNEE BILAT 3 VIEWS Routine 04/03/2024 10:42 AM TEXTILE TECHNICAL OFFICER Osteoarthritis of multiple joints, unspecified osteoarthritis type documented in this encounter Results * XR Knee Bilat 3 Views (04/03/2024 10:42 AM TEXTILE TECHNICAL OFFICER) Anatomical Region Laterality Modality Lower Extremity, Knee Digital Ra diography 04/03/2024 10:1 7 AM TEXTILE TECHNICAL OFFICER Narrative 04/03/2024 11:18 AM TEXTILE TECHNICAL OFFICER COMPARISON: None. FINDINGS: No acute or significant bone or joint abnormality of either knee is identified. Alignment is unremarkable. Procedure Note Dg Bravo MD - 04/03/2024 COMPARISON: None. FINDINGS: No acute or significant bone or joint abnormality of eitherknee is identified. Alignment is unremarkable. Humaira Evans MD RAD GD documented in this encounter Visit Diagnoses Diagnosis Osteoarthritis of multiple joints, unspecified osteoarthritis type documented in this encounter Care Teams Automotive Fleet Supervisor Relationship Specialty Start Date End Date Candy Gee MD [address] [place] [address] PCP - General Internal Medicine 03/05/20 documented as of this encounter
--- OUTSIDE RECORDS SUMMARY | 2024-04-16 08:01 | XMS_ITS | Encounter Summary ---
Author Organization [facility] Address [address] [address] Care Team Providers Care Delivery Crew Member Name Role Phone Candy Gee MD Primary Care Provider [phone]- [phone] Reason for Referral * Therapies (Routine) - New Request Specialty Diagnoses / Procedures Referred By Trino loza Referred To Contact Diagnoses Osteoarthritis of multiple joints, unspecified osteoarthritis type Humaira Evans MD [address] [place] [id number] Referral ID Status Reason Start Date Expiration Date V isits Requested Visits Authorized [id number] New Request 04/03/2024 04/03/2025 1 1 Scheduling Instructions This order is your clinician's recommendation for a service and is not an insurance referral which authorizes payment. The recommended service and/or location may not be covered by your insurance plan. Please call the number on your insurance card to find out your specific benefits and coverage for the recommended services and/or location. If you need help scheduling the recommended services, please ask your clinician's staff to assist you. Question Answer Appointment Urgency? Non-Urgent Requested Services Evaluate and treat Reason for Visit General Physical Therapy May use saline for irrigation or cleansing Yes dexamethasone use Yes May check glucose per protocol (see policy link below) or if patient has symptoms? Yes Comments B/l knee and foot OA TRAILER FILLER * Procedure/Equipment (Routine) - Incomplete Specialty Diagnoses / Procedures Referred By Contac t Referred To Contact Diagnoses Osteoarthritis of multiple joints, unspecified osteoarthritis type Procedures XR Knee Bilat 3 Views Humaira Evans MD [address] [place] [address] Referral ID Status Reason Start Date Expiration Date V isits Requested Visits Authorized [id number] Incomplete 04/03/2024 07/03/2025 1 1 TRAILER FILLER * Procedure/Equipment (Routine) - Incomplete Specialty Diagnoses / Procedures Referred By Contac t Referred To Contact Diagnoses Osteoarthritis of multiple joints, unspecified osteoarthritis type Procedures XR Foot Lt 3+ Views Humaira Evans MD [address] [place] [address] Referral ID Status Reason Start Date Expiration Date V isits Requested Visits Authorized [id number] Incomplete 04/03/2024 07/03/2025 1 1 TRAILER FILLER * Procedure/Equipment (Routine) - Incomplete Specialty Diagnoses / Procedures Referred By Contac t Referred To Contact Diagnoses Osteoarthritis of multiple joints, unspecified osteoarthritis type Procedures XR Foot Rt 3+ Views Humaira Evans MD [address] [place] [address] Referral ID Status Reason Start Date Expiration Date V isits Requested Visits Authorized [id number] Incomplete 04/03/2024 07/03/2025 1 1 TRAILER FILLER * Procedure/Equipment (Routine) - Incomplete Specialty Diagnoses / Procedures Referred By Contac t Referred To Contact Diagnoses Osteoarthritis of multiple joints, unspecified osteoarthritis type Procedures XR Hand Lt 3+ Views Humaira Evans MD [address] [place] [address] Referral ID Status Reason Start Date Expiration Date V isits Requested Visits Authorized [id number] Incomplete 04/03/2024 07/03/2025 1 1 TRAILER FILLER * Procedure/Equipment (Routine) - Incomplete Specialty Diagnoses / Procedures Referred By Contac t Referred To Contact Diagnoses Osteoarthritis of multiple joints, unspecified osteoarthritis type Procedures XR Hand Rt 3+ Views Humaira Evans MD [address] [place] [address] Referral ID Status Reason Start Date Expiration Date V isits Requested Visits Authorized [id number] Incomplete 04/03/2024 07/03/2025 1 1 TRAILER FILLER Reason for Visit * Reason Comments Follow-up Encounter Details Date Type Department Care Team (Late st Contact Info) Description 04/03/2024 9:30 AM TUBE TRAILER FILLER Office Visit Rheumatology at [facility] [address] [address] Humaira Evans MD [address] [place] [address] Osteoarthritis of multiple joints, unspecified osteoarthritis type (Primary Dx); Psoriasis; 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); Osteoporosis, unspecified osteoporosis type, unspecified pathological fracture presence (HRC) Social History Tobacco Use Types Packs/Day Years Used Date Smoking Tobacco: Former Smokeless Tobacco: Never Sex and Gender Information Value Date Recorded Sex Assigned at Not on file Gender Identity Not on file Sexual Orientation Not on file documented as of this encounter Last Filed Vital Signs Vital Sign Reading Time Taken Comments Blood Pressure 181/83 04/03/2024 9:31 AM TUBE TRAILER FILLER Pulse 57 04/03/2024 9:31 AM TUBE TRAILER FILLER Temperature - - Respiratory Rate - - Oxygen Saturation - - Inhaled Oxygen Concentration - - Weight 71.2 kg (157 lb) 04/03/2024 9:31 AM TUBE TRAILER FILLER Height - - Body Mass Index 25.34 03/11/2020 8:52 AM CDT documented in this encounter Patient Instructions * Patient Instructions* Humaira Evans MD - 04/03/2024 9:30 AM TUBE TRAILER FILLER Images from the original note were not included. Continue tylenol-try taking 500-1000 mg in the morning and in the evening for 1 week then use as needed X-rays today Check inflammation markers Voltaren or diclofenac gel up to 4 times daily as needed on the joints PT for the legs Call me if you get swelling of the joints or stiffness increases for more than 1 hour Continue following with dermatology Continue tylenol as needed Follow up in 6 months TRAILER FILLER documented in this encounter Progress Notes * Humaira Evans MD - 04/03/2024 9:30 AM CST RHEUMATOLOGY FOLLOW-UP CC: follow up positive MARLON, palmar plantar psoriasis with arthralgias, osteoarthritis, myofascial pain Encounter date: 04/03/2024 Date of last office visit: 03/29/2023 Rheumatologic history: The patient is a 74 y.o. female with medical history of psoriasis, ulcerative colitis, migraine headache, osteoporosis, seasonal allergies, hyperlipidemia, obstructive sleep apnea, and atrial fibrillation on anticoagulation with recent ablation presenting to our clinic initially in February 2020 forevaluation of a positive MARLON in the setting of arthralgias, lymphadenopathy, and new rash. Work up done including SUNSHINE panel, ANCA, cryoglobulin, complement, dsDNA, UA with urine protein:cr ratio, HLAB27, ASO, HIV, CBC, BMP, all of which were unremarkable. CT done of the neck and chest due to complaints of neck and axillary lymphadenopathy which did not show concerning lymph nodes. X-ray of the hands done showing mild to moderate OA changes with bony demineralization. MARLON could be positive in the setting of her known inflammatory bowel disease. 1:80, speckled pattern. 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 HLA B27 negative. She was started on Skirizi in April 2020 by dermatology. Interim history: She has been having pain in her hands, knees. Feet, ankles. This has been going on for about 1 month. She is using tylenol and using heat and tiger balm. She notes that when she gets up in the morning she feels like she has pain in the hands and knees, takes about 1-1.5 hours to feel better. She heather her feet all day. Usually by 5 pm her legs really ache. Heat is helpful. Sometimes aching at night. She feels like today is a good day. She continues to be on Skyrizi. Skin continues to be doing really well. Denies any specific trigger. She did get her flu and COVID vaccine. She had a DXA last year with her PCP and showed osteoporosis. They recommended fosamax but she has not yet started this. She was rowing but it hurt her legs. ROS: Review of systems today's visit was reviewed, and is as noted above. PMH: Updated in EMR Outpatient Encounter Medications as of 04/03/2024 Medication Sig Dispense Refill artificial tears (HYPOTEARS) 1-1 % eye drop solution 4 times daily as needed. Jkcwexoixq-ZKEP-Npxqesyv 50-300-40 MG CAPS TK 1 TO 2 CS PO Q 4 H NEEDED. MAX 6 C PER DAY Calcium Citrate-Vitamin D (CITRACAL + D OR) erythromycin (ERYGEL) 2 % gel JONATHON EXT AA BID fluocinonide (LIDEX) 0.05 % ointment Apply topically two times a day. fluticasone propionate (FLONASE) 50 MCG/ACT nasal solution Place 2 Sprays into both nostrils daily. lisinopril (ZESTRIL) 5 MG tablet Take 1 Tablet (5 mg) by mouth daily. MESALAMINE OR metoprolol tartrate (LOPRESSOR) 25 MG tablet Multiple Vitamin (MULTI-VITAMIN DAILY OR) omeprazole (PRILOSEC) 20 MG capsule TK 1 C PO D pravastatin (PRAVACHOL) 10 MG tablet TK 1 T PO HS Risankizumab-rzaa (SKYRIZI SC) triamcinolone acetonide (KENALOG) 0.1 % cream Apply topically two times a day. XARELTO 20 MG tablet TK 1 T PO D WITH MEAL No facility-administered encounter medications on file as of 04/03/2024. ALLERGIES: Updated in EMR Social History Tobacco Use Smoking Status Former Smokeless Tobacco Never Social History Substance and Sexual Activity Alcohol Use Not on file MEDS: Reviewed and updated in the computerized record. Physical exam: There were no vitals taken for this visit. General: Alert, no distress, appears comfortable Eyes: anicteric, no erythema ENT: Oral mucosa not examined Resp: breathing comfortably on room air. CV: Not examined Abd: Not examined Skin: No visible plaques on examined skin. There is no evidence of significant plaques or scales ofthe feet today. Neuro: normal gait. Grossly normal strength. MSK: A focused joint exam was performed involving shoulders, elbows, hands, ankles, feet. 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 Unchanged. No evidence of synovitis on today's exam. She is not tender today onpalpation of the hand joints, wrists. No dactylitis type changes. No soft tissue tender points today. Crepitus of the left knee without tenderness to palpation of the knee joint line bilaterally withno evidence of effusion. There is no tenderness to palpation or swelling of the ankles. No pain on MTP squeeze or evidence of synovitis of the MTP joints Labs: Lab Results Component Value Date WBC [...] Component Value Date C-Reactive Protein 0.5 06/10/2021 [facility] MARLON: 1:80, speckled 02/2020: SUNSHINE panel negative dsDNA negative Complement normal Cryoglobulin negative HLA B27 negative HIV negative ANCA negative Imaging: CT chest 03/18/2020: IMPRESSION: 1. No thoracic adenopathy by size criteria. 2. A 4 mm nodule within the left lower lobe. See guidelines. PN Consensus Recommendation for a single solid nodule less than 6 mm (excludes patients younger than 35 years, immunocompromised patients and patients with cancer): Low risk patients: No routine follow-up. High risk patients (older age, smoking history, emphysema, fibrosis): Optional lung nodule CT at 12months. CT neck soft tissue w/ IV contrast [...] joints. Bones are mildly demineralized. ASSESSMENT/PLAN: # arthralgias, osteoarthritis of multiple sites # palmar plantar psoriasis # immunosuppression due to drug therapy # history of IBD # low titer MARLON # osteoporosis Ms. Matos is a very pleasant 74 y.o. female with medical history of psoriasis, ulcerative colitis, migraine headache, osteoporosis, seasonal allergies, hyperlipidemia, obstructive sleep apnea, and atrial fibrillation on anticoagulation with ablation presenting to our clinic for follow up in regards to her arthralgias in the setting of her palmar plantar psoriasis. No overt signs of psoriatic arthritis on today's exam. Clinical picture appears most consistent with osteoarthritis of multiple sites. She has been dealing with increased stiffness and notes that she feels stiff for a proximally 1-1-1/2 hours in the morning and has been using Tylenol as needed and heat. We reviewed today that thereare no evidence of active inflammatory findings on today's exam so it is difficult to discern if her symptoms are due to a underlying inflammatory arthropathies versus osteoarthritis. Suspect osteoarthritis given her exam. Will obtain x-rays for further evaluation for underlying inflammatory changes of the bilateral hands, feet, knees. After discussion we agreed to move forward with physical therapy. I would recommend that she try Tylenol 500-1000 mg twice daily for the next week then can use as needed. Can use diclofenac gel up to 4 times daily as needed. Encouraged to continue gentle exercise. In addition, we will keep updated with x-ray and inflammatory marker results to see if additional workup/treatment is warranted. She continues to be on SKyrizi and skin has been under great control. Continue following with Dermatology. She also had an outside bone density done with primary care that showed evidence of osteoporosis. She wanted to know my opinion on Fosamax. She denies any history of significant acid reflux, esophagitis, difficulty swallowing pills. No history of fracture of the back or hip. Agree with plans to start Fosamax once weekly as per primary care. Encouraged to continue adequate calcium and vitamin- D and weight-bearing exercise. Continue follow up with primary care as she is likely due for repeat bonedensity next year. Will plan on follow-up in 6 months or sooner if needed. PLAN: - topical diclofenac gel as needed - continue Tylenol as needed, try 500-1000 mg twice daily for the next week then back to as needed - x-rays of the bilateral hands, feet, knees - ESR, CRP - PT for knee, ankle, foot pain, given outside referral - continue exercise - continue Skyrizi as per dermatology - call if symptoms change or flare prior to follow-up - agree with plans for Fosamax as per primary care, follow up with primary care regarding repeat bone density, continue adequate calcium and vitamin-D - follow up in 6 months or sooner if needed Patient advised to call clinic if symptoms change or worsen. All questions answered to the best of my ability. Billing based on: gwyn Evans MD [facility] TRAILER FILLER documented in this encounter Plan of Treatment Upcoming Encounters Date Type Department Care Team (Late st Contact Info) Description 10/02/2024 10:00 AM CDT Appointment Rheumatology at [facility] [address] [address] Humaira Evans MD [address] [place] [address] Scheduled Referrals Name Type Priority Associated Diagnoses Orde r Schedule Physical Therapy Referral Routine Osteoarthritis of multiple joints, unspecified osteoarthritis type Ordered: 04/03/2024 documented as of this encounter Results * XR Knee Bilat 3 Views (04/03/2024 10:42 AM TUBE TRAILER FILLER) Anatomical Region Laterality Modality Lower Extremity, Knee Digital Ra diography 04/03/2024 10:1 7 AM TUBE TRAILER FILLER Narrative 04/03/2024 11:18 AM TUBE TRAILER FILLER COMPARISON: None. FINDINGS: No acute or significant bone or joint abnormality of either knee is identified. Alignment is unremarkable. Procedure Note Dg Bravo MD - 04/03/2024 COMPARISON: None. FINDINGS: No acute or significant bone or joint abnormality of eitherknee is identified. Alignment is unremarkable. Humaira Evans MD RAD GD * XR Hand Rt 3+ Views (04/03/2024 10:42 AM TUBE TRAILER FILLER) Anatomical Region Laterality Modality Upper Extremity, Hand Digital Ra diography 04/03/2024 10:1 7 AM TUBE TRAILER FILLER Addenda Addendum by Dg Bravo MD on 04/03/2024 12:02 PM TUBE TRAILER FILLER Correction: No evidence of inflammatory or erosive arthropathy in either hand. Narrative 04/03/2024 11:18 AM TUBE TRAILER FILLER COMPARISON: 03/11/2020 FINDINGS: Left hand: Mild osteoarthritis [...] Hand Lt 3+ Views (04/03/2024 10:42 AM TUBE TRAILER FILLER) Anatomical Region Laterality Modality Upper Extremity, Hand Digital Ra diography 04/03/2024 10:1 7 AM TUBE TRAILER FILLER Addenda Addendum by Dg Bravo MD on 04/03/2024 12:02 PM TUBE TRAILER FILLER Correction: No evidence of inflammatory or erosive arthropathy in either hand. Narrative 04/03/2024 11:18 AM TUBE TRAILER FILLER COMPARISON: 03/11/2020 FINDINGS: Left hand: Mild osteoarthritis [...] Foot Rt 3+ Views (04/03/2024 10:42 AM TUBE TRAILER FILLER) Anatomical Region Laterality Modality Lower Extremity, Foot Digital Ra diography 04/03/2024 10:1 7 AM TUBE TRAILER FILLER Narrative 04/03/2024 11:15 AM TUBE TRAILER FILLER COMPARISON: 03/25/2020 FINDINGS: Left foot: Mild stable [...] Foot Lt 3+ Views (04/03/2024 10:41 AM TUBE TRAILER FILLER) Anatomical Region Laterality Modality Lower Extremity, Foot Digital Ra diography 04/03/2024 10:1 7 AM TUBE TRAILER FILLER Narrative 04/03/2024 11:15 AM TUBE TRAILER FILLER COMPARISON: 03/25/2020 FINDINGS: Left foot: Mild stable [...] jointabnormalities. Humaira Evans MD RAD GD * Sedimentation Rate (ESR) (04/03/2024 10:13 AM TUBE TRAILER FILLER) Sedimentation Rate 8 0 - 20 mm/hr 04/03/2024 11:05 AM TUBE TRAILER FILLER [facility] Blood Venipuncture / Unknown 04/03/2024 10:13 AM TUBE TRAILER FILLER 04/03/2024 10:13 AM TUBE TRAILER FILLER Humaira Evans MD LAB_1 Performing Organization Address [facility] Co de Phone Number [facility] [address] [id number] * C-Reactive Protein (04/03/2024 10:13 AM TUBE TRAILER FILLER) C-Reactive Protein 0.5 0.0 - 0.5 mg/dL 04/03/2024 6:10 PM [facility] Blood Venipuncture / Unknown 04/03/2024 10:13 AM TUBE TRAILER FILLER 04/03/2024 10:13 AM TUBE TRAILER FILLER Humaira Evans MD LAB_1 Performing Organization Address [facility] Co de Phone Number [facility] [address] [address] documented in this encounter Visit Diagnoses Diagnosis Osteoarthritis of multiple joints, unspecified osteoarthritis type- Primary Psoriasis Other psoriasis 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) Osteoporosis, unspecified osteoporosis type, unspecified pathological fracture presence (HRC) Osteoarthritis of multiple joints, unspecified osteoarthritis type Osteoarthritis of multiple joints, unspecified osteoarthritis type Osteoarthritis of multiple joints, unspecified osteoarthritis type Osteoarthritis of multiple joints, unspecified osteoarthritis type Osteoarthritis of multiple joints, unspecified osteoarthritis type documented in this encounter Care Teams Delivery Crew Member Relationship Specialty Start Date End Date Candy Gee MD [address] [place] [address] PCP - General Internal Medicine 03/05/20 documented as of this encounter
--- OUTSIDE RECORDS SUMMARY | 2024-04-16 08:01 | XMS_ITS | Encounter Summary ---
Author Organization [facility] Address [address] [place] [address] Care Team Providers Care Robotic Machine Operator Name Role Phone Candy Gee MD Primary Care Provider +1- [phone] Reason for Visit * Procedure/Equipment (Routine) - Incomplete Specialty Diagnoses / Procedures Referred By Contac t Referred To Contact Diagnoses Osteoarthritis of multiple joints, unspecified osteoarthritis type Procedures XR Hand Lt 3+ Views Humaira Evans MD [address] [place] [address] Referral ID Status Reason Start Date Expiration Date V isits Requested Visits Authorized [id number] Incomplete 04/03/2024 07/03/2025 1 1 Encounter Details Date Type Department Care Team (Late st Contact Info) Description 04/03/2024 10:30 AM CAMP ADVISOR Ancillary Procedure [facility] [address] [place] [address] Humaira Evans MD [address] [place] [address] Osteoarthritis of multiple joints, unspecified osteoarthritis type [...] 10/02/2024 10:00 AM CDT Appointment Rheumatology at [facility] [place] [address] [address] [address] [place] [address] Humaira Evans MD [address] [place] [address] documented as of this encounter Procedures Procedure Name Priority Date/Time Associated Diagnosis Comments XR HAND LT 3+ VIEWS Routine 04/03/2024 10:42 AM CAMP ADVISOR Osteoarthritis of multiple joints, unspecified osteoarthritis type documented in this encounter Results * XR Hand Rt 3+ Views (04/03/2024 10:42 AM CAMP ADVISOR) Anatomical Region Laterality Modality Upper Extremity, Hand Digital Ra diography 04/03/2024 10:1 7 AM CAMP ADVISOR Addenda Addendum by Dg Bravo MD on 04/03/2024 12:02 PM CAMP ADVISOR Correction: No evidence of inflammatory or erosive arthropathy in either hand. Narrative 04/03/2024 11:18 AM CAMP ADVISOR COMPARISON: 03/11/2020 FINDINGS: Left hand: Mild osteoarthritis [...] Hand Lt 3+ Views (04/03/2024 10:42 AM CAMP ADVISOR) Anatomical Region Laterality Modality Upper Extremity, Hand Digital Ra diography 04/03/2024 10:1 7 AM CAMP ADVISOR Addenda Addendum by Dg Bravo MD on 04/03/2024 12:02 PM CAMP ADVISOR Correction: No evidence of inflammatory or erosive arthropathy in either hand. Narrative 04/03/2024 11:18 AM CAMP ADVISOR COMPARISON: 03/11/2020 FINDINGS: Left hand: Mild osteoarthritis [...] orerosive arthropathy. Humaira Evans MD RAD GD documented in this encounter Visit Diagnoses Diagnosis Osteoarthritis of multiple joints, unspecified osteoarthritis type Osteoarthritis of multiple joints, unspecified osteoarthritis type documented in this encounter Care Teams Robotic Machine Operator Relationship Specialty Start Date End Date Candy Gee MD [address] [place] [address] PCP - General Internal Medicine 03/05/20 documented as of this encounter
--- OUTSIDE RECORDS SUMMARY | 2024-04-16 08:01 | XMS_ITS | Encounter Summary ---
Author Organization [facility] Address [address] [place] [address] Care Team Providers Care Children'S Lunchroom Supervisor Name Role Phone Candy Gee MD Primary Care Provider [phone]- [phone] Reason for Visit * Procedure/Equipment (Routine) - Incomplete Specialty Diagnoses / Procedures Referred By Contac t Referred To Contact Diagnoses Osteoarthritis of multiple joints, unspecified osteoarthritis type Procedures XR Foot Lt 3+ Views Humaira Evans MD [address] [place] [address] Referral ID Status Reason Start Date Expiration Date V isits Requested Visits Authorized [id number] Incomplete 04/03/2024 07/03/2025 1 1 Encounter Details Date Type Department Care Team (Late st Contact Info) Description 04/03/2024 10:20 AM CLINICAL AIDE Ancillary Procedure [facility] [address] [place] [address] Humaira Evans MD [address] [place] [address] Osteoarthritis of multiple joints, unspecified osteoarthritis type [...] 10/02/2024 10:00 AM CDT Appointment Rheumatology at [facility] [place] [address] [address] [address] [place] [address] Humaira Evans MD [address] [place] [address] documented as of this encounter Procedures Procedure Name Priority Date/Time Associated Diagnosis Comments XR FOOT LT 3+ VIEWS Routine 04/03/2024 10:41 AM CLINICAL AIDE Osteoarthritis of multiple joints, unspecified osteoarthritis type documented in this encounter Results * XR Foot Rt 3+ Views (04/03/2024 10:42 AM CLINICAL AIDE) Anatomical Region Laterality Modality Lower Extremity, Foot Digital Ra diography 04/03/2024 10:1 7 AM CLINICAL AIDE Narrative 04/03/2024 11:15 AM CLINICAL AIDE COMPARISON: 03/25/2020 FINDINGS: Left foot: Mild stable [...] Foot Lt 3+ Views (04/03/2024 10:41 AM CLINICAL AIDE) Anatomical Region Laterality Modality Lower Extremity, Foot Digital Ra diography 04/03/2024 10:1 7 AM CLINICAL AIDE Narrative 04/03/2024 11:15 AM CLINICAL AIDE COMPARISON: 03/25/2020 FINDINGS: Left foot: Mild stable [...] type documented in this encounter Care Teams Children'S Lunchroom Supervisor Relationship Specialty Start Date End Date Candy Gee MD [address] [place] [address] PCP - General Internal Medicine 03/05/20 documented as of this encounter
--- OUTSIDE RECORDS SUMMARY | 2024-04-16 08:01 | XMS_ITS | Encounter Summary ---
Author Organization [facility] Address [address], [place] [address] Care Team Providers Care [place] Supervisor Name Role Phone Candy Gee MD Primary Care Provider [phone]- [phone] Encounter Details Date Type Department Care Team (Late st Contact Info) Description 04/03/2024 9:50 AM MEDICAL ASSISTANT DERMATOLOGY Lab Visit [place] [id number] [place] [address] Osteoarthritis of multiple joints, unspecified osteoarthritis type [...] 10/02/2024 10:00 AM CDT Appointment Rheumatology at [facility] [place] [address] [address] [address] [place] [address] Humaira Evans MD [address] [place], [place] [address] documented as of this encounter Procedures Procedure Name Priority Date/Time Associated Diagnosis Comments C-REACTIVE PROTEIN Routine 04/03/2024 10 :13 AM MEDICAL ASSISTANT DERMATOLOGY Osteoarthritis of multiple joints, unspecified osteoarthritis type SEDIMENTATION RATE (ESR) Routine 04/03/2024 10:13 AM MEDICAL ASSISTANT DERMATOLOGY Osteoarthritis of multiple joints, unspecified osteoarthritis type documented in this encounter Results * Sedimentation Rate (ESR) (04/03/2024 10:13 AM MEDICAL ASSISTANT DERMATOLOGY) Sedimentation Rate 8 0 - 20 mm/hr 04/03/2024 11:05 AM MEDICAL ASSISTANT DERMATOLOGY [facility] Blood Venipuncture / Unknown 04/03/2024 10:13 AM MEDICAL ASSISTANT DERMATOLOGY 04/03/2024 10:13 AM MEDICAL ASSISTANT DERMATOLOGY Humaira Evans MD LAB_1 Performing Organization Address [facility] de Phone Number [place] [phone] * C-Reactive Protein (04/03/2024 10:13 AM MEDICAL ASSISTANT DERMATOLOGY) C-Reactive Protein 0.5 0.0 - 0.5 mg/dL 04/03/2024 6:10 PM MEDICAL ASSISTANT DERMATOLOGY [facility] Blood Venipuncture / Unknown 04/03/2024 10:13 AM MEDICAL ASSISTANT DERMATOLOGY 04/03/2024 10:13 AM MEDICAL ASSISTANT DERMATOLOGY Humaira Evans MD LAB_1 Performing Organization Address [facility] de Phone Number [place] [phone] documented in this encounter Visit Diagnoses Diagnosis Osteoarthritis of multiple joints, unspecified osteoarthritis type documented in this encounter Care Teams [place] Supervisor Relationship Specialty Start Date End Date Candy Gee MD [address] [place] [address] PCP - General Internal Medicine 03/05/20 documented as of this encounter
--- OUTSIDE RECORDS SUMMARY | 2024-04-16 08:01 | XMS_ITS | Encounter Summary ---
Author Organization [facility] Address [address] [place] [address] Care Team Providers Care Assembler Adjuster Name Role Phone Candy Gee MD Primary Care Provider [phone]- [phone] Reason for Visit * Procedure/Equipment (Routine) - Incomplete Specialty Diagnoses / Procedures Referred By Trino t Referred To Contact Diagnoses Osteoarthritis of multiple joints, unspecified osteoarthritis type Procedures XR Hand Rt 3+ Views Humaira Evans MD [address] [place] [address] Referral ID Status Reason Start Date Expiration Date V isits Requested Visits Authorized [id number] Incomplete 04/03/2024 07/03/2025 1 1 Encounter Details Date Type Department Care Team (Late st Contact Info) Description 04/03/2024 10:35 AM PRESCHOOL ASSISTANT Ancillary Procedure [facility] [address] [place] [address] Humaira Evans MD [address] [place] [address] Osteoarthritis of multiple joints, unspecified osteoarthritis type [...] 10/02/2024 10:00 AM CDT Appointment Rheumatology at [facility] [place] [address] [address] [address] [place] [address] Humaira Evans MD [address] [place] [address] documented as of this encounter Procedures Procedure Name Priority Date/Time Associated Diagnosis Comments XR HAND RT 3+ VIEWS Routine 04/03/2024 10:42 AM PRESCHOOL ASSISTANT Osteoarthritis of multiple joints, unspecified osteoarthritis type documented in this encounter Results * XR Hand Rt 3+ Views (04/03/2024 10:42 AM PRESCHOOL ASSISTANT) Anatomical Region Laterality Modality Upper Extremity, Hand Digital Ra diography 04/03/2024 10:1 7 AM PRESCHOOL ASSISTANT Addenda Addendum by Dg Bravo MD on 04/03/2024 12:02 PM PRESCHOOL ASSISTANT Correction: No evidence of inflammatory or erosive arthropathy in either hand. Narrative 04/03/2024 11:18 AM PRESCHOOL ASSISTANT COMPARISON: 03/11/2020 FINDINGS: Left hand: Mild osteoarthritis [...] Hand Lt 3+ Views (04/03/2024 10:42 AM PRESCHOOL ASSISTANT) Anatomical Region Laterality Modality Upper Extremity, Hand Digital Ra diography 04/03/2024 10:1 7 AM PRESCHOOL ASSISTANT Addenda Addendum by Dg Bravo MD on 04/03/2024 12:02 PM PRESCHOOL ASSISTANT Correction: No evidence of inflammatory or erosive arthropathy in either hand. Narrative 04/03/2024 11:18 AM PRESCHOOL ASSISTANT COMPARISON: 03/11/2020 FINDINGS: Left hand: Mild osteoarthritis [...] type documented in this encounter Care Teams Assembler Adjuster Relationship Specialty Start Date End Date Candy Gee MD [address] [place] [address] PCP - General Internal Medicine 03/05/20 documented as of this encounter
== END 2024-04-16 07:59 | disposition home or self-care (01) ==
LOC: NFLDREF 07:58
PROVIDERS: PCP Internal Medicine; Visit Provider Family Medicine
DX: Z20.1 Contact with and (suspected) exposure to tuberculosis (principal)
CPT/HCPCS: 86480

== ENCOUNTER 2024-04-30 08:26 | Observation (INO) | payer OTHER, SELFPAY ==
[2024-04-30] VITALS (43 sets, daily range): BP systolic 137–210; BP diastolic 73–138; PULSE 49–68; RESP 16–18; TEMP 36.5–36.7; O2SAT 90–98; BMI 25.0; BMI 25.4
--- NOTE | 2024-04-30 08:47 | ED.GENADULT ---
HPI - General Adult General Time Seen by Provider: 08:47 Date Seen: 04/30/24 Chief complaint: Hypertension Stated complaint: High BP Time Seen by Provider: 04/30/24 08:46 Source: patient, RN notes reviewed and old records reviewed Mode of arrival: ambulatory Limitations: no limitations History of Present Illness HPI narrative: 74-year-old female who presents today with high blood pressure and had chest pain this morning. Patient notes rising blood pressure for the last several weeks, taking lisinopril 10 mg twice a day as well as metoprolol and has not been missing doses by her report. This morning she had some chest pain started about 730, she describes this as dull just left of midline. No radiation, no associated shortness of breath, no nausea vomiting. Has not taken anything for this. She is on Xarelto, she takes this for atrial atrial fibrillation but notes that she had a an ablation done she thinks several years ago Related Data Home Medications ?Medication ?Instructions ?Recorded ?Confirmed calcium 300 mg-vit D3 200 1 tab PO DAILY 02/25/22 04/30/24 khik-mhnknepn-nieqhahdu 13.5 mg tablet (Citracal Plus Bone Density Builder) cyclobenzaprine 5 mg tablet 5 mg PO HS PRN 02/25/22 04/30/24 risankizumab-rzaa 75 mg/0.83 mL 150 mg subcut Q12W 02/25/22 04/30/24 subcutaneous syringe (Skyrizi) rivaroxaban 20 mg tablet (Xarelto) 20 mg PO QPM 02/25/22 04/30/24 metoprolol tartrate 25 mg tablet 25 mg PO BID 06/08/23 04/30/24 triamcinolone acetonide 0.1 % 1 applic topical BID PRN 06/08/23 04/30/24 topical cream fluticasone propionate 50 2 spray intranasal DAILY 04/30/24 04/30/24 mcg/actuation nasal spray,suspension pravastatin 10 mg tablet 10 mg PO HS 04/30/24 04/30/24 Previous Rx's ?Medication ?Instructions ?Recorded lisinopril 5 mg tablet 10 mg (2 x 5 mg) PO BID #180 tabs 12/18/23 omeprazole 20 mg capsule,delayed 20 mg PO DAILY #90 caps 12/18/23 release mesalamine 800 mg tablet,delayed 800 mg PO BID #180 tabs 02/26/24 release alendronate 70 mg tablet 70 mg PO QWEEK #12 tabs 04/01/24 Allergies Allergy/AdvReac Type Severity Reaction Status Date / Time Sulfa (Sulfonamide Allergy Severe larygnospas Verified 04/16/24 07:33 Antibiotics) m atorvastatin Allergy Intermediate Verified 04/16/24 07:33 Quinolones Allergy Intermediate swelling Verified 04/16/24 07:33 tolterodine Allergy Intermediate Verified 04/16/24 07:33 simvastatin Allergy Mild Verified 04/16/24 07:33 nirmatrelvir (From Paxlovid Allergy Afib Verified 04/16/24 07:33 (EUA)) ritonavir (From Paxlovid Allergy Afib Verified 04/16/24 07:33 (EUA)) PFSH PFS Surgical History (Updated 07/25/23 @ 13:25 by Candy Gee MD) History of blepharoplasty ?Z98.890 - Other specified postprocedural states (ICD-10) History of colonoscopy (2017) ?Z98.890 - Other specified postprocedural states (ICD-10) History of bilateral cataract extraction ?Z98.41 - Cataract extraction status, right eye (ICD-10) ?Z98.42 - Cataract extraction status, left eye (ICD-10) 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, initial encounter (ICD-10) History of cataract surgery ?Z98.49 - Cataract extraction status, unspecified eye (ICD-10) Status post laparoscopic-assisted sigmoidectomy ?Z90.49 - Acquired absence of other specified parts of digestive tract (ICD-10) History of laparoscopic cholecystectomy (09/2020) ?Z90.49 - Acquired absence of other specified parts of digestive tract (ICD-10) History of appendectomy ?Z90.49 - Acquired absence of other specified parts of digestive tract (ICD-10) Social History (Updated 12/15/22 @ 15:25 by Ruth Barksdale ~ [facility]) What is your current living situation?: I presently have a place to live In the past 12 months, utilities in danger of being shut off: no In the past 12 mos, have been you worried that your food would run out before you had money to buy more?: never true In the past 12 mos, the food you bought just didn't last and you didn't have money to buy more?: never true Smoking Status: Former smoker Do you use any of these nicotine containing products: None Second hand tobacco smoke exposure: No How often do you have a drink containing alcohol: never How often do you have six or more drinks on one occasion: Never AUDIT-C Alcohol total score: 0 Non-prescribed substance use: denies use How often does anyone, including family, friends and others, physically hurt you: never How often does anyone, including family, friends and others, insult or talk down to you: never How often does anyone, including family, friends and others, threaten you with harm: never How often does anyone, including family, friends and others, scream or curse at you: never Exam Narrative: Exam Narrative: General: Well-developed and well-nourished, no acute distress Head: Atraumatic and normocephalic Eyes: Pupils are equal reactive, extraocular motions intact, conjunctiva clear ENT: External nose and ears are normal, posterior pharynx without erythema or exudate Neck: No midline cervical tenderness, full spontaneous range of motion the neck, trachea midline, no adenopathy Heart: Regular rate and rhythm no murmurs or thrills Lungs: Clear to auscultation bilaterally without wheezes or crackles Abdomen: Soft, nontender, nondistended with active bowel sounds Musculoskeletal: No tenderness, deformity, or edema Neurologic: Awake, alert, and oriented x3, no gross focal neurologic deficits, cranial nerves intact as tested Psych: Mood and affect are appropriate Skin: No rashes Const: Vital Signs, click to edit/add: Vital Signs - 24 hr 04/30/24 08:32 04/30/24 08:50 04/30/24 08:50 Temperature 97.7 F Pulse Rate Pulse Rate [Pulse Oximeter] 64 58 L Respiratory Rate 16 Blood Pressure Blood Pressure [Ri ght Upper Arm] 210/138 H 178/100 H Pulse Oximetry 96 98 95 Oxygen Delivery Me thod Room Air Room Air 04/30/24 08:56 04/30/24 08:57 04/30/24 09:00 Temperature Pulse Rate 59 L 57 L 55 L Pulse Rate [Pulse Oximeter] Respiratory Rate Blood Pressure 178/100 H Blood Pressure [Ri ght Upper Arm] Pulse Oximetry 95 98 95 Oxygen Delivery Me thod 04/30/24 09:18 04/30/24 09:19 04/30/24 09:20 Temperature Pulse Rate 57 L 57 L 59 L Pulse Rate [Pulse Oximeter] Respiratory Rate Blood Pressure 169/88 H 170/85 H Blood Pressure [Ri ght Upper Arm] Pulse Oximetry 93 94 92 Oxygen Delivery Me thod 04/30/24 09:30 04/30/24 09:33 04/30/24 09:45 Temperature Pulse Rate 53 L 52 L 53 L Pulse Rate [Pulse Oximeter] Respiratory Rate Blood Pressure 137/83 Blood Pressure [Ri ght Upper Arm] Pulse Oximetry 93 90 94 Oxygen Delivery Me thod 04/30/24 09:50 04/30/24 10:00 04/30/24 10:03 Temperature Pulse Rate 56 L 54 L Pulse Rate [Pulse Oximeter] Respiratory Rate Blood Pressure 169/78 H 172/84 H Blood Pressure [Ri ght Upper Arm] Pulse Oximetry 95 95 Oxygen Delivery Me thod 04/30/24 10:15 04/30/24 10:30 04/30/24 10:32 Temperature Pulse Rate 50 L 52 L 56 L Pulse Rate [Pulse Oximeter] Respiratory Rate Blood Pressure 165/79 H Blood Pressure [Ri ght Upper Arm] Pulse Oximetry 95 95 97 Oxygen Delivery Me thod 04/30/24 10:45 04/30/24 11:00 04/30/24 11:02 Temperature Pulse Rate 55 L 56 L 56 L Pulse Rate [Pulse Oximeter] Respiratory Rate Blood Pressure 171/84 H Blood Pressure [Ri ght Upper Arm] Pulse Oximetry 98 98 96 Oxygen Delivery Me thod 04/30/24 11:15 04/30/24 11:30 04/30/24 11:32 Temperature Pulse Rate 56 L 55 L 68 Pulse Rate [Pulse Oximeter] Respiratory Rate Blood Pressure 162/85 H Blood Pressure [Ri ght Upper Arm] Pulse Oximetry 97 95 96 Oxygen Delivery Me thod 04/30/24 11:33 04/30/24 11:45 04/30/24 12:00 Temperature Pulse Rate 66 57 L 59 L Pulse Rate [Pulse Oximeter] Respiratory Rate Blood Pressure Blood Pressure [Ri ght Upper Arm] Pulse Oximetry 98 97 95 Oxygen Delivery Me thod 04/30/24 12:02 04/30/24 12:15 04/30/24 12:30 Temperature Pulse Rate 55 L 57 L 64 Pulse Rate [Pulse Oximeter] Respiratory Rate Blood Pressure 171/87 H Blood Pressure [Ri ght Upper Arm] Pulse Oximetry 95 96 94 Oxygen Delivery Mi thod 04/30/24 12:30 04/30/24 12:32 Temperature Pulse Rate 62 Pulse Rate [Pulse Oximeter] Respiratory Rate 18 Blood Pressure 155/74 H Blood Pressure [Ri ght Upper Arm] Pulse Oximetry 96 Oxygen Delivery Mi thod Course Course ED Course: Patient seen examined, reviewed prior echocardiogram from April 2023 which was normal. Patient presents today with elevated blood pressure which is been going on for several weeks but then this morning some left-sided chest pain. She describes this as pressure discomfort, no radiation. On exam here, hypertensive but otherwise finally stable. Lungs are clear. Initial EKG is reassuring, labs are ordered. EKG independently interpreted by me performed at 8:45 a.m. demonstrates sinus rhythm rate 59, no acute ST elevations or depressions, QTC 427, NV 184, QRS 94. No change from prior of May 2023 Reevaluation(s) Time of Reevaluation #1: 09:32 Reevaluation #1: Labs ordered and independently interpreted by me with normal CBC, negative troponin. Patient feels better after nitroglycerin, will continue to monitor. 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 EKG independently interpreted by me performed at 9:44 a.m. demonstrates sinus rhythm rate 50, QRS 86, QTC 413, NV 200, no change from prior of earlier today. Time of Reevaluation #3: 11:50 Reevaluation #3: Patient recheck, remains pain-free. This possibility of stress echocardiogram today depending on inpatient scheduling, if this could be done and is negative patient be discharged. If not, plan for admission for serial enzymes and possible stress test on . Additional Reevaluation(s): 12:58 p.m. unable to perform stress test today and so patient will be admitted. Care discussed with Blanca Solomon PA-C. Vital Signs Vital signs: Initial Vital Signs Temperature 97.7 F 04/30/24 08:32 Temperature Source Temporal Artery Scan 04/30/24 08:32 Pulse Rate 64 04/30/24 08:32 Respiratory Rate 16 04/30/24 08:32 Blood Pressure 210/138 H 04/30/24 08:32 Blood Pressure Mean 162 H 04/30/24 08:32 Blood Pressure Position Sitting 04/30/24 08:32 Pulse Oximetry 96 04/30/24 08:32 Oxygen Delivery Method Room Air 04/30/24 08:32 Vital Signs Temperature 97.7 F 04/30/24 08:32 Pulse Rate 64 04/30/24 08:32 Respiratory Rate 16 04/30/24 08:32 Blood Pressure 210/138 H 04/30/24 08:32 Pulse Oximetry 96 04/30/24 08:32 Oxygen Delivery Method Room Air 04/30/24 08:32 Temperature 97.7 F 04/30/24 08:32 Pulse Rate 62 04/30/24 12:32 Respiratory Rate 18 04/30/24 12:30 Blood Pressure 155/74 H 04/30/24 12:32 Pulse Oximetry 96 04/30/24 12:32 Oxygen Delivery Method Room Air 04/30/24 08:50 Medications Administered Medications: Discontinued Medications Generic Name Dose Route Start Last Admin Trade Name Freq PRN Reason Stop Dose Admin Nitroglycerin 0.4 mg 04/30/24 08:59 04/30/24 09:15 Nitroglycerin 0.4 Mg Tab.Subl SUBLINGUAL 04/30/24 09:00 0.4 mg ONCE ONE Administration Medical Decision Making Lab Data Labs: Lab Results 04/30/24 04/30/24 04/30/24 Range/Units 09:00 09:08 10:55 WBC 3.94 L (4.50-11.00) K/uL RBC 4.55 (4.00-5.20) m/uL Hgb 13.4 (12.0-16.0) gm/dL Hct 41.3 (33.0-51.0) % MCV 91 (80-100) fL MCH 30 (26-34) pg MCHC 32 (32-36) gm/dL RDW Coeff of Pan 12.5 (11.5-15.5) % Plt Count 206 (140-440) K/uL Neut % (Auto) 55.3 (42.0-72.0) % Lymph % (Auto) 34.8 (20-44) % Turner % (Auto) 7.9 (0.0-11.0) % Eos % (Auto) 1.5 (0.0-7.0) % Baso % (Auto) 0.5 (0.0-3.0) % Neut # (Auto) 2.20 (1.7-7.0) K/uL Lymph # (Auto) 1.40 (0.90-2.90) K/uL Turner # (Auto) 0.30 (0.00-0.90) K/UL Eos # (Auto) 0.10 (0.00-0.50) K/uL Baso # (Auto) 0.00 (0.00-0.30) K/uL Abs Immat Gran (auto) 0.00 (0.00-0.30) K/uL Imm/Tot Granulo (auto) 0.0 % Sodium 139 (135-149) mmol/L Potassium 4.1 (3.6-5.1) mmol/L Chloride 105 (96-114) mmol/L Carbon Dioxide 27 (20-32) mmol/L Anion Gap 7 (7-15) mEq/L BUN 14 (7-30) mg/dL Creatinine 0.7 (0.5-1.5) mg/dL Estimated Creat Clear 45.50 Estimated GFR 90 ml/min Glucose 112 (60-115) mg/dL Calcium 9.6 (8.4-10.6) mg/dL Magnesium 1.9 (1.5-2.6) mg/dL Troponin I < 0.01 L (0.01-0.04) ng/mL NT-Pro-B Natriuret Pep 128 pg/mL POC Troponin I 0.00 L (0.01-0.04) ng/ml Discharge Plan Discharge Clinical Impression: Chest pain, Uncontrolled hypertension, Anticoagulant long-term use Patient Disposition: Admitted As Observation Prescriptions: No Action triamcinolone acetonide 0.1 % cream 1 applic topical BID PRN metoprolol tartrate 25 mg tablet 25 mg PO BID lisinopril 5 mg tablet 10 mg PO BID Qty: 180 3RF omeprazole 20 mg capsule,delayed release(DR/EC) 20 mg PO DAILY Qty: 90 3RF Citracal Plus Bone Density 300-200-13.5 mg-unit-mg tablet 1 tab PO DAILY pravastatin 10 mg tablet 10 mg PO HS fluticasone propionate 50 mcg/actuation spray,suspension 2 spray intranasal DAILY Rx Instructions: administer into each nostril Xarelto 20 mg tablet 20 mg PO QPM Rx Instructions: must administer with evening meal cyclobenzaprine 5 mg tablet 5 mg PO HS PRN Skyrizi 75 mg/0.83 mL syringe 150 mg subcut Q12W mesalamine 800 mg tablet,delayed release (DR/EC) 800 mg PO BID Qty: 180 3RF alendronate 70 mg tablet 70 mg PO QWEEK Qty: 12 3RF Follow Up/Referrals: Candy Gee MD [Primary Care Provider] -
--- NOTE | 2024-04-30 08:59 | CRLHL7_ITS ---
For Patients: As a result of the Century Cures Act, medical imaging exams and procedure reports are released immediately into your electronic medical record. You may view this report before your referring provider. If you have questions, please contact your health care provider. Indication: Chest pain. Technique: One view(s) of the chest. Comparison: 02/25/2022. Findings: Normal size of the cardiomediastinal silhouette. Atherosclerotic aortic calcifications. Pulmonary vasculature is normal. Lungs are well inflated. No focal consolidation. No pleural effusion or pneumothorax. No acute osseous abnormality identified. Impression: No acute cardiopulmonary abnormality identified. Dictated by Catalina Wood MD @ 04/30/2024 9:23:03 AM (Electronically Signed)
[2024-04-30] MEDS: NITROGLYCERIN 0.4 MG TAB.SUBL SUBLINGUAL (09:15)
[2024-04-30 09:18] LABS: Basophils Percent Auto 0.5 % (0.0-3.0); Eosinophils Percent Auto 1.5 % (0.0-7.0); Hematocrit 41.3 % (33.0-51.0); Hemoglobin* 13.4 gm/dL (12.0-16.0); Lymphocytes Percent Auto 34.8 % (20-44); Mean Corpuscular HGB Conc 32 gm/dL (32-36); Mean Corpuscular Hemoglobin 30 pg (26-34); Mean Corpuscular Volume 91 fL (80-100); Monocytes Percent Auto 7.9 % (0.0-11.0); Neutrophils Percent Auto 55.3 % (42.0-72.0); Platelet Count* 206 K/uL (140-440); RDW Coefficient of Variation % 12.5 % (11.5-15.5); Red Blood Count 4.55 m/uL (4.00-5.20); White Blood Count* 3.94 K/uL (4.50-11.00)
[2024-04-30 09:28] LABS: Slide Review Reflex No
[2024-04-30 09:32] LABS: Chloride* 105 mmol/L (96-114); Sodium* 139 mmol/L (135-149)
[2024-04-30 09:33] LABS: Potassium* 4.1 mmol/L (3.6-5.1)
[2024-04-30 09:35] LABS: Anion Gap 7 mEq/L (7-15); Carbon Dioxide* 27 mmol/L (20-32); Creatinine* 0.7 mg/dL (0.5-1.5); Estimated Glomerular Filt Rate 90 ml/min
[2024-04-30 09:36] LABS: Blood Urea Nitrogen* 14 mg/dL (7-30); Calcium* 9.6 mg/dL (8.4-10.6); Glucose* 112 mg/dL (60-115)
[2024-04-30 10:02] LABS: Magnesium* 1.9 mg/dL (1.5-2.6)
[2024-04-30 10:03] LABS: NT Pro B Type NatriureticPept* 128 pg/mL
[2024-04-30 11:33] LABS: Troponin I* < 0.01 ng/mL (0.01-0.04)
--- NOTE | 2024-04-30 12:19 | ED.NURSE ---
Pt provided with meal tray.
--- NOTE | 2024-04-30 16:29 | PM.IMHP1 ---
Hospitalist- H&P: HPI History of Present Illness Date Seen: 04/30/24 Chief complaint: High BP Narrative: ADMISSION HISTORY AND PHYSICAL - HOSPITALIST Chief Complaint: Chest pain HPI: Keyona is a 74-year-old female who presented to the emergency room with the acute onset of chest pressure this morning. The pressure was left of midline across her thorax. It did not feel like heartburn. She was talking with her daughter and it happened while she was at rest. She took her blood pressure after she hung with her daughter and noted her blood pressure to be quite elevated with systolics in the 180s. She had her bring her to the ED. there is a history of atrial fibrillation, status post ablation. She has not noted any AFib in 2 years. However, she does remain on a blood thinner. She has hypertension that has gradually become harder to manage in the last few months. She last saw Cardiology in April of 2023. No new ankle swelling or shortness of breath associated with this chest pain. Burping, eating, drinking or position changes did not make any difference. Nitro seem to make things a little better and then her pain slowly faded away over the following hour to 2 hours. She has no chest pain now. She feels back to normal. Her troponin has been undetectable. ER COURSE: labs, serial troponins, serial EKGs. One dose of nitro. CODE STATUS: FULL CODE EMERGENCY CONTACT PLAN: Hank Matos Rel To Pat Spouse Cell I've updated the PFSH, medications and allergies in the Expanse tabs. INVESTIGATIONS: LABS/MICRO/ECG/IMAGING CBC is unremarkable. Chemistries to include magnesium, CK are normal Troponins at 9:00 a.m., 11:00 a.m., 4:30 p.m. have all been undetectable. ProBNP is 128. Chest x-ray is negative Echo 05/20 Final Impressions: 1. Normal left ventricular size, mildly increased wall thickness, normal global systolic function, calculated EF of 68 %. 2. Right ventricular cavity size is normal, global systolic RV function is normal. 3. The mitral valve is normal, mild mitral regurgitation. REVIEW OF SYSTEMS: 12-point ROS completed with patient and negative unless otherwise stated in HPI or below. PHYSICAL EXAM: CONSTITUTIONAL: Conversive, good historian. A/O. Knows setting and context. VITAL SIGNS: see record. HEENT: Normocephalic, atraumatic. PERRL, EOMI, conjunctivae pink, no scleral icterus. Ears and nose externally normal. Pharynx normal. NECK: No JVD. No carotid bruit, no thyromegaly, no adenopathy. CHEST: Clear to auscultation bilaterally HEART: S1 and S2 normal. No harsh murmurs. No edema. MUSCULOSKELETAL: No gross joint deformity or swelling. NEURO: Cranial nerves intact. Grossly intact. No asymmetric findings. SKIN: No rashes, petechiae, concerning changes PSYCHIATRIC: Euthymic. [facility] DVT: SCDs, ambulation GI: PO intake, IV and oral PPI Time spent: Today I spent 75 minutes seeing the patient, discussing the patient with ER staff, reviewing Expanse and EPIC notes/diagnostics, discussing the care plan with our care time that includes social work, PT/OT, pharmacy, RT, half-way and documenting my impressions and plan in the medical record. [facility] Medical History (Updated 04/30/24 @ 20:19 by Juju Mcnamara MD) Vision loss, right eye ?H54.61 - Unqualified visual loss, right eye, normal vision left eye (ICD-10) Adenomatous colon polyp ?D12.6 - Benign neoplasm of colon, unspecified (ICD-10) Exposure to TB ?Z20.1 - Contact with and (suspected) exposure to tuberculosis (ICD-10) Osteoporosis ?M81.0 - Age-related osteoporosis without current pathological fracture (ICD-10) Atrial fibrillation ?I48.91 - Unspecified atrial fibrillation (ICD-10) Surgical History History of blepharoplasty ?Z98.890 - Other specified postprocedural states (ICD-10) History of colonoscopy (2018) ?Z98.890 - Other specified postprocedural states (ICD-10) History of bilateral cataract extraction ?Z98.41 - Cataract extraction status, right eye (ICD-10) ?Z98.42 - Cataract extraction status, left eye (ICD-10) 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, initial encounter (ICD-10) History of cataract surgery ?Z98.49 - Cataract extraction status, unspecified eye (ICD-10) Status post laparoscopic-assisted sigmoidectomy ?Z90.49 - Acquired absence of other specified parts of digestive tract (ICD-10) History of laparoscopic cholecystectomy (09/2020) ?Z90.49 - Acquired absence of other specified parts of digestive tract (ICD-10) History of appendectomy ?Z90.49 - Acquired absence of other specified parts of digestive tract (ICD-10) Social History (Updated 12/15/22 @ 15:25 by Ruth Barksdale ~ [facility]) What is your current living situation?: I presently have a place to live Problems where you live: no known problems Problems where you live details: N/A In the past 12 months, utilities in danger of being shut off: no In the past 12 mos, have been you worried that your food would run out before you had money to buy more?: never true In the past 12 mos, the food you bought just didn't last and you didn't have money to buy more?: never true Smoking Status: Former smoker Do you use any of these nicotine containing products: None Second hand tobacco smoke exposure: No How often do you have a drink containing alcohol: never How often do you have six or more drinks on one occasion: Never AUDIT-C Alcohol total score: 0 Non-prescribed substance use: denies use How often does anyone, including family, friends and others, physically hurt you: never How often does anyone, including family, friends and others, insult or talk down to you: never How often does anyone, including family, friends and others, threaten you with harm: never How often does anyone, including family, friends and others, scream or curse at you: never Meds Home Medications and Allergies Home Medications ?Medication ?Instructions ?Recorded ?Confirmed ?Type calcium 300 mg-vit D3 200 1 tab PO DAILY 02/25/22 04/30/24 History osve-xkgeumua-owfkbrmzf 13.5 mg tablet (Citracal Plus Bone Density Builder) cyclobenzaprine 5 mg tablet 5 mg PO HS PRN 02/25/22 04/30/24 History risankizumab-rzaa 75 mg/0.83 mL 150 mg subcut Q12W 02/25/22 04/30/24 History subcutaneous syringe (Skyrizi) rivaroxaban 20 mg tablet (Xarelto) 20 mg PO QPM 02/25/22 04/30/24 History metoprolol tartrate 25 mg tablet 25 mg PO BID 06/08/23 04/30/24 History triamcinolone acetonide 0.1 % 1 applic topical BID PRN 06/08/23 04/30/24 History topical cream fluticasone propionate 50 2 spray intranasal DAILY 04/30/24 04/30/24 History mcg/actuation nasal spray,suspension pravastatin 10 mg tablet 10 mg PO HS 04/30/24 04/30/24 History Allergies Allergy/AdvReac Type Severity Reaction Status Date / Time Sulfa (Sulfonamide Allergy Severe larygnospas Verified 04/16/24 07:33 Antibiotics) m atorvastatin Allergy Intermediate Verified 04/16/24 07:33 Quinolones Allergy Intermediate swelling Verified 04/16/24 07:33 tolterodine Allergy Intermediate Verified 04/16/24 07:33 simvastatin Allergy Mild Verified 04/16/24 07:33 nirmatrelvir (From Paxlovid Allergy Afib Verified 04/16/24 07:33 (EUA)) ritonavir (From Paxlovid Allergy Afib Verified 04/16/24 07:33 (EUA)) Exam Const: Vital Signs, click to edit/add: Vital Signs - 24 hr 04/30/24 08:32 04/30/24 08:50 04/30/24 08:50 Temperature 97.7 F Pulse Rate Pulse Rate [Pulse Oximeter] 64 58 L Pulse Rate [Right Radial] Respiratory Rate 16 Blood Pressure Blood Pressure [Ri ght Arm] Blood Pressure [Ri ght Upper Arm] 210/138 H 178/100 H Pulse Oximetry 96 98 95 Oxygen Delivery Me thod Room Air Room Air 04/30/24 08:56 04/30/24 08:57 04/30/24 09:00 Temperature Pulse Rate 59 L 57 L 55 L Pulse Rate [Pulse Oximeter] Pulse Rate [Right Radial] Respiratory Rate Blood Pressure 178/100 H Blood Pressure [Ri ght Arm] Blood Pressure [Ri ght Upper Arm] Pulse Oximetry 95 98 95 Oxygen Delivery Me thod 04/30/24 09:18 04/30/24 09:19 04/30/24 09:20 Temperature Pulse Rate 57 L 57 L 59 L Pulse Rate [Pulse Oximeter] Pulse Rate [Right Radial] Respiratory Rate Blood Pressure 169/88 H 170/85 H Blood Pressure [Ri ght Arm] Blood Pressure [Ri ght Upper Arm] Pulse Oximetry 93 94 92 Oxygen Delivery Nd thod 04/30/24 09:30 04/30/24 09:33 04/30/24 09:45 Temperature Pulse Rate 53 L 52 L 53 L Pulse Rate [Pulse Oximeter] Pulse Rate [Right Radial] Respiratory Rate Blood Pressure 137/83 Blood Pressure [Ri ght Arm] Blood Pressure [Ri ght Upper Arm] Pulse Oximetry 93 90 94 Oxygen Delivery Nd thod 04/30/24 09:50 04/30/24 10:00 04/30/24 10:03 Temperature Pulse Rate 56 L 54 L Pulse Rate [Pulse Oximeter] Pulse Rate [Right Radial] Respiratory Rate Blood Pressure 169/78 H 172/84 H Blood Pressure [Ri ght Arm] Blood Pressure [Ri ght Upper Arm] Pulse Oximetry 95 95 Oxygen Delivery Nd thod 04/30/24 10:15 04/30/24 10:30 04/30/24 10:32 Temperature Pulse Rate 50 L 52 L 56 L Pulse Rate [Pulse Oximeter] Pulse Rate [Right Radial] Respiratory Rate Blood Pressure 165/79 H Blood Pressure [Ri ght Arm] Blood Pressure [Ri ght Upper Arm] Pulse Oximetry 95 95 97 [facility] 10:45 04/30/24 11:00 04/30/24 11:02 Temperature Pulse Rate 55 L 56 L 56 L Pulse Rate [Pulse Oximeter] Pulse Rate [Right Radial] Respiratory Rate Blood Pressure 171/84 H Blood Pressure [Ri ght Arm] Blood Pressure [Ri ght Upper Arm] Pulse Oximetry 98 98 96 Oxygen Delivery Nd thod 04/30/24 11:15 04/30/24 11:30 04/30/24 11:32 Temperature Pulse Rate 56 L 55 L 68 Pulse Rate [Pulse Oximeter] Pulse Rate [Right Radial] Respiratory Rate Blood Pressure 162/85 H Blood Pressure [Ri ght Arm] Blood Pressure [Ri ght Upper Arm] Pulse Oximetry 97 95 96 Oxygen Delivery Nd thod 04/30/24 11:33 04/30/24 11:45 04/30/24 12:00 Temperature Pulse Rate 66 57 L 59 L Pulse Rate [Pulse Oximeter] Pulse Rate [Right Radial] Respiratory Rate Blood Pressure Blood Pressure [Ri ght Arm] Blood Pressure [Ri ght Upper Arm] Pulse Oximetry 98 97 95 Oxygen Delivery Me thod 04/30/24 12:02 04/30/24 12:15 04/30/24 12:30 Temperature Pulse Rate 55 L 57 L 64 Pulse Rate [Pulse Oximeter] Pulse Rate [Right Radial] Respiratory Rate Blood Pressure 171/87 H Blood Pressure [Ri ght Arm] Blood Pressure [Ri ght Upper Arm] Pulse Oximetry 95 96 94 Oxygen Delivery Me thod 04/30/24 12:30 04/30/24 12:32 04/30/24 12:33 Temperature Pulse Rate 62 66 Pulse Rate [Pulse Oximeter] Pulse Rate [Right Radial] Respiratory Rate 18 Blood Pressure 155/74 H Blood Pressure [Ri ght Arm] Blood Pressure [Ri ght Upper Arm] Pulse Oximetry 96 93 Oxygen Delivery Nd thod 04/30/24 12:45 04/30/24 13:00 04/30/24 13:02 Temperature Pulse Rate 60 62 62 Pulse Rate [Pulse Oximeter] Pulse Rate [Right Radial] Respiratory Rate Blood Pressure 148/82 H Blood Pressure [Ri ght Arm] Blood Pressure [Ri ght Upper Arm] Pulse Oximetry 93 94 95 Oxygen Delivery Nd thod 04/30/24 13:15 04/30/24 13:30 04/30/24 13:32 Temperature Pulse Rate 62 59 L 60 Pulse Rate [Pulse Oximeter] Pulse Rate [Right Radial] Respiratory Rate Blood Pressure 137/74 Blood Pressure [Ri ght Arm] Blood Pressure [Ri ght Upper Arm] Pulse Oximetry 93 94 94 [facility] 04/30/24 13:45 04/30/24 14:20 Temperature 98.1 F Pulse Rate 59 L Pulse Rate [Pulse Oximeter] Pulse Rate [Right Radial] 67 Respiratory Rate 16 Blood Pressure Blood Pressure [Ri ght Arm] 187/91 H Blood Pressure [Ri ght Upper Arm] Pulse Oximetry 93 97 Oxygen Delivery Me od Room Air Hospitalist - H&P: Result Labs Labs: Short CBC 04/30/24 Range/Units 09:08 WBC 3.94 L (4.50-11.00) K/uL Hgb 13.4 (12.0-16.0) gm/dL Hct 41.3 (33.0-51.0) % Plt Count 206 (140-440) K/uL BMP 04/30/24 09:08 Sodium 139 Potassium 4.1 Chloride 105 Carbon Dioxide 27 BUN 14 Creatinine 0.7 Glucose 112 Calcium 9.6 Cardiac Enzymes 04/30/24 Range/Units 10:55 Troponin I < 0.01 L (0.01-0.04) ng/mL Assessment and Plan Assessment and plan (1) Chest pain: Problem comment: given age, hx of afib, uncontrolled HTN, YOLI, hx of smoking- we will observe her overnight - trend the troponin and set up for a stress echo. (nml arteries in 2020 and normal echo in 05/20) differential diagnosis - angina, coronary vasospasm, gerd, esophageal spasm, anxiety, musculoskeletal Status: Acute (2) Uncontrolled hypertension: Problem comment: -I don't think her chest pain is from urgency/emergency. -we will titrate the lisinopril to 40mg and dose with one daily am dose. 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 Kitchen increased lisinopril 06/21 to 10mg BID -inpatient team changed it to 40mg once daily with the metoprolol at 25mg BID Status: Chronic (4) Paroxysmal atrial fibrillation: Problem comment: Had atrial fibrillation with RVR Summer 2018 while undergoing IV abx for severe diverticulitis: diltiazem and rivaroxaban started 01/14. Switched by her surgeon to warfarin. Followed by cardiology ([facility]), change to Xarelto 08/15. S/p complex atrial fibrillation ablation 11/15. Had single episode of A-fib with RVR in the setting of Covid-19 in 02/17. Status: Acute (5) Anticoagulant long-term use: Problem comment: for AFIB. has been in sinus since her ablation but cautious about being protected from cardioembolic CVA Status: Acute (6) Obstructive sleep apnea: Problem comment: Moderate YOLI by PSG here 03/16/2019, AHI 19, severe when supine. Saw sleep physician, Dr. Sangita Dye, at [facility] 04/30/2019, who started her on CPAP treatment. Status: Chronic (7) Hyperlipidemia: Problem comment: On pravastatin, Normal coronary arteries by 07/2020 CCTA. Status: Chronic (8) Ulcerative colitis: Problem comment: Dxed late . Sees Dr. Xander Go, [facility] q2 years. On Asacol. Colonoscopy 04/17/23 showed complete remission. Status: Chronic
[2024-04-30 17:17] LABS: Creatine Kinase* 51 U/L (41-117); Troponin I* < 0.01 ng/mL (0.01-0.04)
[2024-04-30] MEDS: RIVAROXABAN 10 MG TABLET 20 MG PO (17:24)
[2024-04-30] MEDS: PANTOPRAZOLE SODIUM 40 MG INJ IVP (17:25)
[2024-04-30] MEDS: SODIUM CHLORIDE 0.9 % (FLUSH) 10 ML SYRINGE 5 ML IVF ×2 (17:25→20:45)
[2024-04-30] MEDS: lisinopriL 20 MG TABLET 30 MG PO (17:32)
[2024-04-30] MEDS: ACETAMINOPHEN 325 MG TABLET PO (17:32)
[2024-04-30] MEDS: PRAVASTATIN SODIUM 20 MG TABLET 10 MG PO (20:43)
[2024-04-30] MEDS: METOPROLOL TARTRATE 25 MG TABLET PO (20:43)
[2024-05-01 03:00] VITALS: BP 142/74; PULSE 54; RESP 16; O2SAT 95
[2024-05-01] MEDS: OMEPRAZOLE 20 MG CAPSULE DR PO (06:27)
--- NOTE | 2024-05-01 06:56 | PC.NURSE ---
Pt alert, oriented and vitally stable. Tele read sinus bradycardia with 1st degree av block. Pt up independently in room, though needs help disconnecting SCDs. Pt appears to be resting comfortably, call light within reach.?
[2024-05-01 07:00] VITALS: BP 123/70; PULSE 72; RESP 16; TEMP 36.6; O2SAT 94
[2024-05-01 07:01] LABS: HCO3 VBG 29 mmol/L (21-28); PCO2 VBG 46 mmHG (40-50); pH VBG 7.414 (7.32-7.43)
[2024-05-01 07:17] LABS: Chloride* 105 mmol/L (96-114); Potassium* 4.3 mmol/L (3.6-5.1); Sodium* 139 mmol/L (135-149)
[2024-05-01 07:20] LABS: Anion Gap 6 mEq/L (7-15); Blood Urea Nitrogen* 15 mg/dL (7-30); Carbon Dioxide* 28 mmol/L (20-32); Creatinine* 0.7 mg/dL (0.5-1.5); Estimated Glomerular Filt Rate 90 ml/min
[2024-05-01 07:21] LABS: Glucose* 110 mg/dL (60-115)
[2024-05-01 07:36] LABS: Troponin I* < 0.01 ng/mL (0.01-0.04)
[2024-05-01] MEDS: lisinopriL 20 MG TABLET 40 MG PO (09:02)
[2024-05-01] MEDS: METOPROLOL TARTRATE 25 MG TABLET PO (09:02)
--- NOTE | 2024-05-01 10:02 | PM.DS1 ---
DS: Providers Provider Date Seen: 05/01/24 Date of admission: 04/30/24 13:52 Primary care physician: Candy Gee MD Admitting Clinician: Juju Mcnamara MD Attending Physician on discharge: Blanca Kendrick [facility] Date of Discharge: 05/01/24 DS: Diagnosis Discharge Diagnosis (1) Chest pain: Status: Acute Problem details: given age, hx of afib, uncontrolled HTN, YOLI, hx of smoking- we will observe her overnight - trend the troponin and set up for a stress echo. (nml arteries in 2020 and normal echo in 05/20) differential diagnosis - angina, coronary vasospasm, gerd, esophageal spasm, anxiety, musculoskeletal Patient remained stable, blood pressure improved, no further episodes chest pain overnight, troponin unchanged. Discharged to home. Has stress echo scheduled for 05/02/2024. Close outpatient follow-up with PCP following. Understands to return to ED if new or worsening symptoms. (2) Uncontrolled hypertension: Status: Acute Problem details: -I don't think her chest pain is from urgency/emergency. -we will titrate the lisinopril to 40mg and dose with one daily am dose. Patient is discharged on her usual metoprolol 25 mg b.i.d. as well as the increased dose of lisinopril 40 mg daily. Outpatient follow-up with PCP for ongoing monitoring. 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 Kitchen increased lisinopril 06/21 to 10mg BID -inpatient team changed it to 40mg once daily with the metoprolol at 25mg BID As above (4) Paroxysmal atrial fibrillation: Status: Acute Problem details: Had atrial fibrillation with RVR Summer 2018 while undergoing IV abx for severe diverticulitis: diltiazem and rivaroxaban started 01/14. Switched by her surgeon to warfarin. Followed by cardiology ([facility]), change to Xarelto 08/15. S/p complex atrial fibrillation ablation 11/15. Had single episode of A-fib with RVR in the setting of Covid-19 in 02/17. (5) Anticoagulant long-term use: Status: Acute Problem details: for AFIB. has been in sinus since her ablation but cautious about being protected from cardioembolic CVA (6) Obstructive sleep apnea: Status: Chronic Problem details: Moderate YOLI by PSG here 03/16/2019, AHI 19, severe when supine. Saw sleep physician, Dr. Sangita Dye, at [facility] 04/30/2019, who started her on CPAP treatment. (7) Hyperlipidemia: Status: Chronic Problem details: On pravastatin, Normal coronary arteries by 07/2020 CCTA. (8) Ulcerative colitis: Status: Chronic Problem details: Dxed late . Sees Dr. Xander Go, [facility] q2 years. On Asacol. Colonoscopy 04/17/23 showed complete remission. DS: Summary Hospital Course Hospital Course: 74 year old female was admitted to the medical floor for overnight observation, rule out chest pain. Course of care and details as noted above. Remainder of chronic medical comorbidities were monitored and managed with home medications. Status at Discharge Functional status at discharge: independent ambulation Overall status at discharge: patient is back to baseline Time Spent with Patient Time attestation: Total time spent providing and/or coordinating discharge services: Time spent: Greater than 30 minutes Exam Narrative: Exam Narrative: PHYSICAL EXAM General: Pleasant, conversant, NAD Cardiovascular: RRR Pulmonary: No dyspnea Neurological: Alert, answering questions appropriately Skin: Warm, dry. Const: Vital Signs, click to edit/add: Vital Signs - 24 hr 04/30/24 10:03 04/30/24 10:15 04/30/24 10:30 Temperature Pulse Rate 54 L 50 L 52 L Pulse Rate [Right Radial] Respiratory Rate Blood Pressure 172/84 H Blood Pressure [Ri ght Arm] Pulse Oximetry 95 95 95 Oxygen Delivery Me thod 04/30/24 10:32 04/30/24 10:45 04/30/24 11:00 Temperature Pulse Rate 56 L 55 L 56 L Pulse Rate [Right Radial] Respiratory Rate Blood Pressure 165/79 H Blood Pressure [Ri ght Arm] Pulse Oximetry 97 98 98 Oxygen Delivery Me thod 04/30/24 11:02 04/30/24 11:15 04/30/24 11:30 Temperature Pulse Rate 56 L 56 L 55 L Pulse Rate [Right Radial] Respiratory Rate Blood Pressure 171/84 H Blood Pressure [Ri ght Arm] Pulse Oximetry 96 97 95 Oxygen Delivery Me thod 04/30/24 11:32 04/30/24 11:33 04/30/24 11:45 Temperature Pulse Rate 68 66 57 L Pulse Rate [Right Radial] Respiratory Rate Blood Pressure 162/85 H Blood Pressure [Ri ght Arm] Pulse Oximetry 96 98 97 Oxygen Delivery Me thod 04/30/24 12:00 04/30/24 12:02 04/30/24 12:15 Temperature Pulse Rate 59 L 55 L 57 L Pulse Rate [Right Radial] Respiratory Rate Blood Pressure 171/87 H Blood Pressure [Ri ght Arm] Pulse Oximetry 95 95 96 Oxygen Delivery Me thod 04/30/24 12:30 04/30/24 12:30 04/30/24 12:32 Temperature Pulse Rate 64 62 Pulse Rate [Right Radial] Respiratory Rate 18 Blood Pressure 155/74 H Blood Pressure [Ri ght Arm] Pulse Oximetry 94 96 Oxygen Delivery Me thod 04/30/24 12:33 04/30/24 12:45 04/30/24 13:00 Temperature Pulse Rate 66 60 62 Pulse Rate [Right Radial] Respiratory Rate Blood Pressure Blood Pressure [Ri ght Arm] Pulse Oximetry 93 93 94 Oxygen Delivery Me thod 04/30/24 13:02 04/30/24 13:15 04/30/24 13:30 Temperature Pulse Rate 62 62 59 L Pulse Rate [Right Radial] Respiratory Rate Blood Pressure 148/82 H Blood Pressure [Ri ght Arm] Pulse Oximetry 95 93 94 Oxygen Delivery Me thod 04/30/24 13:32 04/30/24 13:45 04/30/24 14:20 Temperature 98.1 F Pulse Rate 60 59 L Pulse Rate [Right Radial] 67 Respiratory Rate 16 Blood Pressure 137/74 Blood Pressure [Ri ght Arm] 187/91 H Pulse Oximetry 94 93 97 Oxygen Delivery Me thod Room Air 04/30/24 14:48 04/30/24 18:45 04/30/24 19:00 Temperature 97.8 F Pulse Rate 63 Pulse Rate [Right Radial] 63 Respiratory Rate 18 Blood Pressure Blood Pressure [Ri ght Arm] 166/82 H 139/73 Pulse Oximetry 92 Oxygen Delivery Me thod Room Air 04/30/24 23:00 04/30/24 23:00 05/01/24 03:00 Temperature Pulse Rate 49 L Pulse Rate [Right Radial] 63 54 L Respiratory Rate 18 16 Blood Pressure Blood Pressure [Ri ght Arm] 142/74 H Pulse Oximetry 95 Oxygen Delivery Me thod Room Air 05/01/24 07:00 Temperature 97.8 F Pulse Rate Pulse Rate [Right Radial] 72 Respiratory Rate 16 Blood Pressure Blood Pressure [Ri ght Arm] 123/70 Pulse Oximetry 94 Oxygen Delivery Me thod Room Air DS: Data Data Completed and Pending Labs on day of discharge: Labs from last 24 hours 05/01/24 04/30/24 04/30/24 05:52 16:36 10:55 VBG pH 7.414 VBG pCO2 46 VBG pO2 44.0 VBG HCO3 29 H Sodium 139 Potassium 4.3 Chloride 105 Carbon Dioxide 28 Anion Gap 6 L BUN 15 Creatinine 0.7 Estimated Creat Clear 45.50 Estimated GFR 90 Glucose 110 Calcium 9.0 Magnesium Total Creatine Kinase 51 Troponin I < 0.01 L < 0.01 L < 0.01 L NT-Pro-B Natriuret Pep 04/30/24 09:08 VBG pH VBG pCO2 VBG pO2 VBG HCO3 Sodium 139 Potassium 4.1 Chloride 105 Carbon Dioxide 27 Anion Gap 7 BUN 14 Creatinine 0.7 Estimated Creat Clear 45.50 Estimated GFR 90 Glucose 112 Calcium 9.6 Magnesium 1.9 Total Creatine Kinase Troponin I NT-Pro-B Natriuret Pep 128 Imaging Chest x-ray: Attestation: I have reviewed the pertinent imaging results. Radiologist's impression: Normal size of the cardiomediastinal silhouette. Atherosclerotic aortic calcifications. Pulmonary vasculature is normal. Lungs are well inflated. No focal consolidation. No pleural effusion or pneumothorax. No acute osseous abnormality identified. Impression: No acute cardiopulmonary abnormality identified. Discharge Plan Discharge Disposition: Home, Self-Care Date of Admission: 04/30/24 13:52 Attending Provider on Discharge: Blanca Kendrick Primary Care Provider: Candy Gee Condition: Improved Anticipated Discharge Date/Time: 05/01/24 09:58 Discharge Medications: New lisinopril 20 mg Tablet 40 mg PO DAILY Qty: 60 0RF Continued triamcinolone acetonide 0.1 % cream 1 applic topical BID PRN metoprolol tartrate 25 mg tablet 25 mg PO BID omeprazole 20 mg capsule,delayed release(DR/EC) 20 mg PO DAILY Qty: 90 3RF Citracal Plus Bone Density 300-200-13.5 mg-unit-mg tablet 1 tab PO DAILY pravastatin 10 mg tablet 10 mg PO HS fluticasone propionate 50 mcg/actuation spray,suspension 2 spray intranasal DAILY Rx Instructions: administer into each nostril Xarelto 20 mg tablet 20 mg PO QPM Rx Instructions: must administer with evening meal cyclobenzaprine 5 mg tablet 5 mg PO HS PRN Skyrizi 75 mg/0.83 mL syringe 150 mg subcut Q12W mesalamine 800 mg tablet,delayed release (DR/EC) 800 mg PO BID Qty: 180 3RF alendronate 70 mg tablet 70 mg PO QWEEK Qty: 12 3RF No Action lisinopril 5 mg tablet 10 mg PO BID Qty: 180 3RF Discharge Orders: Discharge Order (Routine); Ordered 05/01/24 Ordered By: Blanca Kendrick Patient Education: Lisinopril (By mouth), Chest Pain (GEN) Activity Level: Activity as Tolerated Discharge Diet: Heart Healthy (2 gm sodium, low fat) Follow Up Appointments: Lobito Michaels MD [Staff Physician] - 05/06/24 3:15 pm ([facility] for post hospital follow-up.) Candy Gee MD [Primary Care Provider] - (Post hospital follow up 3-5 days) Forms: [employer] Info Instructions Discharge Comments: Stress test scheduled for 05/02/24
--- NOTE | 2024-05-01 12:24 | PC.NURSE ---
The patient discharged home with her late morning, ambulated off of the unit. No HTN noted upon AM VS assessment, the patient reported no symptoms. All discharge paperwork was reviewed with the patient as well as her follow up appointment. Audrey WHITING BSN
== END 2024-05-01 11:35 | disposition home or self-care (01) ==
LOC: ED 13:32 → MEDSURG 13:53
PROVIDERS: Admitting Provider Family Medicine; Emergency Provider Family Medicine; PCP Internal Medicine; Visit Provider Family Medicine
DX: R07.89 Other chest pain (principal); I10 Essential (primary) hypertension; I48.0 Paroxysmal atrial fibrillation; K51.90 Ulcerative colitis, unspecified, without complications; E78.5 Hyperlipidemia, unspecified; G47.33 Obstructive sleep apnea (adult) (pediatric); K21.9 Gastro-esophageal reflux disease without esophagitis; Z87.891 Personal history of nicotine dependence
CPT/HCPCS: 36415; 71045; 80048; 82550; 82803; 83735; 83880; 84484; 85025; 93005; 94761; 96374; 99285; G0378; A9270; J2470

== ENCOUNTER 2024-05-02 12:39 | Outpatient (CLI) | payer OTHER, SELFPAY ==
[2024-05-02 13:30] VITALS: BP 152/80; PULSE 86; RESP 18
--- NOTE | 2024-05-02 13:59 | W.PM.STED ---
Stress Test Note Date Date Seen: 05/02/24 Date of test: 05/02/24 Providers Referring provider: Mukund Lizarraga Primary care provider: Candy Gee Stress test physician: Lorie Delcdi Stress Test Note Stress test ordered: Stress Echo Indication for test: Chest pain Stress test medicine: None Results discussion: Resting EKG: Sinus rhythm, 72 beats per minute. Resting blood pressure: 152/84 Stress test: Patient is consented on stress test ordered hand agrees to proceed. Patient is exercised on the treadmill following standard Oj protocol. She is able to exercise to 6 minute 16 seconds, needing to stop due to reaching exercise fatigue with shortness of breath and legs feeling tired due to the incline. This level of exercise is equivalent to 7.5 Mets. She reached a maximum heart rate of 156 beats per minute which was 126% of a calculated target heart rate of 123. She had a maximal blood pressure of 196 over 76 with a rate pressure product of 26,460. Note patient does have hypertension and did withhold her metoprolol for this test today appropriately. There was no definitive EKG evidence of ischemia, no arrhythmia. Patient had no chest pain. Await echo images to couple this for a full formal diagnostic. Impression: Subjectively negative, objectively negative EKG portion of this stress test. Follow up suggested: Patient is discharged home in stable condition. She will await her primary to receive full report from the echo.
== END 2024-05-02 12:40 | disposition home or self-care (01) ==
LOC: STRESS 12:42
PROVIDERS: PCP Internal Medicine; Visit Provider Family Medicine
DX: R07.89 Other chest pain (principal)
CPT/HCPCS: 93016; 93325; 93351

== ENCOUNTER 2024-05-17 08:45 | Outpatient (CLI) | payer OTHER, SELFPAY | END 2024-05-17 08:46 | disposition home or self-care (01) | LOC: NFLDREF 05-18 | PROVIDERS: PCP Internal Medicine; Referring Provider Internal Medicine; Visit Provider Family Medicine | DX: I10 Essential (primary) hypertension (principal) | CPT/HCPCS: 80048 ==

== ENCOUNTER 2024-06-17 10:15 | Outpatient (RCR) | payer OTHER, SELFPAY | END 2024-08-01 09:35 | disposition home or self-care (01) | PROVIDERS: PCP Internal Medicine; Visit Provider Internal Medicine | DX: M15.9 Polyosteoarthritis, unspecified (principal); R07.89 Other chest pain; M25.561 Pain in right knee; M25.562 Pain in left knee; M79.661 Pain in right lower leg; M79.662 Pain in left lower leg; Z51.89 Encounter for other specified aftercare | CPT/HCPCS: 97112; 97140; 97162; 97530 ==

== ENCOUNTER 2024-10-08 10:07 | Emergency (ER) | payer OTHER, SELFPAY ==
[2024-10-08] VITALS (21 sets, daily range): BP systolic 157–202; BP diastolic 78–97; PULSE 54–69; RESP 9–20; TEMP 36.6; O2SAT 92–98; BMI 25.5
--- OUTSIDE RECORDS SUMMARY | 2024-10-08 10:10 | XMS_ITS | Clinical Summary ---
Author Organization [facility] Address [address] [place] [address] Care Team Providers Care Head Of Transport Logistics Name Role Phone Candy Gee MD Primary Care Provider [phone] Source Comments You are receiving this document [...] for each transition of care or referral. [employer] Allergies Active Allergy Reactions Criticality Noted Date Comments Atorvastatin Medium 03/10/2020 Alendronate Other, see comments,Gastrointestinal,Levi a,generalized 10/02/2024 Elevated BP Quinolones Medium 03/10/2020 Simvastatin Low 03/10/2020 Sulfa Antibiotics High 03/10/2020 Tolterodine Medium 03/10/2020 Medications omeprazole (PRILOSEC) 20 MG capsule TK 1 C PO D 0 Active erythromycin (ERYGEL) 2 % gel JONATHON EXT AA BID 0 Active pravastatin (PRAVACHOL) 10 MG tablet TK 1 T PO HS 0 Active fluticasone propionate (FLONASE) 50 MCG/ACT nasal solution Place 2 Sprays into both nostrils daily. Active MESALAMINE OR Active XARELTO 20 MG tablet TK 1 T PO D WITH MEAL 0 Active Calcium Citrate-Vitamin D (CITRACAL + D OR) Active artificial tears (HYPOTEARS) 1-1 % eye drop solution 4 times daily as needed. Active metoprolol tartrate (LOPRESSOR) 25 MG tablet 1 Active Risankizumab-rz aa (SKYRIZI SC) Acti ve triamcinolone acetonide (KENALOG) 0.1 % cream Apply topically two times a day. Active lisinopril (ZESTRIL) 40 MG tablet Take 1 Tablet (40 mg) by mouth daily. 4 Active polyethyl-propy tay glycol (SYSTANE) 0.4-0.3 % PF eye drops Place 1-2 Drops into both eyes 4 times a day. 5 Active lisinopril (ZESTRIL) 5 MG tablet Take 1 Tablet (5 mg) by mouth daily. 10/03/19 25 Discontinu ed(*Med change OR same med OR reorder, new dose/direc tions) lisinopril (ZESTRIL) 10 MG tablet Take 1 Tablet (10 mg) by mouth two times a day. 3 10/03/19 25 Discontinu ed(*Med change OR same med OR reorder, new dose/direc tions) Active Problems Problem Noted Date Diagnosed Date Paroxysmal atrial fibrillation 09/30/2024 Overview (09/30/2024): DA reviewed: documented by [facility] 06/08/2023 Immunosuppression due to drug therapy 03/29/2023 Osteoarthritis of multiple joints 03/29/2023 Ulcerative (chronic) pancolitis without complica tions Encounters Date Type Department Care Team Description 10/02/2024 10:00 AM CDT Office Visit Rheumatology at [facility] [place] [address] Humaira Evans MD Osteoarthritis of multiple joints, unspecified osteoarthritis type (Primary Dx); Osteoporosis, unspecified osteoporosis type, unspecified pathological fracture presence (HRC); Psoriasis; 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) from Last 3 Months Immunizations Immunization Administration Dates Next Due Flu Vac (3+ yrs) 03/19/2014,02/18/2009 Flu Vac Preserv Free (3+yrs) 03/15/2010 Influenza [id number] 04/21/2009 Influenza IIV3 (Trivalent) F jason Highdose, 65+ Yrs (50947) 01/18/2020,04/29/2016,04/10/2015 Influenza IIV4 (Quadrivalent) 0.5mL (92830) 02/26 Influenza IIV4 (Quadrivalent ) Fluzone, 65+ Yrs 02/27/2023,03/10/2022,01/18/2020 Influenza aIIV3 65+ Years (Fluad) 03/05/2019 Influenza, Unspecified Formulation 01/18/2020 Influenza, Whole 04/17/2011 Moderna COVID-19 12+ 02/27/2023 Moderna Monovalent 12+ 02/11/2021,08/12/2020, PCV13 (Prevnar) 01/19/2016 PPSV23 (Pneumovax) 11/18/2009 RSV Arexvy 03/15/2023 Tdap 01/19/2016,12/10/2004 Zoster (Zostavax) 11/18/2009 Zoster RZV (Shingrix) 06/18/2020,01/18/2020 Social History Tobacco Use Types Packs/Day Years Used Date Smoking Tobacco: Former Smokeless Tobacco: Never Comments Unknown Sex and Gender Information Value Date Recorded Sex Assigned at Not on file Legal Sex Female 11:21 AM CDT Gender Identity Not on file Sexual Orientation Not on file Last Filed Vital Signs Vital Sign Reading Time Taken Comments Blood Pressure 164/83 10/02/2024 10:02 AM CDT Pulse 62 10/02/2024 10:02 AM CDT Temperature 36.7 C (98.1 F) 09/23/2022 8:59 AM CDT Respiratory Rate - - Oxygen Saturation - - Inhaled Oxygen Concentration - - Weight 72.7 kg (160 lb 4.8 oz) 10/03/19 25 10:02 AM CDT with shoes Height 167.6 cm (5' 6) 03/11/2020 8:52 AM CDT Body Mass Index 25.87 03/11/2020 8:52 AM CDT Plan of Treatment Health Maintenance Due Date Last Done Comments Colon Cancer Screening Plan Due 1950 Hep C Screening (Preventive Services) 1950 Medicare Welcome Visit 1950 Mammogram 1950 Dexa 2014 Pneumococcal Vaccine 50+ Yrs (3 of 3 - PCV) 01/18/2021 01/19/2016, 11/18/2009 COVID-19 Vaccine (2023- season) 2024 03/06/2024, 09/15/2023, 02/27/2023, Additional history exists DTaP/Tdap/Td Vaccine (3 - Tdap) 01/18/2026 01/19/2016, 12/10/2004 Zoster/Shingles Vaccine Completed 06/18/19, 01/18/2020, 11/18/2009 RSV Vaccine Completed 03/15/2023 Influenza Vaccine Completed 03/06/2024, , 03/10/2022, Additional history exists HepA Vaccine Aged Out No longer eligi ble based on patient's age to complete this topic HepB Vaccine Aged Out No longer eligi ble based on patient's age to complete this topic Hib Vaccine Aged Out No longer eligi ble based on patient's age to complete this topic IPV (Polio) Vaccine Aged Out No longe r eligible based on patient's age to complete this topic MCV4 Vaccine Aged Out No longer eligi ble based on patient's age to complete this topic Meningococcal B Vaccine Aged Out No l onger eligible based on patient's age to complete this topic Insurance MEDICARE ADVANTAGE Care Teams Head Of Transport Logistics Relationship Specialty Start Date End Date Candy Gee MD [address] [address] PCP - General Internal Medicine 03/05/20
--- OUTSIDE RECORDS SUMMARY | 2024-10-08 10:10 | XMS_ITS | Encounter Summary ---
Author [facility] Address [address], [place] [address] Care Team Providers Care Children'S Librarian Name Role Phone Candy Gee MD Primary Care Provider [phone]- [phone] Reason for Visit * Reason Comments Follow-up Encounter Details Date Type Department Care Team (Late st Contact Info) Description 10/02/2024 10:00 AM CDT Office Visit Rheumatology at [facility] [address] [id number] Humaira Evans MD [address] [place], [place] [id number] Osteoarthritis of multiple joints, unspecified osteoarthritis type (Primary Dx); Osteoporosis, unspecified osteoporosis type, unspecified pathological fracture presence (HRC); Psoriasis; 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) Social History Tobacco Use Types Packs/Day [...] Pulse 62 10/02/2024 10:02 AM CDT Temperature - - Respiratory Rate - - Oxygen Saturation - - Inhaled Oxygen Concentration - - Weight 72.7 kg (160 lb 4.8 oz) 10/03/19 25 10:02 AM CDT with shoes Height - - Body Mass Index 25.87 03/11/2020 8:52 AM CDT documented in this encounter Patient Instructions * Patient Instructions* Humaira Evans MD - 10/02/2024 10:00 AM CDT Continue tylenol as needed Keep exercising! Continue calcium and vitamin D Talk with your PCP about other osteoporosis options Voltaren or diclofenac gel up to 4 times daily as needed on the joints Call me if you get swelling of the joints or stiffness increases for more than 1 hour Continue following with dermatology Continue Skyrizi Continue tylenol as needed Follow up as needed Zoledronate (Reclast) Purpose Zoledronate (Reclast) is like alendronate (Fosamax) and risedronate (Actonel), but it is intravenous. If you are recommended to take Reclast, it probably means that you were intolerant of Fosamax or Actonel because of stomach or esophagus problems, or inability to swallow pills, or the oral medications didn't work to improve your bone density. Like Fosamax and Actonel, Reclast helps reduce the risk of fracture in those with osteoporosis, or other states associated with a high risk of fracture. It can also used to treat Paget???s disease of bone and also to help prevent tumors spreading to bone. Reclast binds very tightly to bone, where it inhibits the action of bone cells called osteoclasts. Osteoclasts are bone cells responsible for removing mineral and bone protein from bones such that the bones become thinner and structurally weaker, and thereby more easily broken with minor trauma such a fall on a loose rug or on ice. By reducing the activity of osteoclasts, Reclast allows cells that build bone to ???catch up?? and replace some of the bone that the osteoclasts have removed, thereby strengthening bones and reducing risk of fractures. Dose For osteoporosis, Reclast is dosed 5 mg intravenously once every 12 months. It is typically infusedin about 30 minutes or so. Lower doses may be used if you have kidney problems or at your physician???s discretion. For Paget???s disease of bone, the dose may be higher and more frequent. Potential side effects Since Reclast is intravenous, it avoids the stomach and esophagus and won't cause irritation problems in those areas. Some individuals will infrequently experience pain in the limbs (from bone and /or muscle) while on these medications. Low blood calcium (hypocalcemia) can rarely occur, especially if calcium and/or vitamin D intake is suboptimal. Make sure you are taking through diet and supplements at least 1200 mg of calcium daily and 800 IU of vitamin D. The most common side effect of Reclast is achy muscles, joints, or bones, and/or a flu-like syndrome which can begin several hours after the infusion and last 24-48 hours. This syndrome may even be accompanied by a low grade fever or headache. Symptoms typically respond to Tylenol 1000 mg every 6 hours or ibuprofen 400 mg every 6 hours. With high doses used in cancer treatment and very rarely in the doses used to treat osteoporosis, there have been cases of the jaw bone not being able to heal after major dental procedures, such as tooth extractions. As a precaution, all patients starting Reclast are advised to see their dentist and make sure that no significant dental procedures are planned. Such procedures should be avoided, if possible, for at least 3 months after your last infusion. Routine cleaning and fillings are not known to be a problem. There may also be a slight increased risk for the development of a fast heart rhythm called atrial fibrillation with these medications. This is rare, but might present with fluttering in the chest orshortness of breath. Expected effects Reclast helps improve bone density gradually, on average about 5 to 10% in the spine over 3 to 5 years, and 3 to 5% in the hip over that same time frame. After 3 years of use, these drugs tend to maintain bone density rather than increase it further. The risk of fractures is not reduced immediately with use of these drugs, but spine fracture risk is reduced within 6 months of starting these medicines. Reduction of hip, wrist or other non-spine fracture risk takes longer to achieve. Some retention of Reclast in the bone is expected after several years of use. Therefore, it is possible that some protection against fractures may persist after stopping the drug, especially if it has been used for several years. In Paget???s disease, gradual reduction of markers of disease activity such as the blood level of alkaline phosphatase occur over a few months. Bone pain associated with Paget???s disease subsides in3 to 6 months. Monitoring Your physician may check your kidney function, blood calcium, and/or tests of bone metabolism. Typically, a repeat bone mineral density test is done two years after commencement of Reclast to reveal the degree to which bone density has changed and hopefully improved. Special considerations It is very important to get adequate amounts of calcium and vitamin D through their diet and/or supplements. Inadequate amounts of daily calcium and/or vitamin D may blunt the benefit from these medicines. Sometimes it is helpful to have your vitamin D level checked to make sure you are getting enough. Let your physician know if you are having any significant dental procedures (like root canals, wisdom teeth extraction). Simple cavities, fillings, and replacement of fillings are not known to radha concern on Reclast. What to expect next (if you are starting an intravenous medication): 1. Our infusion staff will process your insurance and you will receive a call about coverage for the medication. 2. The infusion staff will also contact you to schedule your infusion. 3. If you haven't heard anything in 2 weeks call Central scheduling for injections or infusions at [phone] documented in this encounter Progress Notes * Humaira Evans MD - 10/02/2024 10:00 AM CDT RHEUMATOLOGY FOLLOW-UP CC: follow up positive MARLON, palmar plantar psoriasis with arthralgias, osteoarthritis, myofascial pain Encounter date: 10/02/2024 Date of last office visit: 04/03/2024 Rheumatologic history: The patient is a 74 [...] on Skirizi in April 2020 by dermatology. History of Present Illness Roosevelt Matos is a 74 year old female with osteoarthritis and psoriasis who presents for follow-up on joint pain and skin condition. She has experienced significant improvement in joint pain following physical therapy and dry needling treatments. Two sessions of dry needling in May resulted in complete pain relief in her knees. Her previously diagnosed posterior tibialis tendonitis has also improved. Her psoriasis is well-controlled with Skyrizi injections, with no issues reported. Occasionally, she uses an oily topical treatment on her feet. No new rashes are present, except for bug bites from gnats causing itching, for which she plans to use hydrocortisone cream. She takes Tylenol for pain relief approximately twice a week and has resumed rowing, which she had previously stopped due to leg pain. No current pain in her shoulders or hands during physical activities. She was previously prescribed Fosamax for osteoporosis but discontinued it due to side effects, including headaches, aching, and gastrointestinal symptoms such as diarrhea. She is currently taking calcium and vitamin D supplements. No recent illness, including flu or COVID. No new joint swelling, stiffness, or redness lasting more than an hour. No pain in shoulders or hands. ROS: Review of systems today's visit was reviewed, and is as noted above. PMH: Updated in EMR Outpatient Encounter Medications as of 10/02/2024 Medication Sig Dispense Refill artificial tears (HYPOTEARS) 1-1 % eye drop solution 4 times daily as needed. Calcium Citrate-Vitamin D (CITRACAL + D OR) erythromycin (ERYGEL) 2 % gel JONATHON EXT AA BID fluticasone propionate (FLONASE) 50 MCG/ACT nasal solution Place 2 Sprays into both nostrils daily. lisinopril (ZESTRIL) 10 MG tablet Take 1 Tablet (10 mg) by mouth two times a day. lisinopril (ZESTRIL) 5 MG tablet Take 1 Tablet (5 mg) by mouth daily. (Patient not taking: Reportedon 04/03/2024) MESALAMINE OR metoprolol tartrate (LOPRESSOR) 25 MG tablet omeprazole (PRILOSEC) 20 MG capsule TK 1 C PO D pravastatin (PRAVACHOL) 10 MG tablet TK 1 T PO HS Risankizumab-rzaa (SKYRIZI SC) triamcinolone acetonide (KENALOG) 0.1 % cream Apply topically two times a day. XARELTO 20 MG tablet TK 1 T PO D WITH MEAL No facility-administered encounter medications on file as of 10/02/2024. ALLERGIES: Updated in EMR Social History Tobacco [...] Skin: No visible plaques on examined skin. Neuro: normal gait. Grossly normal strength. MSK: [...] hand joints, wrists. No dactylitis type changes. Crepitus of the knees without tenderness to palpation or swelling today. There is no tenderness to palpation of the lower extremitiesor legs today which is an improvement compared to prior. There is no tenderness to palpation or swelling of the ankles. No pain on MTP squeeze Labs: Lab Results Component Value Date WBC 5.3 06/10/2021 RBC 4.49 06/10/2021 Hemoglobin 13.5 06/10/2021 HCT 42.1 06/10/2021 MCV 93.8 06/10/2021 RDW 12.5 06/10/2021 Platelets 311 06/10/2021 Lab Results Component Value Date AST (SGOT) 20 06/10/2021 , Lab Results Component Value Date ALT (SGPT) 28 06/10/2021 Lab Results Component Value Date Creatinine 0.70 06/10/2021 Lab Results Component Value Date Sedimentation Rate 8 04/03/2024 , Lab Results Component Value Date C-Reactive Protein 0.5 04/03/2024 [facility] MARLON: 1:80, speckled 02/2020: SUNSHINE panel negative dsDNA negative Complement normal Cryoglobulin negative HLA B27 negative HIV negative ANCA negative Imaging: XR b/l knees 04/03/2024: COMPARISON: None. FINDINGS: No acute or significant bone or joint abnormality of either knee is identified. Alignmentis unremarkable. XR b/l hands 04/03/2024: Correction: No evidence of inflammatory or erosive arthropathy in either hand. Signed by Dg Bravo MD on 04/03/2024 12:02 Narrative & Impression COMPARISON: 03/11/2020 FINDINGS: Left hand: Mild osteoarthritis in multiple IP joints. Inflammatory or erosive arthropathy. Right hand: Mild osteoarthritis in multiple IP joints. Inflammatory or erosive arthropathy. XR b/l feet 04/03/2024: COMPARISON: 03/25/2020 FINDINGS: Left foot: Mild stable osteoarthritis in the first MTP joint. No evidence of erosive or inflammatory arthropathy. No acute bone or joint abnormalities. Right foot: Mild stable osteoarthritis in the first MTP joint. No evidence of erosive or inflammatory arthropathy. No acute bone or joint abnormalities. CT chest 03/18/2020: IMPRESSION: 1. No thoracic [...] most consistent with osteoarthritis of multiple sites. Assessment & Plan Osteoarthritis of multiple sites Osteoarthritis is well-managed with no evidence of psoriatic arthritis. X-rays indicate wear and tear arthritis. Inflammation markers are normal. Joint symptoms are controlled with occasional Tylenoluse. - Continue Tylenol as needed for pain. - Continue rowing and other exercises. - Use Voltaren gel if needed for leg pain. - Monitor for joint swelling, stiffness, or redness lasting more than an hour and call if these occur. Posterior tibialis tendonitis Posterior tibialis tendonitis has improved significantly with dry needling therapy. No current painreported. - Consider dry needling therapy if symptoms recur. Psoriasis Psoriasis is well-controlled with Skyrizi injections. No new rashes or significant skin issues reported. Occasional use of topical treatment on feet. - Continue Skyrizi injections. - Use topical treatments as needed for skin maintenance. - Follow dermatology recommendations. Osteoporosis Osteoporosis with intolerance to oral Fosamax due to gastrointestinal symptoms including headaches,diarrhea, and general discomfort. Discussed alternative treatment options, specifically Reclast (IVform of Fosamax), which does not cause gastrointestinal symptoms. Reclast is administered annually - Discuss Reclast with primary care provider during November appointment. - Continue calcium and vitamin D supplementation. - Provide handout on Reclast for discussion with primary care provider. - Offer assistance in osteoporosis management if needed by primary care provider. Will plan on follow-up as needed if new or changing symptoms develop. Patient advised to call clinic if symptoms change or worsen. All questions answered to the best of my ability. Billing based on: complexity Humaira Evans MD [employer] [facility] documented in this encounter Plan of Treatment Not on file documented as of this encounter Visit Diagnoses Diagnosis Osteoarthritis of multiple joints, unspecified osteoarthritis type- Primary Osteoporosis, unspecified osteoporosis type, unspecified pathological fracture presence (HRC) Psoriasis Other psoriasis 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) documented in this encounter Care Teams Children'S Librarian Relationship Specialty Start Date End Date Candy Gee MD [address] [place] [address] PCP - General Internal Medicine 03/05/20 documented as of this encounter
--- OUTSIDE RECORDS SUMMARY | 2024-10-08 10:10 | XMS_ITS | Clinical Summary ---
Author Organization [facility] Address [address] [place] [id number] Care Team Providers Care Finished Goods Inspector Name Role Phone Candy Gee MD Primary Care Provider [phone] Allergies Active Allergy Reactions Criticality Noted Date Comments Atorvastatin Arthralgia Medium 12/15/2018 Nirmatrelvir-Ritonavir Tachycardia 05/13/2022 Quinolones Edema Medium 12/15/2018 Simvastatin Arthralgia Low 12/15/2018 Sulfa (Sulfonamide Antibiotics) Laryngospasm High Tolterodine *Unknown Medium 12/15/2018 Medications fluticasone (50 mcg per actuation) nasal solution (FLONASE) Inhale 1 [place] in the nostril(s) once daily. 9 Active Mesalamine (ASACOL) 800 mg TbEC Delayed-Release tablet Take 1 tablet by mouth 2 times daily. 8 Active omeprazole (PRILOSEC) 20 mg Delayed-Release capsule Take 20 mg by mouth once daily before a meal. Active Calcium Cmb 2-D3-Min Pow11-Ffn (CITRACAL + BONE DENSITY) 300-200-13.5 mg-unit-mg tab Take by mouth. Two tablets daily 0 9 Active risankizumab-rzaa (Skyrizi) 150mg/1.66mL(75 mg/0.83 mL x2) sykt Inject subcutaneous. Every 3 Months. 0 1 Active amoxicillin-clavul anate 875-125 mg tablet (AUGMENTIN) Take 1 Tablet by mouth two times daily with meals. 3 Active rivaroxaban (Xarelto) 20 mg tabletIndications: Paroxysmal atrial fibrillation (HC) Take 1 Tablet (20 mg) by mouth once daily with evening meal. Cardiology appt due 04/2025. 90 Tablet 2 5 Active metoprolol tartrate (LOPRESSOR) 25 mg tabletIndications: Paroxysmal atrial fibrillation (HC) Take 1 Tablet (25 mg) by mouth two times daily. Appt due 04/2025. 180 Tablet 2 5 Active pravastatin (PRAVACHOL) 10 mg tabletIndications: Mixed hyperlipidemia Take 1 Tablet (10 mg) by mouth once daily. Cardiology appt due 04/2025. 90 Tablet 2 5 Active lisinopriL (PRINIVIL; ZESTRIL) 10 mg tabletIndications: Hypertension Take 1 Tablet (10 mg) by mouth two times daily. Due for cardiology appt April 2025. 180 Tablet 2 5 Active Active Problems Patient Care Coordination No [...] Encounters Date Type Department Care Team Description 07/26/2024 Refill [facility] [address] [place] [address] Jason Kitchen MD Refill Request (Xarelto, Metoprolol Tartrate) from Last 3 Months Family History Medical [...] Paying Living Expenses Not on file 05/29/2021 Comments No Sex and Gender Information Value Date Recorded Sex Assigned at Not on file Legal Sex Female 2:06 PM CDT Gender Identity Not on file Sexual Orientation Not on file Obstetrics History Last Filed Vital Signs Vital Sign Reading Time Taken Comments Blood Pressure 177/80 05/19/2023 10:19 AM 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 Pulse 60 05/19/2023 10:19 AM 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 Temperature 36.9 C (98.5 F) 08/23/2020 8:23 AM CDT Respiratory Rate 16 08/23/2020 8:23 AM CDT Oxygen Saturation 95% 05/19/2023 10:19 AM 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 Inhaled Oxygen Concentration - - Weight 71.8 kg (158 lb 3.2 oz) 05/19/2023 10:19 AM 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 Height 167.6 cm (5' 6) 09/29/2020 9:33 AM CDT Body Mass Index 25.53 09/29/2020 9:33 AM CDT Plan of Treatment Health Maintenance Due Date Last Done Comments Tdap 01/05/1960 Depression screening for age 12+ 1961 Hepatitis C screening for ag e 18-79 1967 Pneumococcal series for age 50+ (1 of 2 - PCV) 01/05/1968 Zoster (shingles) series for age 50+ (1 of 2) 01/05/1968 Tetanus booster 1969 Colonoscopy through age 75 1994 DEXA/DXA scan for age 65+ 2014 Medicare Wellness for age 65+ 2014 BMI (ht and wt on same day) for age 18+ 09/29/2021 09/29/2020, 03/31/2020, 03/27/2020, Additional history exists RSV vaccine for adults or (1 - 1-dose 75+ series) 01/05/2024 COVID-19 vaccine series ( season) 2024 02/27/2023, 04/29/2022, 09/16/2021, Additional history exists Influenza Vaccine (Season Ended) 2025 Lipids for age 45-75 08/23/2025 08/23/2020 Procedures Procedure Name Priority Date/Time Associated Diagnosis Comments LIPID PANEL Early AM 08/23/2020 5:47 AM CDT from Last 3 Months or Most Recently Relevant to Health Maintenance Results * (ABNORMAL) Lipid Panel AM (08/23/2020 5:47 AM CDT) CHOLESTEROL,TOTAL 169 100 - 199 mg/dL 08/23/2020 6:13 AM CDT [facility] TRIGLYCERIDES 168(H) <150 mg/dL 08/23/2020 6:13 AM CDT [facility] HDL CHOLESTEROL 37(L) >40 mg/dL 6:13 AM CDT [facility] NON-HDL CHOLESTEROL 132 <145 mg/dl 08/23/2020 6:13 AM CDT [facility] CHOL/HDL RATIO 4.57(H) <4.50 08/23/2020 6:13 AM CDT [facility] LDL CHOLESTEROL 98 <=130 mg/dL 08/23/2020 6:13 AM CDT [facility] PROVIDER ORDERED STATUS RANDOM 08/23/2020 6:13 AM CDT [facility] Blood BLOOD SPECIMEN / Unknown Venipuncture / Unknown 08/23/2020 5:47 AM CDT 08/23/2020 5:52 AM CDT us Eryn Benavides MD CHEMISTRY Final Result [facility] [address] [place] [address], [place] from Last 3 Months or Most Recently Relevant to Health Maintenance Insurance MEDICARE PART A HB ONLY [place] MEDICARE ADVANTAGE MR JESUSITA EGAN [id number] Advance Directives * Full Code (Latest Code Status on File) Date Activated Date Inactivated Comments 08/23/2020 10:20 AM 08/23/2020 1:57 PM Question Answer Comments Code Status Discussion: Discussed * Full Code Date Activated Date Inactivated Comments 12/26/2019 3:38 PM 12/27/2019 1:20 PM Care Teams Finished Goods Inspector Relationship Specialty Start Date End Date Candy Gee MD [address] [place] [id number] PCP - General Internal Medicine 03/01/19
--- NOTE | 2024-10-08 11:12 | ED.GENADULT ---
HPI - General Adult General Date Seen: 10/08/24 Chief complaint: Hypertension Stated complaint: Possible high BP Time Seen by Provider: 10/08/24 11:12 History of Present Illness HPI narrative: 74 yo F with h/o HTN, YOLI, UC, paroxysmal AF, is sent to the ER today by the clinic phone triage line for high blood pressure and feeling often woozy. Patient has difficult time describing her symptoms. She and her both got there COVID shot 4 days ago last Monday. Patient says she felt pretty well the following day on Monday but then on Monday and again yesterday on Monday felt just a little bit ?off. ?. She has a hard time describing what was not right about her body. She just felt a little bit off balance when walking. She was not really having any spinning or rocking vertigo. She was not really lightheaded or feeling like she was going to faint. She did not actually have any trouble walking and was not sore being or listing or having to stand with her feet spread apart. She just felt a little bit slow when she was walking. She felt fine when she was sitting down. No other symptoms. No chest pain. No palpitations. No shortness of breath. No cough. No fever. No nausea. No vomiting. No diarrhea. No recent black or bloody stools. No swelling in her legs. This morning when she woke up she again felt often just ?not right. ? She also had a mild frontal headache. She thought she had better check her blood pressure and she measured it. It was elevated. When checked it again later it was higher. She then called her clinic line who told her to come to the ER because her blood pressure was too high. When she presented to the ER blood pressure was 200/90. She is still not having any of the other symptoms such as chest pain, palpitations, shortness of breath. The patient has not noted any other symptoms such as confusion, slurred speech, or any other stroke symptoms. The patient was wearing her 's apple watch this morning and apparently they have a can of apple watch that does show a rhythm on the phone. Apparently the rhythm was going up and down (she describes something with the EKG rhythm where the stripe was going up and down on the phone based rhythm strip). She is not able to show me the rhythm here in the ER because the bone is no longer working and showing any recorded strips. The patient and I attempted to access save for rhythm strips on the phone but for some reason she is not able to get the mercedes to open up and run. Or night able to see any of the rhythm strips. Related Data Home Medications ?Medication ?Instructions ?Recorded ?Confirmed cyclobenzaprine 5 mg tablet 5 mg PO HS PRN 02/25/22 09/03/24 risankizumab-rzaa 75 mg/0.83 mL 150 mg subcut Q12W 02/25/22 09/03/24 subcutaneous syringe (Skyrizi) rivaroxaban 20 mg tablet (Xarelto) 20 mg PO QPM 02/25/22 09/03/24 metoprolol tartrate 25 mg tablet 25 mg PO BID 06/08/23 09/03/24 triamcinolone acetonide 0.1 % 1 applic topical BID PRN 06/08/23 09/03/24 topical cream pravastatin 10 mg tablet 10 mg PO HS 04/30/24 09/03/24 calcium 300 mg-vit D3 200 1 tab PO BID 05/06/24 09/03/24 crgo-[id number]-ibtwtvbge 13.5 mg tablet (Citracal Plus Bone Density Builder) Previous Rx's ?Medication ?Instructions ?Recorded omeprazole 20 mg capsule,delayed 20 mg PO DAILY #90 caps 12/18/23 release mesalamine 800 mg tablet,delayed 800 mg PO BID #180 tabs 02/26/24 release alendronate 70 mg tablet 70 mg PO QWEEK #12 tabs 04/01/24 lisinopril 40 mg tablet 40 mg PO QDAY #90 tabs 05/06/24 fluticasone propionate 50 2 spray intranasal DAILY PRN nasal 08/29/24 mcg/actuation nasal congestion #16 grams spray,suspension Allergies Allergy/AdvReac Type Severity Reaction Status Date / Time Sulfa (Sulfonamide Allergy Severe larygnospas Verified 09/03/24 09:28 Antibiotics) m atorvastatin Allergy Intermediate Verified 09/03/24 09:28 Quinolones Allergy Intermediate swelling Verified 09/03/24 09:28 tolterodine Allergy Intermediate Verified 09/03/24 09:28 simvastatin Allergy Mild Verified 09/03/24 09:28 nirmatrelvir (From Paxlovid Allergy Afib Verified 09/03/24 09:28 (EUA)) ritonavir (From Paxlovid Allergy Afib Verified 09/03/24 09:28 (EUA)) PFSH PFS Medical History (Updated 10/08/24 @ 13:52 by Jason Jung MD) Vision loss, right eye ?H54.61 - Unqualified visual loss, right eye, normal vision left eye (ICD-10) Surgical History History of blepharoplasty ?Z98.890 - Other specified postprocedural states (ICD-10) History of colonoscopy (2018) ?Z98.890 - Other specified postprocedural states (ICD-10) History of bilateral cataract extraction ?Z98.41 - Cataract extraction status, right eye (ICD-10) ?Z98.42 - Cataract extraction status, left eye (ICD-10) 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, initial encounter (ICD-10) History of cataract surgery ?Z98.49 - Cataract extraction status, unspecified eye (ICD-10) Status post laparoscopic-assisted sigmoidectomy ?Z90.49 - Acquired absence of other specified parts of digestive tract (ICD-10) History of laparoscopic cholecystectomy (09/2020) ?Z90.49 - Acquired absence of other specified parts of digestive tract (ICD-10) History of appendectomy ?Z90.49 - Acquired absence of other specified parts of digestive tract (ICD-10) Social History (Updated 12/15/22 @ 15:25 by Ruth Barksdale ~ [facility]) What is your current living situation?: I presently have a place to live Problems where you live: no known problems Problems where you live details: N/A In the past 12 months, utilities in danger of being shut off: no In past 12 months, lack of transportation kept you from medical appts, meetings, work, or getting things needed for daily living: no In the past 12 mos, have been you worried that your food would run out before you had money to buy more?: never true In the past 12 mos, the food you bought just didn't last and you didn't have money to buy more?: never true Smoking Status: Former smoker Do you use any of these nicotine containing products: None Second hand tobacco smoke exposure: No How often do you have a drink containing alcohol: never How often do you have six or more drinks on one occasion: Never AUDIT-C Alcohol total score: 0 Non-prescribed substance use: denies use How often does anyone, including family, friends and others, physically hurt you: never How often does anyone, including family, friends and others, insult or talk down to you: never How often does anyone, including family, friends and others, threaten you with harm: never How often does anyone, including family, friends and others, scream or curse at you: never Exam Narrative: Exam Narrative: Constitutional: Appears well-developed and well-nourished. Alert. Conversant. Non toxic. Polite. attentively at her side and he is mostly listening quiet. HENT: Head: Atraumatic. Nose: Nose normal. Mouth/Throat: Oral mucosa is clear and moist. no trismus. Pharynx normal. Tonsils symmetric. No tonsillar enlargement, erythema, or exudate. Eyes: Conjunctivae normal. EOM normal. Pupils equal, round, and reactive to light. No scleral icterus. Neck: Normal range of motion. Neck supple. No tracheal deviation present. No JVD Cardiovascular: Normal rate, regular rhythm. No gallop. No friction rub. No murmur heard. Symmetric radial artery pulses Pulmonary/Chest: Effort normal. No stridor. No respiratory distress. No wheezes. No rales. No rhonchi . No tenderness. Abdominal: Soft. Bowel sounds normal. No distension. No mass. No tenderness. No rebound. No guarding. Musculoskeletal: RUE: Normal range of motion. No tenderness. No deformity LUE: Normal range of motion. No tenderness. No deformity RLE: Normal range of motion. No edema. No tenderness. No deformity LLE: Normal range of motion. No edema. No tenderness. No deformity Neurological: Alert and oriented to person, place, and time. Normal strength. CN II-VII intact. No sensory deficit. GCS eye subscore is 4. GCS verbal subscore is 5. GCS motor subscore is 6. Normal coordination Skin: Skin is warm and dry. No rash noted. No pallor. Normal capillary refill. Psychiatric: Normal mood. Normal affect. Const: Vital Signs, click to edit/add: Vital Signs - 24 hr 10/08/24 10:26 10/08/24 10:38 10/08/24 10:39 Temperature 98 F Pulse Rate 60 58 L Pulse Rate [Pulse Oximeter] 65 Respiratory Rate 16 15 Blood Pressure 193/97 H Blood Pressure [Ri ght Upper Arm] 202/92 H Pulse Oximetry 92 95 98 Oxygen Delivery Me thod Room Air 10/08/24 10:45 10/08/24 11:00 10/08/24 11:02 Temperature Pulse Rate 55 L 57 L 56 L Pulse Rate [Pulse Oximeter] Respiratory Rate 11 L 11 L Blood Pressure 164/78 H Blood Pressure [Ri ght Upper Arm] Pulse Oximetry 96 93 97 Oxygen Delivery Me thod 10/08/24 11:15 10/08/24 11:30 10/08/24 11:31 Temperature Pulse Rate 55 L 60 59 L Pulse Rate [Pulse Oximeter] Respiratory Rate 12 15 18 Blood Pressure 171/85 H Blood Pressure [Ri ght Upper Arm] Pulse Oximetry 95 93 93 Oxygen Delivery Me thod 10/08/24 11:45 10/08/24 12:33 10/08/24 12:35 Temperature Pulse Rate 56 L 57 L Pulse Rate [Pulse Oximeter] Respiratory Rate 16 16 17 Blood Pressure 184/89 H Blood Pressure [Ri ght Upper Arm] Pulse Oximetry 93 93 Oxygen Delivery Me thod 10/08/24 12:45 10/08/24 13:00 10/08/24 13:02 Temperature Pulse Rate 54 L 58 L 59 L Pulse Rate [Pulse Oximeter] Respiratory Rate 9 L 13 Blood Pressure 168/79 H Blood Pressure [Ri ght Upper Arm] Pulse Oximetry 96 95 94 Oxygen Delivery Me thod 10/08/24 13:15 Temperature Pulse Rate 60 Pulse Rate [Pulse Oximeter] Respiratory Rate 16 Blood Pressure Blood Pressure [Ri ght Upper Arm] Pulse Oximetry 97 Oxygen Delivery Me thod Course Course ED Course: Recheck-back from imaging. Feels about the same. Has not had her labs are IV yet. Reevaluation(s) Reevaluation #1: Recheck-feeling a little bit better. Says she is hungry and would like to eat some lunch. Waiting on labs. Reevaluation #2: Recheck-labs look good. Patient eating a turkey sandwich. Still hypertensive with a blood pressure of about 179/86 but otherwise no new symptoms. At this point no evidence for acute an organ damage. Vital Signs Vital signs: Initial Vital Signs Temperature 98 F 10/08/24 10:26 Temperature Source Temporal Artery Scan 10/08/24 10:26 Pulse Rate 65 10/08/24 10:26 Respiratory Rate 16 10/08/24 10:26 Blood Pressure 202/92 H 10/08/24 10:26 Blood Pressure Mean 128 H 10/08/24 10:26 Pulse Oximetry 92 10/08/24 10:26 Oxygen Delivery Method Room Air 10/08/24 10:26 Vital Signs Temperature 98 F 10/08/24 10:26 Pulse Rate 65 10/08/24 10:26 Respiratory Rate 16 10/08/24 10:26 Blood Pressure 202/92 H 10/08/24 10:26 Pulse Oximetry 92 10/08/24 10:26 Oxygen Delivery Method Room Air 10/08/24 10:26 Temperature 98 F 10/08/24 10:26 Pulse Rate 60 10/08/24 13:15 Respiratory Rate 16 10/08/24 13:15 Blood Pressure 168/79 H 10/08/24 13:02 Pulse Oximetry 97 10/08/24 13:15 Oxygen Delivery Method Room Air 10/08/24 10:26 Medications Administered Medications: Discontinued Medications Generic Name Dose Route Start Last Admin Trade Name Freq PRN Reason Stop Dose Admin Sodium Chloride 1,000 mls @ 1,000 mls/hr 10/08/24 11:45 10/08/24 12:53 0.9 % Sodium Chloride 1000 Ml IV 10/08/24 12:44 1,000 mls/hr .Q1H NELSON Administration Medical Decision Making [facility] Narrative Medical decision making narrative: This patient presents for evaluation of he feeling off and a little bit dizzy for the past couple of days and this morning also noted mild frontal headache and elevated blood pressure. She also had her COVID vaccine booster a couple of days ago. There is a previously history of hypertension in the past. Patient is normally on lisinopril 40 mg per day and metoprolol 25 mg per day. She says she does not really measure a blood pressure that often at home but she tends to run high in the doctor's office and more normal when she measures at home. No concerning symptoms of chest pain , severe headache, neurologic deficits. Because of the patient mild headache we did do a head CT which is fortunately normal. The workup here is negative and the patient does not have any clinical, laboratory, EKG. EKG does show sinus bradycardia and first-degree AV block. When I look back at her previous medical record it seems like her heart is rate often is in the 50s. She is beta blocked for hypertension control which likely explains the symptoms. At this point I do not think bradycardia is causing her wounds feeling. At this point I do not think she needs to be admitted for cardiac monitoring or pacemaker implantation. There is no signs of hypertensive emergency or urgency. Supportive outpatient management is therefore indicated with close follow-up of primary care physician. encouraged serial blood pressure monitoring at home to aid primary in decision making regarding hypertension. Discussed in detail with the patient and her . They are agreeable to plan for outpatient monitoring. Precautions for return to the ER reviewed especially with any new or evolving symptoms. Recommend follow-up with PCP within the next 5-7 days. Lab Data Labs: Lab Results 10/08/24 10/08/24 Range/Units 11:42 12:45 WBC 5.65 (4.50-11.00) K/uL RBC 4.60 (4.00-5.20) m/uL Hgb 13.6 (12.0-16.0) gm/dL Hct 41.1 (33.0-51.0) % MCV 89 (80-100) fL MCH 30 (26-34) pg MCHC 33 (32-36) gm/dL RDW Coeff of Pan 12.5 (11.5-15.5) % Plt Count 242 (140-440) K/uL Neut % (Auto) 62.1 (42.0-72.0) % Lymph % (Auto) 28.1 (20-44) % Faulk % (Auto) 7.1 (0.0-11.0) % Eos % (Auto) 1.1 (0.0-7.0) % Baso % (Auto) 0.4 (0.0-3.0) % Neut # (Auto) 3.51 (1.7-7.0) K/uL Lymph # (Auto) 1.59 (0.90-2.90) K/uL Faulk # (Auto) 0.40 (0.00-0.90) K/UL Eos # (Auto) 0.06 (0.00-0.50) K/uL Baso # (Auto) 0.02 (0.00-0.30) K/uL Abs Immat Gran (auto) 0.07 (0.00-0.30) K/uL Imm/Tot Granulo (auto) 1.2 % Sodium 142 (135-149) mmol/L Potassium 3.6 (3.6-5.1) mmol/L Chloride 105 (96-114) mmol/L Carbon Dioxide 28 (20-32) mmol/L Anion Gap 9 (7-15) mEq/L BUN 14 (7-30) mg/dL Creatinine 0.7 (0.5-1.5) mg/dL Estimated Creat Clear 45.50 Estimated GFR 90 ml/min Glucose 97 (60-115) mg/dL Lactate 1.2 (0.5-1.9) mmol/L Calcium 9.3 (8.4-10.6) mg/dL Magnesium 1.7 (1.5-2.6) mg/dL NT-Pro-B Natriuret Pep 341 pg/mL POC Troponin I 0.01 (0.01-0.04) ng/ml Imaging Data CT scan - head: Attestation: I have reviewed the pertinent imaging results. Radiologist's impression: IMPRESSION: Unremarkable noncontrast head CT. Chest x-ray: Attestation: I have reviewed the pertinent imaging results. My impression: No acute infiltrate. No CHF or pulmonary edema. No pneumothorax. Normal cardiac silhouette and normal mediastinum. Radiologist's impression: IMPRESSION: No acute cardiopulmonary process. ECG Data Attestation: I personally reviewed and interpreted this ECG as follows: Interpretation: Sinus bradycardia with first-degree AV block. Sinus arrhythmia. Rate: 54 UT: 212 QRS axis: Normal axis. No pathologic Q-waves. ST segment/T wave: No ST segment elevation or depression. Nonspecific T-wave flattening leads V1 and V2 QTc: 430 Discharge Plan Discharge Clinical Impression: Hypertension, Dizziness Patient Disposition: Home, Self-Care Condition: Stable Instructions: Hypertension (ED), Dizziness (ED) Additional Instructions: As we discussed, so far your workup looks reassuring. However, I want you to monitor your symptoms carefully and please come back to the ER right away if you have worsening symptoms such as worsening dizziness or unsteadiness or any new symptoms such as chest pain, trouble breathing, palpitations, fainting or falling, or any symptoms of stroke. Please monitor your blood pressure and measure once per day. Keep a recording of the measurements and bring them with you to your doctor's office for a blood pressure check. Please call your doctor's office today to arrange an ER follow-up visit for recheck within the next 5-7 days. If your blood pressure continues to run above your goal, your doctor will probably a gesture blood pressure medications. For now, please continue on your regular medications. Prescriptions: No Action triamcinolone acetonide 0.1 % cream 1 applic topical BID PRN metoprolol tartrate 25 mg tablet 25 mg PO BID omeprazole 20 mg capsule,delayed release(DR/EC) 20 mg PO DAILY Qty: 90 3RF lisinopril 40 mg tablet 40 mg PO QDAY Qty: 90 2RF Citracal Plus Bone Density 300 mg-200 unit -13.5 mg tablet 1 tab PO BID pravastatin 10 mg tablet 10 mg PO HS Xarelto 20 mg tablet 20 mg PO QPM Rx Instructions: must administer with evening meal cyclobenzaprine 5 mg tablet 5 mg PO HS PRN Skyrizi 75 mg/0.83 mL syringe 150 mg subcut Q12W mesalamine 800 mg tablet,delayed release (DR/EC) 800 mg PO BID Qty: 180 3RF alendronate 70 mg tablet 70 mg PO QWEEK Qty: 12 3RF fluticasone propionate 50 mcg/actuation spray,suspension 2 spray intranasal DAILY PRN (Reason: nasal congestion) Qty: 16 11RF Rx Instructions: administer into each nostril Follow Up/Referrals: Candy Gee MD [Primary Care Provider] - Stand Alone Forms: [employer] Info Instructions
--- NOTE | 2024-10-08 11:41 | CRLHL7_ITS ---
For Patients: As a result of the Century Cures Act, medical imaging exams and procedure reports are released immediately into your electronic medical record. You may view this report before your referring provider. If you have questions, please contact your health care provider. INDICATION: Hypertension. Gait instability. TECHNIQUE: Chest radiographs, 2 views. COMPARISON: Chest radiograph 04/30/2024. FINDINGS: Cardiovascular/Mediastinum: Normal heart size. Unremarkable. Lungs: No focal consolidation. Airways: Trachea remains midline. Pleura: No pleural effusions or pneumothorax. Bones: No acute osseous abnormalities. Upper abdomen: Unremarkable. IMPRESSION: No acute cardiopulmonary process. Dictated by Kit Rodriguez MD @ 10/08/2024 12:28:28 PM (Electronically Signed)
--- NOTE | 2024-10-08 11:42 | CRLHL7_ITS ---
For Patients: As a result of the Century Cures Act, medical imaging exams and procedure reports are released immediately into your electronic medical record. You may view this report before your referring provider. If you have questions, please contact your health care provider. INDICATION: Frontal headache. Off balance. High BP.. TECHNIQUE: CT head without contrast. COMPARISON: None. FINDINGS: CSF spaces: Within normal limits for age. Brain parenchyma and extra-axial spaces: The mercedes-white differentiation is normal. No sign of mass, hemorrhage, or midline shift. No extra-axial fluid collection. Skull base and calvarium: The visualized paranasal sinuses and mastoid air cells demonstrate no acute or significant findings. The visualized orbits are grossly unremarkable. No skull fractures. IMPRESSION: Unremarkable noncontrast head CT. Please note that all CT scans at this facility use dose modulation, iterative reconstruction, and/or weight-based dosing when appropriate to reduce radiation dose to as low as reasonably achievable. Dictated by Anjelica Jeronimo MD @ 10/08/2024 12:15:27 PM (Electronically Signed)
--- OUTSIDE RECORDS SUMMARY | 2024-10-08 12:19 | XMS_ITS | Clinical Summary ---
[facility] Organization [facility] Address [address] [place] [address] Care Team Providers Care Patch Finisher Name Role Phone Candy Gee MD Primary Care Provider +1- [phone] Source Comments You are receiving this document [...] for each transition of care or referral. [facility] Allergies Active Allergy Reactions Criticality Noted Date [...] 09/30/2024 Overview (09/30/2024): DA reviewed: documented by [facility] 06/08/2023 Immunosuppression due to drug therapy 03/29/2023 Osteoarthritis of multiple joints 03/29/2023 Ulcerative (chronic) pancolitis without complica tions Encounters Date Type Department Care Team Description 10/02/2024 10:00 AM CDT Office Visit Rheumatology at [facility] [place] [address] Humaira Evans MD Osteoarthritis of multiple joints, unspecified osteoarthritis type (Primary Dx); Osteoporosis, unspecified osteoporosis type, unspecified pathological fracture presence (HRC); Psoriasis; 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) from Last 3 Months Immunizations Immunization Administration Dates Next Due Flu Vac (3+ yrs) 03/19/2014,02/18/2009 Flu Vac Preserv Free (3+yrs) 03/15/2010 Influenza N5T6-29 04/21/2009 Influenza IIV3 (Trivalent) F jason Highdose, 65+ Yrs (48636) 01/18/2020,04/29/2016,04/10/2015 Influenza IIV4 (Quadrivalent) 0.5mL (62125) 02/26 Influenza IIV4 (Quadrivalent ) Fluzone, 65+ [...] this topic Insurance MEDICARE ADVANTAGE Care Teams Patch Finisher Relationship Specialty Start Date End Date Candy Gee MD [address] [id number] PCP - General Internal Medicine 03/05/20
--- OUTSIDE RECORDS SUMMARY | 2024-10-08 12:19 | XMS_ITS | Clinical Summary ---
Author Organization [employer] [facility] Address [address] [place] [id number] Care Team Providers Care Merchandise Marker Name Role Phone Candy Gee MD Primary Care Provider +1- [phone] Allergies Active Allergy Reactions Criticality Noted Date Comments Atorvastatin Arthralgia Medium 12/15/2018 Nirmatrelvir-Ritonavir Tachycardia 05/13/2022 Quinolones Edema Medium 12/15/2018 Simvastatin Arthralgia Low 12/15/2018 Sulfa (Sulfonamide Antibiotics) Laryngospasm High Tolterodine *Unknown Medium 12/15/2018 Medications fluticasone (50 mcg per actuation) nasal solution (FLONASE) Inhale 1 Magnolia in the nostril(s) once daily. 9 Active Mesalamine (ASACOL) 800 mg TbEC Delayed-Release tablet Take 1 tablet by mouth 2 times daily. 8 Active omeprazole (PRILOSEC) 20 mg Delayed-Release capsule Take 20 mg by mouth once daily before a meal. 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 TRIGLYCERIDES 168(H) <150 mg/dL 08/23/2020 6:13 AM CDT [facility] HDL CHOLESTEROL 37(L) >40 mg/dL 6:13 AM CDT [facility] NON-HDL CHOLESTEROL 132 <145 mg/dl 08/23/2020 6:13 AM CDT [facility] CHOL/HDL RATIO 4.57(H) <4.50 08/23/2020 6:13 AM CDT [facility] LDL CHOLESTEROL 98 <=130 mg/dL 08/23/2020 6:13 AM CDT [facility] PROVIDER ORDERED STATUS RANDOM 08/23/2020 6:13 AM CDT [facility] Blood BLOOD SPECIMEN / Unknown Venipuncture / Unknown 08/23/2020 5:47 AM CDT 08/23/2020 5:52 AM CDT us Eryn Benavides MD CHEMISTRY Final Result [facility] [address] [place] [address], [place] from Last 3 Months or Most Recently Relevant to Health Maintenance Insurance MEDICARE PART A HB ONLY [employer] MEDICARE ADVANTAGE [address] [id number] Advance Directives * Full Code (Latest Code Status on File) Date Activated Date Inactivated Comments 08/23/2020 10:20 AM 08/23/2020 1:57 PM Question Answer Comments Code Status Discussion: Discussed * Full Code Date Activated Date Inactivated Comments 12/26/2019 3:38 PM 12/27/2019 1:20 PM Care Teams Merchandise Marker Relationship Specialty Start Date End Date Candy Gee MD [address] [place] [id number] PCP - General Internal Medicine 03/01/19
--- OUTSIDE RECORDS SUMMARY | 2024-10-08 12:19 | XMS_ITS | Encounter Summary ---
[facility] Address [address], [place] [address] Care Team Providers Care Airport Guide Name Role Phone Candy Gee MD Primary Care Provider +1- [phone] Reason for Visit * Reason Comments Follow-up Encounter Details Date Type Department Care Team (Late st Contact Info) Description 10/02/2024 10:00 AM CDT Office Visit Rheumatology at [facility] [address] [id number] Humaira Evans MD [address] [place], [place] [id number] Osteoarthritis of multiple joints, unspecified osteoarthritis type [...] Central scheduling for injections or infusions at [phone] documented in this encounter Progress Notes * [...] 0.5 04/03/2024 [facility] MARLON: 1:80, speckled 02/2020: SUNSHINE panel negative [...] Billing based on: complexity Humaira Evans MD [facility] Rheumatology documented in this encounter Plan of Treatment Not on file documented as of this encounter Visit Diagnoses Diagnosis Osteoarthritis of multiple joints, unspecified osteoarthritis type- Primary Osteoporosis, unspecified osteoporosis type, unspecified pathological fracture presence (HRC) Psoriasis Other psoriasis 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) documented in this encounter Care Teams Airport Guide Relationship Specialty Start Date End Date Candy Gee MD [address] [place] [address] PCP - General Internal Medicine 03/05/20 documented as of this encounter
[2024-10-08 12:48] LABS: Lactate* 1.2 mmol/L (0.5-1.9)
[2024-10-08] MEDS: 0.9 % SODIUM CHLORIDE 1000 ml 1,000 ML IV (12:53)
[2024-10-08 12:56] LABS: Basophils Percent Auto 0.4 % (0.0-3.0); Eosinophils Percent Auto 1.1 % (0.0-7.0); Hematocrit 41.1 % (33.0-51.0); Hemoglobin* 13.6 gm/dL (12.0-16.0); Lymphocytes Percent Auto 28.1 % (20-44); Mean Corpuscular HGB Conc 33 gm/dL (32-36); Mean Corpuscular Hemoglobin 30 pg (26-34); Mean Corpuscular Volume 89 fL (80-100); Monocytes Percent Auto 7.1 % (0.0-11.0); Neutrophils Percent Auto 62.1 % (42.0-72.0); Platelet Count* 242 K/uL (140-440); RDW Coefficient of Variation % 12.5 % (11.5-15.5); White Blood Count* 5.65 K/uL (4.50-11.00)
[2024-10-08 12:57] LABS: Basophils Absolute Auto 0.02 K/uL (0.00-0.30); Eosinophils Absolute Auto 0.06 K/uL (0.00-0.50); Immature Granulocytes Abs Auto 0.07 K/uL (0.00-0.30); Immature Granulocytes Pct Auto 1.2 %; Lymphocytes Absolute Auto 1.59 K/uL (0.90-2.90); Neutrophils Absolute Auto 3.51 K/uL (1.7-7.0); Slide Review Reflex No
[2024-10-08 12:58] LABS: Troponin, Point-of-Care* 0.01 ng/ml (0.01-0.04)
[2024-10-08 13:07] LABS: Chloride* 105 mmol/L (96-114); Potassium* 3.6 mmol/L (3.6-5.1); Sodium* 142 mmol/L (135-149)
[2024-10-08 13:09] LABS: Blood Urea Nitrogen* 14 mg/dL (7-30); Creatinine* 0.7 mg/dL (0.5-1.5); Estimated Glomerular Filt Rate 90 ml/min
[2024-10-08 13:10] LABS: Anion Gap 9 mEq/L (7-15); Calcium* 9.3 mg/dL (8.4-10.6); Carbon Dioxide* 28 mmol/L (20-32); Glucose* 97 mg/dL (60-115); Magnesium* 1.7 mg/dL (1.5-2.6)
[2024-10-08 13:22] LABS: NT Pro B Type NatriureticPept* 341 pg/mL
== END 2024-10-08 14:08 | disposition home or self-care (01) ==
PROVIDERS: Emergency Provider Emergency Medicine; PCP Internal Medicine
DX: I10 Essential (primary) hypertension (principal); R42 Dizziness and giddiness
CPT/HCPCS: 36415; 70450; 71046; 80048; 83605; 83735; 83880; 84484; 85025; 93005; 99283; 99284; 99285; J7030

== ENCOUNTER 2024-12-16 08:20 | Outpatient (CLI) | payer OTHER, SELFPAY | END 2024-12-16 08:21 | disposition home or self-care (01) | LOC: NFLDREF 17:33 | PROVIDERS: PCP Internal Medicine; Referring Provider Internal Medicine; Visit Provider Internal Medicine | DX: M85.80 Other specified disorders of bone density and structure, unspecified site (principal); I10 Essential (primary) hypertension; E78.5 Hyperlipidemia, unspecified | CPT/HCPCS: 80048; 80061; 82306 ==

== ENCOUNTER 2024-12-24 08:56 | Outpatient (CLI) | payer OTHER, SELFPAY ==
--- NOTE | 2024-12-24 09:15 | CRLHL7_ITS ---
For Patients: As a result of the Century Cures Act, medical imaging exams and procedure reports are released immediately into your electronic medical record. You may view this report before your referring provider. If you have questions, please contact your health care provider. INDICATION: BILATERAL SCREENING MAMMOGRAM, ASYMPTOMATIC 74 Y/O FEMALE COMPARISON: 12/22/2023, 05/16/2022, 04/12/2021 TECHNIQUE: Digital mammogram in CC and MLO projections including computer-aided detection (CAD) and tomosynthesis. BREAST COMPOSITION: There are scattered areas of fibroglandular density. FINDINGS: No suspicious findings. ASSESSMENT: BI-RADS 1 Negative RECOMMENDATION: Annual screening mammogram. A lay language report of this examination will be provided to the patient. Dictated by: Abimbola Seo MD @ 12/25/2024 10:09:16 (Electronically Signed)
== END 2024-12-24 08:57 | disposition home or self-care (01) ==
LOC: MAMMO 08:57
PROVIDERS: PCP Internal Medicine; Visit Provider Internal Medicine
DX: Z12.31 Encounter for screening mammogram for malignant neoplasm of breast (principal)
CPT/HCPCS: 77063; 77067

== ENCOUNTER 2025-04-21 16:22 | Outpatient (CLI) | payer OTHER, SELFPAY | END 2025-04-21 16:23 | disposition home or self-care (01) | LOC: NFLDREF 04-25 12:41 | PROVIDERS: PCP Internal Medicine; Referring Provider Internal Medicine; Visit Provider Physician Assistant | DX: N39.0 Urinary tract infection, site not specified (principal) | CPT/HCPCS: 87086 ==

== ENCOUNTER 2025-05-19 10:14 | Outpatient (CLI) | payer OTHER, SELFPAY | END 2025-05-19 10:15 | disposition home or self-care (01) | LOC: NPINS 10:15 | PROVIDERS: PCP Internal Medicine; Visit Provider Student in an Organized Health Care Education/Training Program | DX: Z79.899 Other long term (current) drug therapy (principal) | CPT/HCPCS: 86480 ==